=== PATIENT | male | born 1940 | race Caucasian/White ===

== ENCOUNTER 2023-03-24 08:17 | Outpatient (OUT) | payer MEDICARE, SELFPAY ==
[2023-03-24 08:48] LABS: Bilirubin Urine NEGATIVE (NEGATIVE); Blood Urine NEGATIVE (NEGATIVE); Clarity Urine CLEAR (CLEAR); Color Urine LT. YELLOW (YELLOW); Glucose Urine UA NEGATIVE (NEGATIVE); Ketones Urine NEGATIVE (NEGATIVE); Leukocyte Esterase Urine NEGATIVE (NEGATIVE); Nitrite Urine NEGATIVE (NEGATIVE); Protein Urine NEGATIVE (NEG/TRACE); Urobilinogen Urine 0.2 EU/dL (0.2-1.0)
[2023-03-24 08:54] LABS: Bacteria Urine NONE SEEN #/HPF (NONE SEEN); Cast Seen? NONE SEEN #/LPF (NONE SEEN); Crystals Seen? None Seen #/HPF (None Seen); Mucus Urine NONE SEEN (NONE SEEN); RBC Urine NONE SEEN #/HPF (0-2); Squamous Epithelial Cell Urine FEW #/LPF (NONE/RARE); Urine Culture Indicated NO; WBC Urine NONE SEEN #/HPF (NONE SEEN)
[2023-03-24 09:08] LABS: Creatinine Urine Random 95.32 mg/dL (20.00-300.00); Protein Creatinine Ratio Urine 0.07; Total Protein Urine Random 6.9 mg/dL (<=11.9)
[2023-03-24 09:13] LABS: Hematocrit 38.5 % (42.0-54.0); Hemoglobin 13.2 g/dL (14.0-18.0); Mean Corpuscular HGB Conc 34.3 g/dL (29.9-35.2); Mean Corpuscular Hemoglobin 29.6 pg (25.9-34.0); Mean Corpuscular Volume 86.3 fL (80.0-94.0); Mean Platelet Volume 9.6 fL (9.5-13.5); Platelet Count 299 10^3/uL (150-450); Red Blood Count 4.46 10^6/uL (4.70-6.10); Red Cell Distribution Width 13.1 % (11.0-15.0); White Blood Count 8.5 10^3/uL (4.0-11.0)
[2023-03-24 09:47] LABS: Anion Gap 14.9; BUN Creatinine Ratio 13.2; Calcium 8.7 mg/dL (8.5-10.1); Carbon Dioxide 24.5 mmol/L (21.0-32.0); Chloride 101 mmol/L (98-107); Estimated GFR (African America 35 (>=60); Estimated GFR (Non-African Ame 29 (>=60); Glucose 98 mg/dL (74-106); Magnesium 1.9 mg/dL (1.8-2.4); Percent Iron Saturation 31.6 %; Potassium 4.4 mmol/L (3.5-5.1); Sodium 136 mmol/L (136-145)
[2023-03-25 12:09] LABS: PTH, Intact 108 pg/mL (15-65)
== END 2023-03-24 08:18 | disposition home or self-care (01) ==
LOC: LAB 08:22
PROVIDERS: PCP Nurse Practitioner; Visit Provider Internal Medicine
DX: I12.9 Hypertensive chronic kidney disease with stage 1 through stage 4 chronic kidney disease, or unspecified chronic kidney disease (principal); N18.32 Chronic kidney disease, stage 3b; D63.1 Anemia in chronic kidney disease; N25.81 Secondary hyperparathyroidism of renal origin; M10.9 Gout, unspecified
CPT/HCPCS: 36415; 80069; 81001; 82306; 82570; 82728; 83540; 83550; 83735; 83970; 84156; 85027

== ENCOUNTER 2023-10-20 08:04 | Outpatient (OUT) | payer MEDICARE, SELFPAY ==
[2023-10-20 08:45] LABS: Basophils Percent Auto 0.5 % (0.2-2.0); Eosinophils Absolute Auto 0.5 10^3/uL (0.0-0.7); Eosinophils Percent Auto 5.5 % (0.9-7.0); Hematocrit 39.2 % (42.0-54.0); Hemoglobin 12.9 g/dL (14.0-18.0); Immature Granulocytes Abs Auto 0.05 10^3/uL (0.00-0.03); Immature Granulocytes Pct Auto 0.6 % (0.0-0.5); Lymphocytes Absolute Auto 1.6 10^3/uL (1.2-3.8); Lymphocytes Percent Auto 18.7 % (20.5-60.0); Mean Corpuscular HGB Conc 32.9 g/dL (29.9-35.2); Mean Corpuscular Hemoglobin 28.9 pg (25.9-34.0); Mean Corpuscular Volume 87.9 fL (80.0-94.0); Mean Platelet Volume 9.6 fL (9.5-13.5); Monocytes Absolute Auto 0.8 10^3/uL (0.3-0.8); Monocytes Percent Auto 9.3 % (1.7-12.0); Neutrophils Absolute Auto 5.7 10^3/uL (1.4-6.5); Neutrophils Percent Auto 65.4 % (43.0-75.0); Platelet Count 281 10^3/uL (150-450); Red Blood Count 4.46 10^6/uL (4.70-6.10); Red Cell Distribution Width 13.2 % (11.0-15.0); White Blood Count 8.7 10^3/uL (4.0-11.0)
[2023-10-20 09:08] LABS: Microalbum Creatinine Ratio Ur 13.1 mg/g (0.0-29.9); Microalbumin Urine Random <1.3 mg/dL (<=30.0)
[2023-10-20 09:08] LABS: Alanine Aminotransferase 25 U/L (16-63); Albumin Globulin Ratio 1.2; Albumin Level 3.8 g/dL (3.4-5.0); Alkaline Phosphatase 90 U/L (46-116); Anion Gap 17.2; Aspartate Amino Transferase 20 U/L (15-37); BUN Creatinine Ratio 12.9; Bilirubin Total 0.5 mg/dL (0.2-1.0); Calcium 8.5 mg/dL (8.5-10.1); Chloride 102 mmol/L (98-107); Chol HDL Ratio 4.5; Cholesterol 196 mg/dL (<=200); Estimated GFR (African America 36 (>=60); Estimated GFR (Non-African Ame 29 (>=60); Globulin 3.3 g/dL; Glucose 92 mg/dL (74-106); HDL Cholesterol 44 mg/dL (40-60); Potassium 4.2 mmol/L (3.5-5.1); Sodium 139 mmol/L (136-145); Total Protein 7.1 g/dL (6.4-8.2); Triglycerides 215 mg/dL (<=150)
[2023-10-20 09:26] LABS: Prostate Specific Antigen Dx 5.36 ng/mL (<=4.00)
== END 2023-10-20 08:05 | disposition home or self-care (01) ==
LOC: LAB 08:06
PROVIDERS: PCP Nurse Practitioner; Visit Provider Nurse Practitioner
DX: I12.9 Hypertensive chronic kidney disease with stage 1 through stage 4 chronic kidney disease, or unspecified chronic kidney disease (principal); N18.32 Chronic kidney disease, stage 3b; D63.1 Anemia in chronic kidney disease; N25.81 Secondary hyperparathyroidism of renal origin; M10.9 Gout, unspecified; Z12.5 Encounter for screening for malignant neoplasm of prostate; N18.4 Chronic kidney disease, stage 4 (severe); K21.9 Gastro-esophageal reflux disease without esophagitis; J44.9 Chronic obstructive pulmonary disease, unspecified; E78.2 Mixed hyperlipidemia
CPT/HCPCS: 36415; 80053; 80061; 81001; 82043; 82306; 82570; 82728; 83540; 83550; 83735; 83970; 84100; 84153; 84156; 84550; 85025

== ENCOUNTER 2023-10-20 08:09 | Outpatient (OUT) | payer MEDICARE, SELFPAY ==
[2023-10-20 08:51] LABS: Bilirubin Urine NEGATIVE (NEGATIVE); Blood Urine NEGATIVE (NEGATIVE); Clarity Urine CLEAR (CLEAR); Color Urine LT. YELLOW (YELLOW); Glucose Urine UA NEGATIVE (NEGATIVE); Ketones Urine NEGATIVE (NEGATIVE); Leukocyte Esterase Urine NEGATIVE (NEGATIVE); Nitrite Urine NEGATIVE (NEGATIVE); Protein Urine NEGATIVE (NEG/TRACE); Specific Gravity Urine 1.015 (1.005-1.025); Urobilinogen Urine 0.2 EU/dL (0.2-1.0); pH Urine 5.5 (5.0-9.0)
[2023-10-20 09:01] LABS: Protein Creatinine Ratio Urine 0.14; Total Protein Urine Random 13.3 mg/dL (<=11.9)
[2023-10-20 09:06] LABS: Percent Iron Saturation 31.4 %
[2023-10-20 09:06] LABS: Bacteria Urine NONE SEEN #/HPF (NONE SEEN); Cast Seen? NONE SEEN #/LPF (NONE SEEN); Crystals Seen? None Seen #/HPF (None Seen); Mucus Urine NONE SEEN (NONE SEEN); RBC Urine 0-2 #/HPF (0-2); Squamous Epithelial Cell Urine NONE SEEN #/LPF (NONE/RARE); WBC Urine 0-2 #/HPF (NONE SEEN)
[2023-10-20 09:08] LABS: Magnesium 2.1 mg/dL (1.8-2.4); Phosphorus 3.9 mg/dL (2.6-4.7); Uric Acid 8.4 mg/dL (3.5-7.2)
[2023-10-21 10:11] LABS: PTH, Intact 66 pg/mL (15-65)
== END 2023-10-20 08:10 | disposition home or self-care (01) ==
LOC: LAB 08:10
PROVIDERS: PCP Nurse Practitioner; Visit Provider Internal Medicine
DX: I12.9 Hypertensive chronic kidney disease with stage 1 through stage 4 chronic kidney disease, or unspecified chronic kidney disease (principal); N18.32 Chronic kidney disease, stage 3b; D63.1 Anemia in chronic kidney disease; N25.81 Secondary hyperparathyroidism of renal origin; M10.9 Gout, unspecified
CPT/HCPCS: 36415; 81001; 82570; 82728; 83540; 83550; 83735; 83970; 84100; 84156; 84550

== ENCOUNTER 2024-03-20 16:17 | Inpatient (IN) | payer MEDICARE, SELFPAY ==
[2024-03-20] VITALS (13 sets, daily range): BP systolic 125–166; BP diastolic 63–89; PULSE 75–90; TEMP 36.7–36.8; O2SAT 83–97; BMI 26.6; BMI 25.8
--- NOTE | 2024-03-20 16:28 | XR_ITS ---
The [address] [address] Patient Name: GUANAKO NORMAN MRN: [id number] date: 1940 Sex: M Assigned Patient Location: ED.MAIN Current Patient Location: ER Accession/Order Number: [id number] Exam Date: 03/20/2024 17:10 Report Date: 03/20/2024 17:55 At the request of: YESI ALEXANDER Procedure: XR chest 1V EXAM: XR chest 1V HISTORY: Shortness of breath COMPARISON: 02/11/2022 TECHNIQUE: Chest X-ray AP, 1 view FINDINGS: Support devices: None. Lungs/pleura: No consolidation, effusion, or pneumothorax. Heart and mediastinum: Normal contours. Bones: No acute abnormality identified. XR/XR chest 1V Impression: No radiographic evidence of acute cardiopulmonary process. Electronically authenticated by: DANTE CHAVEZ Date: 03/20/2024 17:55
--- NOTE | 2024-03-20 16:28 | ECG_ITS ---
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
--- NOTE | 2024-03-20 16:30 | ED.SOB1 ---
HPI - SOB/Dyspnea General Chief Complaint: Shortness of Breath/Dyspnea Stated Complaint: SOB Time Seen by Provider: 03/20/24 16:23 Mode of arrival: walk-in History of Present Illness HPI Narrative: Patient an 84-year-old male with a history of COPD who presents to the emergency department for evaluation of shortness of breath began this morning. He has home nebulizer treatments and states that he gave himself breathing treatments today but did not have any improvement. 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 He states this morning he woke up feeling very short of breath although he does not have chest pain, he reports tightness in the chest. No fevers, cough or congestion. He has not been on any recent antibiotics or steroids. He denies any peripheral edema, he quit smoking 6 to 7 years ago. Related Data Home Medications ?Medication ?Instructions ?Recorded ?Confirmed atenolol 25 mg tablet 25 mg PO Q24H 03/20/24 03/20/24 buspirone 10 mg tablet 10 mg PO TID PRN anxiety 03/20/24 03/20/24 citalopram 10 mg tablet 10 mg PO DAILY 03/20/24 03/20/24 famotidine 20 mg tablet 20 mg PO DAILY 03/20/24 03/20/24 furosemide 20 mg tablet 20 mg PO DAILY 03/20/24 03/20/24 ipratropium 0.5 mg-albuterol 3 mg 3 ml inhalation Q8H PRN shortness 03/20/24 03/20/24 (2.5 mg base)/3 mL nebulization of breath or wheezing soln losartan 25 mg tablet 25 mg PO DAILY 03/20/24 03/20/24 pravastatin 80 mg tablet 80 mg PO DAILY 03/20/24 03/20/24 Allergies Allergy/AdvReac Type Severity Reaction Status Date / Time No Known Drug Allergies Allergy Verified 03/20/24 16:32 Review of Systems ROS Constitutional Denies: fever or chills Ears, nose, mouth, and throat Denies: throat pain or nasal congestion Cardiovascular Denies: chest pain Respiratory Reports: shortness of breath; Denies: cough or wheezing Gastrointestinal Denies: abdominal pain, nausea or vomiting Musculoskeletal Denies: back pain or neck pain Integumentary/Breast Denies: rash Neurological Denies: numbness in extremities or weakness in extremities Hematologic/Lymphatic Denies: easy bruising or easy bleeding Exam Narrative Exam Narrative: Gen.: Awake, alert, in no distress Head: Normocephalic, atraumatic ENT: Moist mucous membranes Respiratory: No respiratory distress, tachypnea, diminished lung sounds globally, no wheezing Cardio: Regular rate and rhythm Gastrointestinal: Abdomen is soft, nondistended and nontender to palpation Extremities: Moves extremities equally, 1+ nonpitting pedal edema Psych: Normal mood and affect Neuro: No focal neuro deficit Skin: Warm, dry, intact Constitutional Vital Signs, click to edit/add: Last Vital Signs Temp 98.1 F 03/20/24 16:26 Pulse 82 03/20/24 17:00 Resp 23 H 03/20/24 17:00 BP 144/82 H 03/20/24 17:00 Pulse Ox 95 03/20/24 17:00 O2 Del Method Nasal Cannula 03/20/24 16:58 O2 Flow Rate 3.5 03/20/24 16:58 Course Vital Signs Vital signs: Vital Signs Temperature 98.1 F 03/20/24 16:26 Pulse Rate 90 03/20/24 16:26 Respiratory Rate 26 H 03/20/24 16:26 Blood Pressure 166/78 H 03/20/24 16:26 Pulse Oximetry 85 L 03/20/24 16:26 Oxygen Delivery Method Room Air 03/20/24 16:26 Temperature 98.1 F 03/20/24 16:26 Pulse Rate 82 03/20/24 17:00 Respiratory Rate 23 H 03/20/24 17:00 Blood Pressure 144/82 H 03/20/24 17:00 Pulse Oximetry 95 03/20/24 17:00 Oxygen Delivery Method Nasal Cannula 03/20/24 16:58 Oxygen Delivery Flow Rate 3.5 03/20/24 16:58 MDM - SOB/Dyspnea MDM Narrative Medical decision making narrative: Laboratory studies reviewed and noted within normal limits, chest x-ray reviewed by the radiologist with no evidence of acute process. On arrival to the emergency department, patient was hypoxic and very winded. He was placed on oxygen by 2 L nasal cannula with significant improvement. He was given breathing treatments, Solu-Medrol. On reevaluation, he was taken off of the nasal cannula and maintained oxygen saturation at rest but on ambulation without oxygen, he quickly became hypoxic and very winded. Patient will be admitted for COPD exacerbation for continued breathing treatments and steroids. Azithromycin and Rocephin given for antibiotic coverage at time of admission to hospitalist service. SUPERVISED APC VISIT, PHYSICIAN ATTESTATION: Based on the medical record the care appears appropriate. ? Medical Records Attestation: I reviewed the patient's medical records. Lab Data Attestation: I reviewed the patient's lab results. Labs: Lab Results 03/20/24 Range/Units 16:45 WBC 16.9 H (4.0-11.0) 10^3/uL RBC 4.48 L (4.70-6.10) 10^6/uL Hgb 13.0 L (14.0-18.0) g/dL Hct 38.6 L (42.0-54.0) % MCV 86.2 (80.0-94.0) fL MCH 29.0 (25.9-34.0) pg MCHC 33.7 (29.9-35.2) g/dL RDW 13.1 (11.0-15.0) % Plt Count 303 (150-450) 10^3/uL MPV 9.5 (9.5-13.5) fL Neut % (Auto) 85.8 H (43.0-75.0) % Lymph % (Auto) 7.2 L (20.5-60.0) % [place] % (Auto) 5.7 (1.7-12.0) % Eos % (Auto) 0.8 L (0.9-7.0) % Baso % (Auto) 0.2 (0.2-2.0) % Neut # (Auto) 14.5 H (1.4-6.5) 10^3/uL Lymph # (Auto) 1.2 (1.2-3.8) 10^3/uL [place] # (Auto) 1.0 H (0.3-0.8) 10^3/uL Eos # (Auto) 0.1 (0.0-0.7) 10^3/uL Baso # (Auto) 0.0 (0.0-0.1) 10^3/uL Abs Immat Gran (auto) 0.05 H (0.00-0.03) 10^3/uL Imm/Tot Granulo (auto) 0.3 (0.0-0.5) % PT 10.8 (9.0-11.6) sec INR 1.02 VBG pH 7.437 H (7.330-7.430) VBG pCO2 32.3 L (40.0-52.0) mmHg Sodium 134 L (136-145) mmol/L Potassium 4.1 (3.5-5.1) mmol/L Chloride 100 (98-107) mmol/L Carbon Dioxide 23.1 (21.0-32.0) mmol/L Anion Gap 15.0 BUN 34.0 H (7.0-18.0) mg/dL Creatinine 2.03 H (0.70-1.30) mg/dL Est GFR ( Amer) 38 L (>=60) Est GFR (Non-Af Amer) 32 L (>=60) BUN/Creatinine Ratio 16.7 Glucose 122 H (74-106) mg/dL Lactate 1.3 (0.4-2.0) mmol/L Calcium 9.3 (8.5-10.1) mg/dL Magnesium 1.9 (1.8-2.4) mg/dL Total Bilirubin 0.6 (0.2-1.0) mg/dL AST 18 (15-37) U/L ALT 23 (16-63) U/L Alkaline Phosphatase 99 (46-116) U/L Troponin I High Sens 12.2 (4.0-76.1) pg/mL NT-Pro-B Natriuret Pep 575.0 (<=1800.0) pg/mL Total Protein 7.4 (6.4-8.2) g/dL Albumin 4.1 (3.4-5.0) g/dL Globulin 3.3 g/dL Albumin/Globulin Ratio 1.2 Imaging Data Chest x-ray: Attestation: I have reviewed the pertinent imaging results. Radiologist's impression: ITS Impressions Chest X-Ray 03/20/24 16:28 Impression: No radiographic evidence of acute cardiopulmonary process. Electronically authenticated by: DANTE CHAVEZ Date: 03/20/2024 17:55 ECG Data Attestation: I personally reviewed and interpreted this ECG as follows: (Normal sinus rhythm at a rate of 84, no acute ST elevation or ectopy. EKG reviewed by attending physician) Discharge Plan Discharge Chief Complaint: Shortness of Breath/Dyspnea Clinical Impression: COPD exacerbation Patient Disposition: Admitted as Observation Time of Disposition Decision: 18:01 Condition: Good
--- OUTSIDE RECORDS SUMMARY | 2024-03-20 16:51 | XMS_ITS | CCD ---
Author Organization [facility] Care Team Providers Care Tongue And Groove Machine Feeder Name Role Phone Mariam, Praveen Unavailable AICHHOLZ, CAN MARKER ANTOINETTE Admitting Unavailable AICHHOLZ, CAN MARKER ANTOINETTE Attending Unavailable AICHHOLZ, CAN MARKER ANTOINETTE Primary Care Unavailable AICHHOLZ, CAN MARKER ANTOINETTE Consulting Unavailable AICHHOLZ, CAN MARKER ANTOINETTE Admitting Unavailable AICHHOLZ, CAN MARKER ANTOINETTE Attending Unavailable AICHHOLZ, CAN MARKER ANTOINETTE Primary Care Unavailable WEDGEFIELD, DR BUBBA Amaya Consulting Unavailable AICHHOLZ, CAN MARKER ANTOINETTE Consulting Unavailable AICHHOLZ, CAN MARKER ANTOINETTE Admitting Unavailable AICHHOLZ, CAN MARKER ANTOINETTE Attending Unavailable AICHHOLZ, CAN MARKER ANTOINETTE Primary Care Unavailable AICHHOLZ, CAN MARKER ANTOINETTE Consulting Unavailable UDAY, ADELINE Admitting Unavailable UDAY, ADELINE Attending Unavailable AICHHOLZ, CAN MARKER ANTOINETTE Primary Care Unavailable WEDGEFIELD, DR BUBBA Amaya Consulting Unavailable UDAY, ADELINE Consulting Unavailable ABBAS, DR SY Admitting Unavailable ABBAS, DR SY Attending Unavailable AICHHOLZ, CAN MARKER ANTOINETTE Primary Care Unavailable ABBAS, DR SY Consulting Unavailable ZIEBER, DR MAURO Barnes Consulting Unavailable ABBAS, DR SY Admitting Unavailable ABBAS, DR SY Attending Unavailable AICHHOLZ, CAN MARKER ANTOINETTE Primary Care Unavailable ABBAS, DR SY Consulting Unavailable MARIAM, PRAVEEN Admitting Unavailable MARIAM, PRAVEEN Attending Unavailable AICHHOLZ, CAN MARKER ANTOINETTE Primary Care Unavailable MARIAM, PRAVEEN Consulting Unavailable AICHHOLZ, CAN MARKER ANTOINETTE Admitting Unavailable AICHHOLZ, CAN MARKER ANTOINETTE Attending Unavailable AICHHOLZ, CAN MARKER ANTOINETTE Primary Care Unavailable WEST, DR BUBBA Amaya Consulting Unavailable AICHHOLZ, CAN MARKER ANTOINETTE Consulting Unavailable MARIAM, PRAVEEN Admitting Unavailable MARIAM, PRAVEEN Attending Unavailable AICHHOLZ, CAN MARKER ANTOINETTE Primary Care Unavailable MARIAM, PRAVEEN Consulting Unavailable Naderer MD, Wallace Primary Care Provider [phone] ANTOINETTE CARRILLO Attending Unavailable Allergies Allergy Classification Reported Allergen(s) Allergy Type Date of Onset Reaction(s) Facility (1 source) Amino Acids Drug Allergy [facility] Repository Medications Current Medications Medication Drug Class(es) Dates Sig (Normalized) Sig (Original) 200 actuat albuterol 0.09 mg/actuat dry powder inhaler (1 source) beta2-Adrenergic Agonist Start: 10-30-2023 Albuterol Sulfate Active 2 INH INHALATION Every 4 hours October 30, 2023 12:00am albuterol 0.833 mg/ml / ipratropium bromide 0.167 mg/ml inhalation solution (3 sources) Anticholinergic, beta2-Adrenergic Agonist Start: 10-30-2023 take 1 mL by inhalation every six hours Ipratropium-Albut cheng Active 3 ML INHALATION Every 6 hours October 30, 2023 12:00am Start: 08-14-2023 ipratropium-al buterol (Duo-Neb) 0.5-2.5 mg/3 mL nebulizer solution Indications: Centrilobular emphysema (CMS/HCC) 1 unit dose every 6 hours prn shortness of breath or wheezing 180 mL 1 08/14/2023 Active take 3 mL by inhalat ion every six hours as needed Ipratropium-Albuterol 0.5-2.5 (3) MG/3ML 3 ml as needed Inhalation every 6 hrs Active Albuterol Sulfate 108 (90 Base) MCG/ACT (1 source) take 2 puff(s) by inhalation every four hours as needed Albuterol Sulfate 108 (90 Base) MCG/ACT 2 puff as needed Inhalation every 4 hrs Active atenolol 25 mg oral tablet (2 sources) beta-Adrenergic Gisela Start: 10-30-2023 take 25 mg by mouth once daily Atenolol Active 25 MG PO Daily October 30, 2023 12:00am take 1 tablet by kavita th every twenty-four hours Atenolol 25 MG 1 tablet Orally Once a day Active busPIRone hydrochloride 10 mg oral tablet (2 sources) Start: 10-30-2023 take 10 mg by mouth three times daily Buspirone Active 10 MG PO Three times daily October 30, 2023 12:00am take 1 tablet by mouth every eig ht hours busPIRone HCl 10 MG 1 tablet Orally THREE TIMES A DAY Active citalopram 10 mg oral tablet (2 sources) Serotonin Reuptake Inhibitor Start: 10-30-2023 take 1 tablet by mouth once daily Citalopram Active 1 TAB PO Daily October 30, 2023 12:00am FreeTextSi tablet Orally Once a day; Note: Source Status: Taking; Provider: Mariam Morton ( ) take 1 tablet by kavita th every twenty-four hours Citalopram Hydrobromide 10 MG 1 tablet Orally Once a day Active furosemide 20 mg oral tablet (3 sources) Loop Diuretic Start: 10-24-2023 End: 10-24-2023 take 20 mg by mouth once daily Furosemide Active 20 MG PO Daily October 24, 2023 10:25am take 1 tablet by mouth once diana y losartan potassium 50 mg oral tablet (3 sources) Angiotensin 2 Receptor Gisela Start: 10-30-2023 take 50 mg by mouth once daily Losartan Active 50 MG PO Daily October 30, 2023 12:00am Start: 09-11-2023 End: 12-10-2023 take 1 tablet by mouth in the morning losartan (Cozaar) 25 MG tablet Indications: Essential (primary) hypertension (CMS/HCC) , Benign essential hypertension (CMS/HCC) Take 1 tablet (25 mg) by mouth in the morning. 90 tablet 1 09/11/2023 12/10/2023 Active take 1 tablet by kavita th every twenty-four hours Losartan Potassium 50 MG 1 tablet Orally Once a day Active Multi For Him 50+ - (1 source) Multi For Him 50 + - as directed Orally Active Multivitamin (Multiple Vitamins) tablet (1 source) Start: take 1 tablet by mouth once daily Multivitamin (Multiple Vitamins) tablet Active 1 TAB PO Daily October 30, 2023 12:00am pravastatin sodium 80 mg oral tablet (3 sources) HMG-CoA Reductase Inhibitor Start: End: 4 take 80 mg by mouth once daily Pravastatin Active 80 MG PO Daily October 30, 2023 10:50am take 1 tablet by kavita th every twenty-four hours Pravastatin Sodium 80 MG 1 tablet Orally Once a day Active Problems Active Problems Problem Classification Problem Date Documented Date Episodic/Chronic Anxiety disorders (4 sources) Anxiety disorder, unspecified; Translations: [ANXIETY DISORDER UNSPECIFIED] Onset: 2 Chronic Chronic kidney disease (5 sources) Chronic kidney disease stage 4; Translations: [Chronic kidney disease, stage 4 (severe)] Onset: 2 10-30-2023 Chronic Chronic kidney disease (3 sources) Chronic kidney disease; Translations: [Chronic kidney disease, stage 3b] Onset: 2 Resolved: 2 Chronic obstructive pulmonary disease and bronchiectasis (2 sources) Chronic obstructive pulmonary disease, unspecified; Translations: [Centriacinar emphysema] Onset: 2 07-30-2023 Chronic Deficiency and other anemia (2 sources) Anemia of renal disease; Translations: [Anemia in chronic kidney disease] 10-30-2023 Chronic Deficiency and other anemia (2 sources) Anemia in chronic kidney disease; Translations: [ANEMIA IN CHRONIC KIDNEY DISEASE] Onset: 2 Resolved: 2 Chronic Disorders of lipid metabolism (7 sources) Hyperlipidemia, unspecified; Translations: [Pure hypercholesterolemia, unspecified] Onset: 2 Chronic Esophageal disorders (1 source) Gastro-esophageal reflux disease without esophagitis; Translations: [GERD WITHOUT ESOPHAGITIS] Onset: 2 Chronic Essential hypertension (4 sources) Essential hypertension; Translations: [Essential (primary) hypertension] Onset: 4 09-11-2023 Chronic Gout and other crystal arthropathies (5 sources) Gout; Translations: [Gout, unspecified] Onset: 2 Resolved: 2 Chronic Hypertension with complications and secondary hypertension (9 sources) Chronic kidney disease due to hypertension; Translations: [Hypertensive chronic kidney disease with stage 1 through stage 4 chronic kidney disease, or unspecified chronic kidney disease] Onset: 2 Resolved: 2 Chronic Occlusion or stenosis of precerebral arteries (1 source) Occlusion and stenosis of left carotid artery; Translations: [OCCLUSION AND STENOSIS LT CAROTID ART] Onset: 3 Chronic Other connective tissue disease (4 sources) Pain in right leg; Translations: [PAIN IN RIGHT LEG] Onset: 3 Episodic Other connective tissue disease (1 source) Pain in left leg; Translations: [PAIN IN LEFT LEG] Onset: 3 Episodic Other diseases of bladder and urethra (1 source) Mass of urinary bladder; Translations: [Other specified disorders of bladder] Chronic Other diseases of kidney and ureters (2 sources) Secondary hyperparathyroidism; Translations: [Secondary hyperparathyroidism of renal origin] 10-30-2023 Chronic Other diseases of kidney and ureters (3 sources) Secondary hyperparathyroidism of renal origin; Translations: [Secondary hyperparathyroidism (of renal origin)] Onset: 2 Resolved: 2 Chronic Other diseases of kidney and ureters (4 sources) Disorder of kidney and ureter, unspecified; Translations: [DISORDER KIDNEY AND URETER UNS] Onset: 3 Episodic Other lower respiratory disease (1 source) Other abnormalities of breathing; Translations: [OTHER ABNORMALITIES OF BREATHING] Onset: 3 Episodic Other screening for suspected conditions (not mental disorders or infectious disease) (4 sources) Abnormal findings on diagnostic imaging of other specified body structures; Translations: [ABNORML FIND DX IMG OT BODY STRUC] Onset: 2 Chronic Other screening for suspected conditions (not mental disorders or infectious disease) (1 source) Encounter for screening for malignant neoplasm of prostate; Translations: [ENC SCREEN MALIG NEOPLASM PROSTATE] Onset: 3 Episodic Peripheral and visceral atherosclerosis (5 sources) Peripheral vascular disease, unspecified; Translations: [PERIPHERAL VASCULAR DISEASE UNS] Onset: 3 Chronic Past or Other Problems Problem Classification Problem Date Documented Da te Episodic/Chronic Acute and unspecified renal failure (1 source) Acute kidney failure, unspecified; Translations: [ACUTE KIDNEY FAILURE UNSPECIFIED] Onset: 01-10-2022 Episodic Other aftercare (1 source) prison (current) use of aspirin; Translations: [UNIVERSITY RELATIONS DIRECTOR CURRENT USE OF ASPIRIN] Onset: 01-10-2022 Episodic Other aftercare (1 source) Other assistant terminal manager (current) drug therapy; Translations: [OTH [facility] CURRENT DRUG THERAPY] Onset: 01-10-2022 Episodic Other lower respiratory disease (1 source) Dyspnea, unspecified; Translations: [DYSPNEA UNSPECIFIED] Onset: 01-10-2022 Episodic Screening and history of mental health and substance abuse codes (1 source) Personal history of nicotine dependence; Translations: [PERSONAL HISTORY OF NICOTINE DEPEND] Onset: 01-10-2022 Episodic Results Test Name Value Interpretation Reference Range Radha OROon 10-24-2022 Urea nitrogen [Mass/Vol] 30.0 mg/dL Critically high 7.0-18.0 [facility] Comment on above: Performed By: #### B HOME SERVICE TECHNICIAN, CMP, CMADM, TSH #### [facility] [address] [address] [address] Aliayh Fierro CREATININEon 10-24-2022 Creatinine [Mass/Vol] 1.97 mg/dL Critically high 0.70-1.30 [facility] Comment on above: Performed By: #### B HOME SERVICE TECHNICIAN, CMP, CMADM, TSH #### [facility] [address] [address] [address] Aliyah Fierro EGFR-AF MONGOLIAN 40 mL/min/1.73m2 Critically low >=60 [facility] Comment on above: Performed By: #### B HOME SERVICE TECHNICIAN, CMP, CMADM, TSH #### [facility] [address] [address] [address] Aliyah Fierro EGFR-NON AF MONGOLIAN 33 mL/min/1.73m2 Critically low >=60 [facility] Comment on above: Performed By: #### B HOME SERVICE TECHNICIAN, CMP, CMADM, TSH #### [facility] [address] [address] [address] Aliyah Fierro CREATININEon 10-21-2022 Creatinine [Mass/Vol] 2.10 mg/dL Critically high 0.70-1.30 [facility] Comment on above: Performed By: #### B HOME SERVICE TECHNICIAN, CMP, CMADM, TSH #### [facility] [address] [address] [address] Aliyah Fierro EGFR-AF MONGOLIAN 37 mL/min/1.73m2 Critically low >=60 [facility] Comment on above: Performed By: #### B HOME SERVICE TECHNICIAN, CMP, CMADM, TSH #### [facility] [address] [address] [address] Aliyah Fierro EGFR-NON AF MONGOLIAN 31 mL/min/1.73m2 Critically low >=60 [facility] Comment on above: Performed By: #### B HOME SERVICE TECHNICIAN, CMP, CMADM, TSH #### [facility] [address] [address] [address] Aliyah Fierro CTA ABD JESS WWO CON LE RUNO FFon 10-21-2022 CTA ABD JESS WWO CON LE RUNOFF EXAMINATION: CTA ABD JESS WWO CON LE RUNOFF HISTORY: Pain in left leg COMPARISON: No relevant comparison available. TECHNIQUE: After obtaining the patient's consent, CT images of the abdomen, pelvis, and lower extremities were obtained with non-ionic intravenous contrast material. Multi-planar reformatted/3-D images were created to optimize visualization of vascular anatomy. Dose reduction techniques were achieved by using automated exposure control and/or adjustment of mA and/or kV according to patient size and/or use of iterative reconstruction technique. FINDINGS: AORTA: No aneurysm or dissection. Normal renal and mesenteric vessels. ILIAC: No aneurysm or dissection. RIGHT LEG: No significant stenosis or occlusion. LEFT LEG: No significant stenosis or occlusion. LUNG BASES: Mild chronic interstitial changes and a few calcified granulomas. LIVER: No enlargement, atrophy, abnormal density, or significant focal lesion. BILIARY: No visible dilatation or calcification. PANCREAS: No lesion, fluid collection, ductal dilatation, or atrophy. SPLEEN: No enlargement or focal lesion. ADRENALS: No mass or enlargement. KIDNEYS: No mass, obstruction, or calcification. BOWEL/MESENTERY: Prior resection of ascending colon with small bowel-hepatic flexure anastomosis. No visible mass, obstruction, or bowel wall thickening. RETROPERITONEUM: No mass or adenopathy. PELVIC NODES: No adenopathy. URINARY BLADDER: No visible focal wall thickening, lesion, or calculus. PELVIC ORGANS: No visible mass. Pelvic organs appropriate for patient age. ABDOMINAL WALL: Small fat filled left inguinal hernia without strangulation. BONES: L4-L5 marked degenerative disc disease. Moderate degenerative changes of the knee joints, left greater than right. No bony lesion or fracture. OTHER: IMPRESSION: 1. Mild atherosclerotic disease throughout the aorta, major branches, bilateral lower extremities. Multifocal mild arterial narrowing with specific attention to the lower extremities. No suspicious findings. Electronically authenticated by: MAURO WEBSTER Date: 2022-10-21 15:35 Normal [facility] US CAROTID ART BILon 10-21-2 023 US CAROTID ART ZOILA EXAMINATION: US CAROTID ART ZOILA HISTORY: Cardiovascular symptoms COMPARISON: No relevant comparison available. TECHNIQUE: Duplex Doppler ultrasound analysis of carotid and vertebral arteries. . Bilateral carotid arterial duplex examination was performed using B-mode, color flow and spectral analysis. Carotid stenosis is reported according to validated velocity parameters, similar to NASCET criteria. FINDINGS: RIGHT CAROTID ARTERY: Moderate atherosclerotic narrowing of carotid bulb resulting in up to 74% area reduction. RIGHT VERTEBRAL: Antegrade flow. Subclavian: PSV: 76.8 cm/s EDV: 5.3 cm/s CCA: Prox: PSV: 78.1 cm/s EDV: 14.2 cm/s Mid: PSV: 84.6 cm/s EDV: 16.8 cm/s Distal: PSV: 71.6 cm/s EDV: 16.8 cm/s BULB: PSV: 45.3 cm/s EDV: 9.5 cm/s ICA: Prox: PSV: 82.7 cm/s EDV: 21.9 cm/s Mid: PSV: 80.1 cm/s EDV: 23.2 cm/s Distal: PSV: 80.1 cm/s EDV: 29.6 cm/s ECA: PSV: 80.1 cm/s EDV: 10.2 cm/s VERTEBRAL: PSV: 44.4 cm/s EDV: 11.3 cm/s ICA/CCA ratio: PSV: 1.2 EDV: 1.3 LEFT CAROTID ARTERY: Moderate atherosclerotic narrowing of carotid bulb resulting in up to 71% area reduction. LEFT VERTEBRAL: Antegrade flow. Subclavian: PSV: 121.0 cm/s EDV: 8.2 cm/s CCA: Prox: PSV: 89.2 cm/s EDV: 18.0 cm/s Mid: PSV: 64.5 cm/s EDV: 10.4 cm/s Distal: PSV: 51.4 cm/s EDV: 11.3 cm/s BULB: PSV: 51.4 cm/s EDV: 9.5 cm/s ICA: Prox: PSV: 56.4 cm/s EDV: 17.1 cm/s Mid: PSV: 84.9 cm/s EDV: 22.8 cm/s Distal: PSV: 72.0 cm/s EDV: 22.8 cm/s ECA: PSV: 77.5 cm/s EDV: 0.0 cm/s VERTEBRAL: PSV: 47.8 cm/s EDV: 12.8 cm/s ICA/CCA ratio: PSV: 1.7 EDV: 2.0 IMPRESSION: 1. Moderate atherosclerotic narrowing of the carotid bulbs; 74% area reduction on right, 71% on left. 2. 0-49% flow stenosis. Electronically authenticated by: MAURO WEBSTER Date: 2022-10-21 15:38 Normal [facility] LIPID PROFILEon 10-09-2022 CHOL-HDL RATIO NORM SEE BELOW Normal [facility] Comment on above: Result Comment: 3.3 - 4.4 LOW RISK 4.4 - 7.1 AVERAGE RISK 7.1 - 11.0 MODERATE RISK >11.0 HIGH RISK Performed By: #### L IVER, LIPID #### [facility] [address] [address] [address] Aliyah Fierro Cholesterol [Mass/Vol] 190 mg/dL Normal <=200 [facility] Comment on above: Performed By: #### L IVER, LIPID #### [facility] [address] [address] [address] Aliyah Fierro Cholesterol in HDL [Mass/Vol] 40 mg/dL Normal 40-60 [facility] Comment on above: Performed By: #### L IVER, LIPID #### [facility] [address] [address] [address] Aliyah Fierro Cholesterol in LDL [Mass/Vol] 108.4 mg/dL Normal [facility] Comment on above: Performed By: #### L IVER, LIPID #### [facility] [address] [address] [address] Aliyah Fierro Cholesterol.total/C holesterol in HDL [Mass ratio] 4.8 {ratio} Normal [facility] Comment on above: Performed By: #### L IVER, LIPID #### [facility] [address] [address] [address] Aliyah Fierro HDL NORMAL > or = 60 mg/dl - LO W CARDIOVASCULAR RISK <40 mg/dl - HIGH CARDIOVASCULAR RISK Normal [facility] Comment on above: Performed By: #### L IVER, LIPID #### [facility] [address] [address] [address] Aliyah Fierro LDL CALC NORMAL SEE BELOW Normal [facility] Comment on above: Result Comment: <100 mg/dl OPTIMAL 100 - 129 mg/dl NEAR OR ABOVE OPTIMAL 130 - 159 mg/dl BORDERLINE HIGH 160 - 189 mg/dl HIGH >190 mg/dl VERY HIGH Performed By: #### L IVER, LIPID #### [facility] [address] [address] [address] Aliyah Fierro Triglyceride [Mass/Vol] 208 mg/dL Critically high <=150 [facility] Comment on above: Performed By: #### L IVER, LIPID #### [facility] [address] [place] [address] Dr. Aliyah Fierro VLDL CALC 41.6 mg/dL Normal [facility] Comment on above: Performed By: #### L IVER, LIPID #### [facility] [address] [address] [address] Aliyah Fierro LIVER PROFILEon 10-09-2022 Albumin [Mass/Vol] 4.0 g/dL Normal 3.4-5.[address] [facility] Comment on above: Performed By: #### L IVMILLY, LIPID #### [facility] [address] [address] [address] Aliyah Fierro Albumin/Globulin [Mass ratio] 1.4 {ratio} Normal [facility] Comment on above: Performed By: #### L IVER, LIPID #### [facility] [address] [address] [address] Aliyah Fierro ALP [Catalytic activity/Vol] 80 U/L Normal 46-116 [facility] Comment on above: Performed By: #### L IVER, LIPID #### [facility] [address] [address] [address] Aliyah Fierro ALT [Catalytic activity/Vol] 25 U/L Normal 16-63 [facility] Comment on above: Performed By: #### L IVER, LIPID #### [facility] [address] [address] [address] Aliyah Fierro AST [Catalytic activity/Vol] 22 U/L Normal 15-37 [facility] Comment on above: Performed By: #### L IVER, LIPID #### [facility] [address] [address] [address] Aliyah Fierro BILI, CONJUGATED 0.1 mg/dL Normal 0.0-0.[address] [facility] Comment on above: Performed By: #### L IVER, LIPID #### [facility] [address] [address] [address] Aliyah Fierro Bilirubin [Mass/Vol] 0.4 mg/dL Normal 0.2-1.0 [facility] Comment on above: Performed By: #### L IVER, LIPID #### [facility] [address] [place] [address] Dr. Aliyah Fierro Globulin (S) [Mass/Vol] 2.8 g/dL Normal [facility] Comment on above: Performed By: #### L IVER, LIPID #### [facility] [address] [place] [address] Dr. Aliyah Fierro Protein [Mass/Vol] 6.8 g/dL Normal 6.4-8.[address] [facility] Comment on above: Performed By: #### L IVER, LIPID #### [facility] [address] [place] [address] Dr. Aliyah Fierro US ARTERY LEG BILon 09-13-19 23 US ARTERY LEG ZOILA EXAMINATION: US ARTERY LEG ZIOLA HISTORY: Peripheral vascular disease (disorder) COMPARISON: No relevant comparison available. TECHNIQUE: Color duplex Doppler ultrasound evaluation analysis was performed in the usual manner. FINDINGS: RIGHT LOWER EXTREMITY ARTERIAL Mild atherosclerotic plaque. Triphasic waveforms proximally. Biphasic waveform in the runoff arteries External Iliac PSV: 140.0 cm/s External Iliac EDV: 12.2 cm/s Common Femoral PSV: 139.9 cm/s Common Femoral EDV: 5.2 cm/s Superficial Femoral Proximal PSV: 109.7 cm/s Proximal EDV: 0.0 cm/s Mid PSV: 130.5 cm/s Mid EDV: 0.0 cm/s Distal PSV: 167.9 cm/s Distal EDV: 0.0 cm/s Popliteal Proximal PSV: 122.3 cm/s Popliteal Proximal EDV: 0.0 cm/s Posterior Tibial Proximal PSV: 46.7 cm/s Proximal EDV: 0.0 cm/s Mid PSV: 64.5 cm/s Mid EDV: 0.0 cm/s Distal PSV: 66.1 cm/s Distal EDV: 0.0 cm/s Anterior Tibial Proximal PSV: 69.3 cm/s Proximal EDV: 0.0 cm/s Mid PSV: 64.4 cm/s Mid EDV: 0.0 cm/s Distal PSV: 61.2 cm/s Distal EDV: 0.0 cm/s LEFT LOWER EXTREMITY ARTERIAL Mild atherosclerotic plaque. Triphasic waveforms proximally. Biphasic waveform in the runoff arteries External Iliac PSV: 164.1 cm/s External Iliac EDV: 22.0 cm/s Common Femoral PSV: 119.3 cm/s Common Femoral EDV: 0.0 cm/s Superficial Femoral Proximal PSV: 129.9 cm/s Proximal EDV: 13.6 cm/s Mid PSV: 112.1 cm/s Mid EDV: 0.0 cm/s Distal PSV: 121.8 cm/s Distal EDV: 0.0 cm/s Popliteal Proximal PSV: Popliteal Proximal EDV: Posterior Tibial Proximal PSV: 53.3 cm/s Proximal EDV: 9.3 cm/s Mid PSV: 71.2 cm/s Mid EDV: 8.3 cm/s Distal PSV: 65.3 cm/s Distal EDV: Anterior Tibial Proximal PSV: 52.0 cm/s Proximal EDV: 4.1 cm/s Mid PSV: 33.9 cm/s Mid EDV: 0.0 cm/s Distal PSV: 54.6 cm/s Distal EDV: 0.0 cm/s IMPRESSION: Mild ischemic biphasic waveform in the bilateral runoff arteries Electronically authenticated by: BUBBA BASURTO Date: 2022-09-13 06:13 Normal [facility] PTH INTACTon 08-27-2022 PTH, Intact 63 pg/mL Normal - [facility] Comment on above: Performed By: #### L IVER, LIPID #### [facility] [address] [place] [address] Dr. Aliyah Fierro FERRITINon 08-26-2022 Ferritin [Mass/Vol] 200.0 ng/mL Normal 26.0-388.0 [facility] Comment on above: Performed By: #### L ADRIAN LIPID #### [facility] [address] [place] [address] Dr. Aliyah Fierro HEMOGRAM AND PLATELon 2022 Hematocrit (Bld) [Volume fraction] 36.1 % Critically low 42.0-54.0 [facility] Comment on above: Performed By: #### H H #### [facility] [address] [place] [address] Dr. Aliyah Fierro Hemoglobin (Bld) [Mass/Vol] 12.9 g/dL Critically low 14.0-18.0 [facility] Comment on above: Performed By: #### H H #### [facility] [address] [place] [address] Dr. Aliyah Fierro MCH (RBC) [Entitic mass] 28.9 pg Normal 25.9-34.0 [facility] Comment on above: Performed By: #### H H #### [facility] [address] [place] [address] Dr. Aliyah Fierro MCHC (RBC) [Mass/Vol] 35.7 g/dL Critically high 29.9-35.2 [facility] Comment on above: Performed By: #### H H #### [facility] [address] [place] [address] Dr. Aliyah Fierro MCV (RBC) [Entitic vol] 80.8 fL Normal 80.0-94.0 [facility] Comment on above: Performed By: #### H H #### [facility] [address] [place] [address] Dr. Aliyah Fierro PLT 285 103/ul Normal 150-450 [facility] Comment on above: Performed By: #### H H #### [facility] [address] [place] [address] Dr. Aliyah Fierro RBC 4.47 106/ul Critically low 4.70-6.10 [facility] Comment on above: Performed By: #### H H #### [facility] [address] [place] [address] Dr. Aliyah Fierro WBC 7.6 103/ul Normal 4.0-11.0 [facility] Comment on above: Performed By: #### H H #### [facility] [address] [place] [address] Dr. Aliyah Fierro IRON AND TIBCon 08-26-2022 % SATURATION 34.5 % Normal [facility] Comment on above: Performed By: #### L ADRIAN LIPID #### [facility] [address] [place] [address] Dr. Aliyah Fierro Iron [Mass/Vol] 98.0 ug/dL Normal 65.0-175.0 [facility] Comment on above: Performed By: #### L ADRIAN LIPID #### [facility] [address] [place] [address] Dr. Aliyah Fierro TIBC DIRECT 284.0 ug/dL Normal 250.0-450.0 [facility] Comment on above: Performed By: #### L ADRIAN LIPID #### [facility] [address] [place] [address] Dr. Aliyah Fierro MAGNESIUMon 08-26-2022 Magnesium [Mass/Vol] 1.8 mg/dL Normal 1.8-2.4 [facility] Comment on above: Performed By: #### B HOME SERVICE TECHNICIAN, CMP, CMADM, TSH #### [facility] [address] [place] [address] Dr. Aliyah Fierro RENAL FUNCTION PANELon 08-26 Albumin [Mass/Vol] 3.9 g/dL Normal 3.4-5.0 [facility] Comment on above: Performed By: #### B HOME SERVICE TECHNICIAN, CMP, CMADM, TSH #### [facility] [address] [place] [address] Dr. Aliyah Fierro Calcium [Mass/Vol] 8.6 mg/dL Normal 8.5-10.1 [facility] Comment on above: Performed By: #### B HOME SERVICE TECHNICIAN, CMP, CMADM, TSH #### [facility] [address] [address] [address] Aliyah Fierro Chloride [Moles/Vol] 103 mmol/L Normal 98-107 [facility] Comment on above: Performed By: #### B HOME SERVICE TECHNICIAN, CMP, CMADM, TSH #### [facility] [address] [address] [address] Aliyah Fierro CO2 [Moles/Vol] 26.8 mmol/L Normal 21.0-32.[address] [facility] Comment on above: Performed By: #### B HOME SERVICE TECHNICIAN, CMP, CMADM, TSH #### [facility] [address] [place] [address] Dr. Aliyah Fierro Creatinine [Mass/Vol] 1.94 mg/dL Critically high 0.70-1.30 [facility] Comment on above: Performed By: #### B HOME SERVICE TECHNICIAN, CMP, CMADM, TSH #### [facility] [address] [address] [address] Aliyah Fierro EGFR-AF MONGOLIAN 41 mL/min/1.73m2 Critically low >=60 [facility] Comment on above: Performed By: #### B HOME SERVICE TECHNICIAN, CMP, CMADM, TSH #### [facility] [address] [place] [address] Dr. Aliyah Fierro EGFR-NON AF MONGOLIAN 33 mL/min/1.73m2 Critically low >=60 [facility] Comment on above: Performed By: #### B HOME SERVICE TECHNICIAN, CMP, CMADM, TSH #### [facility] [address] [place] [address] Dr. Aliyah Fierro Glucose [Mass/Vol] 97 mg/dL Normal 74-[address] [facility] Comment on above: Performed By: #### B HOME SERVICE TECHNICIAN, CMP, CMADM, TSH #### [facility] [address] [place] [address] Dr. Aliyah Fierro Phosphate [Mass/Vol] 3.7 mg/dL Normal 2.6-4.7 [facility] Comment on above: Performed By: #### B HOME SERVICE TECHNICIAN, CMP, CMADM, TSH #### [facility] [address] [address] [address] Aliyah Fierro Potassium [Moles/Vol] 4.3 mmol/L Normal 3.5-5.1 [facility] Comment on above: Performed By: #### B HOME SERVICE TECHNICIAN, CMP, CMADM, TSH #### [facility] [address] [address] [address] Aliyah Fierro Sodium [Moles/Vol] 140 mmol/L Normal 136-[address] [facility] Comment on above: Performed By: #### B HOME SERVICE TECHNICIAN, CMP, CMADM, TSH #### [facility] [address] [place] [address] Dr. Aliyah Fierro Urea nitrogen [Mass/Vol] 27.0 mg/dL Critically high 7.0-18.0 [facility] Comment on above: Performed By: #### B HOME SERVICE TECHNICIAN, CMP, CMADM, TSH #### [facility] [address] [place] [address] Dr. Aliyah Fierro UA RANDOM W/MICROSCOPICon BACTERIA NONE SEEN Normal NONE SEEN [facility] Comment on above: Performed By: #### B HOME SERVICE TECHNICIAN, CMP, CMADM, TSH #### [facility] [address] [place] [address] Dr. Aliyah Fierro Bilirubin Ql (U) Negative Normal NEGATIVE [facility] Comment on above: Performed By: #### B HOME SERVICE TECHNICIAN, CMP, CMADM, TSH #### [facility] [address] [place] [address] Dr. Aliyah Fierro CAST NONE SEEN Normal NONE SEEN [facility] Comment on above: Performed By: #### B HOME SERVICE TECHNICIAN, CMP, CMADM, TSH #### [facility] [address] [place] [address] Dr. Aliyah Fierro Clarity (U) CLEAR Normal CLEAR [facility] Comment on above: Performed By: #### B HOME SERVICE TECHNICIAN, CMP, CMADM, TSH #### [facility] [address] [place] [address] Dr. Aliyah Fierro Color (U) LT. YELLOW Normal YELLOW [facility] Comment on above: Performed By: #### B HOME SERVICE TECHNICIAN, CMP, CMADM, TSH #### [facility] [address] [address] [address] Aliyah Fierro Crystals LM Nom (Urine sed) NONE SEEN Normal NONE SEEN [facility] Comment on above: Performed By: #### B HOME SERVICE TECHNICIAN, CMP, CMADM, TSH #### [facility] [address] [address] [address] Aliyah Fierro Epithelial cells LM Ql (Urine sed) RARE Normal NONE SEEN /RARE [facility] Comment on above: Performed By: #### B HOME SERVICE TECHNICIAN, CMP, CMADM, TSH #### [facility] [address] [address] [address] Aliyah Fierro Glucose Ql (U) Negative Normal NEGATIVE [facility] Comment on above: Performed By: #### B HOME SERVICE TECHNICIAN, CMP, CMADM, TSH #### [facility] [address] [address] [address] Aliyah Fierro Hemoglobin Ql (U) Negative Normal NEGATIVE [facility] Comment on above: Performed By: #### B HOME SERVICE TECHNICIAN, CMP, CMADM, TSH #### [facility] [address] [address] [address] Aliyah Fierro Ketones Ql (U) Negative Normal NEGATIVE [facility] Comment on above: Performed By: #### B HOME SERVICE TECHNICIAN, CMP, CMADM, TSH #### [facility] [address] [address] [address] Aliyah Fierro LEUKOCYTES Negative Normal NEGATIVE [facility] Comment on above: Performed By: #### B HOME SERVICE TECHNICIAN, CMP, CMADM, TSH #### [facility] [address] [address] [address] Aliyah Fierro MUCOUS NONE SEEN Normal NONE SEEN [facility] Comment on above: Performed By: #### B HOME SERVICE TECHNICIAN, CMP, CMADM, TSH #### [facility] [address] [address] [address] Aliyah Fierro Nitrite Ql (U) Negative Normal NEGATIVE [facility] Comment on above: Performed By: #### B HOME SERVICE TECHNICIAN, CMP, CMADM, TSH #### [facility] [address] [address] [address] Aliyah Fierro pH (U) 5.5 [pH] Normal 5-9 [facility] Comment on above: Performed By: #### B HOME SERVICE TECHNICIAN, CMP, CMADM, TSH #### [facility] [address] [place] [address] Dr. Aliyah Fierro RBC NONE SEEN Abnormal 0-2 [facility] Comment on above: Performed By: #### B HOME SERVICE TECHNICIAN, CMP, CMADM, TSH #### [facility] [address] [place] [address] Dr. Aliyah Fierro SPEC GRAVITY 1.020 Normal 1.005-<=1.025 [facility] Comment on above: Performed By: #### B HOME SERVICE TECHNICIAN, CMP, CMADM, TSH #### [facility] [address] [place] [address] Dr. Aliyah Fierro UA PROTEIN Negative Normal NEGATIVE/ TRACE [facility] Comment on above: Performed By: #### B HOME SERVICE TECHNICIAN, CMP, CMADM, TSH #### [facility] [address] [place] [address] Dr. Aliyah Fierro Urobilinogen Qn (U) 0.2 {Katerina'U}/dL Normal 0.2 - 1. 0 [facility] Comment on above: Performed By: #### B HOME SERVICE TECHNICIAN, CMP, CMADM, TSH #### [facility] [address] [place] [address] Dr. Aliyah Fierro WBC NONE SEEN Normal NONE SEEN [facility] Comment on above: Performed By: #### B HOME SERVICE TECHNICIAN, CMP, CMADM, TSH #### [facility] [address] [place] [address] Dr. Aliyah Fierro URIC ACID SERUMon 08-26-2022 Urate [Mass/Vol] 8.0 mg/dL Critically high 3.5-7.2 [facility] Comment on above: Performed By: #### B HOME SERVICE TECHNICIAN, CMP, CMADM, TSH #### [facility] [address] [place] [address] Dr. Aliyah Fierro URINE T PROTEIN CREAT RATIOo n 08-26-2022 Protein (U) [Mass/Vol] 11.7 mg/dL Normal <=12.0 [facility] Comment on above: Performed By: #### L IVER, LIPID #### [facility] [address] [address] [address] Aliyah Fierro UR PROT CREAT RAT 0.09 Normal [facility] Comment on above: Performed By: #### L IVER, LIPID #### [facility] [address] [address] [address] Aliyah Fierro URINE CREAT 124.42 mg/dL Normal 20.00-300.00 [facility] Comment on above: Performed By: #### L IVER, LIPID #### [facility] [address] [address] [address] Aliyah Fierro VITAMIN D 25 OHon 08-26-2022 VIT D 25-OH 46.3 ng/mL Normal [facility] Comment on above: Performed By: #### L IVER, LIPID #### [facility] [address] [place] [address] Dr. Aliyah Fierro VIT D RANGES SEE BELOW Normal [facility] Comment on above: Result Comment: <20 ng/mL Vit D deficient 20 - <30 ng/mL Vit D insufficient 30 - 100 ng/mL Vit D sufficient >100 ng/mL Potential Toxicity Performed By: #### L IVER, LIPID #### [facility] [address] [place] [address] Dr. Aliyah Fierro XR CHEST 2 Von 02-11-2022 XR CHEST 2 V EXAMINATION: XR CHES T 2 V HISTORY: Imaging result abnormal COMPARISON: 01/09/2022 TECHNIQUE: PA and lateral FINDINGS: LUNGS: Hyperinflation. Mild bibasilar opacities, chronic changes are favored. No new focal parenchymal infiltrates VASCULATURE: No increased pulmonary vasculature. PLEURA: No pneumothorax, effusion, or pleural thickening. CARDIAC: No cardiomegaly or cardiac silhouette abnormality. MEDIASTINUM: No visible mass or adenopathy. BONES: Mild degenerative changes OTHER: Negative. IMPRESSION: Stable hyperinflation, clear lungs Electronically authenticated by: BUBBA BASURTO Date: 2022-02-11 20:54 Normal [facility] PTH INTACTon 01-29-2022 PTH, Intact 58 pg/mL Normal 15-65 [facility] Comment on above: Performed By: #### L IVER, LIPID #### [facility] [address] [address] [address] Aliyah Fierro FERRITINon 01-28-2022 Ferritin [Mass/Vol] 199.0 ng/mL Normal 26.0-388.0 [facility] Comment on above: Performed By: #### L IVER, LIPID #### [facility] [address] [address] [address] Aliyah Fierro HEMOGRAM AND PLATELon 2021 Hematocrit (Bld) [Volume fraction] 39.0 % Critically low 42.0-54.0 [facility] Comment on above: Performed By: #### B HOME SERVICE TECHNICIAN, CMP, CMADM, TSH #### [facility] [address] [place] [address] Dr. Aliyah Fierro Hemoglobin (Bld) [Mass/Vol] 13.1 g/dL Critically low 14.0-18.0 [facility] Comment on above: Performed By: #### B HOME SERVICE TECHNICIAN, CMP, CMADM, TSH #### [facility] [address] [place] [address] Dr. Aliyah Fierro MCH (RBC) [Entitic mass] 29.4 pg Normal 25.9-34.0 [facility] Comment on above: Performed By: #### B HOME SERVICE TECHNICIAN, CMP, CMADM, TSH #### [facility] [address] [place] [address] Dr. Aliyah Fierro MCHC (RBC) [Mass/Vol] 33.6 g/dL Normal 29.9-35.2 [facility] Comment on above: Performed By: #### B HOME SERVICE TECHNICIAN, CMP, CMADM, TSH #### [facility] [address] [place] [address] Dr. Aliyah Fierro MCV (RBC) [Entitic vol] 87.4 fL Normal 80.0-94.0 [facility] Comment on above: Performed By: #### B HOME SERVICE TECHNICIAN, CMP, CMADM, TSH #### [facility] [address] [address] [address] Aliyah Fierro PLT 309 103/ul Normal 150-450 [facility] Comment on above: Performed By: #### B HOME SERVICE TECHNICIAN, CMP, CMADM, TSH #### [facility] [address] [place] [address] Dr. Aliyah Fierro RBC 4.46 106/ul Critically low 4.70-6.10 [facility] Comment on above: Performed By: #### B HOME SERVICE TECHNICIAN, CMP, CMADM, TSH #### [facility] [address] [place] [address] Dr. Aliyah Fierro WBC 8.4 103/ul Normal 4.0-11.0 [facility] Comment on above: Performed By: #### B HOME SERVICE TECHNICIAN, CMP, CMADM, TSH #### [facility] [address] [place] [address] Dr. Aliyah Fierro IRON AND TIBCon 01-28-2022 % SATURATION 31.0 % Normal [facility] Comment on above: Performed By: #### L ADRIAN, LIPID #### [facility] [address] [place] [address] Dr. Aliyah Fierro Iron [Mass/Vol] 93.0 ug/dL Normal 65.0-175.0 [facility] Comment on above: Performed By: #### L ADRIAN, LIPID #### [facility] [address] [place] [address] Dr. Aliyah Fierro TIBC DIRECT 300.0 ug/dL Normal 250.0-450.0 [facility] Comment on above: Performed By: #### L ADRIAN, LIPID #### [facility] [address] [place] [address] Dr. Aliyah Fierro MAGNESIUMon 01-28-2022 Magnesium [Mass/Vol] 2.0 mg/dL Normal 1.8-2.4 [facility] Comment on above: Performed By: #### B HOME SERVICE TECHNICIAN, CMP, CMADM, TSH #### [facility] [address] [place] [address] Dr. Aliyah Fierro RENAL FUNCTION PANELon 01-28 Albumin [Mass/Vol] 4.2 g/dL Normal 3.4-5.[address] [facility] Comment on above: Performed By: #### B HOME SERVICE TECHNICIAN, CMP, CMADM, TSH #### [facility] [address] [address] [address] Aliyah Fierro Calcium [Mass/Vol] 8.8 mg/dL Normal 8.5-10.[address] [facility] Comment on above: Performed By: #### B HOME SERVICE TECHNICIAN, CMP, CMADM, TSH #### [facility] [address] [address] [address] Aliyah Fierro Chloride [Moles/Vol] 104 mmol/L Normal 98-107 [facility] Comment on above: Performed By: #### B HOME SERVICE TECHNICIAN, CMP, CMADM, TSH #### [facility] [address] [address] [address] Aliyah Fierro CO2 [Moles/Vol] 26.0 mmol/L Normal 21.0-32.[address] [facility] Comment on above: Performed By: #### B HOME SERVICE TECHNICIAN, CMP, CMADM, TSH #### [facility] [address] [place] [address] Dr. Aliyah Fierro Creatinine [Mass/Vol] 2.23 mg/dL Critically high 0.70-1.30 [facility] Comment on above: Performed By: #### B HOME SERVICE TECHNICIAN, CMP, CMADM, TSH #### [facility] [address] [place] [address] Dr. Aliyah Fierro EGFR-AF MONGOLIAN 35 mL/min/1.73m2 Critically low >=60 [facility] Comment on above: Performed By: #### B HOME SERVICE TECHNICIAN, CMP, CMADM, TSH #### [facility] [address] [address] [address] Ailyah Fierro EGFR-NON AF MONGOLIAN 29 mL/min/1.73m2 Critically low >=60 [facility] Comment on above: Performed By: #### B HOME SERVICE TECHNICIAN, CMP, CMADM, TSH #### [facility] [address] [place] [address] Dr. Aliyah Fierro Glucose [Mass/Vol] 107 mg/dL Critically high 74-106 [facility] Comment on above: Performed By: #### B HOME SERVICE TECHNICIAN, CMP, CMADM, TSH #### [facility] [address] [address] [address] Aliyah Fierro Phosphate [Mass/Vol] 3.8 mg/dL Normal 2.6-4.7 [facility] Comment on above: Performed By: #### B HOME SERVICE TECHNICIAN, CMP, CMADM, TSH #### [facility] [address] [place] [address] Dr. Aliyah Fierro Potassium [Moles/Vol] 4.7 mmol/L Normal 3.5-5.1 [facility] Comment on above: Performed By: #### B HOME SERVICE TECHNICIAN, CMP, CMADM, TSH #### [facility] [address] [place] [address] Dr. Aliyah Fierro Sodium [Moles/Vol] 138 mmol/L Normal 136-[address] [facility] Comment on above: Performed By: #### B HOME SERVICE TECHNICIAN, CMP, CMADM, TSH #### [facility] [address] [place] [address] Dr. Aliyah Fierro Urea nitrogen [Mass/Vol] 33.0 mg/dL Critically high 7.0-18.0 [facility] Comment on above: Performed By: #### B HOME SERVICE TECHNICIAN, CMP, CMADM, TSH #### [facility] [address] [place] [address] Dr. Aliyah Fierro UA RANDOM W/MICROSCOPICon BACTERIA NONE SEEN Normal NONE SEEN [facility] Comment on above: Performed By: #### B HOME SERVICE TECHNICIAN, CMP, CMADM, TSH #### [facility] [address] [place] [address] Dr. Aliyah Fierro Bilirubin Ql (U) Negative Normal NEGATIVE [facility] Comment on above: Performed By: #### B HOME SERVICE TECHNICIAN, CMP, CMADM, TSH #### [facility] [address] [place] [address] Dr. Aliyah Fierro CAST NONE SEEN Normal NONE SEEN [facility] Comment on above: Performed By: #### B HOME SERVICE TECHNICIAN, CMP, CMADM, TSH #### [facility] [address] [place] [address] Dr. Aliyah Fierro Clarity (U) CLEAR Normal CLEAR [facility] Comment on above: Performed By: #### B HOME SERVICE TECHNICIAN, CMP, CMADM, TSH #### [facility] [address] [address] [address] Aliyah Fierro Color (U) LT. YELLOW Normal YELLOW [facility] Comment on above: Performed By: #### B HOME SERVICE TECHNICIAN, CMP, CMADM, TSH #### [facility] [address] [address] [address] Aliyah Fierro Crystals LM Nom (Urine sed) NONE SEEN Normal NONE SEEN [facility] Comment on above: Performed By: #### B HOME SERVICE TECHNICIAN, CMP, CMADM, TSH #### [facility] [address] [address] [address] Aliyah Fierro Epithelial cells LM Ql (Urine sed) NONE SEEN Normal NONE SEEN /RARE [facility] Comment on above: Performed By: #### B HOME SERVICE TECHNICIAN, CMP, CMADM, TSH #### [facility] [address] [address] [address] Aliyah Fierro Glucose Ql (U) Negative Normal NEGATIVE [facility] Comment on above: Performed By: #### B HOME SERVICE TECHNICIAN, CMP, CMADM, TSH #### [facility] [address] [address] [address] Aliyah Fierro Hemoglobin Ql (U) Negative Normal NEGATIVE [facility] Comment on above: Performed By: #### B HOME SERVICE TECHNICIAN, CMP, CMADM, TSH #### [facility] [address] [address] [address] Aliyah Fierro Ketones Ql (U) Negative Normal NEGATIVE [facility] Comment on above: Performed By: #### B HOME SERVICE TECHNICIAN, CMP, CMADM, TSH #### [facility] [address] [address] [address] Aliyah Fierro LEUKOCYTES Negative Normal NEGATIVE [facility] Comment on above: Performed By: #### B HOME SERVICE TECHNICIAN, CMP, CMADM, TSH #### [facility] [address] [address] [address] Aliyah Fierro MUCOUS NONE SEEN Normal NONE SEEN [facility] Comment on above: Performed By: #### B HOME SERVICE TECHNICIAN, CMP, CMADM, TSH #### [facility] [address] [address] [address] Aliyah Fierro Nitrite Ql (U) Negative Normal NEGATIVE [facility] Comment on above: Performed By: #### B HOME SERVICE TECHNICIAN, CMP, CMADM, TSH #### [facility] [address] [place] [address] Dr. Aliyah Fierro pH (U) 5.5 [pH] Normal 5-9 [facility] Comment on above: Performed By: #### B HOME SERVICE TECHNICIAN, CMP, CMADM, TSH #### [facility] [address] [place] [address] Dr. Aliyah Fierro RBC NONE SEEN Abnormal 0-2 [facility] Comment on above: Performed By: #### B HOME SERVICE TECHNICIAN, CMP, CMADM, TSH #### [facility] [address] [place] [address] Dr. Aliyah Fierro SPEC GRAVITY 1.020 Normal 1.005-<=1.025 [facility] Comment on above: Performed By: #### B HOME SERVICE TECHNICIAN, CMP, CMADM, TSH #### [facility] [address] [place] [address] Dr. Aliyah Fierro UA PROTEIN Negative Normal NEGATIVE/ TRACE [facility] Comment on above: Performed By: #### B HOME SERVICE TECHNICIAN, CMP, CMADM, TSH #### [facility] [address] [place] [address] Dr. Aliyah Fierro Urobilinogen Qn (U) 0.2 {Katerina'U}/dL Normal 0.2 - 1. 0 [facility] Comment on above: Performed By: #### B HOME SERVICE TECHNICIAN, CMP, CMADM, TSH #### [facility] [address] [place] [address] Dr. Aliyah Fierro WBC NONE SEEN Normal NONE SEEN [facility] Comment on above: Performed By: #### B HOME SERVICE TECHNICIAN, CMP, CMADM, TSH #### [facility] [address] [place] [address] Dr. Aliyah Fierro URIC ACID SERUMon 01-28-2022 Urate [Mass/Vol] 8.8 mg/dL Critically high 3.5-7.2 [facility] Comment on above: Performed By: #### B HOME SERVICE TECHNICIAN, CMP, CMADM, TSH #### [facility] [address] [place] [address] Dr. Aliyah Fierro URINE T PROTEIN CREAT RATIOo n 01-28-2022 Protein (U) [Mass/Vol] 11.7 mg/dL Normal <=12.0 [facility] Comment on above: Performed By: #### U RTPCR #### [facility] [address] [place] [address] Dr. Aliyah Fierro UR PROT CREAT RAT 0.09 Normal [facility] Comment on above: Performed By: #### U RTPCR #### [facility] [address] [address] [address] Aliyah Fierro URINE CREAT 126.58 mg/dL Normal 20.00-300.00 [facility] Comment on above: Performed By: #### U RTPCR #### [facility] [address] [place] [address] Dr. Aliyah Fierro VITAMIN D 25 OHon 01-28-2022 VIT D 25-OH 40.0 ng/mL Normal [facility] Comment on above: Performed By: #### L ADRIAN LIPID #### [facility] [address] [place] [address] Dr. Aliyah Fierro VIT D RANGES SEE BELOW Normal [facility] Comment on above: Result Comment: <20 ng/mL Vit D deficient 20 - <30 ng/mL Vit D insufficient 30 - 100 ng/mL Vit D sufficient >100 ng/mL Potential Toxicity Performed By: #### Darrius CAMPBELL LIPID #### [facility] [address] [place] [address] Dr. Aliyah Fierro BNPon 01-09-2022 Natriuretic peptide B (Bld) [Mass/Vol] 218.0 pg/mL Normal <=1,800.0 [facility] Comment on above: Performed By: #### B HOME SERVICE TECHNICIAN, CMP, CMADM, TSH #### [facility] [address] [place] [address] Dr. Aliyah Fierro CARDIAC HELLEN ADMITon 022 CK [Catalytic activity/Vol] 159 U/L Normal 39-308 [facility] Comment on above: Performed By: #### B HOME SERVICE TECHNICIAN, CMP, CMADM, TSH #### [facility] [address] [address] [address] Aliyah Fierro CK.MB [Mass/Vol] 4.55 ng/mL Critically high <=3.60 [facility] Comment on above: Performed By: #### B HOME SERVICE TECHNICIAN, CMP, CMADM, TSH #### [facility] [address] [place] [address] Dr. Aliyah Fierro HSTROP 9.0 pg/mL Normal 4.0-76.1 [facility] Comment on above: Result Comment: CUT- OFF POINTS HAVE BEEN ESTABLISHED BASED ON THE FOURTH UNIVERSAL DEFINITIONS OF MYOCARDIAL INFARCTION. THE UPPER REFERENCE LIMIT (URL) OF TROPONIN, DEFINED THE 99TH PERCENTILE OF cTnI DISTRIBUTION IN A REFERENCE POPULATION, HAS BEEN CONFIRMED THE DECISION THRESHOLD FOR OR DIAGNOSIS. Performed By: #### B HOME SERVICE TECHNICIAN, CMP, CMADM, TSH #### [facility] [address] [place] [address] Dr. Aliyah Fierro JAHAIRA 181 ng/mL Critically high 16-96 [facility] Comment on above: Performed By: #### B HOME SERVICE TECHNICIAN, CMP, CMADM, TSH #### [facility] [address] [place] [address] Dr. Aliyah Fierro CBC AUTO DIFFon 01-09-2022 BASO # 0.0 103/ul Normal 0.0-0.1 [facility] Comment on above: Performed By: #### B HOME SERVICE TECHNICIAN, CMP, CMADM, TSH #### [facility] [address] [place] [address] Dr. Aliyah Fierro Basophils/100 WBC (Bld) 0.3 % Normal 0.2-2.0 [facility] Comment on above: Performed By: #### B HOME SERVICE TECHNICIAN, CMP, CMADM, TSH #### [facility] [address] [place] [address] Dr. Aliyah Fierro EO # 0.3 103/ul Normal 0.0-0.7 [facility] Comment on above: Performed By: #### B HOME SERVICE TECHNICIAN, CMP, CMADM, TSH #### [facility] [address] [place] [address] Dr. Aliyah Fierro Eosinophils/100 WBC (Bld) 3.6 % Normal 0.9-7.0 [facility] Comment on above: Performed By: #### B HOME SERVICE TECHNICIAN, CMP, CMADM, TSH #### [facility] [address] [place] [address] Dr. Aliyah Fierro Erythrocyte distribution width (RBC) [Ratio] 13.2 % Normal 11.0-15.0 [facility] Comment on above: Performed By: #### B HOME SERVICE TECHNICIAN, CMP, CMADM, TSH #### [facility] [address] [place] [address] Dr. Aliyah Fierro Hematocrit (Bld) [Volume fraction] 38.8 % Critically low 42.0-54.0 [facility] Comment on above: Performed By: #### B HOME SERVICE TECHNICIAN, CMP, CMADM, TSH #### [facility] [address] [place] [address] Dr. Aliyah Fierro Hemoglobin (Bld) [Mass/Vol] 13.2 g/dL Critically low 14.0-18.0 [facility] Comment on above: Performed By: #### B HOME SERVICE TECHNICIAN, CMP, CMADM, TSH #### [facility] [address] [place] [address] Dr. Aliyah Fierro IG # 0.04 10e3/ul Critically high 0.00-0.03 [facility] Comment on above: Performed By: #### B HOME SERVICE TECHNICIAN, CMP, CMADM, TSH #### [facility] [address] [place] [address] Dr. Aliyah Fierro IG % 0.4 % Normal 0.0-0.5 [facility] Comment on above: Performed By: #### B HOME SERVICE TECHNICIAN, CMP, CMADM, TSH #### [facility] [address] [place] [address] Dr. Aliyah Fierro LYMPH # 1.6 103/ul Normal 1.2-3.8 [facility] Comment on above: Performed By: #### B HOME SERVICE TECHNICIAN, CMP, CMADM, TSH #### [facility] [address] [place] [address] Dr. Aliyah Fierro Lymphocytes/100 WBC (Bld) 17.3 % Critically low 20.5-60.0 [facility] Comment on above: Performed By: #### B HOME SERVICE TECHNICIAN, CMP, CMADM, TSH #### [facility] [address] [place] [address] Dr. Aliyah Fierro MANUAL DIFF REQ NO Normal [facility] Comment on above: Performed By: #### B HOME SERVICE TECHNICIAN, CMP, CMADM, TSH #### [facility] [address] [place] [address] Dr. Aliyah Fierro MCH (RBC) [Entitic mass] 29.8 pg Normal 25.9-34.0 [facility] Comment on above: Performed By: #### B HOME SERVICE TECHNICIAN, CMP, CMADM, TSH #### [facility] [address] [place] [address] Dr. Aliyah Fierro MCHC (RBC) [Mass/Vol] 34.0 g/dL Normal 29.9-35.2 [facility] Comment on above: Performed By: #### B HOME SERVICE TECHNICIAN, CMP, CMADM, TSH #### [facility] [address] [place] [address] Dr. Aliyah Fierro MCV (RBC) [Entitic vol] 87.6 fL Normal 80.0-94.0 [facility] Comment on above: Performed By: #### B HOME SERVICE TECHNICIAN, CMP, CMADM, TSH #### [facility] [address] [place] [address] Dr. Aliyah Fierro MONO # 1.0 103/ul Critically high 0.3-0.8 [facility] Comment on above: Performed By: #### B HOME SERVICE TECHNICIAN, CMP, CMADM, TSH #### [facility] [address] [place] [address] Dr. Aliyah Fierro Monocytes/100 WBC (Bld) 10.4 % Normal 1.7-12.0 [facility] Comment on above: Performed By: #### B HOME SERVICE TECHNICIAN, CMP, CMADM, TSH #### [facility] [address] [place] [address] Dr. Aliyah Fierro NEUT # 6.2 103/ul Normal 1.4-6.5 [facility] Comment on above: Performed By: #### B HOME SERVICE TECHNICIAN, CMP, CMADM, TSH #### [facility] [address] [place] [address] Dr. Aliyah Fierro Neutrophils/100 WBC (Bld) 68.0 % Normal 43.0-75.0 [facility] Comment on above: Performed By: #### B HOME SERVICE TECHNICIAN, CMP, CMADM, TSH #### [facility] [address] [place] [address] Dr. Aliyah Fierro Platelet mean volume (Bld) [Entitic vol] 9.3 fL Critically low 9.5-13.5 [facility] Comment on above: Performed By: #### B HOME SERVICE TECHNICIAN, CMP, CMADM, TSH #### [facility] [address] [place] [address] Dr. Aliyah Fierro PLT 297 103/ul Normal 150-450 [facility] Comment on above: Performed By: #### B HOME SERVICE TECHNICIAN, CMP, CMADM, TSH #### [facility] [address] [place] [address] Dr. Aliyah Fierro RBC 4.43 106/ul Critically low 4.70-6.10 [facility] Comment on above: Performed By: #### B HOME SERVICE TECHNICIAN, CMP, CMADM, TSH #### [facility] [address] [place] [address] Dr. Aliyah Fierro WBC 9.2 103/ul Normal 4.0-11.0 [facility] Comment on above: Performed By: #### B HOME SERVICE TECHNICIAN, CMP, CMADM, TSH #### [facility] [address] [place] [address] Dr. Aliyah Fierro ER URINE PROFILEon 2 Bilirubin Ql (U) Negative Normal NEGATIVE [facility] Comment on above: Performed By: #### E RUR #### [facility] [address] [place] [address] Dr. Aliyah Fierro Clarity (U) CLEAR Normal CLEAR [facility] Comment on above: Performed By: #### E RUR #### [facility] [address] [place] [address] Dr. Aliyah Fierro Color (U) LT. YELLOW Normal YELLOW [facility] Comment on above: Performed By: #### E RUR #### [facility] [address] [address] [address] Aliyah MORSE A micrscopic examination will be performed if indicated. Normal [facility] Comment on above: Performed By: #### E RUR #### [facility] [address] [place] [address] Dr. Aliyah Fierro Glucose Ql (U) Negative Normal NEGATIVE [facility] Comment on above: Performed By: #### E RUR #### [facility] [address] [place] [address] Dr. Aliyah Fierro Hemoglobin Ql (U) Negative Normal NEGATIVE [facility] Comment on above: Performed By: #### E RUR #### [facility] [address] [place] [address] Dr. Aliyah Fierro Ketones Ql (U) Negative Normal NEGATIVE [facility] Comment on above: Performed By: #### E RUR #### [facility] [address] [place] [address] Dr. Aliyah Fierro LEUKOCYTES Negative Normal NEGATIVE [facility] Comment on above: Performed By: #### E RUR #### [facility] [address] [place] [address] Dr. Aliyah Fierro Nitrite Ql (U) Negative Normal NEGATIVE [facility] Comment on above: Performed By: #### E RUR #### [facility] [address] [place] [address] Dr. Aliyah Fierro pH (U) 6.0 [pH] Normal 5-9 [facility] Comment on above: Performed By: #### E RUR #### [facility] [address] [place] [address] Dr. Aliyah Fierro SPEC GRAVITY 1.020 Normal 1.005-<=1.025 [facility] Comment on above: Performed By: #### E RUR #### [facility] [address] [place] [address] Dr. Aliyah Fierro UA PROTEIN Negative Normal NEGATIVE/ TRACE [facility] Comment on above: Performed By: #### E RUR #### [facility] [address] [place] [address] Dr. Aliyah Fierro UR MICRO IND NOT INDICATED Normal [facility] Comment on above: Performed By: #### E RUR #### [facility] [address] [place] [address] Dr. Aliyah Fierro Urobilinogen Qn (U) 0.2 {Katerina'U}/dL Normal 0.2 - 1. 0 [facility] Comment on above: Performed By: #### E RUR #### [facility] [address] [place] [address] Dr. Aliyah Fierro PROF 14(COMP METB)on 022 Albumin [Mass/Vol] 4.1 g/dL Normal 3.4-5.[address] [facility] Comment on above: Performed By: #### B HOME SERVICE TECHNICIAN, CMP, CMADM, TSH #### [facility] [address] [place] [address] Dr. Aliyah Fierro Albumin/Globulin [Mass ratio] 1.2 {ratio} Normal [facility] Comment on above: Performed By: #### B HOME SERVICE TECHNICIAN, CMP, CMADM, TSH #### [facility] [address] [place] [address] Dr. Aliyah Fierro ALP [Catalytic activity/Vol] 92 U/L Normal 46-116 [facility] Comment on above: Performed By: #### B HOME SERVICE TECHNICIAN, CMP, CMADM, TSH #### [facility] [address] [place] [address] Dr. Aliyah Fierro ALT [Catalytic activity/Vol] 31 U/L Normal 16-63 [facility] Comment on above: Performed By: #### B HOME SERVICE TECHNICIAN, CMP, CMADM, TSH #### [facility] [address] [place] [address] Dr. Aliyah Fierro Anion gap [Moles/Vol] 12.8 mmol/L Normal [facility] Comment on above: Performed By: #### B HOME SERVICE TECHNICIAN, CMP, CMADM, TSH #### [facility] [address] [place] [address] Dr. Aliyah Fierro AST [Catalytic activity/Vol] 18 U/L Normal 15-37 [facility] Comment on above: Performed By: #### B HOME SERVICE TECHNICIAN, CMP, CMADM, TSH #### [facility] [address] [address] [address] Aliyah Fierro Bilirubin [Mass/Vol] 0.5 mg/dL Normal 0.2-1.0 [facility] Comment on above: Performed By: #### B HOME SERVICE TECHNICIAN, CMP, CMADM, TSH #### [facility] [address] [address] [address] Aliyah Fierro Calcium [Mass/Vol] 8.6 mg/dL Normal 8.5-10.[address] [facility] Comment on above: Performed By: #### B HOME SERVICE TECHNICIAN, CMP, CMADM, TSH #### [facility] [address] [place] [address] Dr. Aliyah Fierro Chloride [Moles/Vol] 103 mmol/L Normal 98-107 [facility] Comment on above: Performed By: #### B HOME SERVICE TECHNICIAN, CMP, CMADM, TSH #### [facility] [address] [place] [address] Dr. Aliyah Fierro CO2 [Moles/Vol] 26.3 mmol/L Normal 21.0-32.[address] [facility] Comment on above: Performed By: #### B HOME SERVICE TECHNICIAN, CMP, CMADM, TSH #### [facility] [address] [place] [address] Dr. Aliyah Fierro Creatinine [Mass/Vol] 2.11 mg/dL Critically high 0.70-1.30 [facility] Comment on above: Performed By: #### B HOME SERVICE TECHNICIAN, CMP, CMADM, TSH #### [facility] [address] [place] [address] Dr. Aliyah Fierro EGFR-AF MONGOLIAN 37 mL/min/1.73m2 Critically low >=60 [facility] Comment on above: Performed By: #### B HOME SERVICE TECHNICIAN, CMP, CMADM, TSH #### [facility] [address] [place] [address] Dr. Aliyah Fierro EGFR-NON AF MONGOLIAN 30 mL/min/1.73m2 Critically low >=60 [facility] Comment on above: Performed By: #### B HOME SERVICE TECHNICIAN, CMP, CMADM, TSH #### [facility] [address] [address] [address] Aliyah Fierro Globulin (S) [Mass/Vol] 3.3 g/dL Normal [facility] Comment on above: Performed By: #### B HOME SERVICE TECHNICIAN, CMP, CMADM, TSH #### [facility] [address] [address] [address] Aliyah Fierro Glucose [Mass/Vol] 105 mg/dL Normal 74-106 [facility] Comment on above: Performed By: #### B HOME SERVICE TECHNICIAN, CMP, CMADM, TSH #### [facility] [address] [address] [address] Aliyah Fierro Potassium [Moles/Vol] 4.1 mmol/L Normal 3.5-5.1 [facility] Comment on above: Performed By: #### B HOME SERVICE TECHNICIAN, CMP, CMADM, TSH #### [facility] [address] [address] [address] Aliyah Fierro Protein [Mass/Vol] 7.4 g/dL Normal 6.4-8.2 [facility] Comment on above: Performed By: #### B HOME SERVICE TECHNICIAN, CMP, CMADM, TSH #### [facility] [address] [address] [address] Aliyah Fierro Sodium [Moles/Vol] 138 mmol/L Normal 136-[address] [facility] Comment on above: Performed By: #### B HOME SERVICE TECHNICIAN, CMP, CMADM, TSH #### [facility] [address] [address] [address] Aliyah Fierro Urea nitrogen [Mass/Vol] 32.0 mg/dL Critically high 7.0-18.0 [facility] Comment on above: Performed By: #### B HOME SERVICE TECHNICIAN, CMP, CMADM, TSH #### [facility] [address] [place] [address] Dr. Aliyah Fierro Urea nitrogen/Creatinine [Mass ratio] 15.2 mg/mg Normal [facility] Comment on above: Performed By: #### B HOME SERVICE TECHNICIAN, CMP, CMADM, TSH #### [facility] [address] [place] [address] Dr. Aliyah Fierro PROTIMEon 01-09-2022 INR Coag (PPP) [Relative time] 1.02 {INR} Normal [facility] Comment on above: Performed By: #### B HOME SERVICE TECHNICIAN, CMP, CMADM, TSH #### [facility] [address] [place] [address] Dr. Aliyah Fierro INR GUIDELINES SEE BELOW Normal [facility] Comment on above: Result Comment: BOBBY RED INR: 2.0 - 3.0 CONDITIONS NOT LISTED BELOW 2.5 - 3.5 FOR PROSTHETIC HEART VALVE REPLACEMENT 2.5 - 3.5 RECURRENT THROMBOSIS Performed By: #### B HOME SERVICE TECHNICIAN, CMP, CMADM, TSH #### [facility] [address] [place] [address] Dr. Aliyah Fierro PT Coag (PPP) [Time] 11.0 s Normal 9.0-11.6 [facility] Comment on above: Performed By: #### B HOME SERVICE TECHNICIAN, CMP, CMADM, TSH #### [facility] [address] [place] [address] Dr. Aliyah Fierro PTTon 01-09-2022 aPTT Coag (Bld) [Time] 31.2 s Normal 22.3-36.2 [facility] Comment on above: Performed By: #### L IVER, LIPID #### [facility] [address] [place] [address] Dr. Aliyah Fierro TSHon 01-09-2022 TSH 3.663 uIU/mL Normal 0.358-3.740 [facility] Comment on above: Performed By: #### B HOME SERVICE TECHNICIAN, CMP, CMADM, TSH #### [facility] [address] [place] [address] Dr. Aliyah Fierro TSH RANGE SEE BELOW Normal [facility] Comment on above: Result Comment: <0.3 4 UIU/ml HYPERTHYROID 0.34-5.60 UIU/ml EUTHYROID >5.60 UIU/ml HYPOTHYROID Performed By: #### B HOME SERVICE TECHNICIAN, CMP, CMADM, TSH #### [facility] [address] [place] [address] Dr. Aliyah Fierro XR CHEST 1 Von 01-09-2022 XR CHEST 1 V EXAMINATION: XR CHES T 1 V HISTORY: SHORTNESS OF BREATH COMPARISON: 04/13/2021 TECHNIQUE: AP portable erect FINDINGS: LUNGS: Mild left basilar infiltrate. The right lung is clear. VASCULATURE: No increased pulmonary vasculature. PLEURA: No pneumothorax, effusion, or pleural thickening. CARDIAC: No cardiomegaly or cardiac silhouette abnormality. MEDIASTINUM: No visible mass or adenopathy. BONES: No fracture or visible bone lesion. OTHER: Negative. IMPRESSION: Mild left basilar infiltrate, atelectasis favored Electronically authenticated by: BUBBA BASURTO Date: 2022-01-09 13:05 Normal [facility] Ambulatory Clinical Summaryo n 04-06-2021 Ambulatory Clinical Summary {[id number] Normal [facility] Patient Educationon 04-06-20 21 Patient Education Benign Prostatic Hyperplasia You have an enlarged prostate. This is common in elderly males. It is called BPH. This stands for benign prostate hyperplasia. The prostate gland is located in base of the bladder. When it grows, the prostate blocks the urethra. This is the tube which drains urine from the bladder. SYMPTOMS ? Weak urine stream. ? Dribbling. ? Feeling like the bladder has not emptied completely. ? Difficulty starting urination. ? Getting up frequently at night to urinate. ? Urinating more frequently during the day. Complete urinary blockage or severe pain with urination requires immediate attention. DIAGNOSIS ? Your caregiver often has a good idea what is wrong by taking a history and doing a physical exam. ? Special x-rays may be done. TREATMENT ? For mild problems, no treatment may be necessary. ? If the problems are moderate, medications may provide relief. Some of these work by making the prostate gland smaller. The herb saw palmetto is commonly used. ? If complete blockage occurs, a Rodriguez catheter is usually left in place for a few days. ? Surgery is often needed for more severe problems. TURP is the prostate surgery for BPH which is done through the urethra. TURP stands for transurethral resection of the prostate. It involves cutting away chips from the prostate. It is done by removing chips so that they can come out through the penis. ? Techniques using heat, microwave and laser to remove the prostate blockage are also being used. HOME CARE INSTRUCTIONS ? Give yourself time when you urinate. ? Stay away from alcohol. ? Beverages containing caffeine such as coffee, tea and mariya can make the problems worse. ? Decongestants, antihistamines, and some prescription medicines can also make the problem worse. ? Follow up with your caregiver for further treatment as recommended. SEEK IMMEDIATE MEDICAL CARE IF: ? You develop increased pain with urination or are unable to pass your water. ? You develop severe abdominal pain, vomiting, a high fever, or fainting. ? You develop back pain or blood in your urine. MAKE SURE YOU: ? Understand these instructions. ? Will watch your condition. ? Will get help right away if you are not doing well or get worse. Document Released: 07/21/2006 Document Revised: 10/12/2012 Document Reviewed: 03/25/2008 ExitCare? Patient Information ?2013 [employer]. [facility] Urology Office/Clinic Noteon 04-06-2021 Urology Office/Clinic Note HPI Staff Bennett is a 81 y.o. male here for 3 month follow up. Previous dx: BPH w/ urinary obstruction, Bladder mass, Weak urine stream, Nocturia. S/P Cysto done 01/02/21. He continues with tamsulosin 0.4 mg qd. Overall he is doing well. Dysuria: _Denies Incomplete bladder emptying: _Denies Hematuria: _Denies Frequency: _Denies Urgency: _Denies Nocturia: _yes Stream: _ Stream is weak Leaking: _Denies Post void dripping: _Denies Wearing pads/ Depends: _Denies Urge incontinence: _Denies Stress incontinence: _Denies Incontinence without Sensory Awareness: _Denies Abdominal pain: _Denies Flank pain: _Denies Sexual complaints: _ History of Present Illness Reviewed UA and cysto op report. There have been no associated fever, chills, flank pain or blood in the urine. Pt. denies any pain/burning with urination at this time. Review of Systems ROS - Provider Constitutional: denies weight loss, denies hot flashes. Eyes: denies eye problems. Gastrointestinal: denies nausea, denies vomiting. Cardiovascular: denies chest pain or angina. Integumentary: no dryness Musculoskeletal: denies musculoskeletal symptoms. ENMT: denies otolaryngeal symptoms. Respiratory: no shortness of breath. Heme/Lymph: denies easy bleeding tendency, denies easy bruising tendency. Psychiatric: no confusion, no anxiety. Genitourinary: denies dysuria, denies hematuria, denies discharge, denies urinary frequency, denies urinary hesitancy, denies nocturia, denies incontinence, denies genital sores, denies decreased libido, and denies erectile dysfunction. Physical Exam Vitals & Measurements HR: 66(Peripheral) BP: 142/71 HT: 175.0 cm HT: 175 cm WT: 87.0 kg WT: 87 kg BMI: 28.41 General Appearance: alert, no distress, well nourished, well developed male. Genitourinary: normal scrotum, normal testes, normal urethra, normal epididymis, normal vas deferens/spermatic cord. Flank Pain: none. Bladder: nonpalpable. Assessment/Plan 1. BPH with urinary obstruction (N40.1: Benign prostatic hyperplasia with lower urinary tract symptoms) S/p Cysto 01/02/2021. Pt. was to start Flomax 0.4mg daily at the last encounter but never got the script. Pt. feels that he does not need this medication as he is comfortable with his urination. UA today shows no signs of infection. Pt. is to continue to monitor his sxs. All questions/concerns were discussed. Pt. to call the office if heencounters any issues prior. Pt. acknowledges understanding. I have reviewed the previous health record information and history for this pt. from Dr. Soto. Follow-up With When Contact Information RAUDEL JANSEN, Michael Barnes, URL [address] [place] [address] [place] [address]- [phone] Additional Instructions: prn Patient Education Benign Prostatic Hyperplasia Yamilka Vásquez , personally scribed for Dr. Soto on 04/06/2021 10:50:35. . Documentation recorded by the scribe, Yamilka New, accurately reflects the services(s) I performed and decisions made by me. Authenticated by Dr. Soto on 04/06/2021 10:51:29. Problem List/Past Medical History Ongoing Arthritis Basal cell carcinoma of skin Bilateral wheezing BPH with urinary obstruction Centrilobular emphysema COPD type A Elevated PSA Eosinophilia GERD without esophagitis Gout Hx of tobacco use, presenting hazards to health Hyperlipidemia Hypertension Mass of bladder Multiple pulmonary nodules Nocturia Peripheral edema Weak urine stream Historical No qualifying data Procedure/Surgical History Cystoscope (01/02/2021), Colonoscopy (08/04/2017). Medications albuterol 0.083% Inh Janice 3 mL, NEB, q6hr atenolol 25 mg Tab, Oral, Daily busPIRone 10 mg Tab, Oral, BID citalopram 10 mg Tab, Oral, Daily famotidine 20 mg Tab, Oral, BID Lasix 20 mg Tab, Oral, Daily losartan 50 mg Tab, Oral, Daily Multi Vitamin+ pravastatin 80 mg Tab, Oral, Daily Allergies No Known Allergies Social History Tobacco Former smoker, quit more than 30 days ago Tobacco Use:., 04/06/2021 Family History Pancreatic cancer: Father. [facility] Comment on above: Result Comment: Elec tronically Signed By: RAUDEL JANSEN, Michael Barnes\.br\Date and Time Signed: 04/06/21 10:51 EDT\.br\Electronically Co-Signed By: Yamilka New MA\.br\Date and Time Co-Signed: 04/06/21 10:50 EDT Ambulatory Clinical Summaryo n 01-02-2021 Ambulatory Clinical Summary {[id number]}CD:[id number] [facility] Consent for Procedure/Surger yon 01-02-2021 Consent for Procedure/Surgery [id number]# 1.00CD:127 [facility] Patient Educationon 01-03-20 Patient Education Cystoscopy Care After Refer to this sheet in the next few weeks. These instructions provide you with information on caring for yourself after your procedure. Your caregiver may also give you more specific instructions. Your treatment has been planned according to current medical practices, but problems sometimes occur. Call your caregiver if you have any problems or questions after your procedure. HOME CARE INSTRUCTIONS Things you can do to ease any discomfort after your procedure include: ? Drinking enough water and fluids to keep your urine clear or pale yellow. ? Taking a warm bath to relieve any burning feelings. SEEK IMMEDIATE MEDICAL CARE IF: ? You have an increase in blood in your urine. ? You notice blood clots in your urine. ? You have difficulty passing urine. ? You have the chills. ? You have abdominal pain. ? You have a fever or persistent symptoms for more than 2?3 days. ? You have a fever and your symptoms suddenly get worse. MAKE SURE YOU: ? Understand these instructions. ? Will watch your condition. ? Will get help right away if you are not doing well or get worse. Document Released: 02/07/2006 Document Revised: 04/14/2013 Document Reviewed: 01/11/2013 ExitCare? Patient Information ?2013 [employer]ist. [facility] Urology Office/Clinic Noteon 01-02-2021 Urology Office/Clinic Note Chief Complaint This is a 80 year old male here for a Cysto HPI Staff Cystoscopy. Scope # [id number] taken. Dysuria: no Incomplete bladder emptying: no Hematuria: no Frequency: no Urgency: no Nocturia: yes Stream: weak Leaking: no Post void dripping: no Wearing pads/ Depends: no Urge incontinence: no Stress incontinence: no Incontinence without Sensory Awareness: no Abdominal pain: no Flank pain: no History of Present Illness I have reviewed and verified the staff HPI to be accurate for this encounter. Review of Systems ROS - Provider Constitutional: denies weight loss, denies hot flashes. Eyes: denies eye problems. Gastrointestinal: denies nausea, denies vomiting. Cardiovascular: denies chest pain or angina. Integumentary: no dryness Musculoskeletal: denies musculoskeletal symptoms. ENMT: denies otolaryngeal symptoms. Respiratory: no shortness of breath. Heme/Lymph: denies easy bleeding tendency, denies easy bruising tendency. Psychiatric: no confusion, no anxiety. Genitourinary: denies dysuria, denies hematuria, denies discharge, denies urinary frequency, denies urinary hesitancy, denies nocturia, denies incontinence, denies genital sores, denies decreased libido, and denies erectile dysfunction. Physical Exam Vitals & Measurements HT: 175 cm HT: 175.0 cm WT: 87 kg WT: 87.0 kg BMI: 28.41 General Appearance: alert, no distress, well nourished, well developed male. Genitourinary: normal scrotum, normal testes, normal urethra, normal epididymis, normal vas deferens/spermatic cord. Flank Pain: none. Bladder: nonpalpable. Procedure Operative Information Anesthesia Type: Local Procedure: Local Cystoscopy Complications: None Surgical risks, benefits, details of the procedure have been explained to the patient. Full informed consent has been obtained. Intraoperative Information Prepped: Patient is brought back to the endoscopy suite. Patient is placed in supine position. Patient prepped in the usual fashion with Betadine solution. 2% Xylocaine Jelly is placed per Urethra. After waiting several minutes, the Cystoscope is introduced. The Urethra is: Normal The Prostatic Urethra is: _bilobar obstruction The Bladder: Normal, no tumors Trabeculated: Severe (3)w/ multiple diverticuli. no b.t. The Ureteral orifices: Show efflux of clear urine Removal: Cystoscope is removed. The patient tolerated it well. Postoperative Information Patient is discharged home with antibiotic coverage. Follow up arranged. Assessment/Plan 1. Bladder mass (N32.89: Other specified disorders of bladder) Cysto today showed architectural changes in bladder wall from bph. All questions/concerns were discussed. Pt. to call the office if heencounters any issues prior. Pt. acknowledges understanding. 2. BPH with urinary obstruction (N40.1: Benign prostatic hyperplasia with lower urinary tract symptoms) Last PSA at 4.75. Will start Flomax 0.4mg qd. Discussed the medication side effects, and the patient will monitor closely for these, as well as for symptom improvement. If severe side effects occur, the medication should be stopped and the office notified. Script sent to [facility] in [place]. 3. Weak urine stream (R39.12: Poor urinary stream) Weak w/ intermittent hesitancy. 4. Nocturia (R35.1: Nocturia) 1-2x/night. I have reviewed the previous health record information and history for this pt. from Dr. Soto. Follow-up With When Contact Information RAUDEL JANSEN, Michael Barnes, URL [facility] [place] [address]- [phone] Additional Instructions: 3mos. f/u Patient Education Cystoscopy, Care After I, Yamilka New , personally scribed for Dr. Soto on 01/02/2021 12:21:12. . Documentation recorded by the scribe, Yamilka New, accurately reflects the services(s) I performed and decisions made by me. Authenticated by Dr. Soto on 01/02/2021 12:22:58. Problem List/Past Medical History Ongoing Arthritis Basal cell carcinoma of skin Bilateral wheezing Centrilobular emphysema COPD type A Elevated PSA Eosinophilia GERD without esophagitis Gout Hx of tobacco use, presenting hazards to health Hyperlipidemia Hypertension Multiple pulmonary nodules Peripheral edema Historical No qualifying data Procedure/Surgical History Cystoscope (01/02/2021), Colonoscopy (08/04/2017). Medications albuterol 0.083% Inh Janice 3 mL, NEB, q6hr atenolol 25 mg Tab, Oral, Daily busPIRone 10 mg Tab, Oral, BID citalopram 10 mg Tab, Oral, Daily famotidine 20 mg Tab, Oral, BID Lasix 20 mg Tab, Oral, Daily losartan 50 mg Tab, Oral, Daily Multi Vitamin+ pravastatin 80 mg Tab, Oral, Daily Allergies No Known Allergies Social History Tobacco Former smoker, quit more than 30 days ago Tobacco Use:., 01/02/2021 Family History Pancreatic cancer: Father. [facility] Comment on above: Result Comment: Elec tronically Signed By: Michael SOTO MD\.br\Date and Time Signed: 01/02/21 12:23 EDT\.br\Electronically Co-Signed By: Yamilka New MA\.br\Date and Time Co-Signed: 01/02/21 12:21 EDT Formson 12-15-2020 Forms [id number] .[id number]:127 Normal [facility] Physician Referralon 021 Physician Referral [id number] .[id number]:127 [facility] Physician Referralon 021 Physician Referral [id number] .[id number]:127 [facility] Ambulatory Clinical Summaryo n 12-11-2020 Ambulatory Clinical Summary {[id number]}CD:[id number] [facility] Ambulatory Clinical Summary {[id number]}CD:[id number] [facility] Urology Office/Clinic Noteon 12-11-2020 Urology Office/Clinic Note Chief Complaint HOME SERVICE TECHNICIAN referred for bladder mass HPI Staff HOME SERVICE TECHNICIAN referred by Dr. Parada due to a finding on Renal US done 12/02/20 a 2.5x2.2x1.0cm masslike area within floor of urinary bladder. Pt was a former smoker, quit 3 years ago. Pt denies any infections in the past year. Pt denies any issues with stones. Pt is not expressing any urinary concerns at this time that is bothersome. Pt has not given a UA sample yet, he will try before he leaves, gave him water. Dysuria: no pain or burning Incomplete bladder emptying: emptying Hematuria: denies any blood in urine Frequency: normal with 2-4 hours in between Urgency: mild to none Nocturia: intermittent 1-2x Stream: weak to average stream, intermittent hesitation, no intermittent stream, no straining Post void dripping: yes, every day sx Wearing pads/ Depends: none worn Urge incontinence: none Stress incontinence: none Incontinence without Sensory Awareness: none Abdominal pain: none Flank pain: none Sexual complaints: none expressed at this time History of Present Illness Reviewed renal us, referral, and new pt. forms. There have been no associated fever, chills, flank pain or blood in the urine. Pt. denies any pain/burning with urination at this time. Review of Systems PHQ Score Initial Depression Screen Score: 0 ROS - Provider Constitutional: denies weight loss, denies hot flashes. Eyes: denies eye problems. Gastrointestinal: denies nausea, denies vomiting. Cardiovascular: denies chest pain or angina. Integumentary: no dryness Musculoskeletal: denies musculoskeletal symptoms. ENMT: denies otolaryngeal symptoms. Respiratory: no shortness of breath. Heme/Lymph: denies easy bleeding tendency, denies easy bruising tendency. Psychiatric: no confusion, no anxiety. Genitourinary: denies dysuria, denies hematuria, denies discharge, denies urinary frequency, denies urinary hesitancy, denies nocturia, denies incontinence, denies genital sores, denies decreased libido, and denies erectile dysfunction. Physical Exam Vitals & Measurements HR: 62(Peripheral) RR: 18 BP: 142/85 HT: 175.0 cm HT: 175 cm WT: 87.0 kg WT: 87 kg BMI: 28.41 General Appearance: alert, no distress, well nourished, well developed male. Head: normocephalic . Eyes: normal orbit and globe. ENMT: normal examination of external ears. Chest: Lungs CTA, respirations non labored. Cardiovascular: regular rate and rhythm. Abdomen: soft, non distended, no tenderness, no mass or organomegaly, no hernia. Genitourinary: normal scrotum, normal testes, normal urethra, normal epididymis, normal vas deferens/spermatic cord. Flank Pain: none. Bladder: nonpalpable. Penis: normal shaft, normal glans. Prostate: normal prostate, estimated weight 40 gms, no hard nodule observed. Lymph Nodes: unremarkable palpation of the cervical area. Skin: warm, dry, no bruising. Psychiatric: cooperative, affect appropriate for age, normal judgement, euthymic mood. Assessment/Plan 1. Bladder mass (N32.89: Other specified disorders of bladder) Renal us 12/02/20, 2.5cm masslike area within floor of urinary bladder. ?median lobe of prostate vs. bladder tumor? Will schedule Cystoscopy. The risks and benefits for this procedure have been discussed. The risks include bleeding, infection, and irritation of the bladder and urinary channel, among others. The patient, after being informed of procedural details and after questions have been answered, wishes to proceed. Full informed consent has been obtained. Will order Local anesthesia. 2. Nocturia (R35.1: Nocturia) 1-2x/night. 3. Weak urine stream (R39.12: Poor urinary stream) Weak stream w/ intermittent hesitancy. 4. BPH with urinary obstruction (N40.1: Benign prostatic hyperplasia with lower urinary tract symptoms) Pt. is not on any BPH meds. at this time. PSA was last at 4.75. BROOKS today - 40gms, no hard nodules. I have reviewed the previous health record information and history for this pt. from Dr. Soto. Follow-up With When Contact Information Michael SOTO MD, URL [address] [place] [address] [place] [address]- [phone] Additional Instructions: Patient Education Cystoscopy I, Yamilka New , personally scribed for Dr. Soto on 12/11/2020 15:08:54. . Documentation recorded by the scribe, Yamilka New, accurately reflects the services(s) I performed and decisions made by me. Authenticated by Dr. Soto on 12/11/2020 15:10:44. Problem List/Past Medical History Ongoing Arthritis Basal cell carcinoma of skin Bilateral wheezing Centrilobular emphysema COPD type A Elevated PSA Eosinophilia GERD without esophagitis Gout Hx of tobacco use, presenting hazards to health Hyperlipidemia Hypertension Multiple pulmonary nodules Peripheral edema Historical No qualifying data Procedure/Surgical History Colonoscopy (08/04/2017). Medications albuterol 0.08 (more content not included)... [facility] Comment on above: Result Comment: Elec tronically Signed By: Michael SOTO MD\.br\Date and Time Signed: 12/11/20 15:10 EDT\.br\Electronically Co-Signed By: Yamilka New MA\.br\Date and Time Co-Signed: 12/11/20 15:09 EDT Vital Signs Date Time Vital Sign Value Performing Clinician Facility 10-30-2023 10:45-0400 Body height 175.26 cm [facility] 10-30-2023 10:45-0400 Body mass index (BMI) [Ratio] 27 kg/m2 [facility] 10-30-2023 10:45-0400 Body temperature 97.4 [degF] [facility] 10-30-2023 10:45-0400 Body weight 83 kg [facility] 10-30-2023 10:45-0400 Diastolic blood pressure 70 mm[Hg] [facility] 10-30-2023 10:45-0400 Heart rate 68 /min [facility] 10-30-2023 10:45-0400 Respiratory rate 18 /min [facility] 10-30-2023 10:45-0400 SaO2% (BldA) [Mass fraction] 97 % [facility] 10-30-2023 10:45-0400 Systolic blood pressure 120 mm[Hg] [facility] 02-07-2022 15:00-0400 Body height 175.26 cm Praveen Mariam Other [facility] Other 02-07-2022 15:00-0400 Body mass index (BMI) [Ratio] 27.02 kg/m2 Praveen Mariam Other [facility] Other 02-07-2022 15:00-0400 Body temperature 97 [degF] Praveen Mariam Other [facility] Other 02-07-2022 15:00-0400 Body weight 83.01 kg Praveen Mariam Other [facility] Other 02-07-2022 15:00-0400 Diastolic blood pressure 62 mm[Hg] Praveen Mariam Other [facility] Other 02-07-2022 15:00-0400 Respiratory rate 18 /min Praveen Mariam Other [facility] Other 02-07-2022 15:00-0400 SaO2% (BldA) [Mass fraction] 92 % Praveen Mariam Other [facility] Other 02-07-2022 15:00-0400 Systolic blood pressure 130 mm[Hg] Praveen Mariam Other [facility] Other Encounters Encounter Date Encounter Type Care Provider Facility Start: 10-30-2023 End: 10-30-2023 ambulatory [facility] Work Phone: Start: 10-30-2023 End: 10-30-2023 Patient encounter procedure [facility] Work Phone: Start: 10-15-2023 End: 10-15-2023 ambulatory ANTOINETTE AICHHOLZ Not Available Start: 09-11-2023 Refill 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 Phone: [facility] Comment on above: Primary hypertension (CMS/HCC) (Primary Dx); Essential (primary) hypertension (CMS/HCC); Benign essential hypertension (CMS/HCC) Start: 10-24-2022 End: 10-25-[address] KERRIE MONTANA Facility:[facility] Start: 10-21-2022 End: 10-22-[address] KERRIE MONTANA Facility:[facility] Start: 10-09-2022 End: 10-10-2022 ambulatory [facility] MARKER ANTOINETTE AICHHOLZ Facility:[facility] Start: 09-12-2022 End: 09-13-2022 ambulatory [facility] MARKER ANTOINETTE AICHHOLZ Facility:[facility] Start: 09-03-2022 End: 09-04-2022 ambulatory CAN MARKER ANTOINETTE AICHHOLZ Facility:[facility] Start: 08-26-2022 End: 08-27-2022 ambulatory PRAVEEN MARIAM Facility:[facility] Start: 02-11-2022 End: 02-12-2022 ambulatory CAN MARKER ANTOINETTE AICHHOLZ Facility:[facility] Start: 02-07-2022 End: 02-07-2022 ambulatory Praveen Mariam Other [facility] Other Start: 02-07-2022 Office outpatient vi sit 25 minutes Praveen Mariam [facility] Start: 01-28-2022 End: 01-29-2022 ambulatory PRAVEEN MARIAM Facility:[facility] Start: 01-09-2022 End: 01-09-2022 ambulatory ADELINE UDAY Facility:[facility] Procedures Date Procedure Procedure Detail Performing Clinician Start: 10-09-2022 PSA screening [facility] MARK[facility] ANTOINETTE MIRACLE Comment on above: Performed By: #### P [facility] #### [facility] [address] [address] [address] Aliyah Fierro Plan of Treatment Date Care Activity Detail Author Start: 04-04-2023 Influenza vaccination Influenza Vaccine (#1) [facility] Start: 02-14-1946 Pneumococcal Vaccine: 65+ Years (1 - PCV) Pneumococcal Vaccine: 65+ Years (1 - PCV) [facility] Start: 1940 Medicare Annual Wellness (AWV) Medicare Annual Wellness (AWV) [facility] Renal function 2000 panel - Serum or Plasma [facility] Payers Date Payer Category Payer Medicare MEDICARE MEDICAR E PART B [id number] 2007-Present [address] [address] [place] [address] Medicare [id number] 1959 Medicare [id number] 1959 Private Health Insurance [id number] 1942 Unknown [id number]. 2.593 1942 Unknown [id number] [id number]. 2.593 1942 Unknown [id number] [id number]. 2.593 1942 Unknown [id number] 2.16.840.1.772906.3.579. 2.593 1942 Unknown [id number] 2.16.840.1.587135.3.579. 2.593 1942 Unknown [id number] 2.16.840.1.206219.3.579. 2.593 1942 Unknown [id number] 2.16.840.1.657354.3.579. 2.593 1942 Unknown [id number] 2.16.840.1.102888.3.579. 2.593 1942 Unknown [id number] 2.16.840.1.700148.3.579. 2.593 1942 Unknown [id number] [id number]. 2.1259 Self-pay Self Pay [id number] Social History Date Type Detail Facility Unknown if ever smoked [facility] Other Sex Assigned At [facility] Other Tobacco smoking status [facility] Tobacco smoking consumption unknown [facility] Start: 1940 Sex Assigned At Not on file N [facility] Start: 10-30-2023 Tobacco smoking status [facility] Ex-smoker (finding) [facility] Start: 1940 Sex Assigned At Male [facility] Evaluation note 02-07-2022 Note Date & Type Note Facility 02-07-2022 Evaluation note Encounter Date Diagnosis Assessment Notes Feb, Chronic kidney disease, stage 3b (ICD-10 - N18.32) He has CKD due to longstanding hypertension His serum creatinine is 2.2 mg/dL above his baseline b/l Serum creatinine is 1.9 mg/dl. This may be due to the hemodynamic changes or progression of CKD. His renal ultrasound showed right-sided nephrolithiasis with no hydronephrosis and unremarkable left kidney. I discussed with the importance of good HTN control to surround the progression of CKD. 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 He appears to be euvolemic. Continue current medications. I have advised him to monitor his weight if he start getting weight or develops leg swelling then resume Lasix or call office. Feb, Anemia of renal disease (ICD-10 - D63.1) Hemoglobin is within the acceptable range. He has adequate iron stores . No need for MARC. Feb, Secondary hyperparathyroidism (ICD-10 - N25.81) MBD parameters are within the goal. Feb, Gout (ICD-10 - M10.9) Will monitor without medications. Will restart allopurinol if he has a gout flare. [facility] Other Clinical Note 12-11-2020 Note Date & Type Note Facility 12-11-2020 Note Urology Cystoscopy Cystoscopy is a procedure that is used to help diagnose and sometimes treat conditions that affect the lower urinary tract. The lower urinary tract includes the bladder and the urethra. The urethra is the tube that drains urine from the bladder. Cystoscopy is done using a thin, tube-shaped instrument with a light and camera at the end (cystoscope). The cystoscope may be hard or flexible, depending on the goal of the procedure. The cystoscope is inserted through the urethra, into the bladder. Cystoscopy may be recommended if you have: ? Urinary tract infections that keep coming back. ? Blood in the urine (hematuria). ? An inability to control when you urinate (urinary incontinence) or an overactive bladder. ? Unusual cells found in a urine sample. ? A blockage in the urethra, such as a urinary stone. ? Painful urination. ? An abnormality in the bladder found during an intravenous pyelogram (IVP) or CT scan. Cystoscopy may also be done to remove a sample of tissue to be examined under a microscope (biopsy). Tell a health care provider about: ? Any allergies you have. ? All medicines you are taking, including vitamins, herbs, eye drops, creams, and fxkh-bmm-wpwwpon medicines. ? Any problems you or family members have had with anesthetic medicines. ? Any blood disorders you have. ? Any surgeries you have had. ? Any medical conditions you have. ? Whether you are or may be . What are the risks? Generally, this is a safe procedure. However, problems may occur, including: ? Infection. ? Bleeding. ? Allergic reactions to medicines. ? Damage to other structures or organs. What happens before the procedure? ? Ask your health care provider about: ? Changing or stopping your regular medicines. This is especially important if you are taking diabetes medicines or blood thinners. ? Taking medicines such as aspirin and ibuprofen. These medicines can thin your blood. Do not take these medicines unless your health care provider tells you to take them. ? Taking txwe-vqv-okindek medicines, vitamins, herbs, and supplements. ? Follow instructions from your health care provider about eating or drinking restrictions. ? Ask your health care provider what steps will be taken to help prevent infection. These may include: ? Washing skin with a germ-killing soap. ? Taking antibiotic medicine. ? You may have an exam or testing, such as: ? X-rays of the bladder, urethra, or kidneys. ? Urine tests to check for signs of infection. ? Plan to have someone take you home from the hospital or clinic. What happens during the procedure? ? You will be given one or more of the following: ? A medicine to help you relax (sedative). ? A medicine to numb the area (local anesthetic). ? The area around the opening of your urethra will be cleaned. ? The cystoscope will be passed through your urethra into your bladder. ? Germ-free (sterile) fluid will flow through the cystoscope to fill your bladder. The fluid will stretch your bladder so that your health care provider can clearly examine your bladder wilson. ? Your doctor will look at the urethra and bladder. Your doctor may take a biopsy or remove stones. ? The cystoscope will be removed, and your bladder will be emptied. The procedure may vary among health care providers and hospitals. What can I expect after the procedure? After the procedure, it is common to have: ? Some soreness or pain in your abdomen and urethra. ? Urinary symptoms. These include: ? Mild pain or burning when you urinate. Pain should stop within a few minutes after you urinate. This may last for up to 1 week. ? A small amount of blood in your urine for several days. ? Feeling like you need to urinate but producing only a small amount of urine. Follow these instructions at home: Medicines ? Take cjyo-uii-anppufe and prescription medicines only as told by your health care provider. ? If you were prescribed an antibiotic medicine, take it as told by your health care provider. Do not stop taking the antibiotic even if you start to feel better. General instructions ? Return to your normal activities as told by your health care provider. Ask your health care provider what activities are safe for you. ? Do not drive for 24 hours if you were given a sedative during your procedure. ? Watch for any blood in your urine. If the amount of blood in your urine increases, call your health care provider. ? Follow instructions from your health care provider about eating or drinking restrictions. ? If a tissue sample was removed for testing (biopsy) during your procedure, it is up to you to get your test results. Ask your health care provider, or the department that is doing the test, when your results will be ready. ? Drink enough fluid to keep your urine pale yellow. ? Keep all follow-up visits as told by your health care provider. This is importa (more content not included)... [facility] Evaluation note Note Date & Type Note Facility Evaluation note Diagnosis Primary hypertension (CMS/HCC)- Primary Unspecified essential hypertension Essential (primary) hypertension (CMS/HCC) Unspecified essential hypertension Benign essential hypertension (CMS/HCC) Essential hypertension, benign documented in this encounter [facility] Evaluation note Note Date & Type Note Facility Evaluation note Diagnosis Onset Date Anemia of renal disease acut e CKD (chronic kidney disease) stage 4, GFR 15-29 ml/min acute Gout acute Hyperlipidemia acute [id number] acute Secondary hyperparathyroidism acute [facility] Work Phone: History general Narrative - Reported Note Date & Type Note Facility History general Narrative - Reported Type Medical History HYPERTENSION Medical History COLON CANCER Medical History ANXIETY Medical History GERD WITHOUT ESOPHAGITIS Medical History COPD Medical History PERIPHERAL EDEMA Medical History FACIAL RASH Medical History HYPERLIPIDEMIA Medical History GOUT ARTHRITIS Medical History CKD STAGE 4 SECONDARY TO HYPERTE NSION Medical History EOSINOPHILIA Medical History CA SKIN BASAL CELL Medical History MULTIPLE PULMONARY NODULES Medical History COVID 04/2021 Surgical History COLON RESECTION FOR COLON CANCE R Surgical History LASIK BILATERALLY Hospitalization History SEE ABOVE [employer] Other Summary Purpose Family History Relationship Condition Age at Onset Recorded Date/T dianne brother Hypertension Unknown daughter Family history of mental disorder Unknown father Malignant neoplasm Unknown Malignant neoplasm of urinary bladder Unk nown Unknown family member Unknown Not Specified Unknown Advance Directives Advance Directive Response Recorded Date/ Time Advance Directives No September 02, 2023 6:25pm Chief Complaint and Reason for Visit Chief Complaint RENAL 6 month Follow up Reason for Visit Anemia of renal dise ase CKD (chronic kidney disease) stage 4, GFR 15-29 ml/min Gout Hyperlipidemia [id number] Secondary hyperparathyroidism Additional Source Comments (unrecognized sect ion and content) No Status Records FoundNo Status Records FoundNo Status Records Found INFORMATION SOURCE (unrecogn ized section and content) DATE CREATED AUTHOR 04/07/2021 [facility] Cisner[facility] DATE CREATED AUTHOR AUTHOR'S ORGANIZ ATION 10/27/2022 [facility] DATE CREATED AUTHOR AUTHOR'S ORGANIZ ATION 10/16/2023 [facility] EPIC REASON FOR VISIT (unrecogniz ed section and content) Reason Comments Med Refill Care Teams (unrecognized sec tion and content) [employer] Relationship Specialty Start Date End Date Wallace Hubbard MD PCP - General Family Medicine 02/07/23 Team Status: Active Member Role Status Dates Antoinette Carrillo Primary Care Provider Active Team Status: Inactive Member Role Status Dates Antoinette Carrillo Primary Care Provider Active Sta rt: October 30, 2023 End: October 30, 2023 Praveen Conley MD Attending Provider Active Start : October 30, 2023 End: October 30, 2023 Goals (unrecognized section and content) Goals may be documented in a n alternate section FOR RECORDS PERTAINING TO PATIENTS WHO ARE OR HAVE BEEN ENROLLED IN A CHEMICAL DEPENDENCY/SUBSTANCEABUSE PROGRAM, SOME INFORMATION MAY BE OMITTED. This clinical summary was aggregated from multiple sources. Caution should be exercised in using it in the provision of clinical care. This summary normalizes information from multiple sources, and as a consequence, information in this document may materially change the coding, format and clinical context of patient data. In addition, data may be omitted in some cases. CLINICAL DECISIONS SHOULD BE BASED ON THE PRIMARY CLINICAL RECORDS. [facility]. provides no warranty or guarantee of the accuracy or completeness of information in this document.
[2024-03-20 16:56] LABS: Basophils Percent Auto 0.2 % (0.2-2.0); Eosinophils Absolute Auto 0.1 10^3/uL (0.0-0.7); Eosinophils Percent Auto 0.8 % (0.9-7.0); Hematocrit 38.6 % (42.0-54.0); Immature Granulocytes Abs Auto 0.05 10^3/uL (0.00-0.03); Immature Granulocytes Pct Auto 0.3 % (0.0-0.5); Lymphocytes Absolute Auto 1.2 10^3/uL (1.2-3.8); Lymphocytes Percent Auto 7.2 % (20.5-60.0); Mean Corpuscular HGB Conc 33.7 g/dL (29.9-35.2); Mean Corpuscular Volume 86.2 fL (80.0-94.0); Mean Platelet Volume 9.5 fL (9.5-13.5); Monocytes Percent Auto 5.7 % (1.7-12.0); Neutrophils Absolute Auto 14.5 10^3/uL (1.4-6.5); Neutrophils Percent Auto 85.8 % (43.0-75.0); Platelet Count 303 10^3/uL (150-450); Red Blood Count 4.48 10^6/uL (4.70-6.10); Red Cell Distribution Width 13.1 % (11.0-15.0); White Blood Count 16.9 10^3/uL (4.0-11.0)
[2024-03-20] MEDS: IPRATROPIUM/ALBUTEROL SULFATE 3 ML AMPUL.NEB IH (16:58)
[2024-03-20 17:00] LABS: PCO2 VBG 32.3 mmHg (40.0-52.0); pH VBG 7.437 (7.330-7.430)
[2024-03-20 17:09] LABS: INR 1.02; Prothrombin Time 10.8 sec (9.0-11.6)
[2024-03-20] MEDS: 0.9 % SODIUM CHLORIDE 1,000 ML 1000 ML IV (17:13)
[2024-03-20] MEDS: METHYLPREDNISOLONE SOD SUCC PF 125 MG/2 ML VIAL IVP (17:14)
[2024-03-20 17:16] LABS: Lactate/Lactic Acid 1.3 mmol/L (0.4-2.0)
[2024-03-20 17:21] LABS: Alanine Aminotransferase 23 U/L (16-63); Albumin Globulin Ratio 1.2; Albumin Level 4.1 g/dL (3.4-5.0); Alkaline Phosphatase 99 U/L (46-116); Aspartate Amino Transferase 18 U/L (15-37); BUN Creatinine Ratio 16.7; Bilirubin Total 0.6 mg/dL (0.2-1.0); Calcium 9.3 mg/dL (8.5-10.1); Carbon Dioxide 23.1 mmol/L (21.0-32.0); Chloride 100 mmol/L (98-107); Estimated GFR (African America 38 (>=60); Estimated GFR (Non-African Ame 32 (>=60); Globulin 3.3 g/dL; Glucose 122 mg/dL (74-106); Magnesium 1.9 mg/dL (1.8-2.4); Potassium 4.1 mmol/L (3.5-5.1); Sodium 134 mmol/L (136-145); Total Protein 7.4 g/dL (6.4-8.2); Troponin I High Sensitivity 12.2 pg/mL (4.0-76.1)
--- NOTE | 2024-03-20 17:57 | PC.NURSE ---
Pulse Ox. 95% on 3 LPM/NC at rest. Oxygen removed and pulse ox. 93-94% on room air at rest. Pulse ox. with ambulation is 86-88%. Placed back on oxygen at 2 LPM/NC and pulse Ox. 97%.
[2024-03-20] MEDS: CEFTRIAXONE 1,000 MG in 0.9 % SODIUM CHLORIDE 50 ML 100 MG IV (18:10)
[2024-03-20] MEDS: AZITHROMYCIN 500 MG in 0.9 % SODIUM CHLORIDE 250 ML 250 MG IV (18:39)
--- OUTSIDE RECORDS SUMMARY | 2024-03-20 20:13 | XMS_ITS | CCD ---
Author Organization [facility] Care Team Providers Care Promotions Representative Name Role Phone Mariam, Praveen Unavailable AICHHOLZ, MEDICAL AFFAIRS SPECIALIST ANTOINETTE Admitting Unavailable AICHHOLZ, MEDICAL AFFAIRS SPECIALIST ANTOINETTE Attending Unavailable AICHHOLZ, MEDICAL AFFAIRS SPECIALIST ANTOINETTE Primary Care Unavailable AICHHOLZ, MEDICAL AFFAIRS SPECIALIST ANTOINETTE Consulting Unavailable AICHHOLZ, MEDICAL AFFAIRS SPECIALIST ANTOINETTE Admitting Unavailable AICHHOLZ, MEDICAL AFFAIRS SPECIALIST ANTOINETTE Attending Unavailable AICHHOLZ, MEDICAL AFFAIRS SPECIALIST ANTOINETTE Primary Care Unavailable CHAPLIN, DR BUBBA Amaya Consulting Unavailable AICHHOLZ, MEDICAL AFFAIRS SPECIALIST ANTOINETTE Consulting Unavailable AICHHOLZ, MEDICAL AFFAIRS SPECIALIST ANTOINETTE Admitting Unavailable AICHHOLZ, MEDICAL AFFAIRS SPECIALIST ANTOINETTE Attending Unavailable AICHHOLZ, MEDICAL AFFAIRS SPECIALIST ANTOINETTE Primary Care Unavailable AICHHOLZ, MEDICAL AFFAIRS SPECIALIST ANTOINETTE Consulting Unavailable UDAY, ADELINE Admitting Unavailable UDAY, ADELINE Attending Unavailable AICHHOLZ, MEDICAL AFFAIRS SPECIALIST ANTOINETTE Primary Care Unavailable CHAPLIN, DR BUBBA Amaya Consulting Unavailable UDAY, ADELINE Consulting Unavailable ABBAS, DR SY Admitting Unavailable ABBAS, DR SY Attending Unavailable AICHHOLZ, MEDICAL AFFAIRS SPECIALIST ANTOINETTE Primary Care Unavailable ABBAS, DR SY Consulting Unavailable ZIEBER, DR MAURO Barnes Consulting Unavailable ABBAS, DR SY Admitting Unavailable ABBAS, DR SY Attending Unavailable AICHHOLZ, MEDICAL AFFAIRS SPECIALIST ANTOINETTE Primary Care Unavailable ABBAS, DR SY Consulting Unavailable MARIAM, PRAVEEN Admitting Unavailable MARIAM, PRAVEEN Attending Unavailable AICHHOLZ, MEDICAL AFFAIRS SPECIALIST ANTOINETTE Primary Care Unavailable MARIAM, PRAVEEN Consulting Unavailable AICHHOLZ, MEDICAL AFFAIRS SPECIALIST ANTOINETTE Admitting Unavailable AICHHOLZ, MEDICAL AFFAIRS SPECIALIST ANTOINETTE Attending Unavailable AICHHOLZ, MEDICAL AFFAIRS SPECIALIST ANTOINETTE Primary Care Unavailable WEST, DR BUBBA Amaya Consulting Unavailable AICHHOLZ, MEDICAL AFFAIRS SPECIALIST ANTOINETTE Consulting Unavailable MARIAM, PRAVEEN Admitting Unavailable MARIAM, PRAVEEN Attending Unavailable AICHHOLZ, MEDICAL AFFAIRS SPECIALIST ANTOINETTE Primary Care Unavailable MARIAM, PRAVEEN Consulting Unavailable Naderer MD, Wallace Primary Care Provider ANTOINETTE CARRILLO Attending Unavailable Allergies Allergy Classification Reported Allergen(s) Allergy Type Date of Onset Reaction(s) Facility (1 source) Amino Acids Drug Allergy [facility] Repository Medications Current Medications Medication Drug Class(es) [...] Onset: 01-10-2022 Episodic Other aftercare (1 source) group home (current) use of aspirin; 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 Aliyah Fierro CREATININEon 10-24-2022 Creatinine [Mass/Vol] 1.97 mg/dL Critically high 0.70-1.30 [facility] Comment on above: Performed By: #### B MINIATURE TRAIN DRIVER, CMP, CMADM, TSH #### [facility] [address] [address] [address] Aliyah Fierro EGFR-AF MONTENEGRIN 40 mL/min/1.73m2 Critically low >=60 [facility] Comment on above: Performed By: #### B MINIATURE TRAIN DRIVER, CMP, CMADM, TSH #### [facility] [address] [address] [address] Aliyah Fierro EGFR-NON AF MONTENEGRIN 33 mL/min/1.73m2 Critically low >=60 [facility] Comment on above: Performed By: #### B MINIATURE TRAIN DRIVER, CMP, CMADM, TSH #### [facility] [address] [address] [address] Aliyah Fierro CREATININEon 10-21-2022 Creatinine [Mass/Vol] 2.10 mg/dL Critically high 0.70-1.30 [facility] Comment on above: Performed By: #### B MINIATURE TRAIN DRIVER, CMP, CMADM, TSH #### [facility] [address] [address] [address] Aliyah Fierro EGFR-AF MONTENEGRIN 37 mL/min/1.73m2 Critically low >=60 [facility] Comment on above: Performed By: #### B MINIATURE TRAIN DRIVER, CMP, CMADM, TSH #### [facility] [address] [address] [address] Aliyah Fierro EGFR-NON AF MONTENEGRIN 31 mL/min/1.73m2 Critically low >=60 [facility] Comment on above: Performed By: #### B MINIATURE TRAIN DRIVER, CMP, CMADM, TSH #### [facility] [address] [address] [address] Aliyah Fierro CTA ABD JESS WWO [...] MAURO WEBSTER Date: 2022-10-21 15:35 Normal [facility] US CAROTID ART BILon 10-21-2 023 US [...] by: MAURO WEBSTER Date: 2022-10-21 15:38 Normal [facility] LIPID PROFILEon 10-09-2022 CHOL-HDL RATIO NORM SEE BELOW Normal [facility] Comment on above: Result Comment: 3.3 - 4.4 LOW RISK 4.4 - 7.1 AVERAGE RISK 7.1 - 11.0 MODERATE RISK >11.0 HIGH RISK Performed By: #### L IVER, LIPID #### [facility] [address] [address] [address] Aliyah Fierro Cholesterol [Mass/Vol] 190 mg/dL Normal <=200 [facility] Comment on above: Performed By: #### L IVER, LIPID #### [facility] [address] [address] [address] Aliyah Fierro Cholesterol in HDL [Mass/Vol] 40 mg/dL Normal 40-60 [facility] Comment on above: Performed By: #### L IVER, LIPID #### [facility] [address] [address] [address] Aliyah Fierro Cholesterol in LDL [Mass/Vol] 108.4 mg/dL Normal [facility] Comment on above: Performed By: #### L IVER, LIPID #### [facility] [address] [address] [address] Aliyah Fierro Cholesterol.total/C holesterol in HDL [Mass ratio] 4.8 {ratio} Normal [facility] Comment on above: Performed By: #### L IVER, LIPID #### [facility] [address] [address] [address] Aliyah Fierro HDL NORMAL > or = 60 mg/dl - LO W CARDIOVASCULAR RISK <40 mg/dl - HIGH CARDIOVASCULAR RISK Normal [facility] Comment on above: Performed By: #### L IVER, LIPID #### [facility] [address] [address] [address] Aliyah Fierro LDL CALC NORMAL SEE BELOW Normal [facility] Comment on above: Result Comment: <100 mg/dl OPTIMAL 100 - 129 mg/dl NEAR OR ABOVE OPTIMAL 130 - 159 mg/dl BORDERLINE HIGH 160 - 189 mg/dl HIGH >190 mg/dl VERY HIGH Performed By: #### L IVER, LIPID #### [facility] [address] [address] [address] Aliyah Fierro Triglyceride [Mass/Vol] 208 mg/dL Critically high <=150 [facility] Comment on above: Performed By: #### L IVER, LIPID #### [facility] [address] [place] [address] Dr. Alyiah Fierro VLDL CALC 41.6 mg/dL Normal [facility] Comment on above: Performed By: #### L IVER, LIPID #### [facility] [address] [address] [address] Aliyah Fierro LIVER PROFILEon 10-09-2022 Albumin [Mass/Vol] 4.0 g/dL Normal 3.4-5.0 [facility] Comment on above: Performed By: #### L IVMILLY, LIPID #### [facility] [address] [address] [address] Aliyah Fierro Albumin/Globulin [Mass ratio] 1.4 {ratio} Normal [facility] Comment on above: Performed By: #### L IVER, LIPID #### [facility] [address] [address] [address] Aliyah Fierro ALP [Catalytic activity/Vol] 80 U/L Normal 46-116 [facility] Comment on above: Performed By: #### L IVER, LIPID #### [facility] [address] [address] [address] Aliyah Fierro ALT [Catalytic activity/Vol] 25 U/L Normal 16-63 [facility] Comment on above: Performed By: #### L IVER, LIPID #### [facility] [address] [address] [address] Aliyah Fierro AST [Catalytic activity/Vol] 22 U/L Normal 15-37 [facility] Comment on above: Performed By: #### L IVER, LIPID #### [facility] [address] [address] [address] Aliyah Fierro BILI, CONJUGATED 0.1 mg/dL Normal 0.0-0.2 [facility] Comment on above: Performed By: #### L IVER, LIPID #### [facility] [address] [address] [address] Aliyah Fierro Bilirubin [Mass/Vol] 0.4 mg/dL Normal 0.2-1.0 [facility] Comment on above: Performed By: #### L IVER, LIPID #### [facility] [address] [place] [address] Dr. Aliyah Fierro Globulin (S) [Mass/Vol] 2.8 g/dL Normal [facility] Comment on above: Performed By: #### L IVER, LIPID #### [facility] [address] [place] [address] Dr. Aliyah Fierro Protein [Mass/Vol] 6.8 g/dL Normal 6.4-8.2 [facility] Comment on above: Performed By: #### L IVER, LIPID #### [facility] [address] [place] [address] Dr. Aliyah Fierro US ARTERY LEG BILon 09-13-19 23 US ARTERY LEG ZOILA EXAMINATION: US ARTERY LEG ZOILA HISTORY: Peripheral vascular disease (disorder) COMPARISON: No [...] by: BUBBA BASURTO Date: 2022-09-13 06:13 Normal [facility] PTH INTACTon 08-27-2022 PTH, Intact 63 pg/mL Normal - [facility] Comment on above: Performed By: #### L IVER, LIPID #### [facility] [address] [place] [address] Dr. Aliyah Fierro FERRITINon 08-26-2022 Ferritin [Mass/Vol] 200.0 ng/mL Normal 26.0-388.0 [facility] Comment on above: Performed By: #### L ADRIAN LIPID #### [facility] [address] [place] [address] Dr. Aliyah Fierro HEMOGRAM AND PLATELon 2022 Hematocrit (Bld) [Volume fraction] 36.1 % Critically low 42.0-54.0 [facility] Comment on above: Performed By: #### H H #### [facility] [address] [place] [address] Dr. Aliyah Fierro Hemoglobin (Bld) [Mass/Vol] 12.9 g/dL Critically low 14.0-18.0 [facility] Comment on above: Performed By: #### H H #### [facility] [address] [place] [address] Dr. Aliyah Fierro MCH (RBC) [Entitic mass] 28.9 pg Normal 25.9-34.0 [facility] Comment on above: Performed By: #### H H #### [facility] [address] [place] [address] Dr. Aliyah Fierro MCHC (RBC) [Mass/Vol] 35.7 g/dL Critically high 29.9-35.2 [facility] Comment on above: Performed By: #### H H #### [facility] [address] [place] [address] Dr. Aliyah Fierro MCV (RBC) [Entitic vol] 80.8 fL Normal 80.0-94.0 [facility] Comment on above: Performed By: #### H H #### [facility] [address] [place] [address] Dr. Aliyah Fierro PLT 285 103/ul Normal 150-450 [facility] Comment on above: Performed By: #### H H #### [facility] [address] [place] [address] Dr. Aliyah Fierro RBC 4.47 106/ul Critically low 4.70-6.10 [facility] Comment on above: Performed By: #### H H #### [facility] [address] [place] [address] Dr. Aliyah Fierro WBC 7.6 103/ul Normal 4.0-11.0 [facility] Comment on above: Performed By: #### H H #### [facility] [address] [place] [address] Dr. Aliyah Fierro IRON AND TIBCon 08-26-2022 % SATURATION 34.5 % Normal [facility] Comment on above: Performed By: #### L ADRIAN LIPID #### [facility] [address] [place] [address] Dr. Aliyah Fierro Iron [Mass/Vol] 98.0 ug/dL Normal 65.0-175.0 [facility] Comment on above: Performed By: #### L ADRIAN LIPID #### [facility] [address] [place] [address] Dr. Aliyah Fierro TIBC DIRECT 284.0 ug/dL Normal 250.0-450.0 [facility] Comment on above: Performed By: #### L ADRIAN LIPID #### [facility] [address] [place] [address] Dr. Aliyah Fierro MAGNESIUMon 08-26-2022 Magnesium [Mass/Vol] 1.8 mg/dL Normal 1.8-2.4 [facility] Comment on above: Performed By: #### B MINIATURE TRAIN DRIVER, CMP, CMADM, TSH #### [facility] [address] [place] [address] Dr. Aliyah Fierro RENAL FUNCTION PANELon 08-26 Albumin [Mass/Vol] 3.9 g/dL Normal 3.4-5.0 [facility] Comment on above: Performed By: #### B MINIATURE TRAIN DRIVER, CMP, CMADM, TSH #### [facility] [address] [place] [address] Dr. Aliyah Fierro Calcium [Mass/Vol] 8.6 mg/dL Normal 8.5-10.1 [facility] Comment on above: Performed By: #### B MINIATURE TRAIN DRIVER, CMP, CMADM, TSH #### [facility] [address] [address] [address] Aliyah Fierro Chloride [Moles/Vol] 103 mmol/L Normal 98-107 [facility] Comment on above: Performed By: #### B MINIATURE TRAIN DRIVER, CMP, CMADM, TSH #### [facility] [address] [address] [address] Aliyah Fierro CO2 [Moles/Vol] 26.8 mmol/L Normal 21.0-32.0 [facility] Comment on above: Performed By: #### B MINIATURE TRAIN DRIVER, CMP, CMADM, TSH #### [facility] [address] [place] [address] Dr. Aliyah Fierro Creatinine [Mass/Vol] 1.94 mg/dL Critically high 0.70-1.30 [facility] Comment on above: Performed By: #### B MINIATURE TRAIN DRIVER, CMP, CMADM, TSH #### [facility] [address] [address] [address] Aliyah Fierro EGFR-AF MONTENEGRIN 41 mL/min/1.73m2 Critically low >=60 [facility] Comment on above: Performed By: #### B MINIATURE TRAIN DRIVER, CMP, CMADM, TSH #### [facility] [address] [place] [address] Dr. Aliyah Fierro EGFR-NON AF MONTENEGRIN 33 mL/min/1.73m2 Critically low >=60 [facility] Comment on above: Performed By: #### B MINIATURE TRAIN DRIVER, CMP, CMADM, TSH #### [facility] [address] [place] [address] Dr. Aliyah Fierro Glucose [Mass/Vol] 97 mg/dL Normal 74-106 [facility] Comment on above: Performed By: #### B MINIATURE TRAIN DRIVER, CMP, CMADM, TSH #### [facility] [address] [place] [address] Dr. Aliyah Fierro Phosphate [Mass/Vol] 3.7 mg/dL Normal 2.6-4.7 [facility] Comment on above: Performed By: #### B MINIATURE TRAIN DRIVER, CMP, CMADM, TSH #### [facility] [address] [address] [address] Aliyah Fierro Potassium [Moles/Vol] 4.3 mmol/L Normal 3.5-5.1 [facility] Comment on above: Performed By: #### B MINIATURE TRAIN DRIVER, CMP, CMADM, TSH #### [facility] [address] [address] [address] Aliyah Fierro Sodium [Moles/Vol] 140 mmol/L Normal 136-145 [facility] Comment on above: Performed By: #### B MINIATURE TRAIN DRIVER, CMP, CMADM, TSH #### [facility] [address] [place] [address] Dr. Aliyah Fierro Urea nitrogen [Mass/Vol] 27.0 mg/dL Critically high 7.0-18.0 [facility] Comment on above: Performed By: #### B MINIATURE TRAIN DRIVER, CMP, CMADM, TSH #### [facility] [address] [place] [address] Dr. Aliyah Fierro UA RANDOM W/MICROSCOPICon BACTERIA NONE SEEN Normal NONE SEEN [facility] Comment on above: Performed By: #### B MINIATURE TRAIN DRIVER, CMP, CMADM, TSH #### [facility] [address] [place] [address] Dr. Aliyah Fierro Bilirubin Ql (U) Negative Normal NEGATIVE [facility] Comment on above: Performed By: #### B MINIATURE TRAIN DRIVER, CMP, CMADM, TSH #### [facility] [address] [place] [address] Dr. Aliyah Fierro CAST NONE SEEN Normal NONE SEEN [facility] Comment on above: Performed By: #### B MINIATURE TRAIN DRIVER, CMP, CMADM, TSH #### [facility] [address] [place] [address] Dr. Aliyah Fierro Clarity (U) CLEAR Normal CLEAR [facility] Comment on above: Performed By: #### B MINIATURE TRAIN DRIVER, CMP, CMADM, TSH #### [facility] [address] [place] [address] Dr. Aliyah Fierro Color (U) LT. YELLOW Normal YELLOW [facility] Comment on above: Performed By: #### B MINIATURE TRAIN DRIVER, CMP, CMADM, TSH #### [facility] [address] [address] [address] Aliyah Fierro Crystals LM Nom (Urine sed) NONE SEEN Normal NONE SEEN [facility] Comment on above: Performed By: #### B MINIATURE TRAIN DRIVER, CMP, CMADM, TSH #### [facility] [address] [address] [address] Aliyah Fierro Epithelial cells LM Ql (Urine sed) RARE Normal NONE SEEN /RARE [facility] Comment on above: Performed By: #### B MINIATURE TRAIN DRIVER, CMP, CMADM, TSH #### [facility] [address] [address] [address] Aliyah Fierro Glucose Ql (U) Negative Normal NEGATIVE [facility] Comment on above: Performed By: #### B MINIATURE TRAIN DRIVER, CMP, CMADM, TSH #### [facility] [address] [address] [address] Aliyah Fierro Hemoglobin Ql (U) Negative Normal NEGATIVE [facility] Comment on above: Performed By: #### B MINIATURE TRAIN DRIVER, CMP, CMADM, TSH #### [facility] [address] [address] [address] Aliyah Fierro Ketones Ql (U) Negative Normal NEGATIVE [facility] Comment on above: Performed By: #### B MINIATURE TRAIN DRIVER, CMP, CMADM, TSH #### [facility] [address] [address] [address] Aliyah Fierro LEUKOCYTES Negative Normal NEGATIVE [facility] Comment on above: Performed By: #### B MINIATURE TRAIN DRIVER, CMP, CMADM, TSH #### [facility] [address] [address] [address] Aliyah Fierro MUCOUS NONE SEEN Normal NONE SEEN [facility] Comment on above: Performed By: #### B MINIATURE TRAIN DRIVER, CMP, CMADM, TSH #### [facility] [address] [address] [address] Aliyah Fierro Nitrite Ql (U) Negative Normal NEGATIVE [facility] Comment on above: Performed By: #### B MINIATURE TRAIN DRIVER, CMP, CMADM, TSH #### [facility] [address] [address] [address] Aliyah Fierro pH (U) 5.5 [pH] Normal 5-9 [facility] Comment on above: Performed By: #### B MINIATURE TRAIN DRIVER, CMP, CMADM, TSH #### [facility] [address] [place] [address] Dr. Aliyah Fierro RBC NONE SEEN Abnormal 0-2 [facility] Comment on above: Performed By: #### B MINIATURE TRAIN DRIVER, CMP, CMADM, TSH #### [facility] [address] [place] [address] Dr. Aliyah Fierro SPEC GRAVITY 1.020 Normal 1.005-<=1.025 [facility] Comment on above: Performed By: #### B MINIATURE TRAIN DRIVER, CMP, CMADM, TSH #### [facility] [address] [place] [address] Dr. Aliyah Fierro UA PROTEIN Negative Normal NEGATIVE/ TRACE [facility] Comment on above: Performed By: #### B MINIATURE TRAIN DRIVER, CMP, CMADM, TSH #### [facility] [address] [place] [address] Dr. Aliyah Fierro Urobilinogen Qn (U) 0.2 {Katerina'U}/dL Normal 0.2 - 1. 0 [facility] Comment on above: Performed By: #### B MINIATURE TRAIN DRIVER, CMP, CMADM, TSH #### [facility] [address] [place] [address] Dr. Aliyah Fierro WBC NONE SEEN Normal NONE SEEN [facility] Comment on above: Performed By: #### B MINIATURE TRAIN DRIVER, CMP, CMADM, TSH #### [facility] [address] [place] [address] Dr. Aliyah Fierro URIC ACID SERUMon 08-26-2022 Urate [Mass/Vol] 8.0 mg/dL Critically high 3.5-7.2 [facility] Comment on above: Performed By: #### B MINIATURE TRAIN DRIVER, CMP, CMADM, TSH #### [facility] [address] [place] [address] Dr. Aliyah Fierro URINE T PROTEIN CREAT RATIOo n 08-26-2022 Protein (U) [Mass/Vol] 11.7 mg/dL Normal <=12.0 [facility] Comment on above: Performed By: #### L IVER, LIPID #### [facility] [address] [address] [address] Aliyah Fierro UR PROT CREAT RAT 0.09 Normal [facility] Comment on above: Performed By: #### L IVER, LIPID #### [facility] [address] [address] [address] Aliyah Fierro URINE CREAT 124.42 mg/dL Normal 20.00-300.00 [facility] Comment on above: Performed By: #### L IVER, LIPID #### [facility] [address] [address] [address] Aliyah Fierro VITAMIN D 25 OHon 08-26-2022 VIT D 25-OH 46.3 ng/mL Normal [facility] Comment on above: Performed By: #### L IVER, LIPID #### [facility] [address] [place] [address] Dr. Aliyah Fierro VIT D RANGES SEE BELOW Normal [facility] Comment on above: Result Comment: <20 ng/mL Vit D deficient 20 - <30 ng/mL Vit D insufficient 30 - 100 ng/mL Vit D sufficient >100 ng/mL Potential Toxicity Performed By: #### L IVER, LIPID #### [facility] [address] [place] [address] Dr. Aliyah Fierro XR CHEST 2 Von [...] by: BUBBA BASURTO Date: 2022-02-11 20:54 Normal [facility] PTH INTACTon 01-29-2022 PTH, Intact 58 pg/mL Normal 15-65 [facility] Comment on above: Performed By: #### L IVER, LIPID #### [facility] [address] [address] [address] Aliyah Fierro FERRITINon 01-28-2022 Ferritin [Mass/Vol] 199.0 ng/mL Normal 26.0-388.0 [facility] Comment on above: Performed By: #### L IVER, LIPID #### [facility] [address] [address] [address] Aliyah Fierro HEMOGRAM AND PLATELon 2021 Hematocrit (Bld) [Volume fraction] 39.0 % Critically low 42.0-54.0 [facility] Comment on above: Performed By: #### B MINIATURE TRAIN DRIVER, CMP, CMADM, TSH #### [facility] [address] [place] [address] Dr. Aliyah Fierro Hemoglobin (Bld) [Mass/Vol] 13.1 g/dL Critically low 14.0-18.0 [facility] [facility] Comment on above: Performed By: #### B MINIATURE TRAIN DRIVER, CMP, CMADM, TSH #### [facility] [address] [place] [address] Dr. Aliyah Fierro MCH (RBC) [Entitic mass] 29.4 pg Normal 25.9-34.0 [facility] Comment on above: Performed By: #### B MINIATURE TRAIN DRIVER, CMP, CMADM, TSH #### [facility] [address] [place] [address] Dr. Aliyah Fierro MCHC (RBC) [Mass/Vol] 33.6 g/dL Normal 29.9-35.2 [facility] Comment on above: Performed By: #### B MINIATURE TRAIN DRIVER, CMP, CMADM, TSH #### [facility] [address] [place] [address] Dr. Aliyah Fierro MCV (RBC) [Entitic vol] 87.4 fL Normal 80.0-94.0 [facility] Comment on above: Performed By: #### B MINIATURE TRAIN DRIVER, CMP, CMADM, TSH #### [facility] [address] [address] [address] Aliyah Fierro PLT 309 103/ul Normal 150-450 [facility] Comment on above: Performed By: #### B MINIATURE TRAIN DRIVER, CMP, CMADM, TSH #### [facility] [address] [place] [address] Dr. Aliyah Fierro RBC 4.46 106/ul Critically low 4.70-6.10 [facility] Comment on above: Performed By: #### B MINIATURE TRAIN DRIVER, CMP, CMADM, TSH #### [facility] [address] [place] [address] Dr. Aliyah Fierro WBC 8.4 103/ul Normal 4.0-11.0 [facility] Comment on above: Performed By: #### B MINIATURE TRAIN DRIVER, CMP, CMADM, TSH #### [facility] [address] [place] [address] Dr. Aliyah Fierro IRON AND TIBCon 01-28-2022 % SATURATION 31.0 % Normal [facility] Comment on above: Performed By: #### L ADRIAN, LIPID #### [facility] [address] [place] [address] Dr. Aliyah Fierro Iron [Mass/Vol] 93.0 ug/dL Normal 65.0-175.0 [facility] Comment on above: Performed By: #### L ADRIAN, LIPID #### [facility] [address] [place] [address] Dr. Aliyah Fierro TIBC DIRECT 300.0 ug/dL Normal 250.0-450.0 [facility] Comment on above: Performed By: #### L ADRIAN, LIPID #### [facility] [address] [place] [address] Dr. Aliyah Fierro MAGNESIUMon 01-28-2022 Magnesium [Mass/Vol] 2.0 mg/dL Normal 1.8-2.4 [facility] Comment on above: Performed By: #### B MINIATURE TRAIN DRIVER, CMP, CMADM, TSH #### [facility] [address] [place] [address] Dr. Aliyah Fierro RENAL FUNCTION PANELon 01-28 Albumin [Mass/Vol] 4.2 g/dL Normal 3.4-5.0 [facility] Comment on above: Performed By: #### B MINIATURE TRAIN DRIVER, CMP, CMADM, TSH #### [facility] [address] [address] [address] Aliyah Fierro Calcium [Mass/Vol] 8.8 mg/dL Normal 8.5-10.1 [facility] Comment on above: Performed By: #### B MINIATURE TRAIN DRIVER, CMP, CMADM, TSH #### [facility] [address] [address] [address] Aliyah Fierro Chloride [Moles/Vol] 104 mmol/L Normal 98-107 [facility] Comment on above: Performed By: #### B MINIATURE TRAIN DRIVER, CMP, CMADM, TSH #### [facility] [address] [address] [address] Aliyah Fierro CO2 [Moles/Vol] 26.0 mmol/L Normal 21.0-32.0 [facility] Comment on above: Performed By: #### B MINIATURE TRAIN DRIVER, CMP, CMADM, TSH #### [facility] [address] [place] [address] Dr. Aliyah Fierro Creatinine [Mass/Vol] 2.23 mg/dL Critically high 0.70-1.30 [facility] Comment on above: Performed By: #### B MINIATURE TRAIN DRIVER, CMP, CMADM, TSH #### [facility] [address] [place] [address] Dr. Aliyah Fierro EGFR-AF MONTENEGRIN 35 mL/min/1.73m2 Critically low >=60 [facility] Comment on above: Performed By: #### B MINIATURE TRAIN DRIVER, CMP, CMADM, TSH #### [facility] [address] [address] [address] Aliyah Fierro EGFR-NON AF MONTENEGRIN 29 mL/min/1.73m2 Critically low >=60 [facility] Comment on above: Performed By: #### B MINIATURE TRAIN DRIVER, CMP, CMADM, TSH #### [facility] [address] [place] [address] Dr. Aliyah Fierro Glucose [Mass/Vol] 107 mg/dL Critically high 74-106 [facility] Comment on above: Performed By: #### B MINIATURE TRAIN DRIVER, CMP, CMADM, TSH #### [facility] [address] [address] [address] Aliyah Fierro Phosphate [Mass/Vol] 3.8 mg/dL Normal 2.6-4.7 [facility] Comment on above: Performed By: #### B MINIATURE TRAIN DRIVER, CMP, CMADM, TSH #### [facility] [address] [place] [address] Dr. Aliyah Fierro Potassium [Moles/Vol] 4.7 mmol/L Normal 3.5-5.1 [facility] Comment on above: Performed By: #### B MINIATURE TRAIN DRIVER, CMP, CMADM, TSH #### [facility] [address] [place] [address] Dr. Aliyah Fierro Sodium [Moles/Vol] 138 mmol/L Normal 136-145 [facility] Comment on above: Performed By: #### B MINIATURE TRAIN DRIVER, CMP, CMADM, TSH #### [facility] [address] [place] [address] Dr. Aliyah Fierro Urea nitrogen [Mass/Vol] 33.0 mg/dL Critically high 7.0-18.0 [facility] Comment on above: Performed By: #### B MINIATURE TRAIN DRIVER, CMP, CMADM, TSH #### [facility] [address] [place] [address] Dr. Aliyah Fierro UA RANDOM W/MICROSCOPICon BACTERIA NONE SEEN Normal NONE SEEN [facility] Comment on above: Performed By: #### B MINIATURE TRAIN DRIVER, CMP, CMADM, TSH #### [facility] [address] [place] [address] Dr. Aliyah Fierro Bilirubin Ql (U) Negative Normal NEGATIVE [facility] Comment on above: Performed By: #### B MINIATURE TRAIN DRIVER, CMP, CMADM, TSH #### [facility] [address] [place] [address] Dr. Aliyah Fierro CAST NONE SEEN Normal NONE SEEN [facility] Comment on above: Performed By: #### B MINIATURE TRAIN DRIVER, CMP, CMADM, TSH #### [facility] [address] [place] [address] Dr. Aliyah Fierro Clarity (U) CLEAR Normal CLEAR [facility] Comment on above: Performed By: #### B MINIATURE TRAIN DRIVER, CMP, CMADM, TSH #### [facility] [address] [address] [address] Aliyah Fierro Color (U) LT. YELLOW Normal YELLOW [facility] Comment on above: Performed By: #### B MINIATURE TRAIN DRIVER, CMP, CMADM, TSH #### [facility] [address] [address] [address] Aliyah Fierro Crystals LM Nom (Urine sed) NONE SEEN Normal NONE SEEN [facility] Comment on above: Performed By: #### B MINIATURE TRAIN DRIVER, CMP, CMADM, TSH #### [facility] [address] [address] [address] Aliyah Fierro Epithelial cells LM Ql (Urine sed) NONE SEEN Normal NONE SEEN /RARE [facility] Comment on above: Performed By: #### B MINIATURE TRAIN DRIVER, CMP, CMADM, TSH #### [facility] [address] [address] [address] Aliyah Fierro Glucose Ql (U) Negative Normal NEGATIVE [facility] Comment on above: Performed By: #### B MINIATURE TRAIN DRIVER, CMP, CMADM, TSH #### [facility] [address] [address] [address] Aliyah Fierro Hemoglobin Ql (U) Negative Normal NEGATIVE [facility] Comment on above: Performed By: #### B MINIATURE TRAIN DRIVER, CMP, CMADM, TSH #### [facility] [address] [address] [address] Aliyah Fierro Ketones Ql (U) Negative Normal NEGATIVE [facility] Comment on above: Performed By: #### B MINIATURE TRAIN DRIVER, CMP, CMADM, TSH #### [facility] [address] [address] [address] Aliyah Fierro LEUKOCYTES Negative Normal NEGATIVE [facility] Comment on above: Performed By: #### B MINIATURE TRAIN DRIVER, CMP, CMADM, TSH #### [facility] [address] [address] [address] Aliyah Fierro MUCOUS NONE SEEN Normal NONE SEEN [facility] Comment on above: Performed By: #### B MINIATURE TRAIN DRIVER, CMP, CMADM, TSH #### [facility] [address] [address] [address] Aliyah Fierro Nitrite Ql (U) Negative Normal NEGATIVE [facility] Comment on above: Performed By: #### B MINIATURE TRAIN DRIVER, CMP, CMADM, TSH #### [facility] [address] [place] [address] Dr. Aliyah iFerro pH (U) 5.5 [pH] Normal 5-9 [facility] Comment on above: Performed By: #### B MINIATURE TRAIN DRIVER, CMP, CMADM, TSH #### [facility] [address] [place] [address] Dr. Aliyah Fierro RBC NONE SEEN Abnormal 0-2 [facility] Comment on above: Performed By: #### B MINIATURE TRAIN DRIVER, CMP, CMADM, TSH #### [facility] [address] [place] [address] Dr. Aliyah Fierro SPEC GRAVITY 1.020 Normal 1.005-<=1.025 [facility] Comment on above: Performed By: #### B MINIATURE TRAIN DRIVER, CMP, CMADM, TSH #### [facility] [address] [place] [address] Dr. Aliyah Fierro UA PROTEIN Negative Normal NEGATIVE/ TRACE [facility] Comment on above: Performed By: #### B MINIATURE TRAIN DRIVER, CMP, CMADM, TSH #### [facility] [address] [place] [address] Dr. Aliyah Fierro Urobilinogen Qn (U) 0.2 {Katerina'U}/dL Normal 0.2 - 1. 0 [facility] Comment on above: Performed By: #### B MINIATURE TRAIN DRIVER, CMP, CMADM, TSH #### [facility] [address] [place] [address] Dr. Aliyah Fierro WBC NONE SEEN Normal NONE SEEN [facility] Comment on above: Performed By: #### B MINIATURE TRAIN DRIVER, CMP, CMADM, TSH #### [facility] [address] [place] [address] Dr. Aliyah Fierro URIC ACID SERUMon 01-28-2022 Urate [Mass/Vol] 8.8 mg/dL Critically high 3.5-7.2 [facility] Comment on above: Performed By: #### B MINIATURE TRAIN DRIVER, CMP, CMADM, TSH #### [facility] [address] [place] [address] Dr. Aliyah Fierro URINE T PROTEIN CREAT RATIOo n 01-28-2022 Protein (U) [Mass/Vol] 11.7 mg/dL Normal <=12.0 [facility] Comment on above: Performed By: #### U RTPCR #### [facility] [address] [place] [address] Dr. Aliyah Fierro UR PROT CREAT RAT 0.09 Normal [facility] Comment on above: Performed By: #### U RTPCR #### [facility] [address] [address] [address] Aliyah Fierro URINE CREAT 126.58 mg/dL Normal 20.00-300.00 [facility] Comment on above: Performed By: #### U RTPCR #### [facility] [address] [place] [address] Dr. Aliyah Fierro VITAMIN D 25 OHon 01-28-2022 VIT D 25-OH 40.0 ng/mL Normal [facility] Comment on above: Performed By: #### L ADRIAN LIPID #### [facility] [address] [place] [address] Dr. Aliyah Fierro VIT D RANGES SEE BELOW Normal [facility] Comment on above: Result Comment: <20 ng/mL Vit D deficient 20 - <30 ng/mL Vit D insufficient 30 - 100 ng/mL Vit D sufficient >100 ng/mL Potential Toxicity Performed By: #### Darrius CAMPBELL LIPID #### [facility] [address] [place] [address] Dr. Aliyah Fierro BNPon 01-09-2022 Natriuretic peptide B (Bld) [Mass/Vol] 218.0 pg/mL Normal <=1,800.0 [facility] Comment on above: Performed By: #### B MINIATURE TRAIN DRIVER, CMP, CMADM, TSH #### [facility] [address] [place] [address] Dr. Aliyah Fierro CARDIAC HELLEN ADMITon 022 CK [Catalytic activity/Vol] 159 U/L Normal 39-308 [facility] Comment on above: Performed By: #### B MINIATURE TRAIN DRIVER, CMP, CMADM, TSH #### [facility] [address] [address] [address] Aliyah Fierro CK.MB [Mass/Vol] 4.55 ng/mL Critically high <=3.60 [facility] Comment on above: Performed By: #### B MINIATURE TRAIN DRIVER, CMP, CMADM, TSH #### [facility] [address] [place] [address] Dr. Aliyah Fierro HSTROP 9.0 pg/mL Normal 4.0-76.1 [facility] Comment on above: Result Comment: CUT- OFF POINTS HAVE BEEN ESTABLISHED BASED ON THE FOURTH UNIVERSAL DEFINITIONS OF MYOCARDIAL INFARCTION. THE UPPER REFERENCE LIMIT (URL) OF TROPONIN, DEFINED THE 99TH PERCENTILE OF cTnI DISTRIBUTION IN A REFERENCE POPULATION, HAS BEEN CONFIRMED THE DECISION THRESHOLD FOR [place] DIAGNOSIS. Performed By: #### B MINIATURE TRAIN DRIVER, CMP, CMADM, TSH #### [facility] [address] [place] [address] Dr. Aliyah Fierro JAHAIRA 181 ng/mL Critically high 16-96 [facility] Comment on above: Performed By: #### B MINIATURE TRAIN DRIVER, CMP, CMADM, TSH #### [facility] [address] [place] [address] Dr. Aliyah Fierro CBC AUTO DIFFon 01-09-2022 BASO # 0.0 103/ul Normal 0.0-0.1 [facility] Comment on above: Performed By: #### B MINIATURE TRAIN DRIVER, CMP, CMADM, TSH #### [facility] [address] [place] [address] Dr. Aliyah Fierro Basophils/100 WBC (Bld) 0.3 % Normal 0.2-2.0 [facility] Comment on above: Performed By: #### B MINIATURE TRAIN DRIVER, CMP, CMADM, TSH #### [facility] [address] [place] [address] Dr. Aliyah Fierro EO # 0.3 103/ul Normal 0.0-0.7 [facility] Comment on above: Performed By: #### B MINIATURE TRAIN DRIVER, CMP, CMADM, TSH #### [facility] [address] [place] [address] Dr. Aliyah Fierro Eosinophils/100 WBC (Bld) 3.6 % Normal 0.9-7.0 [facility] Comment on above: Performed By: #### B MINIATURE TRAIN DRIVER, CMP, CMADM, TSH #### [facility] [address] [place] [address] Dr. Aliyah Fierro Erythrocyte distribution width (RBC) [Ratio] 13.2 % Normal 11.0-15.0 [facility] Comment on above: Performed By: #### B MINIATURE TRAIN DRIVER, CMP, CMADM, TSH #### [facility] [address] [place] [address] Dr. Aliyah Fierro Hematocrit (Bld) [Volume fraction] 38.8 % Critically low 42.0-54.0 [facility] Comment on above: Performed By: #### B MINIATURE TRAIN DRIVER, CMP, CMADM, TSH #### [facility] [address] [place] [address] Dr. Aliyah Fierro Hemoglobin (Bld) [Mass/Vol] 13.2 g/dL Critically low 14.0-18.0 [facility] Comment on above: Performed By: #### B MINIATURE TRAIN DRIVER, CMP, CMADM, TSH #### [facility] [address] [place] [address] Dr. Aliyah Fierro IG # 0.04 10e3/ul Critically high 0.00-0.03 [facility] Comment on above: Performed By: #### B MINIATURE TRAIN DRIVER, CMP, CMADM, TSH #### [facility] [address] [place] [address] Dr. Aliyah Fierro IG % 0.4 % Normal 0.0-0.5 [facility] Comment on above: Performed By: #### B MINIATURE TRAIN DRIVER, CMP, CMADM, TSH #### [facility] [address] [place] [address] Dr. Aliyah Fierro LYMPH # 1.6 103/ul Normal 1.2-3.8 [facility] Comment on above: Performed By: #### B MINIATURE TRAIN DRIVER, CMP, CMADM, TSH #### [facility] [address] [place] [address] Dr. Aliyah Fierro Lymphocytes/100 WBC (Bld) 17.3 % Critically low 20.5-60.0 [facility] Comment on above: Performed By: #### B MINIATURE TRAIN DRIVER, CMP, CMADM, TSH #### [facility] [address] [place] [address] Dr. Aliyah Fierro MANUAL DIFF REQ NO Normal [facility] Comment on above: Performed By: #### B MINIATURE TRAIN DRIVER, CMP, CMADM, TSH #### [facility] [address] [place] [address] Dr. Aliyah Fierro MCH (RBC) [Entitic mass] 29.8 pg Normal 25.9-34.0 [facility] Comment on above: Performed By: #### B MINIATURE TRAIN DRIVER, CMP, CMADM, TSH #### [facility] [address] [place] [address] Dr. Aliyah Fierro MCHC (RBC) [Mass/Vol] 34.0 g/dL Normal 29.9-35.2 [facility] Comment on above: Performed By: #### B MINIATURE TRAIN DRIVER, CMP, CMADM, TSH #### [facility] [address] [place] [address] Dr. Aliyah Fierro MCV (RBC) [Entitic vol] 87.6 fL Normal 80.0-94.0 [facility] Comment on above: Performed By: #### B MINIATURE TRAIN DRIVER, CMP, CMADM, TSH #### [facility] [address] [place] [address] Dr. Aliyah Fierro MONO # 1.0 103/ul Critically high 0.3-0.8 [facility] Comment on above: Performed By: #### B MINIATURE TRAIN DRIVER, CMP, CMADM, TSH #### [facility] [address] [place] [address] Dr. lAiyah Fierro Monocytes/100 WBC (Bld) 10.4 % Normal 1.7-12.0 [facility] Comment on above: Performed By: #### B MINIATURE TRAIN DRIVER, CMP, CMADM, TSH #### [facility] [address] [place] [address] Dr. Aliyah Fierro NEUT # 6.2 103/ul Normal 1.4-6.5 [facility] Comment on above: Performed By: #### B MINIATURE TRAIN DRIVER, CMP, CMADM, TSH #### [facility] [address] [place] [address] Dr. Aliyah Fierro Neutrophils/100 WBC (Bld) 68.0 % Normal 43.0-75.0 [facility] Comment on above: Performed By: #### B MINIATURE TRAIN DRIVER, CMP, CMADM, TSH #### [facility] [address] [place] [address] Dr. Aliyah Fierro Platelet mean volume (Bld) [Entitic vol] 9.3 fL Critically low 9.5-13.5 [facility] Comment on above: Performed By: #### B MINIATURE TRAIN DRIVER, CMP, CMADM, TSH #### [facility] [address] [place] [address] Dr. Aliyah Fierro PLT 297 103/ul Normal 150-450 [facility] Comment on above: Performed By: #### B MINIATURE TRAIN DRIVER, CMP, CMADM, TSH #### [facility] [address] [place] [address] Dr. Aliyah Fierro RBC 4.43 106/ul Critically low 4.70-6.10 [facility] Comment on above: Performed By: #### B MINIATURE TRAIN DRIVER, CMP, CMADM, TSH #### [facility] [address] [place] [address] Dr. Aliyah Fierro WBC 9.2 103/ul Normal 4.0-11.0 [facility] Comment on above: Performed By: #### B MINIATURE TRAIN DRIVER, CMP, CMADM, TSH #### [facility] [address] [place] [address] Dr. Aliyah Fierro ER URINE PROFILEon 2 Bilirubin Ql (U) Negative Normal NEGATIVE [facility] Comment on above: Performed By: #### E RUR #### [facility] [address] [place] [address] Dr. Aliyah Fierro Clarity (U) CLEAR Normal CLEAR [facility] Comment on above: Performed By: #### E RUR #### [facility] [address] [place] [address] Dr. Aliyah Fierro Color (U) LT. YELLOW Normal YELLOW [facility] Comment on above: Performed By: #### E RUR #### [facility] [address] [address] [address] Aliyah MORSE A micrscopic examination will be performed if indicated. Normal [facility] Comment on above: Performed By: #### E RUR #### [facility] [address] [place] [address] Dr. Aliyah Fierro Glucose Ql (U) Negative Normal NEGATIVE [facility] Comment on above: Performed By: #### E RUR #### [facility] [address] [place] [address] Dr. Aliyah Fierro Hemoglobin Ql (U) Negative Normal NEGATIVE [facility] Comment on above: Performed By: #### E RUR #### [facility] [address] [place] [address] Dr. Aliyah Fierro Ketones Ql (U) Negative Normal NEGATIVE [facility] Comment on above: Performed By: #### E RUR #### [facility] [address] [place] [address] Dr. Aliyah Fierro LEUKOCYTES Negative Normal NEGATIVE [facility] Comment on above: Performed By: #### E RUR #### [facility] [address] [place] [address] Dr. Aliyah Fierro Nitrite Ql (U) Negative Normal NEGATIVE [facility] Comment on above: Performed By: #### E RUR #### [facility] [address] [place] [address] Dr. Aliyah Fierro pH (U) 6.0 [pH] Normal 5-9 [facility] Comment on above: Performed By: #### E RUR #### [facility] [address] [place] [address] Dr. Aliyah Fierro SPEC GRAVITY 1.020 Normal 1.005-<=1.025 [facility] Comment on above: Performed By: #### E RUR #### [facility] [address] [place] [address] Dr. Aliyah Fierro UA PROTEIN Negative Normal NEGATIVE/ TRACE [facility] Comment on above: Performed By: #### E RUR #### [facility] [address] [place] [address] Dr. Aliyah Fierro UR MICRO IND NOT INDICATED Normal [facility] Comment on above: Performed By: #### E RUR #### [facility] [address] [place] [address] Dr. Aliyah Fierro Urobilinogen Qn (U) 0.2 {Katerina'U}/dL Normal 0.2 - 1. 0 [facility] Comment on above: Performed By: #### E RUR #### [facility] [address] [place] [address] Dr. Aliyah Fierro PROF 14(COMP METB)on 022 Albumin [Mass/Vol] 4.1 g/dL Normal 3.4-5.0 [facility] Comment on above: Performed By: #### B MINIATURE TRAIN DRIVER, CMP, CMADM, TSH #### [facility] [address] [place] [address] Dr. Aliyah Fierro Albumin/Globulin [Mass ratio] 1.2 {ratio} Normal [facility] Comment on above: Performed By: #### B MINIATURE TRAIN DRIVER, CMP, CMADM, TSH #### [facility] [address] [place] [address] Dr. Aliyah Fierro ALP [Catalytic activity/Vol] 92 U/L Normal 46-116 [facility] Comment on above: Performed By: #### B MINIATURE TRAIN DRIVER, CMP, CMADM, TSH #### [facility] [address] [place] [address] Dr. Aliyah Fierro ALT [Catalytic activity/Vol] 31 U/L Normal 16-63 [facility] Comment on above: Performed By: #### B MINIATURE TRAIN DRIVER, CMP, CMADM, TSH #### [facility] [address] [place] [address] Dr. Aliyah Fierro Anion gap [Moles/Vol] 12.8 mmol/L Normal [facility] Comment on above: Performed By: #### B MINIATURE TRAIN DRIVER, CMP, CMADM, TSH #### [facility] [address] [place] [address] Dr. Aliyah Fierro AST [Catalytic activity/Vol] 18 U/L Normal 15-37 [facility] Comment on above: Performed By: #### B MINIATURE TRAIN DRIVER, CMP, CMADM, TSH #### [facility] [address] [address] [address] Aliyah Fierro Bilirubin [Mass/Vol] 0.5 mg/dL Normal 0.2-1.0 [facility] Comment on above: Performed By: #### B MINIATURE TRAIN DRIVER, CMP, CMADM, TSH #### [facility] [address] [address] [address] Aliyah Fierro Calcium [Mass/Vol] 8.6 mg/dL Normal 8.5-10.1 [facility] Comment on above: Performed By: #### B MINIATURE TRAIN DRIVER, CMP, CMADM, TSH #### [facility] [address] [place] [address] Dr. Aliyah Fierro Chloride [Moles/Vol] 103 mmol/L Normal 98-107 [facility] Comment on above: Performed By: #### B MINIATURE TRAIN DRIVER, CMP, CMADM, TSH #### [facility] [address] [place] [address] Dr. Aliyah Fierro CO2 [Moles/Vol] 26.3 mmol/L Normal 21.0-32.0 [facility] Comment on above: Performed By: #### B MINIATURE TRAIN DRIVER, CMP, CMADM, TSH #### [facility] [address] [place] [address] Dr. Aliyah Fierro Creatinine [Mass/Vol] 2.11 mg/dL Critically high 0.70-1.30 [facility] Comment on above: Performed By: #### B MINIATURE TRAIN DRIVER, CMP, CMADM, TSH #### [facility] [address] [place] [address] Dr. Aliyah Fierro EGFR-AF MONTENEGRIN 37 mL/min/1.73m2 Critically low >=60 [facility] Comment on above: Performed By: #### B MINIATURE TRAIN DRIVER, CMP, CMADM, TSH #### [facility] [address] [place] [address] Dr. Aliyah Fierro EGFR-NON AF MONTENEGRIN 30 mL/min/1.73m2 Critically low >=60 [facility] Comment on above: Performed By: #### B MINIATURE TRAIN DRIVER, CMP, CMADM, TSH #### [facility] [address] [address] [address] Aliyah Fierro Globulin (S) [Mass/Vol] 3.3 g/dL Normal [facility] Comment on above: Performed By: #### B MINIATURE TRAIN DRIVER, CMP, CMADM, TSH #### [facility] [address] [address] [address] Aliyah Fierro Glucose [Mass/Vol] 105 mg/dL Normal 74-106 [facility] Comment on above: Performed By: #### B MINIATURE TRAIN DRIVER, CMP, CMADM, TSH #### [facility] [address] [address] [address] Aliyah Fierro Potassium [Moles/Vol] 4.1 mmol/L Normal 3.5-5.1 [facility] Comment on above: Performed By: #### B MINIATURE TRAIN DRIVER, CMP, CMADM, TSH #### [facility] [address] [address] [address] Aliyah Fierro Protein [Mass/Vol] 7.4 g/dL Normal 6.4-8.2 [facility] Comment on above: Performed By: #### B MINIATURE TRAIN DRIVER, CMP, CMADM, TSH #### [facility] [address] [address] [address] Aliyah Fierro Sodium [Moles/Vol] 138 mmol/L Normal 136-145 [facility] Comment on above: Performed By: #### B MINIATURE TRAIN DRIVER, CMP, CMADM, TSH #### [facility] [address] [address] [address] Aliyah Fierro Urea nitrogen [Mass/Vol] 32.0 mg/dL Critically high 7.0-18.0 [facility] Comment on above: Performed By: #### B MINIATURE TRAIN DRIVER, CMP, CMADM, TSH #### [facility] [address] [place] [address] Dr. Aliyah Fierro Urea nitrogen/Creatinine [Mass ratio] 15.2 mg/mg Normal [facility] Comment on above: Performed By: #### B MINIATURE TRAIN DRIVER, CMP, CMADM, TSH #### [facility] [address] [place] [address] Dr. Aliyah Fierro PROTIMEon 01-09-2022 INR Coag (PPP) [Relative time] 1.02 {INR} Normal [facility] Comment on above: Performed By: #### B MINIATURE TRAIN DRIVER, CMP, CMADM, TSH #### [facility] [address] [place] [address] Dr. Aliyah Fierro INR GUIDELINES SEE BELOW Normal [facility] Comment on above: Result Comment: BOBBY RED INR: 2.0 - 3.0 CONDITIONS NOT LISTED BELOW 2.5 - 3.5 FOR PROSTHETIC HEART VALVE REPLACEMENT 2.5 - 3.5 RECURRENT THROMBOSIS Performed By: #### B MINIATURE TRAIN DRIVER, CMP, CMADM, TSH #### [facility] [address] [place] [address] Dr. Aliyah Fierro PT Coag (PPP) [Time] 11.0 s Normal 9.0-11.6 [facility] Comment on above: Performed By: #### B MINIATURE TRAIN DRIVER, CMP, CMADM, TSH #### [facility] [address] [place] [address] Dr. Aliyah Fierro PTTon 01-09-2022 aPTT Coag (Bld) [Time] 31.2 s Normal 22.3-36.2 [facility] Comment on above: Performed By: #### L IVER, LIPID #### [facility] [address] [place] [address] Dr. Aliyah Fierro TSHon 01-09-2022 TSH 3.663 uIU/mL Normal 0.358-3.740 [facility] Comment on above: Performed By: #### B MINIATURE TRAIN DRIVER, CMP, CMADM, TSH #### [facility] [address] [place] [address] Dr. Aliyah Fierro TSH RANGE SEE BELOW Normal [facility] Comment on above: Result Comment: <0.3 4 UIU/ml HYPERTHYROID 0.34-5.60 UIU/ml EUTHYROID >5.60 UIU/ml HYPOTHYROID Performed By: #### B MINIATURE TRAIN DRIVER, CMP, CMADM, TSH #### [facility] [address] [place] [address] Dr. Aliyah Fierro XR CHEST 1 Von [...] by: BUBBA BASURTO Date: 2022-01-09 13:05 Normal [facility] Ambulatory Clinical Summaryo n 04-06-2021 Ambulatory Clinical Summary {[id number]}CD:[id number] Normal [facility] Patient Educationon 04-06-20 21 Patient Education Benign [...] Document Reviewed: 03/25/2008 ExitCare? Patient Information ?2013 [employer]. [facility] Urology Office/Clinic Noteon 04-06-2021 Urology Office/Clinic Note [...] Barnes, URL [address] [place] [address]- [phone] Additional Instructions: prn Patient Education Benign Prostatic [...] Use:., 04/06/2021 Family History Pancreatic cancer: Father. [facility] Comment on above: Result Comment: Elec tronically Signed By: RAUDEL JANSEN, Michael Barnes\.br\Date and Time Signed: 04/06/21 10:51 EDT\.br\Electronically Co-Signed By: Yamilka New MA\.br\Date and Time Co-Signed: 04/06/21 10:50 EDT Ambulatory Clinical Summaryo n 01-02-2021 Ambulatory Clinical Summary {[id number]}CD:[id number] [facility] Consent for Procedure/Surger yon 01-02-2021 Consent for Procedure/Surgery [id number]# 1.00CD:127 [facility] Patient Educationon 01-03-20 Patient Education Cystoscopy Care [...] Document Reviewed: 01/11/2013 ExitCare? Patient Information ?2013 [employer]. [facility] Urology Office/Clinic Noteon 01-02-2021 Urology Office/Clinic Note [...] and the office notified. Script sent to [facility] in [place]. 3. Weak urine stream (R39.12: Poor urinary stream) Weak w/ intermittent hesitancy. 4. Nocturia (R35.1: Nocturia) 1-2x/night. I have reviewed the previous health record information and history for this pt. from Dr. Soto. Follow-up With When Contact Information RAUDEL JANSEN, Michael Barnes, URL [facility] [address] [place] [address]- [phone] Additional Instructions: 3mos. f/u Patient Education Cystoscopy, [...] 01/02/2021 Family History Pancreatic cancer: Father. Normal [facility] Comment on above: Result Comment: Elec tronically Signed By: Michael SOTO MD\.br\Date and Time Signed: 01/02/21 12:23 EDT\.br\Electronically Co-Signed By: Yamilka New MA\.br\Date and Time Co-Signed: 01/02/21 12:21 EDT [employer] 12-15-2020 Forms [id number] .00CD:127 Normal [facility] Physician Referralon 021 Physician Referral [id number] .00CD:127 Normal [facility] Physician Referralon 021 Physician Referral [id number] .00CD:127 Normal [facility] Ambulatory Clinical Summaryo n 12-11-2020 Ambulatory Clinical Summary {[id number]}CD:[id number] Normal [facility] Ambulatory Clinical Summary {[id number]}CD:[id number] Normal [facility] Urology Office/Clinic Noteon 12-11-2020 Urology Office/Clinic Note Chief Complaint 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 Parada due to a [...] MD, URL [address] [place] [address]- [phone] Additional Instructions: Patient Education Cystoscopy I, Yamilka [...] albuterol 0.08 (more content not included)... Normal [facility] Comment on above: Result Comment: Elec tronically Signed By: Michael SOTO MD\.br\Date and Time Signed: 12/11/20 15:10 EDT\.br\Electronically Co-Signed By: Yamilka New MA\.br\Date and Time Co-Signed: 12/11/20 15:09 EDT Vital Signs Date Time Vital Sign Value Performing Clinician Facility 10-30-2023 10:45-0400 Body height 175.26 cm [facility] 10-30-2023 10:45-0400 Body mass index (BMI) [Ratio] 27 kg/m2 [facility] 10-30-2023 10:45-0400 Body temperature 97.4 [degF] [facility] 10-30-2023 10:45-0400 Body weight 83 kg [facility] 10-30-2023 10:45-0400 Diastolic blood pressure 70 mm[Hg] [facility] 10-30-2023 10:45-0400 Heart rate 68 /min [facility] 10-30-2023 10:45-0400 Respiratory rate 18 /min [facility] 10-30-2023 10:45-0400 SaO2% (BldA) [Mass fraction] 97 % [facility] 10-30-2023 10:45-0400 Systolic blood pressure 120 mm[Hg] [facility] 02-07-2022 15:00-0400 Body height 175.26 cm Praveen Mariam Other [facility] Other 02-07-2022 15:00-0400 Body mass index (BMI) [Ratio] 27.02 kg/m2 Praveen Mariam Other [facility] Other 02-07-2022 15:00-0400 Body temperature 97 [degF] Praveen Mariam Other [facility] Other 02-07-2022 15:00-0400 Body weight 83.01 kg Praveen Mariam Other [facility] Other 02-07-2022 15:00-0400 Diastolic blood pressure 62 mm[Hg] Praveen Mariam Other [facility] Other 02-07-2022 15:00-0400 Respiratory rate 18 /min Praveen Mariam Other [facility] Other 02-07-2022 15:00-0400 SaO2% (BldA) [Mass fraction] 92 % Praveen Mariam Other [facility] Other 02-07-2022 15:00-0400 Systolic blood pressure 130 mm[Hg] Praveen Mariam Other [facility] Other Encounters Encounter Date Encounter Type Care Provider Facility Start: 10-30-2023 End: 10-30-2023 ambulatory [facility] Work Phone: Start: 10-30-2023 End: 10-30-2023 Patient encounter procedure [facility] Work Phone: Start: 10-15-2023 End: 10-15-2023 ambulatory ANTOINETTE AICHHOLZ Not Available Start: 09-11-2023 Refill 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: [facility] Comment on above: Primary hypertension (CMS/HCC) (Primary Dx); Essential (primary) hypertension (CMS/HCC); Benign essential hypertension (CMS/HCC) Start: 10-24-2022 End: 10-25-[address] KERRIE MONTANA Facility:[facility] Start: 10-21-2022 End: 10-22-[address] KERRIE MONTANA Facility:[facility] Start: 10-09-2022 End: 10-10-2022 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 ANTOINETTE AICHHOLZ Facility:[facility] Start: 09-12-2022 End: 09-13-2022 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 ANTOINETTE AICHHOLZ Facility:[facility] Start: 09-03-2022 End: 09-04-2022 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 ANTOINETTE AICHHOLZ Facility:[facility] Start: 08-26-2022 End: 08-27-2022 ambulatory PRAVEEN MARIAM Facility:[facility] Start: 02-11-2022 End: 02-12-2022 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 ANTOINETTE AICHHOLZ Facility:[facility] Start: 02-07-2022 End: 02-07-2022 ambulatory Praveen Mariam Other [facility] Other Start: 02-07-2022 Office outpatient vi sit 25 minutes Praveen Mariam [facility] Start: 01-28-2022 End: 01-29-2022 ambulatory PRAVEEN MARIAM Facility:[facility] Start: 01-09-2022 End: 01-09-2022 ambulatory ADELINE UDAY Facility:[facility] Procedures Date Procedure Procedure Detail Performing Clinician Start: 10-09-2022 PSA screening MEDICAL AFFAIRS SPECIALIST ANTOINETTE MIRACLE Comment on above: Performed By: #### P [facility] #### [facility] [address] [address] [address] Aliyah Fierro Plan of Treatment Date Care Activity Detail Author Start: 04-04-2023 Influenza vaccination Influenza Vaccine (#1) [facility] Start: 02-14-1946 Pneumococcal Vaccine: 65+ Years (1 - PCV) Pneumococcal Vaccine: 65+ Years (1 - PCV) [facility] Start: 1940 Medicare Annual Wellness (AWV) Medicare Annual Wellness (AWV) [facility] Renal function 2000 panel - Serum or Plasma [facility] Payers Date Payer Category Payer Medicare MEDICARE MEDICAR E PART B [id number] 2007-Present [address] [address] [place] [address] Medicare [id number] 1959 Medicare [id number] 1959 Private Health Insurance [id number] 1940 Unknown [id number] [id number]. 2.593 1940 Unknown [id number] 2.16.840.1.566206.3.579. 2.593 1942 Unknown [id number] 2.16.840.1.274462.3.579. 2.593 1942 Unknown [id number] 2.16.840.1.962081.3.579. 2.593 1942 Unknown [id number] 2.16.840.1.174294.3.579. 2.593 1942 Unknown [id number] 2.16.840.1.763246.3.579. 2.593 1942 Unknown [id number] 2.16.840.1.135455.3.579. 2.593 1942 Unknown [id number] 2.16.840.1.665064.3.579. 2.593 1942 Unknown [id number] 2.16.840.1.078732.3.579. 2.593 1942 Unknown [id number] 2.16.840.1.124679.3.579. 2.1259 Self-pay Self Pay [id number] Social History Date Type Detail Facility Unknown if ever smoked [facility] Other Sex Assigned At [facility] Other Tobacco smoking status [facility] Tobacco smoking consumption unknown [facility] Start: 1940 Sex Assigned At Not on file N [facility] Healthcare Start: 10-30-2023 Tobacco smoking status [facility] Ex-smoker (finding) [facility] Start: 1940 Sex Assigned At Male F [facility] Evaluation note 02-07-2022 Note Date & Type [...] allopurinol if he has a gout flare. [facility] Other Clinical Note 12-11-2020 Note Date & [...] including vitamins, herbs, eye drops, creams, and jcvw-lpy-kbygorf medicines. ? Any problems you or family [...] tells you to take them. ? Taking ecxj-sqm-kispkhu medicines, vitamins, herbs, and supplements. ? Follow [...] these instructions at home: Medicines ? Take jcme-vqg-xfqrdds and prescription medicines only as told by [...] This is importa (more content not included)... [facility] Evaluation note Note Date & Type Note Facility Evaluation note Diagnosis Primary hypertension (CMS/HCC)- Primary Unspecified essential hypertension Essential (primary) hypertension (CMS/HCC) Unspecified essential hypertension Benign essential hypertension (CMS/HCC) Essential hypertension, benign documented in this encounter [facility] Evaluation note Note Date & Type Note Facility Evaluation note Diagnosis Onset Date Anemia of renal disease acut e CKD (chronic kidney disease) stage 4, GFR 15-29 ml/min acute Gout acute Hyperlipidemia acute [id number] acute Secondary hyperparathyroidism acute [facility] Work Phone: History general Narrative - Reported [...] History LASIK BILATERALLY Hospitalization History SEE ABOVE [facility] Other Summary Purpose Family History Relationship Condition [...] stage 4, GFR 15-29 ml/min Gout Hyperlipidemia [id number] Secondary hyperparathyroidism Additional Source Comments (unrecognized sect ion and content) No Status Records FoundNo Status Records FoundNo Status Records Found INFORMATION SOURCE (unrecogn ized section and content) DATE CREATED AUTHOR 04/07/2021 Lopez Cisneros [facility] DATE CREATED AUTHOR AUTHOR'S ORGANIZ ATION 10/27/2022 [facility] DATE CREATED AUTHOR AUTHOR'S ORGANIZ ATION 10/16/2023 [facility] dical Specialists EPIC REASON FOR VISIT (unrecogniz ed section and content) Reason Comments Med Refill Care Teams (unrecognized sec tion and content) Promotions Representative Relationship Specialty Start Date End Date Wallace [...] BE BASED ON THE PRIMARY CLINICAL RECORDS. [employer] [facility]. provides no warranty or guarantee of the accuracy or completeness of information in this document.
[2024-03-20] MEDS: ATENOLOL 25 MG TABLET PO (21:29)
[2024-03-21] VITALS (23 sets, daily range): BP systolic 135–158; BP diastolic 69–78; PULSE 70–94; TEMP 36.3–36.9; O2SAT 88–98
[2024-03-21] MEDS: BUSPIRONE HCL 10 MG TABLET PO ×2 (06:13→17:19)
[2024-03-21] MEDS: METHYLPREDNISOLONE SOD SUCC PF 40 MG/ML VIAL IVP ×2 (06:55→14:18)
[2024-03-21] MEDS: GUAIFENESIN 600 MG TAB.ER.12H PO ×2 (06:55→17:30)
[2024-03-21] MEDS: AZITHROMYCIN 250 MG TABLET 500 MG PO ×2 (06:56→08:27)
[2024-03-21] MEDS: IPRATROPIUM/ALBUTEROL SULFATE 3 ML AMPUL.NEB IH ×5 (07:08→23:21)
[2024-03-21 07:18] LABS: Basophils Percent Auto 0.1 % (0.2-2.0); Hemoglobin 12.8 g/dL (14.0-18.0); Immature Granulocytes Abs Auto 0.15 10^3/uL (0.00-0.03); Immature Granulocytes Pct Auto 0.7 % (0.0-0.5); Lymphocytes Absolute Auto 1.6 10^3/uL (1.2-3.8); Lymphocytes Percent Auto 7.8 % (20.5-60.0); Mean Corpuscular HGB Conc 33.7 g/dL (29.9-35.2); Mean Corpuscular Hemoglobin 29.4 pg (25.9-34.0); Mean Corpuscular Volume 87.2 fL (80.0-94.0); Mean Platelet Volume 9.7 fL (9.5-13.5); Monocytes Absolute Auto 0.7 10^3/uL (0.3-0.8); Monocytes Percent Auto 3.2 % (1.7-12.0); Neutrophils Absolute Auto 18.2 10^3/uL (1.4-6.5); Neutrophils Percent Auto 88.2 % (43.0-75.0); Platelet Count 329 10^3/uL (150-450); Red Blood Count 4.36 10^6/uL (4.70-6.10); Red Cell Distribution Width 13.1 % (11.0-15.0); White Blood Count 20.6 10^3/uL (4.0-11.0)
[2024-03-21 07:46] LABS: Alanine Aminotransferase 23 U/L (16-63); Albumin Globulin Ratio 1.1; Albumin Level 3.7 g/dL (3.4-5.0); Alkaline Phosphatase 87 U/L (46-116); Anion Gap 19.4; Aspartate Amino Transferase 23 U/L (15-37); BUN Creatinine Ratio 18.5; Bilirubin Total 0.7 mg/dL (0.2-1.0); Calcium 9.1 mg/dL (8.5-10.1); Chloride 103 mmol/L (98-107); Estimated GFR (African America 39 (>=60); Estimated GFR (Non-African Ame 32 (>=60); Globulin 3.4 g/dL; Glucose 150 mg/dL (74-106); Magnesium 2.1 mg/dL (1.8-2.4); Phosphorus 3.7 mg/dL (2.6-4.7); Potassium 4.4 mmol/L (3.5-5.1); Sodium 138 mmol/L (136-145); Total Protein 7.1 g/dL (6.4-8.2)
--- NOTE | 2024-03-21 08:03 | CT_ITS ---
The [address] [address] Patient Name: GUANAKO NORMAN MRN: [id number] date: 1940 Sex: M Assigned Patient Location: MS Current Patient Location: Accession/Order Number: [id number] Exam Date: 03/21/2024 08:36 Report Date: 03/21/2024 13:29 At the request of: SHAIKH MERLE Procedure: CT chest wo con EXAMINATION: CT chest wo con, 03/21/2024 8:36 AM EDT HISTORY: pna Shortness of breath. COMPARISON: CT of the chest without contrast 05/09/2018. TECHNIQUE: 3 mm sections were obtained from the thoracic inlet through the diaphragm without the use of contrast. Coronal and sagittal reconstructed images were obtained. CT dose reduction technique was used, including Automated Exposure Control. FINDINGS: The visualized portions of the upper abdominal contents demonstrate no acute interval change. Similar mild atherosclerotic change of aorta without aneurysm noted. Heart size is normal. CORONARY ARTERIES: Relatively heavy coronary artery calcifications are identified predominantly involving the left anterior descending and right coronary arteries. Noncalcified nonenlarged and borderline enlarged intrathoracic nodes are again identified. A distal left paratracheal node for example measures 13 x 19 mm. Subcarinal node has short axis measurement of 9 mm. These are unchanged. Tiny calcified hilar nodes are evident as well. Bilateral subcentimeter calcified granulomas are present. Interval development of small focus of dependent consolidative changes involving the posterior basilar segment left lower lobe, image 97. Pulmonary hyperinflation with moderate to severe upper lobe predominant emphysematous changes again identified. Trace volume of retained/aspirated secretions within the trachea are noted. A right upper lobe calcified granuloma, image 36 measures 5 mm. Similar-appearing focus within the anterior segment right upper lobe on image #42 noted. Partially calcified right middle lobe granuloma, image 65 measures 8 mm. A granuloma anterior and lateral to this within the lateral segment right middle lobe measures 4 mm. These are unchanged. Right lower lobe granuloma on image 67 measures 4. A subpleural nodule/granuloma within the right lower lobe on image #79 measures 4 mm. Multilevel degenerative changes of the spine are noted. Arthritic changes about the shoulder girdles predominantly involving the right glenohumeral articulation. No acute osseous abnormality noted. CT/CT chest wo con IMPRESSION: 1. Pulmonary hyperinflation with moderate to severe upper lobe predominant emphysema. 2. Interval development of left lower lobe pneumonia with small area of consolidation involving the posterior basilar segment left lower lobe. 3. Noncalcified and calcified intrathoracic nodes are unchanged. Bilateral subcentimeter nodules, majority of which are calcified are stable and presumably related to old healed granulomatous disease. 4. Coronary artery calcifications are noted. Electronically authenticated by: KE LINARES Date: 03/21/2024 13:29
[2024-03-21] MEDS: CITALOPRAM HYDROBROMIDE 20 MG TABLET 10 MG PO (08:26)
[2024-03-21] MEDS: ATORVASTATIN CALCIUM 20 MG TABLET PO (08:27)
[2024-03-21] MEDS: FUROSEMIDE 20 MG TABLET PO (08:27)
[2024-03-21] MEDS: FAMOTIDINE 20 MG TABLET PO (08:27)
[2024-03-21] MEDS: LOSARTAN POTASSIUM 25 MG TABLET PO (08:27)
[2024-03-21] MEDS: CEFTRIAXONE 1,000 MG in 0.9 % SODIUM CHLORIDE 50 ML 100 MG IV (10:53)
--- NOTE | 2024-03-21 10:55 | P.HP_ITS ---
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 Prior to his symptoms onset, he was in his usual state of health and worked outside on Friday. He denies any fever, palpitation, chest pain. Workup in ED was consistent with COPD exacerbation for which she was s tarted on IV steroid, inhaled bronchodilators and admitted overnight. He was also found to have hypoxia with pulse ox as low as 83% on room air upon arrival. Patient also had a significantly high white count of 16,000 upon arrival that actually worsened on morning labs and trended up to 20,000. I ordered a CT chest to rule out underlying pneumonia and it indicated that patient has left lower lobe pneumonia. Patient was started on IV Rocephin and p.o. azithromycin to cover for community-acquired pneumonia. Patient is still hypoxic, tachypneic and notably short of breath even at rest and was unable to carry on a conversation without having to stop because of dyspnea. He was initially admitted as observation but was changed to inpatient status because of the severity of his presenting illness, degree of hypoxia, new finding of underlying pneumonia, failing to show improvement with initial treatment and is anticipated to require 2 to 3-day of inpatient treatment for COPD exacerbation and pneumonia. Opioid HPI Opioid Management Most Recent Pain and Opioid Data: Last Pain Assessment 03/21/24 10:00 Last ORT Total Score 0 03/20/24 20:13 Last ORT Risk Category Low Risk 03/20/24 20:13 Review of Systems ROS Status of ROS 10 or more systems reviewed and unremark able except as noted in history and below [facility] Medical History (Updated 03/21/24 @ 11:02 by Shaikh Cammie MD) Depression ?F32.A - Depression, unspecified (ICD-10) HTN (hypertension) ?I10 - Essential (primary) hypertension (ICD-10) H/O malignant neoplasm of colon ?Z85.038 - Personal history of other malignant neoplasm of large intestine (ICD-10) HLD (hyperlipidemia) ?E78.5 - Hyperlipidemia, unspecified (ICD-10) Chronic obstructive pulmonary disease ?J44.9 - Chronic obstructive pulmonary disease, unspecified (ICD-10) Surgical History (Updated 03/20/24 @ 20:42 by Itzel Rodgers) History of bowel resection ?Z90.49 - Acquired absence of other specified parts of digestive tract (ICD- 10) Social History (Updated 03/21/24 @ 10:59 by Shaikh Cammie MD) Within the past year, how often did you have a drink containing alcohol: monthly or less Within the past year, how many standard drinks containing alcohol did you have on a typical day: 1 or 2 Within the past year, how often did you have six or more drinks on one occasion: never Total score: 0 Score interpretation: A score less than 4 is consistent with normal alcohol consumption. Smoking status: Former smoker Non-prescribed substance use: cannabis (any form) Highest level of school completed/degree received: high school graduate Meds Home Medications and Allergies Home Medications ?Medication ?Instructions ?Recorded ?Confirmed ?Type atenolol 25 mg tablet 25 mg PO Q24H 03/20/24 03/20/24 History buspirone 10 mg tablet 10 mg PO TID PRN anxiety 03/20/24 03/20/24 History citalopram 10 mg tablet 10 mg PO DAILY 03/20/24 03/20/24 History famotidine 20 mg tablet 20 mg PO DAILY 03/20/24 03/20/24 History furosemide 20 mg tablet 20 mg PO DAILY 03/20/24 03/20/24 History ipratropium 0.5 mg-albuterol 3 mg 3 ml inhalation Q8H PRN shortness 03/20/24 03/20/24 History (2.5 mg base)/3 mL nebulization of breath or wheezing soln losartan 25 mg tablet 25 mg PO DAILY 03/20/24 03/20/24 History pravastatin 80 mg tablet 80 mg PO DAILY 03/20/24 03/20/24 History Allergies Allergy/AdvReac Type Severity Reaction Status Date / Time No Known Drug Allergies Allergy Verified 03/20/24 16:32 Exam Constitutional Vital Signs, click to edit/add: Last Vital Signs Temp 97.8 F 03/21/24 07:42 Pulse 76 03/21/24 10:00 Resp 22 H 03/21/24 07:42 BP 135/71 03/21/24 07:42 Pulse Ox 95 03/21/24 10:00 O2 Del Method Nasal Cannula 03/21/24 07:42 O2 Flow Rate 2 03/21/24 07:42 FiO2 2 03/20/24 20:13 Documenting provider has reviewed patient's vital signs: yes Common normals: no apparent distress and oriented x3 General appearance: cooperative Respiratory Effort & inspection: tachypneic, pursed lip breathing and uses accessory muscles Auscultation: rhonchi, wheezes and diminished lung sounds Cardio Common normals: regular rate, S1 normal heart sound and S2 normal heart sound Rate: regular rate Heart sounds: S1 normal and S2 normal GI Common normals: Normal to inspection, nondistended, normoactive bowel sounds present, soft to palpation, non-tender and no hepatosplenomegaly Palpation: soft and no hepatosplenomegaly Extremity Common normals: no clubbing, cyanosis or edema Neuro Common normals: oriented x3, moves all extremities and no focal motor deficits Psych Common normals: mental status grossly normal, denies hallucinations, denies homicidal ideation and denies suicidal ideation Results Labs Labs: Short CBC 03/20/24 03/21/24 Range/Units 16:45 07:06 WBC 16.9 H 20.6 H (4.0-11.0) 10^3/uL Hgb 13.0 L 12.8 L (14.0-18.0) g/dL Hct 38.6 L 38.0 L (42.0-54.0) % Plt Count 303 329 (150-450) 10^3/uL BMP 03/20/24 03/21/24 16:45 07:06 Sodium 134 L 138 Potassium 4.1 4.4 Chloride 100 103 Carbon Dioxide 23.1 20.0 L BUN 34.0 H 37.0 H Creatinine 2.03 H 2.00 H Glucose 122 H 150 H Calcium 9.3 9.1 Liver Function 03/20/24 03/21/24 Range/Units 16:45 07:06 Total Bilirubin 0.6 0.7 (0.2-1.0) mg/dL AST 18 23 (15-37) U/L ALT 23 23 (16-63) U/L Alkaline Phosphatase 99 87 (46-116) U/L Albumin 4.1 3.7 (3.4-5.0) g/dL ABG ABG results: 03/20/24 16:45 VBG pH 7.437 H VBG pCO2 32.3 L Assessment and Plan Assessment and Plan (1) Acute respiratory failure with hypoxia: Assessment and Plan: Currently on 2 L oxygen via nasal cannula. Does not use oxygen at home. Secondary to underlying COPD and pneumonia. Continue with systemic steroids, inhaled bronchodilators. Wean off oxygen as tolerated. (2) COPD exacerbation: Assessment and Plan: Secondary to left lower lobe pneumonia. Continue with systemic steroids, inhaled bronchodilators. Wean off oxygen as tolerated. (3) Left lower lobe pneumonia: Assessment and Plan: Left lower lobe pneumonia. On IV Rocephin and azithromycin. Follow-up sputum cultures. Qualifiers: Pneumonia type: due to unspecified organism Qualified Code(s): J18.9 - Pneumonia, unspecified organism (4) Sepsis: Assessment and Plan: Meets criteria for sepsis (SIRS: HR>26, WBC 16K) Secondary to pneumonia. On IV Rocephin and azithromycin. Hemodynamically stable but still has considerable dyspnea and is being treated for it with IV antibiotics, steroids, bronchodilators Qualifiers: Sepsis type: sepsis due to unspecified organism Sepsis acute organ dysfunction status: without acute organ dysfunction Qualified Code(s): A41.9 - Sepsis, unspecified organism (5) HTN (hypertension): Assessment and Plan: Blood pressure is stable. Continue with losartan, furosemide. Hold atenolol due to active bronchospasm Qualifiers: Hypertension type: primary hypertension Qualified Code(s): I10 - Essential (primary) hypertension (6) HLD (hyperlipidemia): Assessment and Plan: Continue with pravastatin. Qualifiers: Hyperlipidemia type: mixed hyperlipidemia Qualified Code(s): E78.2 - Mixed hyperlipidemia (7) H/O malignant neoplasm of colon: Assessment and Plan: Status post colectomy. Did not require chemo or radiation. (8) Depression: Assessment and Plan: Mood is stable. Continue with home medications. Qualifiers: Depression Type: major depressive disorder Major depression recurrence: recurrent Active/Remission status: in full remission Qualified Code(s): F33.42 - Major depressive disorder, recurrent, in full remission
[2024-03-22] VITALS (10 sets, daily range): BP systolic 113–143; BP diastolic 63–74; PULSE 68–87; TEMP 36.6; O2SAT 89–94
[2024-03-22] MEDS: METHYLPREDNISOLONE SOD SUCC PF 40 MG/ML VIAL IVP ×2 (01:14→07:05)
[2024-03-22] MEDS: IPRATROPIUM/ALBUTEROL SULFATE 3 ML AMPUL.NEB IH ×3 (03:55→10:55)
[2024-03-22] MEDS: GUAIFENESIN 600 MG TAB.ER.12H PO (07:05)
[2024-03-22 07:31] LABS: Basophils Percent Auto 0.1 % (0.2-2.0); Eosinophils Percent Auto 0.1 % (0.9-7.0); Hematocrit 33.8 % (42.0-54.0); Hemoglobin 11.4 g/dL (14.0-18.0); Immature Granulocytes Abs Auto 0.14 10^3/uL (0.00-0.03); Immature Granulocytes Pct Auto 0.7 % (0.0-0.5); Lymphocytes Absolute Auto 0.9 10^3/uL (1.2-3.8); Lymphocytes Percent Auto 4.7 % (20.5-60.0); Mean Corpuscular HGB Conc 33.7 g/dL (29.9-35.2); Mean Corpuscular Hemoglobin 29.5 pg (25.9-34.0); Mean Corpuscular Volume 87.6 fL (80.0-94.0); Mean Platelet Volume 9.7 fL (9.5-13.5); Monocytes Absolute Auto 0.7 10^3/uL (0.3-0.8); Monocytes Percent Auto 3.5 % (1.7-12.0); Neutrophils Absolute Auto 17.5 10^3/uL (1.4-6.5); Neutrophils Percent Auto 90.9 % (43.0-75.0); Platelet Count 269 10^3/uL (150-450); Red Blood Count 3.86 10^6/uL (4.70-6.10); Red Cell Distribution Width 13.6 % (11.0-15.0); White Blood Count 19.3 10^3/uL (4.0-11.0)
[2024-03-22 08:54] LABS: Alanine Aminotransferase 25 U/L (16-63); Albumin Globulin Ratio 1.2; Albumin Level 3.5 g/dL (3.4-5.0); Alkaline Phosphatase 70 U/L (46-116); Anion Gap 17.5; Aspartate Amino Transferase 30 U/L (15-37); BUN Creatinine Ratio 22.7; Bilirubin Total 0.4 mg/dL (0.2-1.0); Calcium 8.9 mg/dL (8.5-10.1); Carbon Dioxide 21.6 mmol/L (21.0-32.0); Chloride 105 mmol/L (98-107); Estimated GFR (African America 33 (>=60); Estimated GFR (Non-African Ame 27 (>=60); Globulin 2.9 g/dL; Glucose 145 mg/dL (74-106); Potassium 4.1 mmol/L (3.5-5.1); Sodium 140 mmol/L (136-145); Total Protein 6.4 g/dL (6.4-8.2)
[2024-03-22] MEDS: LOSARTAN POTASSIUM 25 MG TABLET PO (09:12)
[2024-03-22] MEDS: AZITHROMYCIN 250 MG TABLET 500 MG PO (09:12)
[2024-03-22] MEDS: ATORVASTATIN CALCIUM 20 MG TABLET PO (09:12)
[2024-03-22] MEDS: CITALOPRAM HYDROBROMIDE 20 MG TABLET 10 MG PO (09:12)
[2024-03-22] MEDS: FAMOTIDINE 20 MG TABLET PO (09:13)
[2024-03-22] MEDS: FUROSEMIDE 20 MG TABLET PO (09:13)
--- NOTE | 2024-03-22 10:00 | CM.NOTE ---
Rounds made with Dr. Bonds, pt verbalizes he is feeling much better. Pt will discharge to home today, denies any discharge needs at this time. Pt will f/u with primary care doctor.
[2024-03-22] MEDS: CEFTRIAXONE 1,000 MG in 0.9 % SODIUM CHLORIDE 50 ML 100 MG IV (10:20)
--- NOTE | 2024-03-22 10:30 | PM.DS1 ---
DS: Providers Provider Date of admission: 03/21/24 09:13 Primary care physician: Antoinette Carrillo NP Admitting clinician: Shaikh Cammie Attending physician on admission: Shaikh Cammie Consults: 03/20/24 Consult to Transmission Engineer Routine Reason for consult:: Advanced Directives Attending physician on discharge: Shaikh Cammie Discharging clinician: Shaikh Cammie Anticipated date of discharge: 03/22/24 DS: Diagnosis Discharge Diagnosis (1) Acute respiratory failure with hypoxia: Assessment and plan: COPD exacerbation and pneumonia. Resolved. On room air now. (2) COPD exacerbation: Assessment and plan: Presented with hypoxia, increased work of breathing secondary to COPD exacerbation and pneumonia. He has improved significantly overnight with no evidence of respiratory distress and his hypoxia has resolved. He is stable for discharge medically on p.o. prednisone. (3) Left lower lobe pneumonia: Assessment and plan: Will discharge patient on oral Levaquin. Qualifiers: Pneumonia type: due to unspecified organism Qualified Code(s): J18.9 - Pneumonia, unspecified organism (4) Sepsis: Assessment and plan: Hemodynamically stable. Stable for discharge now Qualifiers: Sepsis type: sepsis due to unspecified organism Sepsis acute organ dysfunction status: without acute organ dysfunction Qualified Code(s): A41.9 - Sepsis, unspecified organism (5) HTN (hypertension): Assessment and plan: Resume patient's home medications. Qualifiers: Hypertension type: primary hypertension Qualified Code(s): I10 - Essential (primary) hypertension (6) HLD (hyperlipidemia): Assessment and plan: Continue with pravastatin. Qualifiers: Hyperlipidemia type: mixed hyperlipidemia Qualified Code(s): E78.2 - Mixed hyperlipidemia (7) H/O malignant neoplasm of colon: Assessment and plan: Follow-up as outpatient (8) Depression: Assessment and plan: Stable mood. Continue with home medications Qualifiers: Depression Type: major depressive disorder Major depression recurrence: recurrent Active/Remission status: in full remission Qualified Code(s): F33.42 - Major depressive disorder, recurrent, in full remission (9) CKD (chronic kidney disease) stage 4, GFR 15-29 ml/min: Assessment and plan: Will need renal dosing for Levaquin. 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 His initial presentation was also consistent with sepsis. Patient was treated with IV steroids, IV antibiotics, inhaled bronchodilators. Upon arrival, he had considerable respiratory distress with increased work of breathing and as a result was changed to inpatient status. However he recovered sooner than anticipated and is feeling much better today with his hypoxia resolved and no evidence of respiratory distress. Patient is medically stable for discharge on oral prednisone, Levaquin. He will need to follow-up with PCP in 1 to 2 weeks. Patient was instructed to return to ED if worsening shortness of breath. Occurred Time Spent with Patient Time attestation: Total time spent providing and/or coordinating discharge services: Exam Constitutional Vital Signs, click to edit/add: Last Vital Signs Temp 97.9 F 03/22/24 09:03 Pulse 87 03/22/24 09:03 Resp 18 03/22/24 09:03 BP 143/74 H 03/22/24 09:03 Pulse Ox 91 L 03/22/24 09:03 O2 Del Method Room Air 03/22/24 09:03 O2 Flow Rate 2 03/21/24 16:00 FiO2 2 03/20/24 20:13 Documenting provider has reviewed patient's vital signs: yes Common normals: no apparent distress and oriented x3 General appearance: cooperative Respiratory Common normals: normal respiratory effort and no use of accessory muscles Effort & inspection: able to speak in complete sentences Auscultation: wheezes expiratory wheezes and scattered wheezes Cardio Common normals: regular rate, S1 normal heart sound and S2 normal heart sound Rate: regular rate Heart sounds: S1 normal and S2 normal Extremity Common normals: no clubbing, cyanosis or edema Neuro Common normals: oriented x3, moves all extremities and no focal motor deficits Psych Common normals: mental status grossly normal, denies hallucinations, denies homicidal ideation and denies suicidal ideation DS: Data Data Completed and Pending Labs on day of discharge: Labs from last 24 hours 03/22/24 07:25 WBC 19.3 H RBC 3.86 L Hgb 11.4 L Hct 33.8 L MCV 87.6 MCH 29.5 MCHC 33.7 RDW 13.6 Plt Count 269 MPV 9.7 Neut % (Auto) 90.9 H Lymph % (Auto) 4.7 L [place] % (Auto) 3.5 Eos % (Auto) 0.1 L Baso % (Auto) 0.1 L Neut # (Auto) 17.5 H Lymph # (Auto) 0.9 L [place] # (Auto) 0.7 Eos # (Auto) 0.0 Baso # (Auto) 0.0 Abs Immat Gran (auto) 0.14 H Imm/Tot Granulo (auto) 0.7 H Sodium 140 Potassium 4.1 Chloride 105 Carbon Dioxide 21.6 Anion Gap 17.5 BUN 53.0 H Creatinine 2.33 H Est GFR ( Amer) 33 L Est GFR (Non-Af Amer) 27 L BUN/Creatinine Ratio 22.7 Glucose 145 H Calcium 8.9 Total Bilirubin 0.4 AST 30 ALT 25 Alkaline Phosphatase 70 Total Protein 6.4 Albumin 3.5 Globulin 2.9 Albumin/Globulin Ratio 1.2 Discharge Plan Discharge Disposition: Home, Self-Care Condition: Good Discharge Medications: New levofloxacin 250 mg tablet 250 mg PO Q24H Qty: 7 0RF prednisone 20 mg tablet 20 mg PO BID Qty: 10 0RF Continued atenolol 25 mg tablet 25 mg PO Q24H buspirone 10 mg tablet 10 mg PO TID PRN (Reason: anxiety) citalopram 10 mg tablet 10 mg PO DAILY famotidine 20 mg tablet 20 mg PO DAILY furosemide 20 mg tablet 20 mg PO DAILY ipratropium-albuterol 0.5 mg-3 mg(2.5 mg base)/3 mL solution for nebulization 3 ml INHALATION Q8H PRN (Reason: shortness of breath or wheezing) losartan 25 mg tablet 25 mg PO DAILY pravastatin 80 mg tablet 80 mg PO DAILY Activity: increase activity as tolerated Diet: advance to your usual diet Print Language: Citizen Of [place] Patient Instructions: COPD (Chronic Obstructive Pulmonary Disease) (DC) Forms: Portal Instructions Follow Up Appointments: f/u with PCP in one week
--- NOTE | 2024-03-22 11:16 | SWNOTE1 ---
SW met with pt to discuss dc needs. Pt lives at home alone and does not use any DME devices at home. Pt has no services coming in. Pt was just out cutting wood the other day and he drove himself to the ED. At this time pt has no anticipated discharge needs and is feeling better. Plan is to go home today. SW to follow as needed. Important Message from Medicare reviewed and discussed with patient. Pt. verbalized understanding and signed the form. Original given to patient and copy placed in patient?s chart.
--- NOTE | 2024-03-22 12:11 | CM.NOTE ---
Important Message From Medicare discussed with pt, pt verbalizes understanding and signs paper. Original given to pt and copy placed on pt's chart.
--- NOTE | 2024-03-23 14:11 | CM.DCFOLLOWU ---
Person spoke with: patient How are you feeling? well How is your pain? none Did you understand your discharge instructions? yes Do you have any questions about your discharge instructions? no Were you given any prescriptions at discharge? yes Were you able to get your prescriptions filled? yes Do you understand how to take your medications as ordered? yes Do you have any questions about your follow up appointment and do you plan to keep your follow up appointment? no questions, reviewed follow up Is there anything else that you would like to discuss? no Questions/Comments/Concerns/Other: none
== END 2024-03-22 11:28 | disposition home or self-care (01) | DRG 871 ==
LOC: ER 18:02 → MS 20:11
PROVIDERS: Physician Assistant; Registered Nurse; Admitting Provider Internal Medicine; Emergency Provider Emergency Medicine; PCP Nurse Practitioner; Visit Provider Internal Medicine
DX: A41.9 Sepsis, unspecified organism (principal); J18.9 Pneumonia, unspecified organism; J96.01 Acute respiratory failure with hypoxia; J43.9 Emphysema, unspecified; I10 Essential (primary) hypertension; E78.5 Hyperlipidemia, unspecified; Z90.49 Acquired absence of other specified parts of digestive tract; Z85.038 Personal history of other malignant neoplasm of large intestine; F33.42 Major depressive disorder, recurrent, in full remission; Z87.891 Personal history of nicotine dependence; R65.20 Severe sepsis without septic shock
CPT/HCPCS: 36415; 71045; 71250; 80053; 82800; 83605; 83735; 83880; 84100; 84484; 85025; 85610; 87040; 93005; 94640; 94667; 94668; 94761; 96365; 96366; 96367; 96375; 96376; 99285; G0378; J0456; J0696; J2919

== ENCOUNTER 2024-04-06 07:56 | Outpatient (OUT) | payer MEDICARE, SELFPAY ==
--- OUTSIDE RECORDS SUMMARY | 2024-04-06 08:04 | XMS_ITS | CCD ---
Author Organization [facility] Care Team Providers Care Habitat Management Coordinator Name Role Phone Mariam, Praveen Unavailable AICHHOLZ, NURSE SANE ANTOINETTE Admitting Unavailable AICHHOLZ, NURSE SANE ANTOINETTE Attending Unavailable AICHHOLZ, NURSE SANE ANTOINETTE Primary Care Unavailable AICHHOLZ, NURSE SANE ANTOINETTE Consulting Unavailable AICHHOLZ, NURSE SANE ANTOINETTE Admitting Unavailable AICHHOLZ, NURSE SANE ANTOINETTE Attending Unavailable AICHHOLZ, NURSE SANE ANTOINETTE Primary Care Unavailable [place], DR BUBBA Amaya Consulting Unavailable AICHHOLZ, NURSE SANE ANTOINETTE Consulting Unavailable AICHHOLZ, NURSE SANE ANTOINETTE Admitting Unavailable AICHHOLZ, NURSE SANE ANTOINETTE Attending Unavailable AICHHOLZ, NURSE SANE ANTOINETTE Primary Care Unavailable AICHHOLZ, NURSE SANE ANTOINETTE Consulting Unavailable UDAY, ADELINE Admitting Unavailable UDAY, ADELINE Attending Unavailable AICHHOLZ, NURSE SANE ANTOINETTE Primary Care Unavailable [place], DR BUBBA Amaya Consulting Unavailable UDAY, ADELINE Consulting Unavailable ABBAS, DR SY Admitting Unavailable ABBAS, DR SY Attending Unavailable AICHHOLZ, NURSE SANE ANTOINETTE Primary Care Unavailable ABBAS, DR SY Consulting Unavailable ZIEBER, DR MAURO Barnes Consulting Unavailable ABBAS, DR SY Admitting Unavailable ABBAS, DR SY Attending Unavailable AICHHOLZ, NURSE SANE ANTOINETTE Primary Care Unavailable ABBAS, DR SY Consulting Unavailable MARIAM, PRAVEEN Admitting Unavailable MARIAM, PRAVEEN Attending Unavailable AICHHOLZ, NURSE SANE ANTOINETTE Primary Care Unavailable MARIAM, PRAVEEN Consulting Unavailable AICHHOLZ, NURSE SANE ANTOINETTE Admitting Unavailable AICHHOLZ, NURSE SANE ANTOINETTE Attending Unavailable AICHHOLZ, NURSE SANE ANTOINETTE Primary Care Unavailable WEST, DR BUBBA Amaya Consulting Unavailable AICHHOLZ, NURSE SANE ANTOINETTE Consulting Unavailable MARIAM, PRAVEEN Admitting Unavailable MARIAM, PRAVEEN Attending Unavailable AICHHOLZ, NURSE SANE ANTOINETTE Primary Care Unavailable MARIAM, PRAVEEN Consulting Unavailable Wallace Hubbard MD Primary Care Provider ANTOINETTE CARRILLO Attending Unavailable ANTOINETTE CARRILLO Attending Unavailable Allergies Allergy Classification Reported Allergen(s) Allergy Type Date of Onset Reaction(s) Facility (1 source) Amino Acids Drug Allergy [facility] Medications Current Medications Medication Drug [...] daily Furosemide Active 20 MG PO Daily 90 October 24, 2023 10:25am take 1 tablet [...] body structures; 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 Other screening [...] Onset: 01-10-2022 Episodic Other aftercare (1 source) 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 Aliyah Fierro CREATININEon 10-24-2022 Creatinine [Mass/Vol] 1.97 mg/dL Critically high 0.70-1.30 [facility] Comment on above: Performed By: #### B PRESIDENT COLLEGE OR UNIVERSITY, CMP, CMADM, TSH #### [facility] [address] [place] [address] Dr. Aliyah Fierro EGFR-AF KENYAN 40 mL/min/1.73m2 Critically low >=60 [facility] Comment on above: Performed By: #### B PRESIDENT COLLEGE OR UNIVERSITY, CMP, CMADM, TSH #### [facility] [address] [place] [address] Dr. Aliyah Fierro EGFR-NON AF KENYAN 33 mL/min/1.73m2 Critically low >=60 [facility] Comment on above: Performed By: #### B PRESIDENT COLLEGE OR UNIVERSITY, CMP, CMADM, TSH #### [facility] [address] [place] [address] Dr. Aliyah BERUMENon 10-21-2022 Creatinine [Mass/Vol] 2.10 mg/dL Critically high 0.70-1.30 [facility] Comment on above: Performed By: #### B PRESIDENT COLLEGE OR UNIVERSITY, CMP, CMADM, TSH #### [facility] [address] [place] [address] Dr. Aliyah Fierro EGFR-AF KENYAN 37 mL/min/1.73m2 Critically low >=60 [facility] Comment on above: Performed By: #### B PRESIDENT COLLEGE OR UNIVERSITY, CMP, CMADM, TSH #### [facility] [address] [place] [address] Dr. Aliyah Fierro EGFR-NON AF KENYAN 31 mL/min/1.73m2 Critically low >=60 [facility] Comment on above: Performed By: #### B PRESIDENT COLLEGE OR UNIVERSITY, CMP, CMADM, TSH #### [facility] [address] [address] [address] Aliyah Fierro CTA ABD JESS WWO [...] by: MAURO WEBSTER Date: 2022-10-21 15:35 Normal [facility] US CAROTID ART BILon 10-21-2 023 US [...] by: MAURO WEBSTER Date: 2022-10-21 15:38 Normal [facility] LIPID PROFILEon 10-09-2022 CHOL-HDL RATIO NORM SEE BELOW Normal [facility] Comment on above: Result Comment: 3.3 - 4.4 LOW RISK 4.4 - 7.1 AVERAGE RISK 7.1 - 11.0 MODERATE RISK >11.0 HIGH RISK Performed By: #### L ADRIAN LIPID #### [facility] [address] [place] [address] Dr. Aliyah Fierro Cholesterol [Mass/Vol] 190 mg/dL Normal <=200 [facility] Comment on above: Performed By: #### L ADRIAN LIPID #### [facility] [address] [place] [address] Dr. Aliyah Fierro Cholesterol in HDL [Mass/Vol] 40 mg/dL Normal 40-60 [facility] Comment on above: Performed By: #### L ADRIAN LIPID #### [facility] [address] [address] [address] Aliyah Fierro Cholesterol in LDL [Mass/Vol] 108.4 mg/dL Normal [facility] Comment on above: Performed By: #### L ADRIAN LIPID #### [facility] [address] [place] [address] Dr. Aliyah Fierro Cholesterol.total/C holesterol in HDL [Mass ratio] 4.8 {ratio} Normal [facility] Comment on above: Performed By: #### L IVMILLY LIPID #### [facility] [address] [place] [address] Dr. Aliyah Fierro HDL NORMAL > or = 60 mg/dl - LO W CARDIOVASCULAR RISK <40 mg/dl - HIGH CARDIOVASCULAR RISK Normal [facility] Comment on above: Performed By: #### L IVER, LIPID #### [facility] [address] [address] [address] Aliyah Fierro LDL CALC NORMAL SEE BELOW Normal [facility] Comment on above: Result Comment: <100 mg/dl OPTIMAL 100 - 129 mg/dl NEAR OR ABOVE OPTIMAL 130 - 159 mg/dl BORDERLINE HIGH 160 - 189 mg/dl HIGH >190 mg/dl VERY HIGH Performed By: #### L IVER, LIPID #### [facility] [address] [address] [address] Aliyah Fierro Triglyceride [Mass/Vol] 208 mg/dL Critically high <=150 [facility] Comment on above: Performed By: #### L IVER, LIPID #### [facility] [address] [address] [address] Aliyah Fierro VLDL CALC 41.6 mg/dL Normal [facility] Comment on above: Performed By: #### L IVER, LIPID #### [facility] [address] [address] [address] Aliyah Fierro LIVER PROFILEon 10-09-2022 Albumin [Mass/Vol] 4.0 g/dL Normal 3.4-5.0 [facility] Comment on above: Performed By: #### L IVER, LIPID #### [facility] [address] [address] [address] Aliyah Fierro Albumin/Globulin [Mass ratio] 1.4 {ratio} Normal [facility] Comment on above: Performed By: #### L IVER, LIPID #### [facility] [address] [address] [address] Aliyah Fierro ALP [Catalytic activity/Vol] 80 U/L Normal 46-116 [facility] Comment on above: Performed By: #### L IVER, LIPID #### [facility] [address] [address] [address] Aliyah Fierro ALT [Catalytic activity/Vol] 25 U/L Normal 16-63 [facility] Comment on above: Performed By: #### L IVER, LIPID #### [facility] [address] [address] [address] Aliyah Fierro AST [Catalytic activity/Vol] 22 U/L Normal 15-37 [facility] Comment on above: Performed By: #### L IVER, LIPID #### [facility] [address] [address] [address] Aliyah Fierro BILI, CONJUGATED 0.1 mg/dL Normal 0.0-0.2 [facility] Comment on above: Performed By: #### L IVER, LIPID #### [facility] [address] [address] [address] Aliyah Fierro Bilirubin [Mass/Vol] 0.4 mg/dL Normal 0.2-1.0 [facility] Comment on above: Performed By: #### L IVER, LIPID #### [facility] [address] [address] [address] Aliyah Fierro Globulin (S) [Mass/Vol] 2.8 g/dL Normal [facility] Comment on above: Performed By: #### L IVER, LIPID #### [facility] [address] [address] [address] Aliyah Fierro Protein [Mass/Vol] 6.8 g/dL Normal 6.4-8.2 [facility] Comment on above: Performed By: #### L IVER, LIPID #### [facility] [address] [address] [address] Aliyah Fierro US ARTERY LEG BILon [...] by: BUBBA BASURTO Date: 2022-09-13 06:13 Normal [facility] PTH INTACTon 08-27-2022 PTH, Intact 63 pg/mL Normal [facility] Comment on above: Performed By: #### L IVMILLY, LIPID #### [facility] [address] [place] [address] Dr. Aliyah Fierro FERRITINon 08-26-2022 Ferritin [Mass/Vol] 200.0 ng/mL Normal 26.0-388.0 [facility] Comment on above: Performed By: #### L ADRIAN LIPID #### [facility] [address] [place] [address] Dr. Aliyah Fierro HEMOGRAM AND PLATELon 2022 Hematocrit (Bld) [Volume fraction] 36.1 % Critically low 42.0-54.0 [facility] Comment on above: Performed By: #### H H #### [facility] [address] [place] [address] Dr. Aliyah Fierro Hemoglobin (Bld) [Mass/Vol] 12.9 g/dL Critically low 14.0-18.0 [facility] Comment on above: Performed By: #### H H #### [facility] [address] [place] [address] Dr. Aliyah Fierro MCH (RBC) [Entitic mass] 28.9 pg Normal 25.9-34.0 [facility] Comment on above: Performed By: #### H H #### [facility] [address] [place] [address] Dr. Aliyah Fierro MCHC (RBC) [Mass/Vol] 35.7 g/dL Critically high 29.9-35.2 [facility] Comment on above: Performed By: #### H H #### [facility] [address] [place] [address] Dr. Aliyah Fierro MCV (RBC) [Entitic vol] 80.8 fL Normal 80.0-94.0 [facility] Comment on above: Performed By: #### H H #### [facility] [address] [place] [address] Dr. Aliyah Fierro PLT 285 103/ul Normal 150-450 [facility] Comment on above: Performed By: #### H H #### [facility] [address] [place], [place] [id number] Dr. Aliyah Fierro RBC 4.47 106/ul Critically low 4.70-6.10 [facility] Comment on above: Performed By: #### H H #### [facility] [address] [place] [address] Dr. Aliyah Fierro WBC 7.6 103/ul Normal 4.0-11.0 [facility] Comment on above: Performed By: #### H H #### [facility] [address] [place] [address] Dr. Aliyah Fierro IRON AND TIBCon 08-26-2022 % SATURATION 34.5 % Normal [facility] Comment on above: Performed By: #### L ADRIAN LIPID #### [facility] [address] [place] [address] Dr. Aliyah Fierro Iron [Mass/Vol] 98.0 ug/dL Normal 65.0-175.0 [facility] Comment on above: Performed By: #### L ADRIAN, LIPID #### [facility] [address] [place] [address] Dr. Aliyah Fierro TIBC DIRECT 284.0 ug/dL Normal 250.0-450.0 [facility] Comment on above: Performed By: #### L ADRIAN LIPID #### [facility] [address] [place] [address] Dr. Aliyah Fierro MAGNESIUMon 08-26-2022 Magnesium [Mass/Vol] 1.8 mg/dL Normal 1.8-2.4 [facility] Comment on above: Performed By: #### B PRESIDENT COLLEGE OR UNIVERSITY, CMP, CMADM, TSH #### [facility] [address] [place] [address] Dr. Aliyah Fierro RENAL FUNCTION PANELon 08-26 Albumin [Mass/Vol] 3.9 g/dL Normal 3.4-5.0 [facility] Comment on above: Performed By: #### B PRESIDENT COLLEGE OR UNIVERSITY, CMP, CMADM, TSH #### [facility] [address] [place] [address] Dr. Aliyah Fierro Calcium [Mass/Vol] 8.6 mg/dL Normal 8.5-10.1 [facility] Comment on above: Performed By: #### B PRESIDENT COLLEGE OR UNIVERSITY, CMP, CMADM, TSH #### [facility] [address] [address] [address] Aliyah Fierro Chloride [Moles/Vol] 103 mmol/L Normal 98-107 [facility] Comment on above: Performed By: #### B PRESIDENT COLLEGE OR UNIVERSITY, CMP, CMADM, TSH #### [facility] [address] [address] [address] Aliyah Fierro CO2 [Moles/Vol] 26.8 mmol/L Normal 21.0-32.0 [facility] Comment on above: Performed By: #### B PRESIDENT COLLEGE OR UNIVERSITY, CMP, CMADM, TSH #### [facility] [address] [place] [address] Dr. Aliyah Fierro Creatinine [Mass/Vol] 1.94 mg/dL Critically high 0.70-1.30 [facility] Comment on above: Performed By: #### B PRESIDENT COLLEGE OR UNIVERSITY, CMP, CMADM, TSH #### [facility] [address] [place] [address] Dr. Aliyah Fierro EGFR-AF KENYAN 41 mL/min/1.73m2 Critically low >=60 [facility] Comment on above: Performed By: #### B PRESIDENT COLLEGE OR UNIVERSITY, CMP, CMADM, TSH #### [facility] [address] [place] [address] Dr. Aliyah Fierro EGFR-NON AF KENYAN 33 mL/min/1.73m2 Critically low >=60 [facility] Comment on above: Performed By: #### B PRESIDENT COLLEGE OR UNIVERSITY, CMP, CMADM, TSH #### [facility] [address] [place] [address] Dr. Aliyah Fierro Glucose [Mass/Vol] 97 mg/dL Normal 74-106 [facility] Comment on above: Performed By: #### B PRESIDENT COLLEGE OR UNIVERSITY, CMP, CMADM, TSH #### [facility] [address] [place] [address] Dr. Aliyah Fierro Phosphate [Mass/Vol] 3.7 mg/dL Normal 2.6-4.7 [facility] Comment on above: Performed By: #### B PRESIDENT COLLEGE OR UNIVERSITY, CMP, CMADM, TSH #### [facility] [address] [address] [address] Aliyah Fierro Potassium [Moles/Vol] 4.3 mmol/L Normal 3.5-5.1 [facility] Comment on above: Performed By: #### B PRESIDENT COLLEGE OR UNIVERSITY, CMP, CMADM, TSH #### [facility] [address] [address] [address] Aliyah Fierro Sodium [Moles/Vol] 140 mmol/L Normal 136-145 [facility] Comment on above: Performed By: #### B PRESIDENT COLLEGE OR UNIVERSITY, CMP, CMADM, TSH #### [facility] [address] [address] [address] Aliyah Fierro Urea nitrogen [Mass/Vol] 27.0 mg/dL Critically high 7.0-18.0 [facility] Comment on above: Performed By: #### B PRESIDENT COLLEGE OR UNIVERSITY, CMP, CMADM, TSH #### [facility] [address] [place] [address] Dr. Aliyah Fierro UA RANDOM W/MICROSCOPICon BACTERIA NONE SEEN Normal NONE SEEN [facility] Comment on above: Performed By: #### B PRESIDENT COLLEGE OR UNIVERSITY, CMP, CMADM, TSH #### [facility] [address] [place] [address] Dr. Aliyah Fierro Bilirubin Ql (U) Negative Normal NEGATIVE [facility] Comment on above: Performed By: #### B PRESIDENT COLLEGE OR UNIVERSITY, CMP, CMADM, TSH #### [facility] [address] [place] [address] Dr. Aliyah Fierro CAST NONE SEEN Normal NONE SEEN [facility] Comment on above: Performed By: #### B PRESIDENT COLLEGE OR UNIVERSITY, CMP, CMADM, TSH #### [facility] [address] [address] [address] Aliyah Fierro Clarity (U) CLEAR Normal CLEAR [facility] Comment on above: Performed By: #### B PRESIDENT COLLEGE OR UNIVERSITY, CMP, CMADM, TSH #### [facility] [address] [place] [address] Dr. Aliyah Fierro Color (U) LT. YELLOW Normal YELLOW [facility] Comment on above: Performed By: #### B PRESIDENT COLLEGE OR UNIVERSITY, CMP, CMADM, TSH #### [facility] [address] [address] [address] Aliyah Fierro Crystals LM Nom (Urine sed) NONE SEEN Normal NONE SEEN [facility] Comment on above: Performed By: #### B PRESIDENT COLLEGE OR UNIVERSITY, CMP, CMADM, TSH #### [facility] [address] [address] [address] Aliyah Fierro Epithelial cells LM Ql (Urine sed) RARE Normal NONE SEEN /RARE [facility] Comment on above: Performed By: #### B PRESIDENT COLLEGE OR UNIVERSITY, CMP, CMADM, TSH #### [facility] [address] [address] [address] Aliyah Fierro Glucose Ql (U) Negative Normal NEGATIVE [facility] Comment on above: Performed By: #### B PRESIDENT COLLEGE OR UNIVERSITY, CMP, CMADM, TSH #### [facility] [address] [address] [address] Aliyah Fierro Hemoglobin Ql (U) Negative Normal NEGATIVE [facility] Comment on above: Performed By: #### B PRESIDENT COLLEGE OR UNIVERSITY, CMP, CMADM, TSH #### [facility] [address] [address] [address] Aliyah Fierro Ketones Ql (U) Negative Normal NEGATIVE [facility] Comment on above: Performed By: #### B PRESIDENT COLLEGE OR UNIVERSITY, CMP, CMADM, TSH #### [facility] [address] [address] [address] Aliyah Fierro LEUKOCYTES Negative Normal NEGATIVE [facility] Comment on above: Performed By: #### B PRESIDENT COLLEGE OR UNIVERSITY, CMP, CMADM, TSH #### [facility] [address] [address] [address] Aliyah Fierro MUCOUS NONE SEEN Normal NONE SEEN [facility] Comment on above: Performed By: #### B PRESIDENT COLLEGE OR UNIVERSITY, CMP, CMADM, TSH #### [facility] [address] [address] [address] Aliyah Fierro Nitrite Ql (U) Negative Normal NEGATIVE [facility] Comment on above: Performed By: #### B PRESIDENT COLLEGE OR UNIVERSITY, CMP, CMADM, TSH #### [facility] [address] [address] [address] Aliyah Fierro pH (U) 5.5 [pH] Normal 5-9 [facility] Comment on above: Performed By: #### B PRESIDENT COLLEGE OR UNIVERSITY, CMP, CMADM, TSH #### [facility] [address] [place] [address] Dr. Aliyah Fierro RBC NONE SEEN Abnormal 0-2 [facility] Comment on above: Performed By: #### B PRESIDENT COLLEGE OR UNIVERSITY, CMP, CMADM, TSH #### [facility] [address] [place] [address] Dr. Aliyah Fierro SPEC GRAVITY 1.020 Normal 1.005-<=1.025 [facility] Comment on above: Performed By: #### B PRESIDENT COLLEGE OR UNIVERSITY, CMP, CMADM, TSH #### [facility] [address] [place] [address] Dr. Aliyah Fierro UA PROTEIN Negative Normal NEGATIVE/ TRACE [facility] Comment on above: Performed By: #### B PRESIDENT COLLEGE OR UNIVERSITY, CMP, CMADM, TSH #### [facility] [address] [place] [address] Dr. Aliyah Fierro Urobilinogen Qn (U) 0.2 {Katerina'U}/dL Normal 0.2 - 1. 0 [facility] Comment on above: Performed By: #### B PRESIDENT COLLEGE OR UNIVERSITY, CMP, CMADM, TSH #### [facility] [address] [place] [address] Dr. Aliyah Fierro WBC NONE SEEN Normal NONE SEEN [facility] Comment on above: Performed By: #### B PRESIDENT COLLEGE OR UNIVERSITY, CMP, CMADM, TSH #### [facility] [address] [place] [address] Dr. Aliyah Fierro URIC ACID SERUMon 08-26-2022 Urate [Mass/Vol] 8.0 mg/dL Critically high 3.5-7.2 [facility] Comment on above: Performed By: #### B PRESIDENT COLLEGE OR UNIVERSITY, CMP, CMADM, TSH #### [facility] [address] [place] [address] Dr. Aliyah Fierro URINE T PROTEIN CREAT RATIOo n 08-26-2022 Protein (U) [Mass/Vol] 11.7 mg/dL Normal <=12.0 [facility] Comment on above: Performed By: #### L IVER, LIPID #### [facility] [address] [place] [address] Dr. Aliyah Fierro UR PROT CREAT RAT 0.09 Normal [facility] Comment on above: Performed By: #### L IVER, LIPID #### [facility] [address] [place] [address] Dr. Aliyah Fierro URINE CREAT 124.42 mg/dL Normal 20.00-300.00 [facility] Comment on above: Performed By: #### L IVER, LIPID #### [facility] [address] [place] [address] Dr. Aliyah Fierro VITAMIN D 25 OHon 08-26-2022 VIT D 25-OH 46.3 ng/mL Normal [facility] Comment on above: Performed By: #### L IVER, LIPID #### [facility] [address] [place] [address] Dr. Aliyah Fierro VIT D RANGES SEE BELOW Normal [facility] Comment on above: Result Comment: <20 ng/mL Vit D deficient 20 - <30 ng/mL Vit D insufficient 30 - 100 ng/mL Vit D sufficient >100 ng/mL Potential Toxicity Performed By: #### L IVER, LIPID #### [facility] [address] [place] [address] Dr. Aliyah Fierro XR CHEST 2 Von [...] by: BUBBA BASURTO Date: 2022-02-11 20:54 Normal [facility] PTH INTACTon 01-29-2022 PTH, Intact 58 pg/mL Normal 15-65 [facility] Comment on above: Performed By: #### L IVER, LIPID #### [facility] [address] [place] [address] Dr. Aliyah Fierro FERRITINon 01-28-2022 Ferritin [Mass/Vol] 199.0 ng/mL Normal 26.0-388.0 [facility] Comment on above: Performed By: #### L IVER, LIPID #### [facility] [address] [place] [address] Dr. Aliyah Fierro HEMOGRAM AND PLATELon 2021 Hematocrit (Bld) [Volume fraction] 39.0 % Critically low 42.0-54.0 [facility] Comment on above: Performed By: #### B PRESIDENT COLLEGE OR UNIVERSITY, CMP, CMADM, TSH #### [facility] [address] [place] [address] Dr. Aliyah Fierro Hemoglobin (Bld) [Mass/Vol] 13.1 g/dL Critically low 14.0-18.0 [facility] Comment on above: Performed By: #### B PRESIDENT COLLEGE OR UNIVERSITY, CMP, CMADM, TSH #### [facility] [address] [place] [address] Dr. Aliyah Fierro MCH (RBC) [Entitic mass] 29.4 pg Normal 25.9-34.0 [facility] Comment on above: Performed By: #### B PRESIDENT COLLEGE OR UNIVERSITY, CMP, CMADM, TSH #### [facility] [address] [place] [address] Dr. Aliyah Fierro MCHC (RBC) [Mass/Vol] 33.6 g/dL Normal 29.9-35.2 [facility] Comment on above: Performed By: #### B PRESIDENT COLLEGE OR UNIVERSITY, CMP, CMADM, TSH #### [facility] [address] [place] [address] Dr. Aliyah Fierro MCV (RBC) [Entitic vol] 87.4 fL Normal 80.0-94.0 [facility] Comment on above: Performed By: #### B PRESIDENT COLLEGE OR UNIVERSITY, CMP, CMADM, TSH #### [facility] [address] [place] [address] Dr. Aliyah Fierro PLT 309 103/ul Normal 150-450 [facility] Comment on above: Performed By: #### B PRESIDENT COLLEGE OR UNIVERSITY, CMP, CMADM, TSH #### [facility] [address] [place] [address] Dr. Aliyah Fierro RBC 4.46 106/ul Critically low 4.70-6.10 [facility] Comment on above: Performed By: #### B PRESIDENT COLLEGE OR UNIVERSITY, CMP, CMADM, TSH #### [facility] [address] [place] [address] Dr. Aliyah Fierro WBC 8.4 103/ul Normal 4.0-11.0 [facility] Comment on above: Performed By: #### B PRESIDENT COLLEGE OR UNIVERSITY, CMP, CMADM, TSH #### [facility] [address] [place] [address] Dr. Aliyah Fierro IRON AND TIBCon 01-28-2022 % SATURATION 31.0 % Normal [facility] Comment on above: Performed By: #### L ADRIAN LIPID #### [facility] [address] [place] [address] Dr. Aliyah Fierro Iron [Mass/Vol] 93.0 ug/dL Normal 65.0-175.0 [facility] Comment on above: Performed By: #### Darrius CAMPBELL LIPID #### [facility] [address] [place] [address] Dr. Aliyah Fierro TIBC DIRECT 300.0 ug/dL Normal 250.0-450.0 [facility] Comment on above: Performed By: #### Darrius CAMPBELL, LIPID #### [facility] [address] [place] [address] Dr. Aliyah Fierro MAGNESIUMon 01-28-2022 Magnesium [Mass/Vol] 2.0 mg/dL Normal 1.8-2.4 [facility] Comment on above: Performed By: #### B PRESIDENT COLLEGE OR UNIVERSITY, CMP, CMADM, TSH #### [facility] [address] [place] [address] Dr. Aliyah Fierro RENAL FUNCTION PANELon 01-28 Albumin [Mass/Vol] 4.2 g/dL Normal 3.4-5.0 [facility] Comment on above: Performed By: #### B PRESIDENT COLLEGE OR UNIVERSITY, CMP, CMADM, TSH #### [facility] [address] [address] [address] Aliyah Fierro Calcium [Mass/Vol] 8.8 mg/dL Normal 8.5-10.1 [facility] Comment on above: Performed By: #### B PRESIDENT COLLEGE OR UNIVERSITY, CMP, CMADM, TSH #### [facility] [address] [address] [address] Aliyah Fierro Chloride [Moles/Vol] 104 mmol/L Normal 98-107 [facility] Comment on above: Performed By: #### B PRESIDENT COLLEGE OR UNIVERSITY, CMP, CMADM, TSH #### [facility] [address] [place] [address] Dr. Aliyah Fierro CO2 [Moles/Vol] 26.0 mmol/L Normal 21.0-32.0 [facility] Comment on above: Performed By: #### B PRESIDENT COLLEGE OR UNIVERSITY, CMP, CMADM, TSH #### [facility] [address] [place] [address] Dr. Aliyah Fierro Creatinine [Mass/Vol] 2.23 mg/dL Critically high 0.70-1.30 [facility] Comment on above: Performed By: #### B PRESIDENT COLLEGE OR UNIVERSITY, CMP, CMADM, TSH #### [facility] [address] [place] [address] Dr. Aliyah Fierro EGFR-AF KENYAN 35 mL/min/1.73m2 Critically low >=60 [facility] Comment on above: Performed By: #### B PRESIDENT COLLEGE OR UNIVERSITY, CMP, CMADM, TSH #### [facility] [address] [place] [address] Dr. Aliyah Fierro EGFR-NON AF KENYAN 29 mL/min/1.73m2 Critically low >=60 [facility] Comment on above: Performed By: #### B PRESIDENT COLLEGE OR UNIVERSITY, CMP, CMADM, TSH #### [facility] [address] [place] [address] Dr. Aliyah Fierro Glucose [Mass/Vol] 107 mg/dL Critically high 74-106 [facility] Comment on above: Performed By: #### B PRESIDENT COLLEGE OR UNIVERSITY, CMP, CMADM, TSH #### [facility] [address] [address] [address] Aliyah Fierro Phosphate [Mass/Vol] 3.8 mg/dL Normal 2.6-4.7 [facility] Comment on above: Performed By: #### B PRESIDENT COLLEGE OR UNIVERSITY, CMP, CMADM, TSH #### [facility] [address] [address] [address] Aliyah Fierro Potassium [Moles/Vol] 4.7 mmol/L Normal 3.5-5.1 [facility] Comment on above: Performed By: #### B PRESIDENT COLLEGE OR UNIVERSITY, CMP, CMADM, TSH #### [facility] [address] [place] [address] Dr. Aliyah Fierro Sodium [Moles/Vol] 138 mmol/L Normal 136-145 [facility] Comment on above: Performed By: #### B PRESIDENT COLLEGE OR UNIVERSITY, CMP, CMADM, TSH #### [facility] [address] [place] [address] Dr. Aliyah Fierro Urea nitrogen [Mass/Vol] 33.0 mg/dL Critically high 7.0-18.0 [facility] Comment on above: Performed By: #### B PRESIDENT COLLEGE OR UNIVERSITY, CMP, CMADM, TSH #### [facility] [address] [place] [address] Dr. Aliyah Fierro UA RANDOM W/MICROSCOPICon BACTERIA NONE SEEN Normal NONE SEEN [facility] Comment on above: Performed By: #### B PRESIDENT COLLEGE OR UNIVERSITY, CMP, CMADM, TSH #### [facility] [address] [place] [address] Dr. Aliyah Fierro Bilirubin Ql (U) Negative Normal NEGATIVE [facility] Comment on above: Performed By: #### B PRESIDENT COLLEGE OR UNIVERSITY, CMP, CMADM, TSH #### [facility] [address] [place] [address] Dr. Aliyah Fierro CAST NONE SEEN Normal NONE SEEN [facility] Comment on above: Performed By: #### B PRESIDENT COLLEGE OR UNIVERSITY, CMP, CMADM, TSH #### [facility] [address] [place] [address] Dr. Aliyah Fierro Clarity (U) CLEAR Normal CLEAR [facility] Comment on above: Performed By: #### B PRESIDENT COLLEGE OR UNIVERSITY, CMP, CMADM, TSH #### [facility] [address] [address] [address] Aliyah Fierro Color (U) LT. YELLOW Normal YELLOW [facility] Comment on above: Performed By: #### B PRESIDENT COLLEGE OR UNIVERSITY, CMP, CMADM, TSH #### [facility] [address] [address] [address] Aliyah Fierro Crystals LM Nom (Urine sed) NONE SEEN Normal NONE SEEN [facility] Comment on above: Performed By: #### B PRESIDENT COLLEGE OR UNIVERSITY, CMP, CMADM, TSH #### [facility] [address] [address] [address] Aliyah Fierro Epithelial cells LM Ql (Urine sed) NONE SEEN Normal NONE SEEN /RARE [facility] Comment on above: Performed By: #### B PRESIDENT COLLEGE OR UNIVERSITY, CMP, CMADM, TSH #### [facility] [address] [address] [address] Aliyah Fierro Glucose Ql (U) Negative Normal NEGATIVE [facility] Comment on above: Performed By: #### B PRESIDENT COLLEGE OR UNIVERSITY, CMP, CMADM, TSH #### [facility] [address] [address] [address] Aliyah Fierro Hemoglobin Ql (U) Negative Normal NEGATIVE [facility] Comment on above: Performed By: #### B PRESIDENT COLLEGE OR UNIVERSITY, CMP, CMADM, TSH #### [facility] [address] [address] [address] Aliyah Fierro Ketones Ql (U) Negative Normal NEGATIVE [facility] Comment on above: Performed By: #### B PRESIDENT COLLEGE OR UNIVERSITY, CMP, CMADM, TSH #### [facility] [address] [address] [address] Aliyha Fierro LEUKOCYTES Negative Normal NEGATIVE [facility] Comment on above: Performed By: #### B PRESIDENT COLLEGE OR UNIVERSITY, CMP, CMADM, TSH #### [facility] [address] [address] [address] Aliyah Fierro MUCOUS NONE SEEN Normal NONE SEEN [facility] Comment on above: Performed By: #### B PRESIDENT COLLEGE OR UNIVERSITY, CMP, CMADM, TSH #### [facility] [address] [address] [address] Aliyah Fierro Nitrite Ql (U) Negative Normal NEGATIVE [facility] Comment on above: Performed By: #### B PRESIDENT COLLEGE OR UNIVERSITY, CMP, CMADM, TSH #### [facility] [address] [address] [address] Aliyah Fierro pH (U) 5.5 [pH] Normal 5-9 [facility] Comment on above: Performed By: #### B PRESIDENT COLLEGE OR UNIVERSITY, CMP, CMADM, TSH #### [facility] [address] [address] [address] Aliyah Fierro RBC NONE SEEN Abnormal 0-2 [facility] Comment on above: Performed By: #### B PRESIDENT COLLEGE OR UNIVERSITY, CMP, CMADM, TSH #### [facility] [address] [place] [address] Dr. Aliyah Fierro SPEC GRAVITY 1.020 Normal 1.005-<=1.025 [facility] Comment on above: Performed By: #### B PRESIDENT COLLEGE OR UNIVERSITY, CMP, CMADM, TSH #### [facility] [address] [place] [address] Dr. Aliyah Fierro UA PROTEIN Negative Normal NEGATIVE/ TRACE [facility] Comment on above: Performed By: #### B PRESIDENT COLLEGE OR UNIVERSITY, CMP, CMADM, TSH #### [facility] [address] [place] [address] Dr. Aliyah Fierro Urobilinogen Qn (U) 0.2 {Katerina'U}/dL Normal 0.2 - 1. 0 [facility] Comment on above: Performed By: #### B PRESIDENT COLLEGE OR UNIVERSITY, CMP, CMADM, TSH #### [facility] [address] [place] [address] Dr. Aliyah Fierro WBC NONE SEEN Normal NONE SEEN [facility] Comment on above: Performed By: #### B PRESIDENT COLLEGE OR UNIVERSITY, CMP, CMADM, TSH #### [facility] [address] [place] [address] Dr. Aliyah Fierro URIC ACID SERUMon 01-28-2022 Urate [Mass/Vol] 8.8 mg/dL Critically high 3.5-7.2 [facility] Comment on above: Performed By: #### B PRESIDENT COLLEGE OR UNIVERSITY, CMP, CMADM, TSH #### [facility] [address] [place] [address] Dr. Aliyah Fierro URINE T PROTEIN CREAT RATIOo n 01-28-2022 Protein (U) [Mass/Vol] 11.7 mg/dL Normal <=12.0 [facility] Comment on above: Performed By: #### U RTPCR #### [facility] [address] [place] [address] Dr. Aliyah Fierro UR PROT CREAT RAT 0.09 Normal [facility] Comment on above: Performed By: #### U RTPCR #### [facility] [address] [place] [address] Dr. Aliyah Fierro URINE CREAT 126.58 mg/dL Normal 20.00-300.00 [facility] Comment on above: Performed By: #### U RTPCR #### [facility] [address] [place] [address] Dr. Aliyah Fierro VITAMIN D 25 OHon 01-28-2022 VIT D 25-OH 40.0 ng/mL Normal [facility] Comment on above: Performed By: #### L ADRIAN LIPID #### [facility] [address] [place] [address] Dr. Aliyah Fierro VIT D RANGES SEE BELOW Normal [facility] Comment on above: Result Comment: <20 ng/mL Vit D deficient 20 - <30 ng/mL Vit D insufficient 30 - 100 ng/mL Vit D sufficient >100 ng/mL Potential Toxicity Performed By: #### Darrius CAMPBELL LIPID #### [facility] [address] [place] [address] Dr. Aliyah Fierro BNPon 01-09-2022 Natriuretic peptide B (Bld) [Mass/Vol] 218.0 pg/mL Normal <=1,800.0 [facility] Comment on above: Performed By: #### B PRESIDENT COLLEGE OR UNIVERSITY, CMP, CMADM, TSH #### [facility] [address] [place] [address] Dr. Aliyah Fierro CARDIAC HELLEN ADMITon 022 CK [Catalytic activity/Vol] 159 U/L Normal 39-308 [facility] Comment on above: Performed By: #### B PRESIDENT COLLEGE OR UNIVERSITY, CMP, CMADM, TSH #### [facility] [address] [address] [address] Aliyah Fierro CK.MB [Mass/Vol] 4.55 ng/mL Critically high <=3.60 [facility] Comment on above: Performed By: #### B PRESIDENT COLLEGE OR UNIVERSITY, CMP, CMADM, TSH #### [facility] [address] [place] [address] Dr. Aliyah Fierro HSTROP 9.0 pg/mL Normal 4.0-76.1 [facility] Comment on above: Result Comment: CUT- OFF POINTS HAVE BEEN ESTABLISHED BASED ON THE FOURTH UNIVERSAL DEFINITIONS OF MYOCARDIAL INFARCTION. THE UPPER REFERENCE LIMIT (URL) OF TROPONIN, DEFINED THE 99TH PERCENTILE OF cTnI DISTRIBUTION IN A REFERENCE POPULATION, HAS BEEN CONFIRMED THE DECISION THRESHOLD FOR ME DIAGNOSIS. Performed By: #### B PRESIDENT COLLEGE OR UNIVERSITY, CMP, CMADM, TSH #### [facility] [address] [place] [address] Dr. Aliyah Fierro JAHAIRA 181 ng/mL Critically high 16-96 [facility] Comment on above: Performed By: #### B PRESIDENT COLLEGE OR UNIVERSITY, CMP, CMADM, TSH #### [facility] [address] [place] [address] Dr. Aliyah Fierro CBC AUTO DIFFon 01-09-2022 BASO # 0.0 103/ul Normal 0.0-0.1 [facility] Comment on above: Performed By: #### B PRESIDENT COLLEGE OR UNIVERSITY, CMP, CMADM, TSH #### [facility] [address] [place] [address] Dr. Aliyah Fierro Basophils/100 WBC (Bld) 0.3 % Normal 0.2-2.0 [facility] Comment on above: Performed By: #### B PRESIDENT COLLEGE OR UNIVERSITY, CMP, CMADM, TSH #### [facility] [address] [place] [address] Dr. Aliyah Fierro EO # 0.3 103/ul Normal 0.0-0.7 [facility] Comment on above: Performed By: #### B PRESIDENT COLLEGE OR UNIVERSITY, CMP, CMADM, TSH #### [facility] [address] [place] [address] Dr. Aliyah Fierro Eosinophils/100 WBC (Bld) 3.6 % Normal 0.9-7.0 [facility] Comment on above: Performed By: #### B PRESIDENT COLLEGE OR UNIVERSITY, CMP, CMADM, TSH #### [facility] [address] [place] [address] Dr. Aliyah Fierro Erythrocyte distribution width (RBC) [Ratio] 13.2 % Normal 11.0-15.0 [facility] Comment on above: Performed By: #### B PRESIDENT COLLEGE OR UNIVERSITY, CMP, CMADM, TSH #### [facility] [address] [place] [address] Dr. Aliyah Fierro Hematocrit (Bld) [Volume fraction] 38.8 % Critically low 42.0-54.0 [facility] Comment on above: Performed By: #### B PRESIDENT COLLEGE OR UNIVERSITY, CMP, CMADM, TSH #### [facility] [address] [place] [address] Dr. Aliyah Fierro Hemoglobin (Bld) [Mass/Vol] 13.2 g/dL Critically low 14.0-18.0 [facility] Comment on above: Performed By: #### B PRESIDENT COLLEGE OR UNIVERSITY, CMP, CMADM, TSH #### [facility] [address] [place] [address] Dr. Aliyah Fierro IG # 0.04 10e3/ul Critically high 0.00-0.03 [facility] Comment on above: Performed By: #### B PRESIDENT COLLEGE OR UNIVERSITY, CMP, CMADM, TSH #### [facility] [address] [place] [address] Dr. Aliyah Fierro IG % 0.4 % Normal 0.0-0.5 [facility] Comment on above: Performed By: #### B PRESIDENT COLLEGE OR UNIVERSITY, CMP, CMADM, TSH #### [facility] [address] [place] [address] Dr. Aliyah Fierro LYMPH # 1.6 103/ul Normal 1.2-3.8 [facility] Comment on above: Performed By: #### B PRESIDENT COLLEGE OR UNIVERSITY, CMP, CMADM, TSH #### [facility] [address] [place] [address] Dr. Aliyah Fierro Lymphocytes/100 WBC (Bld) 17.3 % Critically low 20.5-60.0 [facility] Comment on above: Performed By: #### B PRESIDENT COLLEGE OR UNIVERSITY, CMP, CMADM, TSH #### [facility] [address] [place] [address] Dr. Aliyah Fierro MANUAL DIFF REQ NO Normal [facility] Comment on above: Performed By: #### B PRESIDENT COLLEGE OR UNIVERSITY, CMP, CMADM, TSH #### [facility] [address] [place] [address] Dr. Aliyah Fierro MCH (RBC) [Entitic mass] 29.8 pg Normal 25.9-34.0 [facility] Comment on above: Performed By: #### B PRESIDENT COLLEGE OR UNIVERSITY, CMP, CMADM, TSH #### [facility] [address] [place] [address] Dr. Aliyah Fierro MCHC (RBC) [Mass/Vol] 34.0 g/dL Normal 29.9-35.2 [facility] Comment on above: Performed By: #### B PRESIDENT COLLEGE OR UNIVERSITY, CMP, CMADM, TSH #### [facility] [address] [place] [address] Dr. Aliyah Fierro MCV (RBC) [Entitic vol] 87.6 fL Normal 80.0-94.0 [facility] Comment on above: Performed By: #### B PRESIDENT COLLEGE OR UNIVERSITY, CMP, CMADM, TSH #### [facility] [address] [place] [address] Dr. Aliyah Fierro MONO # 1.0 103/ul Critically high 0.3-0.8 [facility] Comment on above: Performed By: #### B PRESIDENT COLLEGE OR UNIVERSITY, CMP, CMADM, TSH #### [facility] [address] [place] [address] Dr. Aliyah Fierro Monocytes/100 WBC (Bld) 10.4 % Normal 1.7-12.0 [facility] Comment on above: Performed By: #### B PRESIDENT COLLEGE OR UNIVERSITY, CMP, CMADM, TSH #### [facility] [address] [place] [address] Dr. Aliyah Fierro NEUT # 6.2 103/ul Normal 1.4-6.5 [facility] Comment on above: Performed By: #### B PRESIDENT COLLEGE OR UNIVERSITY, CMP, CMADM, TSH #### [facility] [address] [address] [address] Aliyah Fierro Neutrophils/100 WBC (Bld) 68.0 % Normal 43.0-75.0 [facility] Comment on above: Performed By: #### B PRESIDENT COLLEGE OR UNIVERSITY, CMP, CMADM, TSH #### [facility] [address] [place] [address] Dr. Aliyah Fierro Platelet mean volume (Bld) [Entitic vol] 9.3 fL Critically low 9.5-13.5 [facility] Comment on above: Performed By: #### B PRESIDENT COLLEGE OR UNIVERSITY, CMP, CMADM, TSH #### [facility] [address] [place] [address] Dr. Aliyah Fierro PLT 297 103/ul Normal 150-450 [facility] Comment on above: Performed By: #### B PRESIDENT COLLEGE OR UNIVERSITY, CMP, CMADM, TSH #### [facility] [address] [place] [address] Dr. Aliyah Fierro RBC 4.43 106/ul Critically low 4.70-6.10 [facility] Comment on above: Performed By: #### B PRESIDENT COLLEGE OR UNIVERSITY, CMP, CMADM, TSH #### [facility] [address] [place] [address] Dr. Aliyah Fierro WBC 9.2 103/ul Normal 4.0-11.0 [facility] Comment on above: Performed By: #### B PRESIDENT COLLEGE OR UNIVERSITY, CMP, CMADM, TSH #### [facility] [address] [place] [address] Dr. Aliyah Fierro ER URINE PROFILEon 2 Bilirubin Ql (U) Negative Normal NEGATIVE [facility] Comment on above: Performed By: #### E RUR #### [facility] [address] [place] [address] Dr. Aliyah Fierro Clarity (U) CLEAR Normal CLEAR [facility] Comment on above: Performed By: #### E RUR #### [facility] [address] [place] [address] Dr. Aliyah Fierro Color (U) LT. YELLOW Normal YELLOW [facility] Comment on above: Performed By: #### E RUR #### [facility] [address] [place] [address] Dr. Aliyah MORSE A micrscopic examination will be performed if indicated. Normal [facility] Comment on above: Performed By: #### E RUR #### [facility] [address] [place] [address] Dr. Aliyah Fierro Glucose Ql (U) Negative Normal NEGATIVE [facility] Comment on above: Performed By: #### E RUR #### [facility] [address] [place] [address] Dr. Aliyah Fierro Hemoglobin Ql (U) Negative Normal NEGATIVE [facility] Comment on above: Performed By: #### E RUR #### [facility] [address] [place] [address] Dr. Aliyah Fierro Ketones Ql (U) Negative Normal NEGATIVE [facility] Comment on above: Performed By: #### E RUR #### [facility] [address] [place] [address] Dr. Aliyah Fierro LEUKOCYTES Negative Normal NEGATIVE [facility] Comment on above: Performed By: #### E RUR #### [facility] [address] [place] [address] Dr. Aliyah Fierro Nitrite Ql (U) Negative Normal NEGATIVE [facility] Comment on above: Performed By: #### E RUR #### [facility] [address] [place] [address] Dr. Aliyah Fierro pH (U) 6.0 [pH] Normal 5-9 [facility] Comment on above: Performed By: #### E RUR #### [facility] [address] [place] [address] Dr. Aliyah Fierro SPEC GRAVITY 1.020 Normal 1.005-<=1.025 [facility] Comment on above: Performed By: #### E RUR #### [facility] [address] [place] [address] Dr. Aliyah Fierro UA PROTEIN Negative Normal NEGATIVE/ TRACE [facility] Comment on above: Performed By: #### E RUR #### [facility] [address] [address] [address] Aliyah Fierro UR MICRO IND NOT INDICATED Normal [facility] Comment on above: Performed By: #### E RUR #### [facility] [address] [address] [address] Aliyah Fierro Urobilinogen Qn (U) 0.2 {Katerina'U}/dL Normal 0.2 - 1. 0 [facility] Comment on above: Performed By: #### E RUR #### [facility] [address] [address] [address] Aliyah Fierro PROF 14(COMP METB)on 022 Albumin [Mass/Vol] 4.1 g/dL Normal 3.4-5.0 [facility] Comment on above: Performed By: #### B PRESIDENT COLLEGE OR UNIVERSITY, CMP, CMADM, TSH #### [facility] [address] [address] [address] Aliyah Fierro Albumin/Globulin [Mass ratio] 1.2 {ratio} Normal [facility] Comment on above: Performed By: #### B PRESIDENT COLLEGE OR UNIVERSITY, CMP, CMADM, TSH #### [facility] [address] [place] [address] Dr. Aliyah Fierro ALP [Catalytic activity/Vol] 92 U/L Normal 46-116 [facility] Comment on above: Performed By: #### B PRESIDENT COLLEGE OR UNIVERSITY, CMP, CMADM, TSH #### [facility] [address] [address] [address] Aliyah Fierro ALT [Catalytic activity/Vol] 31 U/L Normal 16-63 [facility] Comment on above: Performed By: #### B PRESIDENT COLLEGE OR UNIVERSITY, CMP, CMADM, TSH #### [facility] [address] [place] [address] Dr. Aliyah Fierro Anion gap [Moles/Vol] 12.8 mmol/L Normal [facility] Comment on above: Performed By: #### B PRESIDENT COLLEGE OR UNIVERSITY, CMP, CMADM, TSH #### [facility] [address] [place] [address] Dr. Aliyah Fierro AST [Catalytic activity/Vol] 18 U/L Normal 15-37 [facility] Comment on above: Performed By: #### B PRESIDENT COLLEGE OR UNIVERSITY, CMP, CMADM, TSH #### [facility] [address] [address] [address] Aliyah Fierro Bilirubin [Mass/Vol] 0.5 mg/dL Normal 0.2-1.0 [facility] Comment on above: Performed By: #### B PRESIDENT COLLEGE OR UNIVERSITY, CMP, CMADM, TSH #### [facility] [address] [place] [address] Dr. Aliyah Fierro Calcium [Mass/Vol] 8.6 mg/dL Normal 8.5-10.1 [facility] Comment on above: Performed By: #### B PRESIDENT COLLEGE OR UNIVERSITY, CMP, CMADM, TSH #### [facility] [address] [place] [address] Dr. Aliyah Fierro Chloride [Moles/Vol] 103 mmol/L Normal 98-107 [facility] Comment on above: Performed By: #### B PRESIDENT COLLEGE OR UNIVERSITY, CMP, CMADM, TSH #### [facility] [address] [place] [address] Dr. Aliyah Fierro CO2 [Moles/Vol] 26.3 mmol/L Normal 21.0-32.0 [facility] Comment on above: Performed By: #### B PRESIDENT COLLEGE OR UNIVERSITY, CMP, CMADM, TSH #### [facility] [address] [place] [address] Dr. Aliyah Fierro Creatinine [Mass/Vol] 2.11 mg/dL Critically high 0.70-1.30 [facility] Comment on above: Performed By: #### B PRESIDENT COLLEGE OR UNIVERSITY, CMP, CMADM, TSH #### [facility] [address] [address] [address] Aliyah Fierro EGFR-AF KENYAN 37 mL/min/1.73m2 Critically low >=60 [facility] Comment on above: Performed By: #### B PRESIDENT COLLEGE OR UNIVERSITY, CMP, CMADM, TSH #### [facility] [address] [address] [address] Aliyah Fierro EGFR-NON AF KENYAN 30 mL/min/1.73m2 Critically low >=60 [facility] Comment on above: Performed By: #### B PRESIDENT COLLEGE OR UNIVERSITY, CMP, CMADM, TSH #### [facility] [address] [address] [address] Aliyah Fierro Globulin (S) [Mass/Vol] 3.3 g/dL Normal [facility] Comment on above: Performed By: #### B PRESIDENT COLLEGE OR UNIVERSITY, CMP, CMADM, TSH #### [facility] [address] [address] [address] Aliyah Fierro Glucose [Mass/Vol] 105 mg/dL Normal 74-106 [facility] Comment on above: Performed By: #### B [employer], CMP, CMADM, TSH #### [facility] [address] [place] [address] Dr. Aliyah Fierro Potassium [Moles/Vol] 4.1 mmol/L Normal 3.5-5.1 [facility] Comment on above: Performed By: #### B [employer], CMP, CMADM, TSH #### [facility] [address] [place] [address] Dr. Aliyah Fierro Protein [Mass/Vol] 7.4 g/dL Normal 6.4-8.2 [facility] Comment on above: Performed By: #### B [employer], CMP, CMADM, TSH #### [facility] [address] [place] [address] Dr. Aliyah Fierro Sodium [Moles/Vol] 138 mmol/L Normal 136-145 [facility] Comment on above: Performed By: #### B [employer], CMP, CMADM, TSH #### [facility] [address] [place] [address] Dr. Aliyah Firero Urea nitrogen [Mass/Vol] 32.0 mg/dL Critically high 7.0-18.0 [facility] Comment on above: Performed By: #### B [employer], CMP, CMADM, TSH #### [facility] [address] [place] [address] Dr. Aliyah Fierro Urea nitrogen/Creatinine [Mass ratio] 15.2 mg/mg Normal [facility] Comment on above: Performed By: #### B [employer], CMP, CMADM, TSH #### [facility] [address] [address] [address] Aliyah Fierro PROTIMEon 01-09-2022 INR Coag (PPP) [Relative time] 1.02 {INR} Normal [facility] Comment on above: Performed By: #### B [employer], CMP, CMADM, TSH #### [facility] [address] [address] [address] Aliyah Fierro INR GUIDELINES SEE BELOW Normal [facility] Comment on above: Result Comment: BOBBY RED INR: 2.0 - 3.0 CONDITIONS NOT LISTED BELOW 2.5 - 3.5 FOR PROSTHETIC HEART VALVE REPLACEMENT 2.5 - 3.5 RECURRENT THROMBOSIS Performed By: #### B [employer], CMP, CMADM, TSH #### [facility] [address] [place] [address] Dr. Aliyah Fierro PT Coag (PPP) [Time] 11.0 s Normal 9.0-11.6 [facility] Comment on above: Performed By: #### B [employer], CMP, CMADM, TSH #### [facility] [address] [place] [address] Dr. Aliyah Fierro PTTon 01-09-2022 aPTT Coag (Bld) [Time] 31.2 s Normal 22.3-36.2 [facility] Comment on above: Performed By: #### L IVER, LIPID #### [facility] [address] [place] [address] Dr. Aliyah Fierro TSHon 01-09-2022 TSH 3.663 uIU/mL Normal 0.358-3.740 [facility] Comment on above: Performed By: #### B [employer], CMP, CMADM, TSH #### [facility] [address] [place] [address] Dr. Aliyah Fierro TSH RANGE SEE BELOW Normal [facility] Comment on above: Result Comment: <0.3 4 UIU/ml HYPERTHYROID 0.34-5.60 UIU/ml EUTHYROID >5.60 UIU/ml HYPOTHYROID Performed By: #### B [employer], CMP, CMADM, TSH #### [facility] [address] [place], [place] [address] Dr. Aliyah Fierro XR CHEST 1 Von [...] by: BUBBA BASURTO Date: 2022-01-09 13:05 Normal [facility] Ambulatory Clinical Summaryo n 04-06-2021 Ambulatory Clinical Summary {[id number]}CD:[id number] Normal [facility] Patient Educationon 04-06-20 21 Patient Education Benign [...] Document Reviewed: 03/25/2008 ExitCare? Patient Information ?[address] [facility]. [facility] Urology Office/Clinic Noteon 04-06-2021 Urology Office/Clinic Note HPI Staff Guanako is a 81 y.o. male here for [...] Barnes, URL [address] [place] [address] [place] [address]- [phone] Additional Instructions: prn Patient Education Benign Prostatic Hyperplasia IYamilka , personally scribed for Dr. Soto on [...] Use:., 04/06/2021 Family History Pancreatic cancer: Father. [facility] Comment on above: Result Comment: Elec tronically Signed By: RAUDEL JANSEN, Michael Barnes\.br\Date and Time Signed: 04/06/21 10:51 EDT\.br\Electronically Co-Signed By: Yamilka New MA\.br\Date and Time Co-Signed: 04/06/21 10:50 EDT Ambulatory Clinical Summaryo n 01-02-2021 Ambulatory Clinical Summary {[id number]}CD:[id number] [facility] Consent for Procedure/Surger yon 01-02-2021 Consent for Procedure/Surgery [id number] 1.00CD:127 [facility] Patient Educationon 01-03-20 21 Patient Education Cystoscopy Care After Refer to [...] Document Reviewed: 01/11/2013 ExitCare? Patient Information ?2013 [employer]. [facility] Urology Office/Clinic Noteon 01-02-2021 Urology Office/Clinic [...] and the office notified. Script sent to [facility] in [place]. 3. Weak urine stream (R39.12: Poor urinary stream) Weak w/ intermittent hesitancy. 4. Nocturia (R35.1: Nocturia) 1-2x/night. I have reviewed the previous health record information and history for this pt. from Dr. Soto. Follow-up With When Contact Information RAUDEL JANSEN, Michael Barnes, URL [address] [place] [address]- [phone] Additional Instructions: 3mos. f/u Patient Education Cystoscopy, [...] 01/02/2021 Family History Pancreatic cancer: Father. Normal [facility] Comment on above: Result Comment: Elec tronically Signed By: RAUDEL JANSEN, Michael Barnes\.br\Date and Time Signed: 01/02/21 12:23 EDT\.br\Electronically Co-Signed By: Yamilka New MA\.br\Date and Time Co-Signed: 01/02/21 12:21 EDT [employer] 12-15-2020 Forms [id number] .[id number]:127 Normal [facility] Physician Referralon 021 Physician Referral [id number] .[id number]:127 Normal [facility] Physician Referralon 021 Physician Referral [id number] .[id number]:127 Normal [facility] Ambulatory Clinical Summaryo n 12-11-2020 Ambulatory Clinical Summary {[id number]}CD:[id number] Normal [facility] Ambulatory Clinical Summary {[id number]}CD:[id number] Normal [facility] Urology Office/Clinic Noteon 12-11-2020 Urology Office/Clinic Note Chief Complaint [employer] referred for bladder mass HPI Staff [employer] referred by Dr. Parada due to a [...] Information RAUDEL JANSEN, Michael Barnes, URL [address] [place] [address]- [phone] Additional Instructions: Patient Education Cystoscopy I, Yamilka [...] albuterol 0.08 (more content not included)... Normal [facility] Comment on above: Result Comment: Elec tronically Signed By: Michael SOTO MD\.br\Date and Time Signed: 12/11/20 15:10 EDT\.br\Electronically Co-Signed By: Yamilka New MA\.br\Date and Time Co-Signed: 12/11/20 15:09 EDT Vital Signs Date Time Vital Sign Value Performing Clinician Facility 10-30-2023 10:45-0400 Body height 175.[address] [facility] 10-30-2023 10:45-0400 Body mass index (BMI) [Ratio] 27 kg/m2 [facility] 10-30-2023 10:45-0400 Body temperature 97.4 [degF] [facility] 10-30-2023 10:45-0400 Body weight [address] [facility] 10-30-2023 10:45-0400 Diastolic blood pressure 70 mm[Hg] [facility] 10-30-2023 10:45-0400 Heart rate 68 /min [facility] 10-30-2023 10:45-0400 Respiratory rate 18 /min [facility] 10-30-2023 10:45-0400 SaO2% (BldA) [Mass fraction] 97 % [facility] 10-30-2023 10:45-0400 Systolic blood pressure 120 mm[Hg] [facility] 02-07-2022 15:00-0400 Body height 175.26 cm Praveen Mariam Other [employer] [facility] [employer] Other 02-07-2022 15:00-0400 Body mass index (BMI) [Ratio] 27.02 kg/m2 Praveen Mariam Other [employer] Other 02-07-2022 15:00-0400 Body temperature 97 [degF] Praveen Mariam Other [employer] Other 02-07-2022 15:00-0400 Body weight 83.01 kg Praveen Mariam Other [employer] Other 02-07-2022 15:00-0400 Diastolic blood pressure 62 mm[Hg] Praveen Mariam Other [employer] Other 02-07-2022 15:00-0400 Respiratory rate 18 /min Praveen Mariam Other [employer] Other 02-07-2022 15:00-0400 SaO2% (BldA) [Mass fraction] 92 % Praveen Mariam Other [employer] Other 02-07-2022 15:00-0400 Systolic blood pressure 130 mm[Hg] Praveen Mariam Other [employer] Other Encounters Encounter Date Encounter Type Care Provider Facility Start: 03-24-2024 End: 03-24-2024 ambulatory ANTOINETTE AICHHOLZ Not Available Start: 10-30-2023 End: 10-30-2023 ambulatory [facility] Work Phone: Start: 10-30-2023 End: 10-30-2023 Patient encounter procedure [facility] Work Phone: Start: 10-15-2023 End: 10-15-2023 ambulatory ANTOINETTE AICHHOLZ Not Available Start: 09-11-2023 Refill 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 [employer] Work Phone: [facility] Comment on above: Primary hypertension (CMS/HCC) (Primary Dx); Essential (primary) hypertension (CMS/HCC); Benign essential hypertension (CMS/HCC) Start: 10-24-2022 End: 10-25-[address] KERRIE MONTANA Facility:[facility] Start: 10-21-2022 End: 10-22-[address] KERRIE MONTANA Facility:[facility] Start: 10-09-2022 End: 10-10-2022 ambulatory NURSE SANE ANTOINETTE AICHHOLZ Facility:[facility] Start: 09-12-2022 End: 09-13-2022 ambulatory NURSE SANE ANTOINETTE AICHHOLZ Facility:[facility] Start: 09-03-2022 End: 09-04-2022 ambulatory NURSE SANE ANTOINETTE AICHHOLZ Facility:[facility] Start: 08-26-2022 End: 08-27-2022 ambulatory PRAVEEN MARIAM Facility:[facility] Start: 02-11-2022 End: 02-12-2022 ambulatory NURSE SANE ANTOINETTE AICHHOLZ Facility:[facility] Start: 02-07-2022 End: 02-07-2022 ambulatory Praveen Mariam Other [employer] Other Start: 02-07-2022 Office outpatient vi sit 25 minutes Praveen Mariam [facility] Start: 01-28-2022 End: 01-29-2022 ambulatory PRAVEEN TYLERDIR Facility:[facility] Start: 01-09-2022 End: 01-09-2022 ambulatory ADELINE UDAY Facility:[facility] Procedures Date Procedure Procedure Detail Performing Clinician Start: 10-09-2022 PSA screening GAGANDEEP ANTOINETTEJer CARRILLO Comment on above: Performed By: #### P [facility] #### [facility] [address] [address] [address] Aliyah Fierro Plan of Treatment Date Care Activity Detail Author Start: 04-04-2023 Influenza vaccination Influenza Vaccine (#1) [facility] Start: 02-14-1946 Pneumococcal Vaccine: 65+ Years (1 - PCV) Pneumococcal Vaccine: 65+ Years (1 - PCV) [facility] Start: 1940 Medicare Annual Wellness (AWV) Medicare Annual Wellness (AWV) [facility] Renal function 2000 panel - Serum or Plasma [facility] Payers Date Payer Category Payer Medicare MEDICARE MEDICAR E PART B [id number] 2007-[place] [address] Medicare [id number] 1959 Medicare [id number] 1959 Private Health Insurance [id number] 1942 Unknown [id number] 2.16840.1.702812.3.579. 2.59 1942 Unknown [id number] 2.16.840.1.556510.3.579. 2.593 1942 Unknown [id number] 2.16.840.1.198444.3.579. 2.593 1942 Unknown [id number] 2.16.840.1.278537.3.579. 2.593 1942 Unknown [id number] 2.16.840.1.686713.3.579. 2.593 1942 Unknown [id number] 2.16.840.1.739748.3.579. 2.593 1942 Unknown [id number] 2.16.840.1.481450.3.579. 2.593 1942 Unknown [id number] 2.16.840.1.962986.3.579. 2.593 1942 Unknown [id number] 2.16.840.1.324931.3.579. 2.593 1942 Unknown [id number] 2.16.840.1.898678.3.579. 2.1259 1942 Unknown [id number] 2.16.840.1.531189.3.579. 2.1259 Self-pay Self Pay [id number] Social History Date Type Detail Facility Unknown if ever smoked [facility] [employer] Other Sex Assigned At [employer] Other Tobacco smoking status [facility] Tobacco smoking consumption unknown [facility] Start: 1940 Sex Assigned At Not on file N [facility] Start: 10-30-2023 Tobacco smoking status [facility] Ex-smoker (finding) [facility] Start: 1940 Sex Assigned At Male F [facility] Evaluation note 02-07-2022 Note Date [...] allopurinol if he has a gout flare. [employer] Other Clinical Note 12-11-2020 Note Date & [...] including vitamins, herbs, eye drops, creams, and kccm-haq-iccuzef medicines. ? Any problems you or family [...] tells you to take them. ? Taking txag-ldo-iblskwj medicines, vitamins, herbs, and supplements. ? Follow [...] these instructions at home: Medicines ? Take tdpp-izd-vkofpcs and prescription medicines only as told by [...] This is importa (more content not included)... [facility] Evaluation note Note Date & Type Note Facility Evaluation note Diagnosis Primary hypertension ([facility])- Primary Unspecified essential hypertension Essential (primary) hypertension ([facility]/HCC) Unspecified essential hypertension Benign essential hypertension ([facility]/HCC) Essential hypertension, benign documented in this encounter [facility] Evaluation note Note Date & Type Note Facility Evaluation note Diagnosis Onset Date Anemia of renal disease acut e CKD (chronic kidney disease) stage 4, GFR 15-29 ml/min acute Gout acute Hyperlipidemia acute [id number] acute Secondary hyperparathyroidism acute [facility] Work Phone: History general Narrative - Reported [...] History LASIK BILATERALLY Hospitalization History SEE ABOVE [employer] Other Summary Purpose Family History No Family History Records Found Relationship Condition Age at Onset Recorded Date/T dianne brother Hypertension Unknown daughter Family history of mental disorder Unknown father Malignant neoplasm Unknown Malignant neoplasm of urinary bladder Unk nown Unknown family member Unknown Not Specified Unknown Advance Directives No Advanced Directives Records Found Advance Directive Response Recorded Date/ Time Advance Directives No September 02, 2023 6:25pm Chief Complaint and Reason for Visit Chief Complaint RENAL 6 month Follow up Reason for Visit Anemia of renal dise ase CKD (chronic kidney disease) stage 4, GFR 15-29 ml/min Gout Hyperlipidemia [id number] Secondary hyperparathyroidism Additional Source Comments (unrecognized sect ion and content) No Status Records FoundNo Status Records FoundNo Status Records Found INFORMATION SOURCE (unrecogn ized section and content) DATE CREATED AUTHOR 04/07/2021 [facility] DATE CREATED AUTHOR AUTHOR'S ORGANIZ ATION 10/27/2022 [facility] DATE CREATED AUTHOR AUTHOR'S ORGANIZ ATION 03/26/2024 [facility] EPIC REASON FOR VISIT (unrecogniz ed section and content) Reason Comments Med Refill Care Teams (unrecognized sec tion and content) 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 [employer] [facility]. provides no warranty or guarantee of the accuracy or completeness of information in this document.
[2024-04-06 08:26] LABS: Hematocrit 37.7 % (42.0-54.0); Hemoglobin 12.5 g/dL (14.0-18.0); Mean Corpuscular HGB Conc 33.2 g/dL (29.9-35.2); Mean Corpuscular Hemoglobin 29.1 pg (25.9-34.0); Mean Corpuscular Volume 87.9 fL (80.0-94.0); Mean Platelet Volume 9.1 fL (9.5-13.5); Platelet Count 269 10^3/uL (150-450); Red Blood Count 4.29 10^6/uL (4.70-6.10); Red Cell Distribution Width 13.1 % (11.0-15.0); White Blood Count 10.5 10^3/uL (4.0-11.0)
[2024-04-06 08:28] LABS: Bilirubin Urine NEGATIVE (NEGATIVE); Blood Urine NEGATIVE (NEGATIVE); Clarity Urine CLEAR (CLEAR); Color Urine YELLOW (YELLOW); Glucose Urine UA NEGATIVE (NEGATIVE); Ketones Urine NEGATIVE (NEGATIVE); Leukocyte Esterase Urine NEGATIVE (NEGATIVE); Nitrite Urine NEGATIVE (NEGATIVE); Protein Urine NEGATIVE (NEG/TRACE); Specific Gravity Urine 1.025 (1.005-1.025); Urobilinogen Urine 0.2 EU/dL (0.2-1.0); pH Urine 5.5 (5.0-9.0)
[2024-04-06 08:56] LABS: Bacteria Urine NONE SEEN #/HPF (NONE SEEN); Mucus Urine SMALL (NONE SEEN); RBC Urine NONE SEEN #/HPF (0-2); Squamous Epithelial Cell Urine FEW #/LPF (NONE/RARE); WBC Urine NONE SEEN #/HPF (NONE SEEN)
[2024-04-06 09:09] LABS: Creatinine Urine Random 141.49 mg/dL (20.00-300.00); Protein Creatinine Ratio Urine 0.15; Total Protein Urine Random 21.1 mg/dL (<=11.9)
[2024-04-06 09:10] LABS: Albumin Level 3.5 g/dL (3.4-5.0); Anion Gap 11.7; BUN Creatinine Ratio 14.4; Calcium 8.9 mg/dL (8.5-10.1); Carbon Dioxide 28.3 mmol/L (21.0-32.0); Chloride 106 mmol/L (98-107); Estimated GFR (African America 42 (>=60); Estimated GFR (Non-African Ame 35 (>=60); Glucose 101 mg/dL (74-106); Magnesium 1.8 mg/dL (1.8-2.4); Phosphorus 3.3 mg/dL (2.6-4.7); Sodium 142 mmol/L (136-145); Uric Acid 8.2 mg/dL (3.5-7.2)
[2024-04-06 09:24] LABS: Percent Iron Saturation 30.2 %
[2024-04-07 10:09] LABS: PTH, Intact 70 pg/mL (15-65)
== END 2024-04-06 07:57 | disposition home or self-care (01) ==
LOC: LAB 07:58
PROVIDERS: PCP Nurse Practitioner; Visit Provider Internal Medicine
DX: E78.5 Hyperlipidemia, unspecified (principal); N25.81 Secondary hyperparathyroidism of renal origin; N18.9 Chronic kidney disease, unspecified; D63.1 Anemia in chronic kidney disease; M10.9 Gout, unspecified; I12.9 Hypertensive chronic kidney disease with stage 1 through stage 4 chronic kidney disease, or unspecified chronic kidney disease
CPT/HCPCS: 36415; 80069; 81001; 82306; 82570; 82728; 83540; 83550; 83735; 83970; 84156; 84550; 85027

== ENCOUNTER 2024-11-01 07:10 | Outpatient (OUT) | payer MEDICARE, SELFPAY ==
--- OUTSIDE RECORDS SUMMARY | 2024-11-01 07:15 | XMS_ITS | CCD ---
Author Organization [facility] Care Team Providers Care Machine Worker Name Role Phone Mariam, Praveen Unavailable AICHHOLZ, SENIOR STRUCTURAL ENGINEER ANTOINETTE Admitting Unavailable AICHHOLZ, SENIOR STRUCTURAL ENGINEER ANTOINETTE Attending Unavailable AICHHOLZ, SENIOR STRUCTURAL ENGINEER ANTOINETTE Primary Care Unavailable AICHHOLZ, SENIOR STRUCTURAL ENGINEER ANTOINETTE Consulting Unavailable AICHHOLZ, SENIOR STRUCTURAL ENGINEER ANTOINETTE Admitting Unavailable AICHHOLZ, SENIOR STRUCTURAL ENGINEER ANTOINETTE Attending Unavailable AICHHOLZ, SENIOR STRUCTURAL ENGINEER ANTOINETTE Primary Care Unavailable [place], DR BUBBA Amaya Consulting Unavailable AICHHOLZ, SENIOR STRUCTURAL ENGINEER ANTOINETTE Consulting Unavailable AICHHOLZ, SENIOR STRUCTURAL ENGINEER ANTOINETTE Admitting Unavailable AICHHOLZ, SENIOR STRUCTURAL ENGINEER ANTOINETTE Attending Unavailable AICHHOLZ, SENIOR STRUCTURAL ENGINEER ANTOINETTE Primary Care Unavailable AICHHOLZ, SENIOR STRUCTURAL ENGINEER ANTOINETTE Consulting Unavailable UDAY, ADELINE Admitting Unavailable UDAY, ADELINE Attending Unavailable AICHHOLZ, SENIOR STRUCTURAL ENGINEER ANTOINETTE Primary Care Unavailable [place], DR BUBBA Amaya Consulting Unavailable UDAY, ADELINE Consulting Unavailable ABBAS, DR SY Admitting Unavailable ABBAS, DR SY Attending Unavailable AICHHOLZ, SENIOR STRUCTURAL ENGINEER ANTOINETTE Primary Care Unavailable ABBAS, DR SY Consulting Unavailable ZIEBER, DR MAURO Barnes Consulting Unavailable ABBAS, DR SY Admitting Unavailable ABBAS, DR SY Attending Unavailable AICHHOLZ, SENIOR STRUCTURAL ENGINEER ANTOINETTE Primary Care Unavailable ABBAS, DR SY Consulting Unavailable MARIAM, PRAVEEN Admitting Unavailable MARIAM, PRAVEEN Attending Unavailable AICHHOLZ, SENIOR STRUCTURAL ENGINEER ANTOINETTE Primary Care Unavailable MARIAM, PRAVEEN Consulting Unavailable AICHHOLZ, SENIOR STRUCTURAL ENGINEER ANTOINETTE Admitting Unavailable AICHHOLZ, SENIOR STRUCTURAL ENGINEER ANTOINETTE Attending Unavailable AICHHOLZ, SENIOR STRUCTURAL ENGINEER ANTOINETTE Primary Care Unavailable [place], DR BUBBA Amaya Consulting Unavailable AICHHOLZ, SENIOR STRUCTURAL ENGINEER ANTOINETTE Consulting Unavailable MARIAM, PRAVEEN Admitting Unavailable MARIAM, PRAVEEN Attending Unavailable AICHHOLZ, SENIOR STRUCTURAL ENGINEER ANTOINETTE Primary Care Unavailable MARIAM, PRAVEEN Consulting Unavailable Wallace Hubbard MD Primary Care Provider [phone] Wallace Hubbard MD Primary Care Provider Gerardo PLATE SENSITIZER, Antoinette Unavailable Gerardo PLATE SENSITIZER, Antoinette Unavailable VICKI CARRILLOA Attending Unavailable ANTOINETTE CARRILLO Attending Unavailable GERARDO, ANTOINETTE Attending Unavailable GERARDO, ANTOINETTE Attending Unavailable Allergies Allergy Classification Reported Allergen(s) Allergy Type Date of Onset Reaction(s) Facility (1 source) Amino Acids Drug Allergy [facility] Repository (17 sources) Lisinopril Allergy to substance 09-30-2023 Unknown [facility] Work Phone: Medications Current Medications Medication Drug Class(es) Dates Sig (Normalized) Sig (Original) 200 actuat albuterol 0.09 mg/actuat dry powder inhaler (2 sources) beta2-Adrenergic Agonist Start: 10-30-2023 Albuterol Sulfate Active 2 INH INHALATION Every 4 hours October 30, 2023 12:00am albuterol 0.833 mg/ml / ipratropium bromide 0.167 mg/ml inhalation solution (20 sources) Anticholinergic, beta2-Adrenergic Agonist Start: 06-01-2024 ipratropium-albutero l (Duo-Neb) 0.5-2.5 mg/3 mL nebulizer solution Indications: Chronic obstructive pulmonary disease, unspecified COPD type (CMS/HCC) , Centrilobular emphysema (CMS/HCC) , Shortness of breath USE 1 VIAL VIA NEBULIZER EVERY 6 HOURS NEEDED FOR SHORTNESS OF BREATH OR WHEEZING 1080 mL 1 06/01/2024 Active Start: 12-02-2023 End: 06-01-2024 ipratropium-albuterol (Duo-N eb) 0.5-2.5 mg/3 mL nebulizer solution Indications: Chronic obstructive pulmonary disease, unspecified COPD type (CMS/HCC) , Centrilobular emphysema (CMS/HCC) , Shortness of breath 1 unit dose every 6 hours prn shortness of breath or wheezing1 unit dose every 6 hours prn shortness of breath or wheezing 1080 mL 1 12/02/2023 06/01/2024 Discontinued Start: 10-30-2023 take 1 mL by inhalat ion every six hours Ipratropium-Albuterol Active 3 ML INHALATION Every 6 hours [...] as needed Inhalation every 4 hrs Active aspirin 81 mg delayed release oral tablet (17 sources) Platelet Aggregation Inhibitor, Nonsteroidal Anti-inflammatory Drug take 1 tablet by mouth once daily aspirin 81 MG EC tablet Take 1 tablet by mouth Daily Active atenolol 25 mg oral tablet (20 sources) beta-Adrenergic Gisela Start: 09-30-19 24 End: 12-29-19 take 1 tablet by mouth once daily atenolol (Tenormin) 25 MG tablet Indications: Primary hypertension ([facility]/HCC) Take 1 tablet (25 mg) by mouth Daily 90 tablet 09/29/2024 12/28/2024 Active take 1 tablet by kavita th every twenty-four hours Atenolol 25 MG 1 tablet Orally Once a day Active busPIRone hydrochloride 10 mg oral tablet (20 sources) Start: 09-29-2024 take 1 tablet by mouth three times daily as needed busPIRone (Buspar) 10 MG tablet Indications: DEMETRIO (generalized anxiety disorder) (CMS/HCC) TAKE 1 TABLET BY MOUTH THREE TIMES A DAY NEEDED 270 tablet 1 09/29/2024 Active Start: 09-30-2023 take 1 tablet by kavita th three times daily as needed busPIRone (Buspar) 10 MG tablet Indications: DEMETRIO (generalized anxiety disorder) (CMS/HCC) TAKE 1 TABLET BY MOUTH THREE TIMES A DAY NEEDED 270 tablet 1 04/19/2024 Active take 1 tablet by kavita th every eight hours busPIRone HCl 10 MG 1 tablet Orally THREE TIMES A DAY Active citalopram 10 mg oral tablet (20 sources) Serotonin Reuptake Inhibitor Start: 10-30-2023 End: 07-05-2024 take 1 tablet by mouth once daily citalopram (CeleXA) 10 MG tablet Indications: DEMETRIO (generalized anxiety disorder) (CMS/HCC) Take 1 tablet (10 mg) by mouth Daily 90 tablet 1 04/06/2024 Active take 1 tablet by kavita th every twenty-four hours Citalopram Hydrobromide 10 MG 1 tablet Orally Once a day Active famotidine 20 mg oral tablet (13 sources) Histamine-2 Receptor Antagonist Start: 09-30-2023 End: 06-30-2024 take 1 tablet by mouth in the evening famotidine (Pepcid) 20 MG tablet Indications: Gastroesophageal reflux disease without esophagitis Take 1 tablet (20 mg) by mouth in the evening 90 tablet 1 04/01/2024 06/30/2024 Active furosemide 20 mg oral tablet (20 sources) Loop Diuretic Start: 07-24-2023 End: 10-24-2023 take 1 tablet by mouth once daily furosemide (Lasix) 20 MG tablet Take 20 mg by mouth Daily 07/24/2023 Active take 1 tablet by mouth once diana y levoFLOXacin 250 mg oral tablet (3 sources) Quinolone Antimicrobial Start: 03-22-2024 End: 03-29-2024 take 1 tablet by mouth once daily levoFLOXacin (Levaquin) 250 MG tablet Take 250 mg by mouth Daily 03/22/2024 03/29/2024 Active losartan potassium 25 mg oral tablet (20 sources) Angiotensin 2 Receptor Gisela Start: 04-15-2024 take 25 mg by mouth twice daily Losartan Active 25 MG PO Twice daily April 15, 2024 12:00am Start: 10-30-2023 End: 04-15-2024 take 50 mg by mouth once daily Losartan Discontinued 5 0 MG PO Daily October 30, 2023 12:00am April 15, 2024 1:34pm Start: 09-11-2023 End: 12-28-2024 take 1 tablet by mouth once daily losartan (Cozaar) 25 MG tablet Indications: Essential (primary) hypertension (CMS/HCC) , 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) Take 1 tablet (25 mg) by mouth Daily 90 tablet 09/29/2024 12/28/2024 Active take 1 tablet by kavita th every twenty-four hours Losartan Potassium 50 MG 1 tablet Orally Once a day Active Multi For Him 50+ - (1 source) Multi For Him 50 + - as directed Orally Active Multiple Vitamins-Minerals (Multivitamin Men) tablet (17 sources) Multiple Vitamins-Minerals (Multivitamin Men) tablet Orally Active Multivitamin (Multiple Vitamins) tablet (2 sources) Start: take 1 tablet by mouth once daily Multivitamin (Multiple Vitamins) tablet Active 1 TAB PO Daily October 30, 2023 12:00am pravastatin sodium 80 mg oral tablet (20 sources) HMG-CoA Reductase Inhibitor Start: End: take 1 tablet by mouth at bedtime pravastatin (Pravachol) 80 MG tablet Indications: Mixed hyperlipidemia (CMS/HCC) Take 1 tablet (80 mg) by mouth at bedtime 90 tablet 1 07/25/2024 10/23/2024 Active Start: 01-22-2024 End: 04-21-2024 take 1 tablet by mouth at bedtime pravastatin (Pravachol) 80 MG tablet Indications: Mixed hyperlipidemia (CMS/HCC) Take 1 tablet (80 mg) by mouth at bedtime 90 tablet 1 01/22/2024 Active Start: 10-30-2023 End: 10-30-2023 take 80 mg by mouth once daily Pravastatin Active 80 M G PO Daily October 30, 2023 10:50am take 1 tablet by kavita th every twenty-four hours Pravastatin Sodium 80 MG 1 tablet Orally Once a day Active predniSONE 20 mg oral tablet (5 sources) Start: 09-27-2024 End: 10-04-2024 take 1 tablet by mouth in the morning predniSONE (Deltasone) 20 MG tablet Indications: Idiopathic chronic gout of multiple sites without tophus Take 1 tablet (20 mg) by mouth in the morning and 1 tablet (20 mg) in the evening. Take with meals. Do all this for 7 days. Take with food. 14 tablet 09/27/2024 10/04/2024 Active Start: 03-22-2024 End: 08-24-2024 take 1 tablet by mouth in the morning predniSONE (Deltasone) 20 MG tablet Take 20 mg by mouth in the morning and 20 mg before bedtime. 03/22/2024 03/27/2024 Active tamsulosin hydrochloride 0.4 mg oral capsule (2 sources) alpha-Adrenergic Gisela Start: 04-06-2024 End: 05-06-2024 take 1 capsule by mouth every twenty-four hours at bedtime tamsulosin (Flomax) 0.4 MG 24 hr capsule Indications: Benign prostatic hyperplasia with urinary frequency Take 1 capsule (0.4 mg) by mouth at bedtime 30 capsule 1 04/06/2024 05/06/2024 Active Problems Active Problems Problem Classification Problem Date Documented Date Episodic/Chronic Anxiety disorders (20 sources) Anxiety disorder, unspecified; Translations: [Generalized anxiety disorder] Onset: 2 Chronic Cancer of colon (19 sources) Malignant tumor of colon; Translations: [Malignant neoplasm of colon, unspecified] Onset: 8 10-15-2023 Chronic Chronic kidney disease (8 sources) Chronic kidney disease stage 4; Translations: [Chronic kidney disease, stage 4 (severe)] Onset: 2 10-30-2023 Chronic Chronic kidney disease (3 sources) Chronic kidney disease; Translations: [Chronic kidney disease, stage 3b] Onset: 2 Resolved: 2 Chronic obstructive pulmonary disease and bronchiectasis (20 sources) Chronic obstructive pulmonary disease, unspecified; Translations: [Centriacinar emphysema] Onset: 2 07-30-2023 Chronic Coronary atherosclerosis and other heart disease (17 sources) Coronary arteriosclerosis; Translations: [Atherosclerotic heart disease of [place] coronary artery without angina pectoris] Onset: 4 03-24-2024 Chronic Deficiency and other anemia (3 sources) Anemia of renal disease; Translations: [Anemia in chronic kidney disease] 10-30-2023 Chronic Deficiency and other anemia (2 sources) Anemia in chronic kidney disease; Translations: [ANEMIA IN CHRONIC KIDNEY DISEASE] Onset: 2 Resolved: 2 Chronic Disorders of lipid metabolism (20 sources) Hyperlipidemia, unspecified; Translations: [Pure hypercholesterolemia, unspecified] Onset: 2 Chronic Esophageal disorders (19 sources) Gastro-esophageal reflux disease without esophagitis; Translations: [Gastroesophageal reflux disease without esophagitis] Onset: 2 09-30-2023 Chronic Essential hypertension (20 sources) Essential hypertension; Translations: [Essential (primary) hypertension] Onset: 4 09-11-2023 Chronic Gout and other crystal arthropathies (20 sources) Gout; Translations: [Gout, unspecified] Onset: 2 Resolved: 2 Chronic Hyperplasia of prostate (20 sources) Benign prostatic hypertrophy with outflow obstruction; Translations: [Benign prostatic hyperplasia with lower urinary tract symptoms] Onset: 4 03-24-2024 Chronic Hypertension with complications and secondary hypertension (20 sources) Chronic kidney disease due to hypertension; Translations: [Hypertensive chronic kidney disease with stage 1 through stage 4 chronic kidney disease, or unspecified chronic kidney disease] Onset: 2 Resolved: 2 Chronic Miscellaneous mental health disorders (17 sources) Primary insomnia; Translations: [Primary insomnia] Onset: 4 09-30-2023 Chronic Occlusion or stenosis of precerebral arteries (18 sources) Occlusion and stenosis of left carotid artery; Translations: [Bilateral stenosis of carotid arteries] Onset: 3 09-30-2023 Chronic Other connective tissue disease (4 sources) [...] of kidney and ureters (3 sources) Secondary hyperparathyroidism; Translations: [Secondary hyperparathyroidism of renal origin] 10-30-2023 Chronic Other diseases of kidney and ureters (4 sources) Secondary hyperparathyroidism of renal origin; Translations: [Secondary hyperparathyroidism (of renal origin)] Onset: 2 Resolved: 2 Chronic Other diseases of kidney and ureters (20 sources) Hyperparathyroidism due to renal insufficiency; Translations: [Secondary hyperparathyroidism of renal origin] Onset: 4 03-24-2024 Chronic Other diseases of kidney and ureters (4 sources) Disorder of kidney and ureter, unspecified; Translations: [DISORDER KIDNEY AND URETER UNS] Onset: 3 Episodic Other endocrine disorders (17 sources) Hyperparathyroidism; Translations: [Hyperparathyroidism, unspecified] Onset: 4 11-03-2023 Chronic Other lower respiratory disease (1 source) Other abnormalities of breathing; Translations: [OTHER ABNORMALITIES OF BREATHING] Onset: 3 Episodic Other screening for suspected conditions (not mental disorders or infectious disease) (4 sources) Abnormal findings on diagnostic imaging of other specified body structures; 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 Other upper respiratory disease (17 sources) Seasonal allergic rhinitis; Translations: [Other seasonal allergic rhinitis] Onset: 8 10-15-2023 Chronic Peripheral and visceral atherosclerosis (20 sources) Peripheral vascular disease, unspecified; Translations: [Vascular disorder] Onset: 3 Chronic Past or Other Problems Problem Classification Problem Date Documented Date Episodic/Chronic Acute and unspecified renal failure (1 source) Acute kidney failure, unspecified; Translations: [ACUTE KIDNEY FAILURE UNSPECIFIED] Onset: 01-10-2022 Episodic Cancer of colon (17 sources) History of malignant neoplasm of colon; Translations: [Personal history of other malignant neoplasm of large intestine] Onset: 09-30-2023 09-30-2023 Episodic Cardiac dysrhythmias (17 sources) Tachycardia; Translations: [Tachycardia, unspecified] Onset: 10-15-2023 10-15-2023 Episodic Mood disorders (17 sources) Mood disorders Onset: 10-15-2023 10-15-2023 Other aftercare (1 source) long term care administrator (current) use of aspirin; Translations: [LEAD PRESSER CURRENT USE OF ASPIRIN] Onset: 01-10-2022 Episodic Other aftercare (1 source) Other buttermilk drier operator (current) drug therapy; Translations: [OTH LEAD PRESSER CURRENT DRUG THERAPY] Onset: 01-10-2022 Episodic Other connective tissue disease (17 sources) H/O: osteoarthritis; Translations: [Personal history of other diseases of the musculoskeletal system and connective tissue] Onset: 10-15-2023 10-15-2023 Episodic Other lower respiratory disease (1 source) Dyspnea, unspecified; Translations: [DYSPNEA UNSPECIFIED] Onset: 01-10-2022 Episodic Other lower respiratory disease (18 sources) Dyspnea; Translations: [Shortness of breath] Onset: 12-02-2023 06-01-2024 Episodic Other non-epithelial cancer of skin (16 sources) Basal cell carcinoma of skin; Translations: [Basal cell carcinoma of skin, unspecified] Onset: 03-24-2024 03-24-2024 Episodic Other nutritional; endocrine; and metabolic disorders (17 sources) Hyperuricemia; Translations: [Hyperuricemia without signs of inflammatory arthritis and tophaceous disease] Onset: 11-03-2023 11-03-2023 Episodic Other screening for suspected conditions (not mental disorders or infectious disease) (20 sources) Encounter for screening for malignant neoplasm of prostate; Translations: [Raised prostate specific antigen] Onset: 10-12-2022 09-30-2023 Episodic Pneumonia (except that caused by tuberculosis or sexually transmitted disease) (19 sources) Left lower zone pneumonia; Translations: [Pneumonia, unspecified organism] Onset: 03-24-2024 Resolved: 04-29-2024 04-29-2024 Episodic Screening and history of mental health and substance abuse codes (1 source) Personal history of nicotine dependence; Translations: [PERSONAL HISTORY OF NICOTINE DEPEND] Onset: 01-10-2022 Episodic Results Test Name Value Interpretation Reference Range Facility Erythrocyte distribution wid th Auto (RBC) [Ratio]on 04-06-2024 Erythrocyte distribution width (RBC) [Ratio] 13.1 % 11.0-15.0 [facility] Estimated glomerular filtrat ion rate (GFR) non- Americanon 04-06-2024 GFR/1.73 sq M.predicted among non-blacks MDRD (S/P/Bld) [Vol rate/Area] 35 mL/min/{1.73_m2} Low >=60 [facility] CBC WITH PLATELET NO DI FFERENTIALon 04-06-2024 Erythrocyte distribution width (RBC) [Ratio] 13.1 % 11.0 - 15.0 % [facility] Healthcare Hematocrit (Bld) [Volume fraction] 37.7 % Low 42.0 - 54.0 % [facility] Health[facility] e Hemoglobin (Bld) [Mass/Vol] 12.5 g/dL Low 14.0 - 18.0 g/dL [facility] Interpretation and review of laboratory results Abnormal [facility] MCH (RBC) [Entitic mass] 29.1 pg 25.9 - 34.0 pg [facility] MCHC (RBC) [Mass/Vol] 33.2 g/dL 29.9 - 35.2 g/dL [facility] MCV (RBC) [Entitic vol] 87.9 fL 80.0 - 94.0 fL [facility] Platelet mean volume (Bld) [Entitic vol] 9.1 fL Low 9.5 - 13.5 fL [facility] Healthc are [facility]H PLT 269 [facility] RBC 4.29 Low [facility] WBC 10.5 [facility] Auto (Bld) [Volum e fraction]on 04-06-2024 Hematocrit (Bld) [Volume fraction] 37.7 % Low 42.0-54.0 [facility] Hemoglobin [Mass/volume] in Bloodon 04-06-2024 Hemoglobin (Bld) [Mass/Vol] 12.5 g/dL Low 14.0-18.0 [facility] Iron binding capacity [Mass/ volume] in Serum or Plasmaon 04-06-2024 Iron binding capacity [Mass/Vol] 265.0 ug/dL 250.0-450.0 [facility] Iron saturation [Mass Fracti on] in Serum or Plasmaon 04-06-2024 Iron saturation [Mass fraction] 30.2 % [facility] Laboratory - Chemistry and C hemistry - challengeon 04-06-2024 Albumin [Mass/Vol] 3.5 g/dL 3.4-5.0 [facility] Calcium [Mass/Vol] 8.9 mg/dL 8.5-10.1 [facility] Chloride [Moles/Vol] 106 mmol/L 98-107 [facility] CO2 [Moles/Vol] 28.3 mmol/L 21.0-32.0 [facility] Creatinine [Mass/Vol] 1.87 mg/dL High 0.70-1.30 [facility] Ferritin [Mass/Vol] 283.0 ng/mL 26.0-388.0 [facility] GFR/1.73 sq M.predicted MDRD (S/P/Bld) [Vol rate/Area] 42 mL/min/{1.73_m2} Low >=60 [facility] Glucose [Mass/Vol] 101 mg/dL 74-106 [facility] Iron [Mass/Vol] 80.0 ug/dL 65.0-175.0 [facility] Magnesium [Mass/Vol] 1.8 mg/dL 1.8-2.4 [facility] Potassium [Moles/Vol] 4.0 mmol/L 3.5-5.1 [facility] Sodium [Moles/Vol] 142 mmol/L 136-145 [facility] Urate [Mass/Vol] 8.2 mg/dL High 3.5-7.2 [facility] Urea nitrogen [Mass/Vol] 27.0 mg/dL High 7.0-18.0 [facility] Urea nitrogen/Creatinine [Mass ratio] 14.4 mg/mg [facility] Bilirubin Ql (U) Negative NEGATIVE [facility] Glucose (U) [Mass/Vol] Negative NEGATIVE [facility] Ketones Ql (U) Negative NEGATIVE [facility] pH (U) 5.5 [pH] 5.0-9.0 [facility] Specific gravity (U) [Rel density] 1.025 1.005-1.025 [facility] Urobilinogen Qn (U) 0.2 {Katerina'U}/dL 0.2-1.0 [facility] Laboratory - Specimen inform ationon 04-06-2024 Appearance (U) CLEAR CLEAR [facility] Color (U) YELLOW YELLOW [facility] Laboratory - Urinalysison Leukocyte esterase Test strip Ql (U) Negative NEGATIVE [facility] Mucus Ql (Urine sed) SMALL Abnormal NONE SEEN [facility] Nitrite Ql (U) Negative NEGATIVE [facility] Protein (U) [Mass/Vol] 21.1 mg/dL High <=11.9 [facility] Protein Ql (U) Negative NEG/TRACE [facility] Leukocytes [#/volume] correc radha for nucleated erythrocytes in Blood by Automated counon 04-06-2024 WBC corrected for nucl RBC Auto (Bld) [#/Vol] 10.5 10 3/uL 4.0-11.0 [facility] MCH Auto (RBC) [Entitic mass ]on 04-06-2024 MCH (RBC) [Entitic mass] 29.1 pg 25.9-34.0 [facility] MCHC Auto (RBC) [Mass/Vol]on 04-06-2024 MCHC (RBC) [Mass/Vol] 33.2 g/dL 29.9-35.2 [facility] MCV Auto (RBC) [Entitic vol] on 04-06-2024 MCV (RBC) [Entitic vol] 87.9 fL 80.0-94.0 [facility] No Panel Informationon 04-06 25-Hydroxy Vitamin D Total 46.3 ng/mL [facility] Comment on above: <20 ng/mL Vit D defi cient20-<30 ng/mL Vit D [id number] ng/mL Vit D sufficient>100 ng/mL Potential Toxicity Parathyroid Hormone (Intact) 70 pg/mL Abnormal 15-65 [facility] Comment on above: Performed at: [employer] [facility] [address] [id number] Director: Jatin Vegas PhD, Phone: [phone] Phosphorus Level 3.3 mg/dL 2.6-4.7 [facility] Urine Bacteria NONE SEEN #/HPF NONE SEEN [facility] Urine Occult Blood Negative NEGATIVE [facility] Urine Random Creatinine 141.49 mg/dL 20.00-300.00 [facility] Urine RBC NONE SEEN #/HPF 0-2 [facility] Urine Squamous Epithelial Cells FEW #/LPF Abnormal NONE/RARE [facility] Urine WBC NONE SEEN #/HPF NONE SEEN [facility] Platelet mean volume Auto (B ld) [Entitic vol]on 04-06-2024 Platelet mean volume (Bld) [Entitic vol] 9.1 fL Low 9.5-13.5 [facility] Platelets Auto (Bld) [#/Vol] on 04-06-2024 Platelets (Bld) [#/Vol] 269 10 3/uL 150-450 [facility] RBC Auto (Bld) [#/Vol]on RBC (Bld) [#/Vol] 4.29 10 6/uL Low 4.70-6.10 [facility] Serum or plasma anion gap de terminationon 04-06-2024 Anion gap [Moles/Vol] 11.7 mmol/L [facility] Urine protein/creatinine rat ioon 04-06-2024 Protein/Creatinine (U) [Ratio] 0.15 [facility] BUNon 10-24-2022 Urea nitrogen [Mass/Vol] 30.0 mg/dL Critically high 7.0-18.0 [facility] Comment on above: Performed By: #### B PLATE SENSITIZER, CMP, CMADM, TSH #### [facility] [address] [place] [address] Dr. Aliyah Fierro CREATININEon 10-24-2022 Creatinine [Mass/Vol] 1.97 mg/dL Critically high 0.70-1.30 [facility] Comment on above: Performed By: #### B PLATE SENSITIZER, CMP, CMADM, TSH #### [facility] [address] [address] [address] Aliyah Fierro EGFR-AF GUATEMALAN 40 mL/min/1.73m2 Critically low >=60 [facility] [facility] Comment on above: Performed By: #### B PLATE SENSITIZER, CMP, CMADM, TSH #### [facility] [address] [address] [address] Aliyah Fierro EGFR-NON AF GUATEMALAN 33 mL/min/1.73m2 Critically low >=60 [facility] Comment on above: Performed By: #### B PLATE SENSITIZER, CMP, CMADM, TSH #### [facility] [address] [address] [address] Aliyah Fierro CREATININEon 10-21-2022 Creatinine [Mass/Vol] 2.10 mg/dL Critically high 0.70-1.30 [facility] Comment on above: Performed By: #### B PLATE SENSITIZER, CMP, CMADM, TSH #### [facility] [address] [address] [address] Aliyah Fierro EGFR-AF GUATEMALAN 37 mL/min/1.73m2 Critically low >=60 [facility] Comment on above: Performed By: #### B PLATE SENSITIZER, CMP, CMADM, TSH #### [facility] [address] [place], [place] [address] Dr. Aliyah Fierro EGFR-NON AF GUATEMALAN 31 mL/min/1.73m2 Critically low >=60 [facility] Comment on above: Performed By: #### B PLATE SENSITIZER, CMP, CMADM, TSH #### [facility] [address] [place], [place] [address] Dr. Aliyah Fierro CTA ABD JESS WWO [...] by: MAURO WEBSTER Date: 2022-10-21 15:35 Normal [facility] US CAROTID ART BILon 023 US CAROTID ART ZOILA EXAMINATION: US [...] by: MAURO WEBSTER Date: 2022-10-21 15:38 Normal [facility] LIPID PROFILEon 10-09-2022 CHOL-HDL RATIO NORM SEE BELOW Normal [facility] Comment on above: Result Comment: 3.3 - 4.4 LOW RISK 4.4 - 7.1 AVERAGE RISK 7.1 - 11.0 MODERATE RISK >11.0 HIGH RISK Performed By: #### L IVER, LIPID #### [facility] [address] [place] [address] Dr. Aliyah Fierro Cholesterol [Mass/Vol] 190 mg/dL Normal <=200 [facility] Comment on above: Performed By: #### L IVER, LIPID #### [facility] [address] [place] [address] Dr. Aliyah Fierro Cholesterol in HDL [Mass/Vol] 40 mg/dL Normal 40-60 [facility] Comment on above: Performed By: #### L IVER, LIPID #### [facility] [address] [address] [address] Aliyah Fierro Cholesterol in LDL [Mass/Vol] 108.4 mg/dL Normal [facility] Comment on above: Performed By: #### L IVER, LIPID #### [facility] [address] [address] [address] Aliyah Fierro Cholesterol.total/Ch olesterol in HDL [Mass ratio] 4.8 {ratio} Normal [facility] Comment on above: Performed By: #### L IVER, LIPID #### [facility] [address] [address] [address] Aliyah Fierro HDL NORMAL > or = 60 mg/dl - LOW CARDIOVASCULAR RISK <40 mg/dl - HIGH CARDIOVASCULAR RISK Normal [facility] Comment on above: Performed By: #### L IVER, LIPID #### [facility] [address] [address] [address] Aliyah Fierro LDL CALC NORMAL SEE BELOW Normal [facility] Comment on above: Result Comment: <100 mg/dl OPTIMAL 100 - 129 mg/dl NEAR OR ABOVE OPTIMAL 130 - 159 mg/dl BORDERLINE HIGH 160 - 189 mg/dl HIGH >190 mg/dl VERY HIGH Performed By: #### L IVER, LIPID #### [facility] [address] [address] [address] Aliyah Fierro Triglyceride [Mass/Vol] 208 mg/dL Critically high <=150 [facility] Comment on above: Performed By: #### L IVER, LIPID #### [facility] [address] [address] [address] Aliyah Fierro VLDL CALC 41.6 mg/dL Normal [facility] Comment on above: Performed By: #### L IVER, LIPID #### [facility] [address] [address] [address] Aliyah Fierro LIVER PROFILEon 10-09-2022 Albumin [Mass/Vol] 4.0 g/dL Normal 3.4-5.0 [facility] Comment on above: Performed By: #### L IVER, LIPID #### [facility] [address] [address] [address] Aliyah Fierro Albumin/Globulin [Mass ratio] 1.4 {ratio} Normal [facility] Comment on above: Performed By: #### L IVER, LIPID #### [facility] [address] [address] [address] Aliyah Fierro ALP [Catalytic activity/Vol] 80 U/L Normal 46-116 [facility] Comment on above: Performed By: #### L IVER, LIPID #### [facility] [address] [address] [address] Aliyah Fierro ALT [Catalytic activity/Vol] 25 U/L Normal 16-63 [facility] Comment on above: Performed By: #### L IVER, LIPID #### [facility] [address] [address] [address] Aliyah Fierro AST [Catalytic activity/Vol] 22 U/L Normal 15-37 [facility] Comment on above: Performed By: #### L IVER, LIPID #### [facility] [address] [address] [address] Aliyah Fierro BILI, CONJUGATED 0.1 mg/dL Normal 0.0-0.2 [facility] Comment on above: Performed By: #### L IVER, LIPID #### [facility] [address] [address] [address] Aliyah Fierro Bilirubin [Mass/Vol] 0.4 mg/dL Normal 0.2-1.0 [facility] Comment on above: Performed By: #### L IVER, LIPID #### [facility] [address] [address] [address] Aliyah Fierro Globulin (S) [Mass/Vol] 2.8 g/dL Normal [facility] Comment on above: Performed By: #### L IVER, LIPID #### [facility] [address] [address] [address] Aliyah Fierro Protein [Mass/Vol] 6.8 g/dL Normal 6.4-8.2 [facility] Comment on above: Performed By: #### L IVER, LIPID #### [facility] [address] [address] [address] Aliyah Fierro US ARTERY LEG BILon [...] BUBBA BASURTO Date: 2022-09-13 06:13 Normal [facility] PTH INTACTon 08-27-2022 PTH, Intact 63 pg/mL Normal 15-65 [facility] Comment on above: Performed By: #### L IVMILLY LIPID #### [facility] [address] [place] [address] Dr. Aliyah Fierro FERRITINon 08-26-2022 Ferritin [Mass/Vol] 200.0 ng/mL Normal 26.0-388.0 [facility] Comment on above: Performed By: #### L ADRIAN LIPID #### [facility] [address] [place] [address] Dr. Aliyah Fierro HEMOGRAM AND PLATELon 2022 Hematocrit (Bld) [Volume fraction] 36.1 % Critically low 42.0-54.0 [facility] Comment on above: Performed By: #### H H #### [facility] [address] [place] [address] Dr. Aliyah Fierro Hemoglobin (Bld) [Mass/Vol] 12.9 g/dL Critically low 14.0-18.0 [facility] Comment on above: Performed By: #### H H #### [facility] [address] [place] [address] Dr. Aliyah Fierro MCH (RBC) [Entitic mass] 28.9 pg Normal 25.9-34.0 [facility] Comment on above: Performed By: #### H H #### [facility] [address] [place] [address] Dr. Aliyah Fierro MCHC (RBC) [Mass/Vol] 35.7 g/dL Critically high 29.9-35.2 [facility] Comment on above: Performed By: #### H H #### [facility] [address] [place] [address] Dr. Aliyah Fierro MCV (RBC) [Entitic vol] 80.8 fL Normal 80.0-94.0 [facility] Comment on above: Performed By: #### H H #### [facility] [address] [address] [address] Aliyah Fierro PLT 285 103/ul Normal 150-450 [facility] Comment on above: Performed By: #### H H #### [facility] [address] [place] [address] Dr. Aliyah Fierro RBC 4.47 106/ul Critically low 4.70-6.10 [facility] Comment on above: Performed By: #### H H #### [facility] [address] [address] [address] Aliyah Fierro WBC 7.6 103/ul Normal 4.0-11.0 [facility] Comment on above: Performed By: #### H H #### [facility] [address] [place] [address] Dr. Aliyah Fierro IRON AND TIBCon 08-26-2022 % SATURATION 34.5 % Normal [facility] Comment on above: Performed By: #### L ADRIAN LIPID #### [facility] [address] [place] [address] Dr. Aliyah Fierro Iron [Mass/Vol] 98.0 ug/dL Normal 65.0-175.0 [facility] Comment on above: Performed By: #### Darrius CAMPBELL LIPID #### [facility] [address] [place] [address] Dr. Aliyah Fierro TIBC DIRECT 284.0 ug/dL Normal 250.0-450.0 [facility] Comment on above: Performed By: #### Darrius CAMPBELL LIPID #### [facility] [address] [place] [address] Dr. Aliyah Fieror MAGNESIUMon 08-26-2022 Magnesium [Mass/Vol] 1.8 mg/dL Normal 1.8-2.4 [facility] Comment on above: Performed By: #### B PLATE SENSITIZER, CMP, CMADM, TSH #### [facility] [address] [place] [address] Dr. Aliyah Fierro RENAL FUNCTION PANELon 08-26 Albumin [Mass/Vol] 3.9 g/dL Normal 3.4-5.0 [facility] Comment on above: Performed By: #### B PLATE SENSITIZER, CMP, CMADM, TSH #### [facility] [address] [address] [address] Aliyah Fierro Calcium [Mass/Vol] 8.6 mg/dL Normal 8.5-10.1 [facility] Comment on above: Performed By: #### B PLATE SENSITIZER, CMP, CMADM, TSH #### [facility] [address] [address] [address] Aliyah Fierro Chloride [Moles/Vol] 103 mmol/L Normal 98-107 [facility] Comment on above: Performed By: #### B PLATE SENSITIZER, CMP, CMADM, TSH #### [facility] [address] [address] [address] Aliyah Fierro CO2 [Moles/Vol] 26.8 mmol/L Normal 21.0-32.0 [facility] Comment on above: Performed By: #### B PLATE SENSITIZER, CMP, CMADM, TSH #### [facility] [address] [place] [address] Dr. Aliyah Fierro Creatinine [Mass/Vol] 1.94 mg/dL Critically high 0.70-1.30 [facility] Comment on above: Performed By: #### B PLATE SENSITIZER, CMP, CMADM, TSH #### [facility] [address] [place] [address] Dr. Aliyah Fierro EGFR-AF GUATEMALAN 41 mL/min/1.73m2 Critically low >=60 [facility] Comment on above: Performed By: #### B PLATE SENSITIZER, CMP, CMADM, TSH #### [facility] [address] [place] [address] Dr. Aliyah Fierro EGFR-NON AF GUATEMALAN 33 mL/min/1.73m2 Critically low >=60 [facility] Comment on above: Performed By: #### B PLATE SENSITIZER, CMP, CMADM, TSH #### [facility] [address] [place] [address] Dr. Aliyah Fierro Glucose [Mass/Vol] 97 mg/dL Normal 74-106 [facility] Comment on above: Performed By: #### B PLATE SENSITIZER, CMP, CMADM, TSH #### [facility] [address] [place] [address] Dr. Aliyah Fierro Phosphate [Mass/Vol] 3.7 mg/dL Normal 2.6-4.7 [facility] Comment on above: Performed By: #### B PLATE SENSITIZER, CMP, CMADM, TSH #### [facility] [address] [place] [address] Dr. Aliyah Fierro Potassium [Moles/Vol] 4.3 mmol/L Normal 3.5-5.1 [facility] Comment on above: Performed By: #### B PLATE SENSITIZER, CMP, CMADM, TSH #### [facility] [address] [place] [address] Dr. Aliyah Fierro Sodium [Moles/Vol] 140 mmol/L Normal 136-145 [facility] Comment on above: Performed By: #### B PLATE SENSITIZER, CMP, CMADM, TSH #### [facility] [address] [place] [address] Dr. Aliyah Fierro Urea nitrogen [Mass/Vol] 27.0 mg/dL Critically high 7.0-18.0 [facility] Comment on above: Performed By: #### B PLATE SENSITIZER, CMP, CMADM, TSH #### [facility] [address] [place] [address] Dr. Aliyah Fierro UA RANDOM W/MICROSCOPICon BACTERIA NONE SEEN Normal NONE SEEN [facility] Comment on above: Performed By: #### B PLATE SENSITIZER, CMP, CMADM, TSH #### [facility] [address] [place] [address] Dr. Aliyah Fierro Bilirubin Ql (U) Negative Normal NEGATIVE [facility] Comment on above: Performed By: #### B PLATE SENSITIZER, CMP, CMADM, TSH #### [facility] [address] [place] [address] Dr. Aliyah Fierro CAST NONE SEEN Normal NONE SEEN [facility] Comment on above: Performed By: #### B PLATE SENSITIZER, CMP, CMADM, TSH #### [facility] [address] [place] [address] Dr. Aliyah Fierro Clarity (U) CLEAR Normal CLEAR [facility] Comment on above: Performed By: #### B PLATE SENSITIZER, CMP, CMADM, TSH #### [facility] [address] [address] [address] Aliyah Fierro Color (U) LT. YELLOW Normal YELLOW [facility] Comment on above: Performed By: #### B PLATE SENSITIZER, CMP, CMADM, TSH #### [facility] [address] [address] [address] Aliyah Fierro Crystals LM Nom (Urine sed) NONE SEEN Normal NONE SEEN [facility] Comment on above: Performed By: #### B PLATE SENSITIZER, CMP, CMADM, TSH #### [facility] [address] [address] [address] Aliyah Fierro Epithelial cells LM Ql (Urine sed) RARE Normal NONE SEEN /RARE [facility] Comment on above: Performed By: #### B PLATE SENSITIZER, CMP, CMADM, TSH #### [facility] [address] [place] [address] Dr. Aliyah Fierro Glucose Ql (U) Negative Normal NEGATIVE [facility] Comment on above: Performed By: #### B PLATE SENSITIZER, CMP, CMADM, TSH #### [facility] [address] [address] [address] Aliyah Fierro Hemoglobin Ql (U) Negative Normal NEGATIVE [facility] Comment on above: Performed By: #### B PLATE SENSITIZER, CMP, CMADM, TSH #### [facility] [address] [address] [address] Aliyah Fierro Ketones Ql (U) Negative Normal NEGATIVE [facility] Comment on above: Performed By: #### B PLATE SENSITIZER, CMP, CMADM, TSH #### [facility] [address] [address] [address] Aliyah Fierro LEUKOCYTES Negative Normal NEGATIVE [facility] Comment on above: Performed By: #### B PLATE SENSITIZER, CMP, CMADM, TSH #### [facility] [address] [address] [address] Aliyah Fierro MUCOUS NONE SEEN Normal NONE SEEN [facility] Comment on above: Performed By: #### B PLATE SENSITIZER, CMP, CMADM, TSH #### [facility] [address] [address] [address] Aliyah Fierro Nitrite Ql (U) Negative Normal NEGATIVE [facility] Comment on above: Performed By: #### B PLATE SENSITIZER, CMP, CMADM, TSH #### [facility] [address] [place] [address] Dr. Aliyah Fierro pH (U) 5.5 [pH] Normal 5-9 [facility] Comment on above: Performed By: #### B PLATE SENSITIZER, CMP, CMADM, TSH #### [facility] [address] [address] [address] Aliyah Fierro RBC NONE SEEN Abnormal 0-2 [facility] Comment on above: Performed By: #### B PLATE SENSITIZER, CMP, CMADM, TSH #### [facility] [address] [place] [address] Dr. Aliyah Fierro SPEC GRAVITY 1.020 Normal 1.005-<=1.025 [facility] Comment on above: Performed By: #### B PLATE SENSITIZER, CMP, CMADM, TSH #### [facility] [address] [place] [address] Dr. Aliyah Fierro UA PROTEIN Negative Normal NEGATIVE/ TRACE [facility] Comment on above: Performed By: #### B PLATE SENSITIZER, CMP, CMADM, TSH #### [facility] [address] [place] [address] Dr. Aliyah Fierro Urobilinogen Qn (U) 0.2 {Katerina'U}/dL Normal 0.2 - 1. 0 [facility] Comment on above: Performed By: #### B PLATE SENSITIZER, CMP, CMADM, TSH #### [facility] [address] [place] [address] Dr. Aliyah Fierro WBC NONE SEEN Normal NONE SEEN [facility] Comment on above: Performed By: #### B PLATE SENSITIZER, CMP, CMADM, TSH #### [facility] [address] [place] [address] Dr. Aliyah Fierro URIC ACID SERUMon 08-26-2022 Urate [Mass/Vol] 8.0 mg/dL Critically high 3.5-7.2 [facility] Comment on above: Performed By: #### B PLATE SENSITIZER, CMP, CMADM, TSH #### [facility] [address] [address] [address] Aliyah Fierro URINE T PROTEIN CREAT RATIOo n 08-26-2022 Protein (U) [Mass/Vol] 11.7 mg/dL Normal <=12.0 [facility] Comment on above: Performed By: #### L IVER, LIPID #### [facility] [address] [address] [address] Aliyah Fierro UR PROT CREAT RAT 0.09 Normal [facility] Comment on above: Performed By: #### L IVER, LIPID #### [facility] [address] [address] [address] Aliyah Fierro URINE CREAT 124.42 mg/dL Normal 20.00-300.00 [facility] Comment on above: Performed By: #### L IVER, LIPID #### [facility] [address] [address] [address] Aliyah Fierro VITAMIN D 25 OHon 08-26-2022 VIT D 25-OH 46.3 ng/mL Normal [facility] Comment on above: Performed By: #### L IVER, LIPID #### [facility] [address] [address] [address] Aliyah Fierro VIT D RANGES SEE BELOW Normal [facility] Comment on above: Result Comment: <20 ng/mL Vit D deficient 20 - <30 ng/mL Vit D insufficient 30 - 100 ng/mL Vit D sufficient >100 ng/mL Potential Toxicity Performed By: #### L IVER, LIPID #### [facility] [address] [address] [address] Aliyah Fierro XR CHEST 2 Von 02-11-2022 XR CHEST 2 V EXAMINATION: XR CHEST 2 V HISTORY: Imaging result abnormal COMPARISON: [...] BUBBA BASURTO Date: 2022-02-11 20:54 Normal [facility] PTH INTACTon 01-29-2022 PTH, Intact 58 pg/mL Normal 15-65 [facility] Comment on above: Performed By: #### L IVER, LIPID #### [facility] [address] [place] [address] Dr. Aliyah Fierro FERRITINon 01-28-2022 Ferritin [Mass/Vol] 199.0 ng/mL Normal 26.0-388.0 [facility] Comment on above: Performed By: #### L ADRIAN, LIPID #### [facility] [address] [place] [address] Dr. Aliyah Fierro HEMOGRAM AND PLATELon 2021 Hematocrit (Bld) [Volume fraction] 39.0 % Critically low 42.0-54.0 [facility] Comment on above: Performed By: #### B PLATE SENSITIZER, CMP, CMADM, TSH #### [facility] [address] [place] [address] Dr. Aliyah Fierro Hemoglobin (Bld) [Mass/Vol] 13.1 g/dL Critically low 14.0-18.0 [facility] Comment on above: Performed By: #### B PLATE SENSITIZER, CMP, CMADM, TSH #### [facility] [address] [place] [address] Dr. Aliyah Fierro MCH (RBC) [Entitic mass] 29.4 pg Normal 25.9-34.0 [facility] Comment on above: Performed By: #### B PLATE SENSITIZER, CMP, CMADM, TSH #### [facility] [address] [place] [address] Dr. Aliyah Fierro MCHC (RBC) [Mass/Vol] 33.6 g/dL Normal 29.9-35.2 [facility] Comment on above: Performed By: #### B PLATE SENSITIZER, CMP, CMADM, TSH #### [facility] [address] [place] [address] Dr. Aliyah Fierro MCV (RBC) [Entitic vol] 87.4 fL Normal 80.0-94.0 [facility] Comment on above: Performed By: #### B PLATE SENSITIZER, CMP, CMADM, TSH #### [facility] [address] [place] [address] Dr. Aliyah Fierro PLT 309 103/ul Normal 150-450 [facility] Comment on above: Performed By: #### B PLATE SENSITIZER, CMP, CMADM, TSH #### [facility] [address] [place] [address] Dr. Aliyah Fierro RBC 4.46 106/ul Critically low 4.70-6.10 [facility] Comment on above: Performed By: #### B PLATE SENSITIZER, CMP, CMADM, TSH #### [facility] [address] [place] [address] Dr. Aliyah Fierro WBC 8.4 103/ul Normal 4.0-11.0 [facility] Comment on above: Performed By: #### B PLATE SENSITIZER, CMP, CMADM, TSH #### [facility] [address] [place] [address] Dr. Aliyah Fierro IRON AND TIBCon 01-28-2022 % SATURATION 31.0 % Normal [facility] Comment on above: Performed By: #### L ADRIAN, LIPID #### [facility] [address] [place] [address] Dr. Aliyah Fierro Iron [Mass/Vol] 93.0 ug/dL Normal 65.0-175.0 [facility] Comment on above: Performed By: #### L ADRIAN, LIPID #### [facility] [address] [place] [address] Dr. Aliyah Fierro TIBC DIRECT 300.0 ug/dL Normal 250.0-450.0 [facility] Comment on above: Performed By: #### L IVMILLY, LIPID #### [facility] [address] [place] [address] Dr. Aliyah Fierro MAGNESIUMon 01-28-2022 Magnesium [Mass/Vol] 2.0 mg/dL Normal 1.8-2.4 [facility] Comment on above: Performed By: #### B PLATE SENSITIZER, CMP, CMADM, TSH #### [facility] [address] [place] [address] Dr. Aliyah Fierro RENAL FUNCTION PANELon 01-28 Albumin [Mass/Vol] 4.2 g/dL Normal 3.4-5.0 [facility] Comment on above: Performed By: #### B PLATE SENSITIZER, CMP, CMADM, TSH #### [facility] [address] [place] [address] Dr. Aliyah Fierro Calcium [Mass/Vol] 8.8 mg/dL Normal 8.5-10.1 [facility] Comment on above: Performed By: #### B PLATE SENSITIZER, CMP, CMADM, TSH #### [facility] [address] [place] [address] Dr. Aliyah Fierro Chloride [Moles/Vol] 104 mmol/L Normal 98-107 [facility] Comment on above: Performed By: #### B PLATE SENSITIZER, CMP, CMADM, TSH #### [facility] [address] [place] [address] Dr. Aliyah Fierro CO2 [Moles/Vol] 26.0 mmol/L Normal 21.0-32.0 [facility] Comment on above: Performed By: #### B PLATE SENSITIZER, CMP, CMADM, TSH #### [facility] [address] [place] [address] Dr. Aliyah Fierro Creatinine [Mass/Vol] 2.23 mg/dL Critically high 0.70-1.30 [facility] Comment on above: Performed By: #### B PLATE SENSITIZER, CMP, CMADM, TSH #### [facility] [address] [place] [address] Dr. Aliyah Fierro EGFR-AF GUATEMALAN 35 mL/min/1.73m2 Critically low >=60 [facility] Comment on above: Performed By: #### B PLATE SENSITIZER, CMP, CMADM, TSH #### [facility] [address] [place] [address] Dr. Aliyah Fierro EGFR-NON AF GUATEMALAN 29 mL/min/1.73m2 Critically low >=60 [facility] Comment on above: Performed By: #### B PLATE SENSITIZER, CMP, CMADM, TSH #### [facility] [address] [place] [address] Dr. Aliyah Fierro Glucose [Mass/Vol] 107 mg/dL Critically high 74-106 [facility] Comment on above: Performed By: #### B PLATE SENSITIZER, CMP, CMADM, TSH #### [facility] [address] [address] [address] Aliyah Fierro Phosphate [Mass/Vol] 3.8 mg/dL Normal 2.6-4.7 [facility] Comment on above: Performed By: #### B PLATE SENSITIZER, CMP, CMADM, TSH #### [facility] [address] [address] [address] Aliyah Fierro Potassium [Moles/Vol] 4.7 mmol/L Normal 3.5-5.1 [facility] Comment on above: Performed By: #### B PLATE SENSITIZER, CMP, CMADM, TSH #### [facility] [address] [place] [address] Dr. Aliyah Fierro Sodium [Moles/Vol] 138 mmol/L Normal 136-145 [facility] Comment on above: Performed By: #### B PLATE SENSITIZER, CMP, CMADM, TSH #### [facility] [address] [address] [address] Aliyah Fierro Urea nitrogen [Mass/Vol] 33.0 mg/dL Critically high 7.0-18.0 [facility] Comment on above: Performed By: #### B PLATE SENSITIZER, CMP, CMADM, TSH #### [facility] [address] [address] [address] Aliyah Fierro UA RANDOM W/MICROSCOPICon BACTERIA NONE SEEN Normal NONE SEEN [facility] Comment on above: Performed By: #### B PLATE SENSITIZER, CMP, CMADM, TSH #### [facility] [address] [address] [address] Aliyah Fierro Bilirubin Ql (U) Negative Normal NEGATIVE [facility] Comment on above: Performed By: #### B PLATE SENSITIZER, CMP, CMADM, TSH #### [facility] [address] [address] [address] Aliyah Fierro CAST NONE SEEN Normal NONE SEEN [facility] Comment on above: Performed By: #### B PLATE SENSITIZER, CMP, CMADM, TSH #### [facility] [address] [address] [address] Aliyah Fierro Clarity (U) CLEAR Normal CLEAR [facility] Comment on above: Performed By: #### B PLATE SENSITIZER, CMP, CMADM, TSH #### [facility] [address] [address] [address] Aliyah Fierro Color (U) LT. YELLOW Normal YELLOW [facility] Comment on above: Performed By: #### B PLATE SENSITIZER, CMP, CMADM, TSH #### [facility] [address] [address] [address] Aliyah Fierro Crystals LM Nom (Urine sed) NONE SEEN Normal NONE SEEN [facility] Comment on above: Performed By: #### B PLATE SENSITIZER, CMP, CMADM, TSH #### [facility] [address] [address] [address] Aliyah Fierro Epithelial cells LM Ql (Urine sed) NONE SEEN Normal NONE SEEN /RARE [facility] Comment on above: Performed By: #### B PLATE SENSITIZER, CMP, CMADM, TSH #### [facility] [address] [place] [address] Dr. Aliyah Fierro Glucose Ql (U) Negative Normal NEGATIVE [facility] Comment on above: Performed By: #### B PLATE SENSITIZER, CMP, CMADM, TSH #### [facility] [address] [address] [address] Aliyah Fierro Hemoglobin Ql (U) Negative Normal NEGATIVE [facility] Comment on above: Performed By: #### B PLATE SENSITIZER, CMP, CMADM, TSH #### [facility] [address] [address] [address] Aliyah Fierro Ketones Ql (U) Negative Normal NEGATIVE [facility] Comment on above: Performed By: #### B PLATE SENSITIZER, CMP, CMADM, TSH #### [facility] [address] [address] [address] Aliyah Fierro LEUKOCYTES Negative Normal NEGATIVE [facility] Comment on above: Performed By: #### B PLATE SENSITIZER, CMP, CMADM, TSH #### [facility] [address] [address] [address] Aliyah Fierro MUCOUS NONE SEEN Normal NONE SEEN [facility] Comment on above: Performed By: #### B PLATE SENSITIZER, CMP, CMADM, TSH #### [facility] [address] [address] [address] Aliyah Fierro Nitrite Ql (U) Negative Normal NEGATIVE [facility] Comment on above: Performed By: #### B PLATE SENSITIZER, CMP, CMADM, TSH #### [facility] [address] [address] [address] Aliyah Fierro pH (U) 5.5 [pH] Normal 5-9 [facility] Comment on above: Performed By: #### B PLATE SENSITIZER, CMP, CMADM, TSH #### [facility] [address] [place] [address] Dr. Aliyah Fierro RBC NONE SEEN Abnormal 0-2 [facility] Comment on above: Performed By: #### B PLATE SENSITIZER, CMP, CMADM, TSH #### [facility] [address] [place] [address] Dr. Aliyah Fierro SPEC GRAVITY 1.020 Normal 1.005-<=1.025 [facility] Comment on above: Performed By: #### B PLATE SENSITIZER, CMP, CMADM, TSH #### [facility] [address] [place] [address] Dr. Aliyah Fierro UA PROTEIN Negative Normal NEGATIVE/ TRACE [facility] Comment on above: Performed By: #### B PLATE SENSITIZER, CMP, CMADM, TSH #### [facility] [address] [place] [address] Dr. Aliyah Fierro Urobilinogen Qn (U) 0.2 {Katerina'U}/dL Normal 0.2 - 1. 0 [facility] Comment on above: Performed By: #### B PLATE SENSITIZER, CMP, CMADM, TSH #### [facility] [address] [place] [address] Dr. Aliyah Fierro WBC NONE SEEN Normal NONE SEEN [facility] Comment on above: Performed By: #### B PLATE SENSITIZER, CMP, CMADM, TSH #### [facility] [address] [place] [address] Dr. Aliyah Fierro URIC ACID SERUMon 01-28-2022 Urate [Mass/Vol] 8.8 mg/dL Critically high 3.5-7.2 [facility] Comment on above: Performed By: #### B PLATE SENSITIZER, CMP, CMADM, TSH #### [facility] [address] [address] [address] Aliyah Fierro URINE T PROTEIN CREAT RATIOo n 01-28-2022 Protein (U) [Mass/Vol] 11.7 mg/dL Normal <=12.0 [facility] Comment on above: Performed By: #### U RTPCR #### [facility] [address] [place] [address] Dr. Aliyah Fierro UR PROT CREAT RAT 0.09 Normal [facility] Comment on above: Performed By: #### U RTPCR #### [facility] [address] [place] [address] Dr. Aliyah Fierro URINE CREAT 126.58 mg/dL Normal 20.00-300.00 [facility] Comment on above: Performed By: #### U RTPCR #### [facility] [address] [place] [address] Dr. Aliyah Fierro VITAMIN D 25 OHon 01-28-2022 VIT D 25-OH 40.0 ng/mL Normal [facility] Comment on above: Performed By: #### L ADRIAN LIPID #### [facility] [address] [place] [address] Dr. Aliyah Fierro VIT D RANGES SEE BELOW Normal [facility] Comment on above: Result Comment: <20 ng/mL Vit D deficient 20 - <30 ng/mL Vit D insufficient 30 - 100 ng/mL Vit D sufficient >100 ng/mL Potential Toxicity Performed By: #### L ADRIAN LIPID #### [facility] [address] [place] [address] Dr. Aliyah Fierro BNPon 01-09-2022 Natriuretic peptide B (Bld) [Mass/Vol] 218.0 pg/mL Normal <=1,800.0 [facility] Comment on above: Performed By: #### B PLATE SENSITIZER, CMP, CMADM, TSH #### [facility] [address] [address] [address] Aliyah Fierro CARDIAC HELLEN ADMITon 022 CK [Catalytic activity/Vol] 159 U/L Normal 39-308 [facility] Comment on above: Performed By: #### B PLATE SENSITIZER, CMP, CMADM, TSH #### [facility] [address] [address] [address] Aliyah Fierro CK.MB [Mass/Vol] 4.55 ng/mL Critically high <=3.60 [facility] Comment on above: Performed By: #### B PLATE SENSITIZER, CMP, CMADM, TSH #### [facility] [address] [address] [address] Aliyah Fierro HSTROP 9.0 pg/mL Normal 4.0-76.1 [facility] Comment on above: Result Comment: CUT- OFF POINTS HAVE BEEN ESTABLISHED BASED ON THE FOURTH UNIVERSAL DEFINITIONS OF MYOCARDIAL INFARCTION. THE UPPER REFERENCE LIMIT (URL) OF TROPONIN, DEFINED THE 99TH PERCENTILE OF cTnI DISTRIBUTION IN A REFERENCE POPULATION, HAS BEEN CONFIRMED THE DECISION THRESHOLD FOR AR DIAGNOSIS. Performed By: #### B PLATE SENSITIZER, CMP, CMADM, TSH #### [facility] [address] [address] [address] Aliyah Fierro JAHAIRA 181 ng/mL Critically high 16-96 [facility] Comment on above: Performed By: #### B PLATE SENSITIZER, CMP, CMADM, TSH #### [facility] [address] [address] [address] Aliyah Fierro CBC AUTO DIFFon 01-09-2022 BASO # 0.0 103/ul Normal 0.0-0.1 [facility] Comment on above: Performed By: #### B PLATE SENSITIZER, CMP, CMADM, TSH #### [facility] [address] [address] [address] Aliyah Fierro Basophils/100 WBC (Bld) 0.3 % Normal 0.2-2.0 [facility] Comment on above: Performed By: #### B PLATE SENSITIZER, CMP, CMADM, TSH #### [facility] [address] [place] [address] Dr. Aliyah Fierro EO # 0.3 103/ul Normal 0.0-0.7 [facility] Comment on above: Performed By: #### B PLATE SENSITIZER, CMP, CMADM, TSH #### [facility] [address] [address] [address] Aliyah Fierro Eosinophils/100 WBC (Bld) 3.6 % Normal 0.9-7.0 [facility] Comment on above: Performed By: #### B PLATE SENSITIZER, CMP, CMADM, TSH #### [facility] [address] [address] [address] Aliyah Fierro Erythrocyte distribution width (RBC) [Ratio] 13.2 % Normal 11.0-15.0 [facility] Comment on above: Performed By: #### B PLATE SENSITIZER, CMP, CMADM, TSH #### [facility] [address] [place] [address] Dr. Aliyah Fierro Hematocrit (Bld) [Volume fraction] 38.8 % Critically low 42.0-54.0 [facility] Comment on above: Performed By: #### B PLATE SENSITIZER, CMP, CMADM, TSH #### [facility] [address] [place] [address] Dr. Aliyah Fierro Hemoglobin (Bld) [Mass/Vol] 13.2 g/dL Critically low 14.0-18.0 [facility] Comment on above: Performed By: #### B PLATE SENSITIZER, CMP, CMADM, TSH #### [facility] [address] [address] [address] Aliyah Fierro IG # 0.04 10e3/ul Critically high 0.00-0.03 [facility] Comment on above: Performed By: #### B PLATE SENSITIZER, CMP, CMADM, TSH #### [facility] [address] [address] [address] Aliyah Fierro IG % 0.4 % Normal 0.0-0.5 [facility] Comment on above: Performed By: #### B PLATE SENSITIZER, CMP, CMADM, TSH #### [facility] [address] [place] [address] Dr. Aliyah Fierro LYMPH # 1.6 103/ul Normal 1.2-3.8 [facility] Comment on above: Performed By: #### B PLATE SENSITIZER, CMP, CMADM, TSH #### [facility] [address] [place] [address] Dr. Aliyah Fierro Lymphocytes/100 WBC (Bld) 17.3 % Critically low 20.5-60.0 [facility] Comment on above: Performed By: #### B PLATE SENSITIZER, CMP, CMADM, TSH #### [facility] [address] [place] [address] Dr. Aliyah Fierro MANUAL DIFF REQ NO Normal [facility] Comment on above: Performed By: #### B PLATE SENSITIZER, CMP, CMADM, TSH #### [facility] [address] [place] [address] Dr. Aliyah iFerro MCH (RBC) [Entitic mass] 29.8 pg Normal 25.9-34.0 [facility] Comment on above: Performed By: #### B PLATE SENSITIZER, CMP, CMADM, TSH #### [facility] [address] [place] [address] Dr. Aliyah Fierro MCHC (RBC) [Mass/Vol] 34.0 g/dL Normal 29.9-35.2 [facility] Comment on above: Performed By: #### B PLATE SENSITIZER, CMP, CMADM, TSH #### [facility] [address] [place] [address] Dr. Aliyah Fierro MCV (RBC) [Entitic vol] 87.6 fL Normal 80.0-94.0 [facility] Comment on above: Performed By: #### B PLATE SENSITIZER, CMP, CMADM, TSH #### [facility] [address] [place] [address] Dr. Aliyah Fierro MONO # 1.0 103/ul Critically high 0.3-0.8 [facility] Comment on above: Performed By: #### B PLATE SENSITIZER, CMP, CMADM, TSH #### [facility] [address] [place] [address] Dr. Aliyah Fierro Monocytes/100 WBC (Bld) 10.4 % Normal 1.7-12.0 [facility] Comment on above: Performed By: #### B PLATE SENSITIZER, CMP, CMADM, TSH #### [facility] [address] [place] [address] Dr. Aliyah Fierro NEUT # 6.2 103/ul Normal 1.4-6.5 [facility] Comment on above: Performed By: #### B PLATE SENSITIZER, CMP, CMADM, TSH #### [facility] [address] [place] [address] Dr. Aliyah Fierro Neutrophils/100 WBC (Bld) 68.0 % Normal 43.0-75.0 [facility] Comment on above: Performed By: #### B PLATE SENSITIZER, CMP, CMADM, TSH #### [facility] [address] [place] [address] Dr. Aliyah Fierro Platelet mean volume (Bld) [Entitic vol] 9.3 fL Critically low 9.5-13.5 [facility] Comment on above: Performed By: #### B PLATE SENSITIZER, CMP, CMADM, TSH #### [facility] [address] [place] [address] Dr. Aliyah Fierro PLT 297 103/ul Normal 150-450 [facility] Comment on above: Performed By: #### B PLATE SENSITIZER, CMP, CMADM, TSH #### [facility] [address] [place] [address] Dr. Aliyah Fierro RBC 4.43 106/ul Critically low 4.70-6.10 [facility] Comment on above: Performed By: #### B PLATE SENSITIZER, CMP, CMADM, TSH #### [facility] [address] [place] [address] Dr. Aliyah Fierro WBC 9.2 103/ul Normal 4.0-11.0 [facility] Comment on above: Performed By: #### B PLATE SENSITIZER, CMP, CMADM, TSH #### [facility] [address] [place] [address] Dr. Aliyah Fierro ER URINE PROFILEon 2 Bilirubin Ql (U) Negative Normal NEGATIVE [facility] Comment on above: Performed By: #### E RUR #### [facility] [address] [place] [address] Dr. Aliyah Fierro Clarity (U) CLEAR Normal CLEAR [facility] Comment on above: Performed By: #### E RUR #### [facility] [address] [place] [address] Dr. Aliyah Fierro Color (U) LT. YELLOW Normal YELLOW [facility] Comment on above: Performed By: #### E RUR #### [facility] [address] [place] [address] Dr. Aliyah Fierro ERUAHD A micrscopic examination will be performed if indicated. Normal [facility] Comment on above: Performed By: #### E RUR #### [facility] [address] [place] [address] Dr. Aliyah Fierro Glucose Ql (U) Negative Normal NEGATIVE [facility] Comment on above: Performed By: #### E RUR #### [facility] [address] [place] [address] Dr. Aliyah Fierro Hemoglobin Ql (U) Negative Normal NEGATIVE [facility] Comment on above: Performed By: #### E RUR #### [facility] [address] [place] [address] Dr. Aliyah Fierro Ketones Ql (U) Negative Normal NEGATIVE [facility] Comment on above: Performed By: #### E RUR #### [facility] [address] [place] [address] Dr. Aliyah Fierro LEUKOCYTES Negative Normal NEGATIVE [facility] Comment on above: Performed By: #### E RUR #### [facility] [address] [place] [address] Dr. Aliyah Fierro Nitrite Ql (U) Negative Normal NEGATIVE [facility] Comment on above: Performed By: #### E RUR #### [facility] [address] [place] [address] Dr. Aliyah Fierro pH (U) 6.0 [pH] Normal 5-9 [facility] Comment on above: Performed By: #### E RUR #### [facility] [address] [place] [address] Dr. Aliyah Fierro SPEC GRAVITY 1.020 Normal 1.005-<=1.025 [facility] Comment on above: Performed By: #### E RUR #### [facility] [address] [address] [address] Aliyah Fierro UA PROTEIN Negative Normal NEGATIVE/ TRACE [facility] Comment on above: Performed By: #### E RUR #### [facility] [address] [address] [address] Aliyah Fierro UR MICRO IND NOT INDICATED Normal [facility] Comment on above: Performed By: #### E RUR #### [facility] [address] [place] [address] Dr. Aliyah Fierro Urobilinogen Qn (U) 0.2 {Katerina'U}/dL Normal 0.2 - 1. 0 [facility] Comment on above: Performed By: #### E RUR #### [facility] [address] [place] [address] Dr. Aliyah Fierro PROF 14(COMP METB)on 022 Albumin [Mass/Vol] 4.1 g/dL Normal 3.4-5.0 [facility] Comment on above: Performed By: #### B PLATE SENSITIZER, CMP, CMADM, TSH #### [facility] [address] [place] [address] Dr. Aliyah Fierro Albumin/Globulin [Mass ratio] 1.2 {ratio} Normal [facility] Comment on above: Performed By: #### B PLATE SENSITIZER, CMP, CMADM, TSH #### [facility] [address] [place] [address] Dr. Aliyah Fierro ALP [Catalytic activity/Vol] 92 U/L Normal 46-116 [facility] Comment on above: Performed By: #### B PLATE SENSITIZER, CMP, CMADM, TSH #### [facility] [address] [place] [address] Dr. Aliyah Fierro ALT [Catalytic activity/Vol] 31 U/L Normal 16-63 [facility] Comment on above: Performed By: #### B PLATE SENSITIZER, CMP, CMADM, TSH #### [facility] [address] [place] [address] Dr. Aliyah Fierro Anion gap [Moles/Vol] 12.8 mmol/L Normal [facility] Comment on above: Performed By: #### B PLATE SENSITIZER, CMP, CMADM, TSH #### [facility] [address] [place] [address] Dr. Aliyah Fierro AST [Catalytic activity/Vol] 18 U/L Normal 15-37 [facility] Comment on above: Performed By: #### B PLATE SENSITIZER, CMP, CMADM, TSH #### [facility] [address] [place] [address] Dr. Aliyah Fierro Bilirubin [Mass/Vol] 0.5 mg/dL Normal 0.2-1.0 [facility] Comment on above: Performed By: #### B PLATE SENSITIZER, CMP, CMADM, TSH #### [facility] [address] [place] [address] Dr. Aliyah Fierro Calcium [Mass/Vol] 8.6 mg/dL Normal 8.5-10.1 [facility] Comment on above: Performed By: #### B PLATE SENSITIZER, CMP, CMADM, TSH #### [facility] [address] [place] [address] Dr. Aliyah Fierro Chloride [Moles/Vol] 103 mmol/L Normal 98-107 [facility] Comment on above: Performed By: #### B PLATE SENSITIZER, CMP, CMADM, TSH #### [facility] [address] [place] [address] Dr. Aliyah Fierro CO2 [Moles/Vol] 26.3 mmol/L Normal 21.0-32.0 [facility] Comment on above: Performed By: #### B PLATE SENSITIZER, CMP, CMADM, TSH #### [facility] [address] [place] [address] Dr. Aliyah Fierro Creatinine [Mass/Vol] 2.11 mg/dL Critically high 0.70-1.30 [facility] Comment on above: Performed By: #### B PLATE SENSITIZER, CMP, CMADM, TSH #### [facility] [address] [place] [address] Dr. Aliyah Fierro EGFR-AF GUATEMALAN 37 mL/min/1.73m2 Critically low >=60 [facility] Comment on above: Performed By: #### B PLATE SENSITIZER, CMP, CMADM, TSH #### [facility] [address] [address] [address] Aliyah Fierro EGFR-NON AF GUATEMALAN 30 mL/min/1.73m2 Critically low >=60 [facility] Comment on above: Performed By: #### B PLATE SENSITIZER, CMP, CMADM, TSH #### [facility] [address] [address] [address] Aliyah Fierro Globulin (S) [Mass/Vol] 3.3 g/dL Normal [facility] Comment on above: Performed By: #### B PLATE SENSITIZER, CMP, CMADM, TSH #### [facility] [address] [address] [address] Aliyah Fierro Glucose [Mass/Vol] 105 mg/dL Normal 74-106 [facility] Comment on above: Performed By: #### B PLATE SENSITIZER, CMP, CMADM, TSH #### [facility] [address] [place] [address] Dr. Aliyah Fierro Potassium [Moles/Vol] 4.1 mmol/L Normal 3.5-5.1 [facility] Comment on above: Performed By: #### B PLATE SENSITIZER, CMP, CMADM, TSH #### [facility] [address] [place] [address] Dr. Aliyah Fierro Protein [Mass/Vol] 7.4 g/dL Normal 6.4-8.2 [facility] Comment on above: Performed By: #### B PLATE SENSITIZER, CMP, CMADM, TSH #### [facility] [address] [address] [address] Aliyah Fierro Sodium [Moles/Vol] 138 mmol/L Normal 136-145 [facility] Comment on above: Performed By: #### B PLATE SENSITIZER, CMP, CMADM, TSH #### [facility] [address] [place] [address] Dr. Aliyah Fierro Urea nitrogen [Mass/Vol] 32.0 mg/dL Critically high 7.0-18.0 [facility] Comment on above: Performed By: #### B PLATE SENSITIZER, CMP, CMADM, TSH #### [facility] [address] [place] [address] Dr. Aliyah Fierro Urea nitrogen/Creatinine [Mass ratio] 15.2 mg/mg Normal [facility] Comment on above: Performed By: #### B PLATE SENSITIZER, CMP, CMADM, TSH #### [facility] [address] [address] [address] Aliyah Fierro PROTIMEon 01-09-2022 INR Coag (PPP) [Relative time] 1.02 {INR} Normal [facility] Comment on above: Performed By: #### B PLATE SENSITIZER, CMP, CMADM, TSH #### [facility] [address] [place] [address] Dr. Aliyah Fierro INR GUIDELINES SEE BELOW Normal [facility] Comment on above: Result Comment: BOBBY RED INR: 2.0 - 3.0 CONDITIONS NOT LISTED BELOW 2.5 - 3.5 FOR PROSTHETIC HEART VALVE REPLACEMENT 2.5 - 3.5 RECURRENT THROMBOSIS Performed By: #### B PLATE SENSITIZER, CMP, CMADM, TSH #### [facility] [address] [place] [address] Dr. Aliyah Fierro PT Coag (PPP) [Time] 11.0 s Normal 9.0-11.6 [facility] Comment on above: Performed By: #### B PLATE SENSITIZER, CMP, CMADM, TSH #### [facility] [address] [place] [address] Dr. Aliyah Fierro PTTon 01-09-2022 aPTT Coag (Bld) [Time] 31.2 s Normal 22.3-36.2 [facility] Comment on above: Performed By: #### L IVER, LIPID #### [facility] [address] [place] [address] Dr. Aliyah Fierro TSHon 01-09-2022 TSH 3.663 uIU/mL Normal 0.358-3.740 [facility] Comment on above: Performed By: #### B PLATE SENSITIZER, CMP, CMADM, TSH #### [facility] [address] [place] [address] Dr. Aliyah Fierro TSH RANGE SEE BELOW Normal [facility] Comment on above: Result Comment: <0.3 4 UIU/ml HYPERTHYROID 0.34-5.60 UIU/ml EUTHYROID >5.60 UIU/ml HYPOTHYROID Performed By: #### B PLATE SENSITIZER, CMP, CMADM, TSH #### [facility] [address] [place], [place] [address] Dr. Aliyah Fierro XR CHEST 1 Von 01-09-2022 XR CHEST 1 V EXAMINATION: XR CHEST 1 V HISTORY: SHORTNESS OF BREATH COMPARISON: [...] by: BUBBA BASURTO Date: 2022-01-09 13:05 Normal [facility] Ambulatory Clinical Summaryo n 04-06-2021 Ambulatory Clinical Summary {[id number] Normal [facility] Patient Educationon 04-06-20 21 Patient Education [...] Document Reviewed: 03/25/2008 ExitCare? Patient Information ?2013 [employer]. Normal [facility] Urology Office/Clinic Noteon 04-06-2021 Urology Office/Clinic [...] JANSEN, Michael Barnes, URL [address] [place] [address]- [phone] Additional Instructions: prn Patient Education Benign Prostatic [...] Use:., 04/06/2021 Family History Pancreatic cancer: [facility]. [facility] [facility] Comment on above: Result Comment: Elec tronically Signed By: Michael SOTO MD\.br\Date and Time Signed: 04/06/21 10:51 EDT\.br\Electronically Co-Signed By: Yamilka New MA\.br\Date and Time Co-Signed: 04/06/21 10:50 EDT Ambulatory Clinical Summaryo n 01-02-2021 Ambulatory Clinical Summary {[id number] [facility] Consent for Procedure/Surger yon 01-02-2021 Consent for Procedure/Surgery [id number]#1.00CD:127 [facility] Patient Educationon 01-03-20 Patient Education Cystoscopy Care [...] Document Reviewed: 01/11/2013 ExitCare? Patient Information ?2013 [employer]. [facility] Urology Office/Clinic Noteon 01-02-2021 Urology Office/Clinic Note [...] the office notified. Script sent to [facility] in [place]. 3. Weak urine stream (R39.12: Poor urinary stream) Weak w/ intermittent hesitancy. 4. Nocturia (R35.1: Nocturia) 1-2x/night. I have reviewed the previous health record information and history for this pt. from Dr. Soto. Follow-up With When Contact Information RAUDEL JANSEN, Michael Barnes, URL [facility] [place] [address]- [phone] Additional Instructions: 3mos. f/u Patient Education Cystoscopy, [...] Use:., 01/02/2021 Family History Pancreatic cancer: Father. [facility] Comment on above: Result Comment: Elec tronically Signed By: Michael SOTO MD\.br\Date and Time Signed: 01/02/21 12:23 EDT\.br\Electronically Co-Signed By: Yamilka New MA\.br\Date and Time Co-Signed: 01/02/21 12:21 EDT Formson 12-15-2020 Forms [id number] #1.00CD:127 [facility] Physician Referralon 021 Physician Referral [id number] #1.00CD:127 [facility] Physician Referralon 021 Physician Referral [id number] #1.00CD:127 [facility] Ambulatory Clinical Summaryo n 12-11-2020 Ambulatory Clinical Summary {[id number]}CD:[id number] [facility] Ambulatory Clinical Summary {[id number]}CD:[id number] [facility] Urology Office/Clinic Noteon 12-11-2020 Urology Office/Clinic Note Chief Complaint [employer]ATE SENSITIZER referred for bladder mass HPI Staff PLATE SENSITIZER referred by Dr. Parada due to a [...] and history for this pt. from Dr. oSto. Follow-up With When Contact Information Michael SOTO MD, URL [address] [place] [address] [place] [address]- [phone] Additional Instructions: Patient Education Cystoscopy I, Yamilka New , personally scribed for Dr. Soto on 12/11/2020 15:08:54. . Documentation recorded by the scribe, Yamilka New, accurately reflects the services(s) I performed and decisions made by me. Authenticated by Dr. Stoo on 12/11/2020 15:10:44. Problem List/Past Medical History Ongoing Arthritis Basal cell carcinoma of skin Bilateral wheezing Centrilobular emphysema COPD type A Elevated PSA Eosinophilia GERD without esophagitis Gout Hx of tobacco use, presenting hazards to health Hyperlipidemia Hypertension Multiple pulmonary nodules Peripheral edema Historical No qualifying data Procedure/Surgical History Colonoscopy (08/04/2017). Medications albuterol 0.08 (more content not included)... [facility] Comment on above: Result Comment: Elec tronically Signed By: Michael SOTO MD\.br\Date and Time Signed: 12/11/20 15:10 EDT\.br\Electronically Co-Signed By: Yamilka New MA\.br\Date and Time Co-Signed: 12/11/20 15:09 EDT Vital Signs Date Time Vital Sign Value Performing Clinician Facility 04-29-2024 10:32-0400 Body height 175.3 cm Antoinette Carrillo NP Work Phone: [facility] 04-29-2024 10:32-0400 Body mass index (BMI) [Ratio] 24.93 kg/m2 Antoinette Carrillo [employer]ATE S[employer]ITIZER Work Phone: [facility] 04-29-2024 10:32-0400 Body temperature 98.1 [degF] Antoinette Snowdenz PLATE SENSITIZER Work Phone: [facility] 04-29-2024 10:32-0400 Body weight 76.57 kg Antoinette Snowdenz PLATE SENSITIZER Work Phone: [facility] 04-29-2024 10:32-0400 Diastolic blood pressure 68 mm[Hg] Antoinette Snowdenz PLATE SENSITIZER Work Phone: [facility] 04-29-2024 10:32-0400 Heart rate 62 /min Antoinette Snowdenz PLATE SENSITIZER Work Phone: [facility] 04-29-2024 10:32-0400 Respiratory rate 18 /min Antoinette Snowdenz PLATE SENSITIZER Work Phone: [facility] 04-29-2024 10:32-0400 SaO2% (BldA) [Mass fraction] 95 % Antoinette Carrillo PLATE SENSITIZER Work Phone: [facility] 04-29-2024 10:32-0400 Systolic blood pressure 122 mm[Hg] Antoinette Snowdenz PLATE SENSITIZER Work Phone: [facility] 04-15-2024 13:31-0400 Body height 175.26 cm [facility] 04-15-2024 13:31-0400 Body mass index (BMI) [Ratio] 24.3 kg/m2 [facility] 04-15-2024 13:31-0400 Body temperature 97.3 [degF] [facility] 04-15-2024 13:31-0400 Body weight 74.89 kg [facility] 04-15-2024 13:31-0400 Diastolic blood pressure 69 mm[Hg] [facility] 04-15-2024 13:31-0400 Heart rate 81 /min [facility] 04-15-2024 13:31-0400 Respiratory rate 16 /min [facility] 04-15-2024 13:31-0400 SaO2% (BldA) [Mass fraction] 94 % [facility] 04-15-2024 13:31-0400 Systolic blood pressure 120 mm[Hg] [facility] 04-06-2024 11:11-0400 Body height 175.3 cm 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 PLATE SENSITIZER Work Phone: [facility] 04-06-2024 11:11-0400 Body mass index (BMI) [Ratio] 24.78 kg/m2 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 PLATE SENSITIZER Work Phone: [facility] 04-06-2024 11:11-0400 Body temperature 97.5 [degF] 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 PLATE SENSITIZER Work Phone: [facility] 04-06-2024 11:11-0400 Body weight 76.11 kg 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 PLATE SENSITIZER Work Phone: [facility] 04-06-2024 11:11-0400 Diastolic blood pressure 76 mm[Hg] 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 PLATE SENSITIZER Work Phone: [facility] 04-06-2024 11:11-0400 Heart rate 71 /min 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 PLATE SENSITIZER Work Phone: [facility] 04-06-2024 11:11-0400 Respiratory rate 18 /min 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 PLATE SENSITIZER Work Phone: [facility] 04-06-2024 11:11-0400 SaO2% (BldA) [Mass fraction] 96 % 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 PLATE SENSITIZER Work Phone: [facility] 04-06-2024 11:11-0400 Systolic blood pressure 120 mm[Hg] 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 PLATE SENSITIZER Work Phone: [facility] 03-24-2024 10:33-0400 Body height 175.3 cm 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 PLATE SENSITIZER Work Phone: [facility] 03-24-2024 10:33-0400 Body mass index (BMI) [Ratio] 24.81 kg/m2 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 PLATE SENSITIZER Work Phone: [facility] 03-24-2024 10:33-0400 Body temperature 98.29 [degF] Antoinette Snowdenz PLATE SENSITIZER Work Phone: [facility] 03-24-2024 10:33-0400 Body weight 76.2 kg Antoinettejunior Sadlerholz PLATE SENSITIZER Work Phone: [facility] 03-24-2024 10:33-0400 Diastolic blood pressure 80 mm[Hg] Antoinette Viktoriyaholz PLATE SENSITIZER Work Phone: [facility] 03-24-2024 10:33-0400 Heart rate 68 /min Antoinettejunior Sadlerholz PLATE SENSITIZER Work Phone: [facility] 03-24-2024 10:33-0400 Respiratory rate 18 /min Antoinettejunior Sadlerholz PLATE SENSITIZER Work Phone: [facility] 03-24-2024 10:33-0400 SaO2% (BldA) [Mass fraction] 97 % Antoinette Sadlerholz PLATE SENSITIZER Work Phone: [facility] 03-24-2024 10:33-0400 Systolic blood pressure 140 mm[Hg] Antoinette Sadlerholz PLATE SENSITIZER Work Phone: [facility] 10-30-2023 10:45-0400 Body height 175.26 cm [facility] 10-30-2023 10:45-0400 Body mass index (BMI) [Ratio] 27 kg/m2 [facility] 10-30-2023 10:45-0400 Body temperature 97.4 [degF] [facility] 10-30-2023 10:45-0400 Body weight 83 kg [facility] 10-30-2023 10:45-0400 Diastolic blood pressure 70 mm[Hg] [facility] 10-30-2023 10:45-0400 Heart rate 68 /min [facility] 10-30-2023 10:45-0400 Respiratory rate 18 /min [facility] 10-30-2023 10:45-0400 SaO2% (BldA) [Mass fraction] 97 % [facility] 10-30-2023 10:45-0400 Systolic blood pressure 120 mm[Hg] [facility] 02-07-2022 15:00-0400 Body height 175.26 cm Praveen Mariam Other [facility] 02-07-2022 15:00-0400 Body mass index (BMI) [Ratio] 27.02 kg/m2 Praveen Mariam Other [facility] 02-07-2022 15:00-0400 Body temperature 97 [degF] Praveen Mariam Other [facility] 02-07-2022 15:00-0400 Body weight 83.01 kg Praveen Mariam Other [facility] Other 02-07-2022 15:00-0400 Diastolic blood pressure 62 mm[Hg] Praveen Mariam Other [facility] Other 02-07-2022 15:00-0400 Respiratory rate 18 /min Praveen Mariam Other [facility] Other 02-07-2022 15:00-0400 SaO2% (BldA) [Mass fraction] 92 % Praveen Mariam Other [facility] Other 02-07-2022 15:00-0400 Systolic blood pressure 130 mm[Hg] Praveen Mariam Other [facility] Other Encounters Encounter Date Encounter Type Care Provider Facility Start: 10-26-2024 End: 10-26-2024 ambulatory ANTOINETTE CARRILLO Not Available Start: 09-29-2024 End: 09-29-2024 Refill 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 [employer]ATE SENSITIZER Work Phone: [facility] Comment on above: Essential (primary) hypertension (CMS/HCC); 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); Primary hypertension (CMS/HCC) Start: 09-27-2024 End: 09-27-2024 Refill 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 [employer]ATE SENSITIZER Work Phone: [facility] Comment on above: 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) Start: 07-24-2024 End: 07-25-2024 Refill 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 PLATE SENSITIZER Work Phone: [facility] Comment on above: Mixed hyperlipidemia (CMS/HCC) Start: 06-01-2024 End: 06-01-2024 Refill 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 PLATE SENSITIZER Work Phone: [facility] Comment on above: Chronic obstructive pulmonary disease, unspecified COPD type (CMS/HCC); Centrilobular emphysema (CMS/HCC); Shortness of breath Start: 04-29-2024 End: 04-29-2024 Bamboo flowsheet Antoinette Spz PLATE SENSITIZER Work Phone: [facility] Start: 04-29-2024 End: 04-29-2024 Bamboo flowsheet 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 PLATE SENSITIZER Work Phone: [facility] Start: 04-29-2024 End: 04-29-2024 ambulatory ANTOINETTE AICHHOLZ Not Available Start: 04-29-2024 End: 04-29-2024 Office outpatient visit 25 minutes Antoinette Zuleykahromeoz PLATE SENSITIZER Work Phone: [facility] Comment on above: Primary hypertension (CMS/HCC) (Primary Dx); 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); Benign prostatic hyperplasia with urinary obstruction; Secondary hyperparathyroidism of renal origin (CMS/HCC); DEMETRIO (generalized anxiety disorder) (CMS/HCC) Start: 04-16-2024 End: 04-18-2024 Refalea Hubbard MD Work Phone: [facility] Comment on above: Primary hypertension (CMS/HCC) Start: 04-15-2024 End: 04-15-2024 ambulatory [facility] Work Phone: Start: 04-15-2024 End: 04-15-2024 Patient encounter procedure [facility] Work Phone: Start: 04-08-2024 End: 04-08-2024 Refill Antoinette Carrillo PLATE SENSITIZER Work Phone: [facility] Comment on above: 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 (Primary Dx) Start: 04-06-2024 End: 04-06-2024 Clinisync Result Encounter Generic External Data Provider [facility] Unsolicited Start: 04-06-2024 End: 04-06-2024 Clinisync Result Encounter Generic External Data Provider [facility] Unsolicited Start: 04-06-2024 End: 04-06-2024 ambulatory ANTOINETTE CARRILLO Not Available Start: 04-06-2024 End: 04-06-2024 Office outpatient visit 25 minutes Antoinette Carrillo PLATE SENSITIZER Work Phone: [facility] Comment on above: Benign prostatic hyp erplasia with urinary frequency (Primary Dx); DEMETRIO (generalized anxiety disorder) (CMS/HCC); Pneumonia of left lower lobe due to infectious organism Start: 04-06-2024 Non-patient / [facility] Work Phone: Start: 04-01-2024 End: 04-01-2024 Refill Antoinette Carrillo PLATE SENSITIZER [facility] Comment on above: Gastroesophageal ref lux disease without esophagitis; Essential (primary) hypertension (CMS/HCC); 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) Start: 03-24-2024 End: 03-24-2024 Bamboo flowsheet Antoinette Carrillo PLATE SENSITIZER Work Phone: [facility] Start: 03-24-2024 End: 03-24-2024 Bamboo flowsheet Antoinette Carrillo PLATE SENSITIZER Work Phone: [facility] Start: 03-24-2024 End: 03-24-2024 Transitional care manage srvc 7 day discharge Antoinette Carrillo PLATE SENSITIZER Work Phone: [facility] Comment on above: Pneumonia of left lo wer lobe due to infectious organism (Primary Dx); Other emphysema (CMS/HCC); Malignant neoplasm of colon, unspecified (CMS/HCC); Secondary hyperparathyroidism of renal origin (CMS/HCC); Atherosclerosis of aorta (CMS/HCC); Primary hypertension (CMS/HCC); Coronary artery disease involving angoon coronary artery of angoon heart without angina pectoris (CMS/HCC) Start: 03-24-2024 End: 03-24-2024 ambulatory ANTOINETTE CARRILLO Not Available Start: 03-21-2024 End: 03-22-2024 Non-patient / Non-visit [facility] Work Phone: Start: 03-20-2024 End: 03-22-2024 Clinisync Result Encounter Generic External Data Provider [facility] Unsolicited Start: 03-20-2024 End: 03-22-2024 Clinisync Result Encounter Generic External Data Provider [facility] Unsolicited Start: 10-30-2023 End: 10-30-2023 ambulatory [facility] Work Phone: Start: 10-30-2023 End: 10-30-2023 Patient encounter procedure [facility] Work Phone: Start: 10-15-2023 Patient encounter procedure Generic Provider [facility] Start: 09-11-2023 Refill Antoinette Carrillo PLATE SENSITIZER Work Phone: [facility] Comment on above: Primary hypertension (CMS/HCC) (Primary Dx); Essential (primary) hypertension (CMS/HCC); Benign essential hypertension (CMS/HCC) Start: 10-24-2022 End: 10-25-[address] KERRIE MONTANA Facility:[facility] Start: 10-21-2022 End: 10-22-[address] KERRIE MONTANA Facility:[facility] Start: 10-09-2022 End: 10-10-2022 ambulatory SENIOR STRUCTURAL ENGINEER ANTOINETTE ZULEYKASanfordNABIL Facility:[facility] Start: 09-12-2022 End: 09-13-2022 ambulatory GAGANDEEP CARRILLO Facility:[facility] Start: 09-03-2022 End: 09-04-2022 ambulatory GAGANDEEP SADLERROMEOPaloma Facility:[facility] Start: 08-26-2022 End: 08-27-2022 ambulatory PRAVEEN MARIAM Facility:[facility] Start: 02-11-2022 End: 02-12-2022 ambulatory GAGANDEEP SADLERROMEOPaloma Facility:[facility] Start: 02-07-2022 End: 02-07-2022 ambulatory Praveen Mariam Other [facility] Other Start: 02-07-2022 Office outpatient vi sit 25 minutes Praveen Mariam [facility] Start: 01-28-2022 End: 01-29-2022 ambulatory PRAVEEN MARIAM Facility:[facility] Start: 01-09-2022 End: 01-09-2022 ambulatory ADELINE UDAY Facility:[facility] Procedures Date Procedure Procedure Detail Performing Clinician Start: 04-06-2024 HMHP CBC WITH PLATEL ET NO DIFFERENTIAL Generic External Data Provider Start: 03-20-2024 BLOOD CULTURE 2 Generic External Data Provider Start: 03-20-2024 BLOOD CULTURE 1 Generic External Data Provider Start: 10-09-2022 PSA screening GAGANDEEP SADLERROMEOPaloma Comment on above: Performed By: #### P [facility] #### [facility] [address] [place] [address] Dr. Aliyah Fierro Plan of Treatment Date Care Activity Detail Author Start: 10-26-2024 End: 10-26-2024 Patient encounter procedure 10/26/2024 10:00 AM EDT Office Visit [facility] [address] [place] [address] Antoinette Carrillo NP [address] [place] [phone] [facility] Start: 10-14-2024 Medicare Annual Well ness (AWV) Medicare Annual Wellness (AWV) [facility] Start: 04-29-2024 End: 04-29-2024 Patient encounter procedure 04/29/2024 10:30 AM EDT Office Visit [facility] [address] [place] [address] Antoinette Carrillo, FABRICIO [address] [place] [phone] [facility] Start: 04-20-2024 End: 04-20-2024 Patient encounter procedure 04/20/2024 9:40 AM EDT Office Visit [facility] [address] [place] [address] Antoinette Carrillo, PLATE SENSITIZER [address] [place] [phone] [facility] Start: 04-06-2024 End: 04-06-2024 Patient encounter procedure 04/06/2024 11:00 AM EDT Office Visit [facility] [address] [place] [address] Antoinette Carrillo, PLATE SENSITIZER [address] [place] [phone] [facility] Start: 03-24-2024 End: 03-24-2024 Patient encounter procedure [facility] Comment on above: Other emphysema (CMS /HCC); Malignant neoplasm of colon, unspecified (CMS/HCC); Secondary hyperparathyroidism of renal origin (CMS/HCC); Atherosclerosis of aorta (CMS/HCC) Start: 04-04-2023 Influenza vaccination Influenz a Vaccine (#1) [facility] Start: 02-14-1946 Pneumococcal Vaccine : 65+ Years (1 - PCV) Pneumococcal Vaccine: 65+ Years (1 - PCV) [facility] Start: 1940 Medicare Annual Well ness (AWV) Medicare Annual Wellness (AWV) [facility] BLOOD CULTURE 1 BLOOD CULTURE 1 Lab Routine 03/20/2024 4:45 PM EDT [facility] BLOOD CULTURE 2 BLOOD CULTURE 2 Lab Routine 03/20/2024 5:07 PM EDT [facility] Renal function 1999 panel - Serum or Plasma [facility] Renal function 1999 panel - Serum or Plasma [facility] Immunizations Immunization Date Immunization Notes Care Provider Fa cility 05-29-2021 Karen SARS-CoV-2 Generic Provider [facility] Payers Date Payer Category Payer Medicare [id number] 1957 Medicare [id number] 2.1 [id number] 1959 Private Health Insurance 2 [id number] 1942 Unknown [id number] 2.16.84 [id number] 1942 Unknown [id number] 2.16.84 0.1.001639.3.579.2.593 1942 Unknown [id number] 2.16.84 0.1.577067.3.579.2.593 1942 Unknown [id number] 2.16.84 0.1.184582.3.579.2.593 1942 Unknown [id number] 2.16.84 0.1.346269.3.579.2.593 1942 Unknown [id number] 2.16.84 0.1.789888.3.579.2.593 1942 Unknown [id number] 2.16.84 0.1.229201.3.579.2.593 1942 Unknown [id number] 2.16.84 0.1.684953.3.579.2.593 1942 Unknown [id number] 2.16.84 0.1.080998.3.579.2.593 1942 Unknown [id number] 2.16.84 0.1.890761.3.579.2.1259 1942 Unknown [id number] 2.16.84 0.1.709714.3.579.2.1259 1942 Unknown [id number] 2.16.84 0.1.975711.3.579.2.1259 1942 Unknown [id number] 2.16.84 0.1.215357.3.579.2.1259 Self-pay Self Pay [id number] Social History Date Type Detail Facility Unknown if ever smoked [facility] Other Start: 10-15-2023 End: 04-29-2024 Sex Assigned At [facility] Tobacco smoking stat [facility] Tobacco smoking consumption unknown [facility] Start: 1940 Sex Assigned At Not on file [facility] Start: 10-30-2023 End: 04-15-2024 Tobacco smoking status [facility] Ex-smoker (finding) [facility] Start: 1940 Sex Assigned At Male [facility] Start: 10-05-2023 Tobacco smoking status [facility] Smokes tobacco daily [facility] History of tobacco use Cigarette Smoker [facility] Start: 04-06-2024 End: 04-29-2024 Alcoholic beverage intake Ex-drinker (finding) [facility] Start: 10-15-2023 End: 04-29-2024 History of Social function [facility] Within the last year , have you been afraid of your partner or ex-partner? No [facility] Are you now , , , , never or living with a partner? Patient unable to answer [facility] How often to you hav e a drink containing alcohol? Never [facility] Do you feel stress - tense, restless, nervous, or anxious, or unable to sleep at night because your mind is troubled all the time - these days [OSQ] Only a little [facility] (I/We) worried wheth er (my/our) food would run out before (I/we) got money to buy more. Never true [facility] Start: 10-05-2023 Tobacco Comment 6-10 cigarettes/day [facility] Start: 10-05-2023 Alcohol Comment caffeine 1-2 cups per day [facility] Clinical Notes 12-11-2020 to 04-29-2024 Antoinette Carrillo NP - 04/29/2024 11:22 AM Omar Carrillo NP - 04/29/2024 11:21 AM Omar Carrillo NP - 04/29/2024 11:21 AM Omar Carrillo NP - 04/29/2024 11:21 AM EDT Note Date & Type Note Facility 04-29-2024 History of Presen t illness Narrative Associated Problem(s): DEMETRIO (generalized anxiety disorder) (CMS/HCC) Doing well on current meds Associated Problem(s): Secondary hyperparathyroidism of renal origin (CMS/HCC) Cont with nephrology Associated Problem(s): 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 Guanako Amaya is a 84 y.o. male presents with chief complaint of No chief complaint on file. HPI: Recovered from pneumonia Did not take the flomax, tried 3 times gave him terrible nightmares, feels his urination is doing better Hypertension This is a chronic problem. The problem is unchanged. The problem is controlled. Associated symptoms include anxiety and peripheral edema. Pertinent negatives include no chest pain, headaches, malaise/fatigue, neck pain, palpitations or shortness of breath. There are no associated agents to hypertension. Risk factors for coronary artery disease include smoking/tobacco exposure. Past treatments include beta blockers and angiotensin blockers. The current treatment provides significant improvement. Hypertensive end-organ damage includes kidney disease. There is no history of CAD/AR. Anxiety Presents for follow-up visit. Symptoms include nervous/anxious behavior. Patient reports no chest pain, compulsions, decreased concentration, dizziness, excessive worry, irritability, muscle tension, palpitations, restlessness, shortness of breath or suicidal ideas. Symptoms occur occasionally. The severity of symptoms is mild. The quality of sleep is good. Compliance with medications is 76-100%. SUBJECTIVE: MEDICATIONS: Current Outpatient Medications Medication Instructions aspirin 81 MG EC tablet 1 tablet, Oral, Daily atenolol (TENORMIN) 25 mg, Oral, Daily busPIRone (BUSPAR) 10 mg, Oral, 3 times daily PRN citalopram (CELEXA) 10 mg, Oral, Daily furosemide (LASIX) 20 mg, Oral, Daily ipratropium-albuterol (Duo-Neb) 0.5-2.5 mg/3 mL nebulizer solution 1 unit dose every 6 hours prn shortness of breath or wheezing1 unit dose every 6 hours prn shortness of breath or wheezing losartan (COZAAR) 25 mg, Oral, Daily Multiple Vitamins-Minerals (Multivitamin Men) tablet Orally pravastatin (PRAVACHOL) 80 mg, Oral, Nightly ALLERGIES: Allergies Allergen Reactions Lisinopril Unknown REVIEW OF SYMPTOMS: Review of Systems Constitutional: Negative for activity change, appetite change, irritability, malaise/fatigue and unexpected weight change. HENT: Negative for ear pain, nosebleeds, sneezing, trouble swallowing and voice change. Eyes: Negative for pain, discharge and visual disturbance. Respiratory: Negative for apnea, chest tightness, shortness of breath and wheezing. Cardiovascular: Positive for leg swelling. Negative for chest pain and palpitations. Gastrointestinal: Negative for abdominal distention, blood in stool, constipation and diarrhea. Genitourinary: Negative for decreased urine volume, difficulty urinating, dysuria and hematuria. Musculoskeletal: Negative for neck pain. Skin: Negative for color change. Neurological: Negative for dizziness, tremors, seizures and headaches. Psychiatric/Behavioral: Negative for agitation, decreased concentration, hallucinations, self-injury and suicidal ideas. The patient is nervous/anxious. Hematological: Negative for adenopathy. Does not bruise/bleed easily. Endocrine: Negative for cold intolerance, heat intolerance, polydipsia and polyuria. Allergic/Immunologic: Negative for environmental allergies and food allergies. PAST MEDICAL HISTORY Past Medical History: Diagnosis Date Centrilobular emphysema ([facility]) 07/30/2023 COPD (chronic obstructive pulmonary disease) (CMS/HCC) 10/15/2023 History of degenerative disc disease 10/15/2023 Pneumonia of left lower lobe due to infectious organism 03/24/2024 Small vessel disease (CMS/HCC) 10/15/2023 Tachycardia 10/15/2023 Past Surgical History: Procedure Laterality Date COLON SURGERY COLONOSCOPY W/ POLYPECTOMY 03/2018 HEMICOLECTOMY 03/2018 REFRACTIVE SURGERY family history includes Cancer in his father. OBJECTIVE: Visit Vitals BP 122/68 (BP Location: Left arm, Patient Position: Sitting, BP Cuff Size: Adult) Pulse 62 Temp 98.1 F (Temporal) Resp 18 Ht 5' 9 Wt 168 lb 12.8 oz SpO2 95% BMI 24.93 kg/m Smoking Status Every Day BSA 1.93 m Physical Exam Vitals and nursing note reviewed. Constitutional: Appearance: Normal appearance. HENT: Head: Normocephalic. Right Ear: External ear normal. Left Ear: External ear normal. Nose: Nose normal. Mouth/Throat: Mouth: Mucous membranes are moist. Pharynx: Oropharynx is clear. Eyes: Extraocular Movements: Extraocular movements intact. Conjunctiva/sclera: Conjunctivae normal. Cardiovascular: Rate and Rhythm: Normal rate and regular rhythm. Pulses: Normal pulses. Heart sounds: Normal heart sounds. Pulmonary: Effort: Pulmonary effort is normal. Breath sounds: Normal breath sounds. Abdominal: General: Bowel sounds are normal. Palpations: Abdomen is soft. Musculoskeletal: Cervical back: Neck supple. Right lower leg: Edema present. Left lower leg: Edema present. Comments: 1+ bilat Lymphadenopathy: Cervical: No cervical adenopathy. Skin: General: Skin is warm and dry. Capillary Refill: Capillary refill takes 2 to 3 seconds. Neurological: General: No focal deficit present. Mental Status: He is alert. Psychiatric: Mood and Affect: Mood normal. Behavior: Behavior normal. Thought Content: Thought content normal. Judgment: Judgment normal. ASSESSMENT AND PLAN: No follow-ups on file. 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) Continue with nephrology DEMETRIO (generalized anxiety disorder) (CMS/HCC) Doing well on current meds Secondary hyperparathyroidism of renal origin ([facility]) Cont with nephrology Benign prostatic hyperplasia with urinary obstruction Does feel he is doing better and does not want to take any medication for this condition documented in this encounter [facility] 04-06-2024 History of Presen t illness Narrative Associated Problem(s): Pneumonia of left lower lobe due to infectious organism Feeling much better back to his baseline activities As- well as breathing Images from the original note were not included. Guanako Amaya is a 84 y.o. male presents with chief complaint of No chief complaint on file. HPI: Here for a fu for pneumonia: he denies acute fatigue, no cough, fever, no other acute symptoms Urinary Frequency This is a chronic problem. The current episode started more than 1 month ago. The problem occurs intermittently. The problem has been waxing and waning. Associated symptoms include frequency. Pertinent negatives include no chills, discharge, flank pain, hematuria, hesitancy, nausea, sweats, urgency or vomiting. SUBJECTIVE: MEDICATIONS: Current Outpatient Medications Medication Instructions aspirin 81 MG EC tablet 1 tablet, Oral, Daily atenolol (TENORMIN) 25 mg, Oral, Daily busPIRone (BUSPAR) 10 mg, Oral, 3 times daily PRN citalopram (CELEXA) 10 mg, Oral, Daily famotidine (PEPCID) 20 mg, Oral, Every evening furosemide (LASIX) 20 mg, Oral, Daily ipratropium-albuterol (Duo-Neb) 0.5-2.5 mg/3 mL nebulizer solution 1 unit dose every 6 hours prn shortness of breath or wheezing1 unit dose every 6 hours prn shortness of breath or wheezing losartan (COZAAR) 25 mg, Oral, Daily Multiple Vitamins-Minerals (Multivitamin Men) tablet Orally pravastatin (PRAVACHOL) 80 mg, Oral, Nightly tamsulosin (FLOMAX) 0.4 mg, Oral, Nightly ALLERGIES: Allergies Allergen Reactions Lisinopril Unknown REVIEW OF SYMPTOMS: Review of Systems Constitutional: Negative for activity change, appetite change, chills and unexpected weight change. HENT: Negative for ear pain, nosebleeds, sneezing, trouble swallowing and voice change. Eyes: Negative for pain, discharge and visual disturbance. Respiratory: Negative for apnea, chest tightness and wheezing. Cardiovascular: Negative for leg swelling. Gastrointestinal: Negative for abdominal distention, blood in stool, constipation, diarrhea, nausea and vomiting. Genitourinary: Positive for frequency. Negative for decreased urine volume, difficulty urinating, dysuria, flank pain, hematuria, hesitancy and urgency. Skin: Negative for color change. Neurological: Negative for dizziness, tremors and seizures. Psychiatric/Behavioral: Negative for agitation, decreased concentration, hallucinations, self-injury and suicidal ideas. The patient is not nervous/anxious. Hematological: Negative for adenopathy. Does not bruise/bleed easily. Endocrine: Negative for cold intolerance, heat intolerance, polydipsia and polyuria. Allergic/Immunologic: Negative for environmental allergies and food allergies. PAST MEDICAL HISTORY Past Medical History: Diagnosis Date Centrilobular emphysema (CMS/HCC) 07/30/2023 COPD (chronic obstructive pulmonary disease) (CMS/HCC) 10/15/2023 History of degenerative disc disease 10/15/2023 Small vessel disease (CMS/HCC) 10/15/2023 Tachycardia 10/15/2023 Past Surgical History: Procedure Laterality Date COLON SURGERY COLONOSCOPY W/ POLYPECTOMY 03/2018 HEMICOLECTOMY 03/2018 REFRACTIVE SURGERY family history includes Cancer in his father. OBJECTIVE: Visit Vitals BP 120/76 (BP Location: Left arm, Patient Position: Sitting, BP Cuff Size: Adult long) Pulse 71 Temp 97.5 F (Temporal) Resp 18 Ht 5' 9 Wt 167 lb 12.8 oz SpO2 96% BMI 24.78 kg/m Smoking Status Every Day BSA 1.93 m Physical Exam Vitals and nursing note reviewed. Constitutional: Appearance: Normal appearance. HENT: Head: Normocephalic. Right Ear: External ear normal. Left Ear: External ear normal. Nose: Nose normal. Mouth/Throat: Mouth: Mucous membranes are moist. Pharynx: Oropharynx is clear. Eyes: Extraocular Movements: Extraocular movements intact. Conjunctiva/sclera: Conjunctivae normal. Cardiovascular: Rate and Rhythm: Normal rate and regular rhythm. Pulses: Normal pulses. Heart sounds: Normal heart sounds. Pulmonary: Effort: Pulmonary effort is normal. Breath sounds: Rales (LLL) present. Abdominal: General: Bowel sounds are normal. Palpations: Abdomen is soft. Musculoskeletal: Cervical back: Neck supple. Right lower leg: Edema present. Left lower leg: Edema present. Comments: Trace-1+ edema bilat LE Skin: General: Skin is warm and dry. Capillary Refill: Capillary refill takes 2 to 3 seconds. Neurological: General: No focal deficit present. Mental Status: He is alert. Psychiatric: Mood and Affect: Mood normal. Behavior: Behavior normal. Thought Content: Thought content normal. Judgment: Judgment normal. ASSESSMENT AND PLAN: No follow-ups on file. Problem List Items Addressed This Visit DEMETRIO (generalized anxiety disorder) (CMS/HCC) Relevant Medications citalopram (CeleXA) 10 MG tablet Pneumonia of left lower lobe due to infectious organism Feeling much better back to his baseline activities As- well as breathing Benign prostatic hyperplasia with urinary frequency - Primary Relevant Medications tamsulosin (Flomax) 0.4 MG 24 hr capsule documented in this encounter [facility] 03-24-2024 History of Presen t illness Narrative Associated Problem(s): Coronary artery disease involving [place] coronary artery of [place] heart without angina pectoris (CMS/HCC) Reviewed the CT chest which reveals heavy calcification in LAD and RCA Denies any s/s angina, splits wood 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 Guanako Amaya is a 84 y.o. male presents with chief complaint of No chief complaint on file. HPI: Pneumonia He complains of shortness of breath. There is no chest tightness, cough, difficulty breathing, frequent throat clearing, hemoptysis, hoarse voice, sputum production or wheezing. This is a new problem. The current episode started in the past 7 days. The problem occurs daily. The problem has been gradually improving. Associated symptoms include appetite change, dyspnea on exertion, malaise/fatigue and weight loss. Pertinent negatives include no chest pain, ear congestion, ear pain, fever, headaches, heartburn, myalgias, nasal congestion, orthopnea, PND, postnasal drip, rhinorrhea, sneezing, sore throat, sweats or trouble swallowing. His symptoms are aggravated by nothing. His symptoms are alleviated by oral steroids (atb). He reports moderate improvement on treatment. There are no known risk factors for lung disease. His past medical history is significant for COPD. SUBJECTIVE: MEDICATIONS: Current Outpatient Medications Medication Instructions aspirin 81 MG EC tablet 1 tablet, Oral, Daily atenolol (TENORMIN) 25 mg, Oral, Daily busPIRone (BUSPAR) 10 mg, Oral, 3 times daily PRN citalopram (CELEXA) 10 mg, Oral, Daily famotidine (PEPCID) 20 mg, Oral, Daily furosemide (LASIX) 20 mg, Oral, Daily ipratropium-albuterol (Duo-Neb) 0.5-2.5 mg/3 mL nebulizer solution 1 unit dose every 6 hours prn shortness of breath or wheezing1 unit dose every 6 hours prn shortness of breath or wheezing levoFLOXacin (LEVAQUIN) 250 mg, Oral, Daily losartan (COZAAR) 25 mg, Oral, Daily Multiple Vitamins-Minerals (Multivitamin Men) tablet Orally pravastatin (PRAVACHOL) 80 mg, Oral, Nightly predniSONE (DELTASONE) 20 mg, Oral, 2 times daily ALLERGIES: Allergies Allergen Reactions Lisinopril Unknown REVIEW OF SYMPTOMS: Review of Systems Constitutional: Positive for appetite change, malaise/fatigue and weight loss. Negative for activity change, fever and unexpected weight change. HENT: Negative for ear pain, hoarse voice, nosebleeds, postnasal drip, rhinorrhea, sneezing, sore throat, trouble swallowing and voice change. Eyes: Negative for pain, discharge and visual disturbance. Respiratory: Positive for shortness of breath. Negative for apnea, cough, hemoptysis, sputum production, chest tightness and wheezing. Cardiovascular: Positive for dyspnea on exertion. Negative for chest pain, leg swelling and PND. Gastrointestinal: Negative for abdominal distention, blood in stool, constipation, diarrhea and heartburn. Genitourinary: Negative for decreased urine volume, difficulty urinating, dysuria and hematuria. Musculoskeletal: Negative for myalgias. Skin: Negative for color change. Neurological: Negative for dizziness, tremors, seizures and headaches. Psychiatric/Behavioral: Negative for agitation, decreased concentration, hallucinations, self-injury and suicidal ideas. The patient is not nervous/anxious. Hematological: Negative for adenopathy. Does not bruise/bleed easily. Endocrine: Negative for cold intolerance, heat intolerance, polydipsia and polyuria. Allergic/Immunologic: Negative for environmental allergies and food allergies. PAST MEDICAL HISTORY Past Medical History: Diagnosis Date Centrilobular emphysema ([facility]) 07/30/2023 COPD (chronic obstructive pulmonary disease) ([facility]) 10/15/2023 History of degenerative disc disease 10/15/2023 Small vessel disease (CMS/HCC) 10/15/2023 Tachycardia 10/15/2023 Past Surgical History: Procedure Laterality Date COLON SURGERY COLONOSCOPY W/ POLYPECTOMY 03/2018 HEMICOLECTOMY 03/2018 REFRACTIVE SURGERY family history includes Cancer in his father. OBJECTIVE: Visit Vitals BP 140/80 (BP Location: Left arm, Patient Position: Sitting, BP Cuff Size: Adult) Pulse 68 Temp 98.3 F (Temporal) Resp 18 Ht 5' 9 Wt 168 lb SpO2 97% BMI 24.81 kg/m Smoking Status Every Day BSA 1.93 m Physical Exam Vitals and nursing note reviewed. Constitutional: Appearance: Normal appearance. HENT: Head: Normocephalic. Right Ear: External ear normal. Left Ear: External ear normal. Nose: Nose normal. Mouth/Throat: Mouth: Mucous membranes are moist. Pharynx: Oropharynx is clear. Eyes: Extraocular Movements: Extraocular movements intact. Conjunctiva/sclera: Conjunctivae normal. Neck: Vascular: No carotid bruit. Cardiovascular: Rate and Rhythm: Normal rate and regular rhythm. Pulses: Normal pulses. Heart sounds: Normal heart sounds. Pulmonary: Effort: Pulmonary effort is normal. Breath sounds: No wheezing. Comments: Diminished lung sounds on the left lower Abdominal: General: Bowel sounds are normal. Palpations: Abdomen is soft. Musculoskeletal: Cervical back: Neck supple. Lymphadenopathy: Cervical: No cervical adenopathy. Skin: General: Skin is warm and dry. Capillary Refill: Capillary refill takes 2 to 3 seconds. Neurological: General: No focal deficit present. Mental Status: He is alert. Psychiatric: Mood and Affect: Mood normal. Behavior: Behavior normal. Thought Content: Thought content normal. Judgment: Judgment normal. ASSESSMENT AND PLAN: No follow-ups on file. Problem List Items Addressed This Visit Other emphysema (CMS/HCC) Per CT findings Primary hypertension (CMS/HCC) stable Malignant neoplasm of colon, unspecified (CMS/HCC) Had in the past declines fu with colonoscopy Secondary hyperparathyroidism of renal origin (CMS/HCC) Continue with nephrology Atherosclerosis of aorta (CMS/HCC) Noted on scans Pneumonia of left lower lobe due to infectious organism - Primary TCM fu, reviewed ER notes/hospital notes,and CT scan Finish atb, and steroids Fu in 2 weeks for recheck Coronary artery disease involving [place] coronary artery of [place] heart without angina pectoris (CMS/HCC) Reviewed the CT chest which reveals heavy calcification in LAD and RCA Denies any s/s angina, splits wood 3 times 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 for an hour no acute symptoms Recommended we do a stress test and ECHO, pt refuses Explained distribution of calcifications, and that could result in States I am 84 years old and if I tomorrow I do not care Associated Problem(s): Other emphysema (CMS/HCC) Per CT findings Associated Problem(s): Secondary hyperparathyroidism of renal origin (CMS/HCC) Continue with nephrology Associated Problem(s): Malignant neoplasm of colon, unspecified (CMS/HCC) Had in the past declines fu with colonoscopy Associated Problem(s): Atherosclerosis of aorta (CMS/HCC) Noted on scans documented in this encounter [facility] 02-07-2022 Evaluation note Encounter Date Diagnosis Assessment [...] allopurinol if he has a gout flare. [facility] Other 05-10-2021 NoteUrology Cystoscopy Cystoscopy is a procedure that is [...] including vitamins, herbs, eye drops, creams, and cwaq-dsg-sditmvo medicines. ? Any problems you or family [...] tells you to take them. ? Taking [id number] medicines, vitamins, herbs, and supplements. ? Follow [...] these instructions at home: Medicines ? Take towh-[id number] and prescription medicines only as told by [...] procedure, it is up to you to getyour test results. Ask your health care provider, or the department that is doing the test, when your results will be ready. ? Drink enough fluid to keep your urine pale yellow. ? Keep all follow-up visits as told by your health care provider. This is importa (more content notincluded)...[facility] Primary hypertension (CMS/HCC)- Primary Unspecified essential hypertension Essential (primary) hypertension (CMS/HCC) Unspecified essential hypertension Benign essential hypertension (CMS/HCC) Essential hypertension, benign [facility] Diagnosis Onset Date Resolution Status Anemia of renal disease acut e CKD (chronic kidney disease) stage 4, GFR 15-29 ml/min acute Gout acute Hyperlipidemia acute [id number] acute Secondary hyperparathyroidism acute [facility] Work Phone: Evaluation note* Diagnosis Encounter for subsequent annual wellness visit (AWV) in Medicare patient- Primary Screening for prostate cancer Special screening for malignant neoplasm of prostate Mixed hyperlipidemia (CMS/HCC) Mixed hyperlipidemia 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) Gastroesophageal reflux disease without esophagitis Esophageal reflux Primary hypertension (CMS/HCC) Unspecified essential hypertension Chronic obstructive pulmonary disease, unspecified COPD type (CMS/HCC) Bilateral carotid artery stenosis Occlusion and stenosis of carotid artery without mention of cerebral infarction Idiopathic chronic gout of multiple sites without tophus- Primary Pneumonia of left lower lobe due to infectious organism- Primary Other emphysema (CMS/HCC) Other emphysema Malignant neoplasm of colon, unspecified (CMS/HCC) Secondary hyperparathyroidism of renal origin (CMS/HCC) Secondary hyperparathyroidism (of renal origin) Atherosclerosis of aorta (CMS/HCC) Atherosclerosis of aorta Primary hypertension (CMS/HCC) Unspecified essential hypertension Coronary artery disease involving [place] coronary artery of [place] heart without angina pectoris (CMS/HCC) Primary hypertension (CMS/HCC)- Primary Unspecified essential hypertension 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) Secondary hyperparathyroidism (of renal origin) DEMETRIO (generalized anxiety disorder) (CMS/HCC) Generalized anxiety disorder Chronic obstructive pulmonary disease, unspecified COPD type (CMS/HCC) Centrilobular emphysema (CMS/HCC) Shortness of breath [facility] Diagnosis Primary hypertension (CMS/HCC) Unspecified essential hypertension [facility] Diagnosis Pneumonia of left lower lobe due to infectious organism- Primary Other emphysema (CMS/HCC) Other emphysema Malignant neoplasm of colon, unspecified (CMS/HCC) Secondary hyperparathyroidism of renal origin (CMS/HCC) Secondary hyperparathyroidism (of renal origin) Atherosclerosis of aorta (CMS/HCC) Atherosclerosis of aorta Primary hypertension (CMS/HCC) Unspecified essential hypertension Coronary artery disease involving [place] coronary artery of [place] heart without angina pectoris (CMS/HCC) [facility] Diagnosis Gastroesophageal reflux disease without esophagitis Esophageal reflux Essential (primary) hypertension (CMS/HCC) Unspecified essential hypertension 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) [facility] Diagnosis Benign prostatic hyperplasia with urinary frequency- Primary DEMETRIO (generalized anxiety disorder) (CMS/HCC) Generalized anxiety disorder Pneumonia of left lower lobe due to infectious organism [facility] Diagnosis Benign prostatic hyperplasia with urinary obstruction- Primary [facility] Diagnosis Primary hypertension (CMS/HCC)- Primary Unspecified essential hypertension 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) Secondary hyperparathyroidism (of renal origin) DEMETRIO (generalized anxiety disorder) (CMS/HCC) Generalized anxiety disorder [facility] Diagnosis Encounter for subsequent annual wellness visit (AWV) in Medicare patient- Primary Screening for prostate cancer Special screening for malignant neoplasm of prostate Mixed hyperlipidemia (CMS/HCC) Mixed hyperlipidemia 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) Gastroesophageal reflux disease without esophagitis Esophageal reflux Primary hypertension (CMS/HCC) Unspecified essential hypertension Chronic obstructive pulmonary disease, unspecified COPD type (CMS/HCC) Bilateral carotid artery stenosis Occlusion and stenosis of carotid artery without mention of cerebral infarction Idiopathic chronic gout of multiple sites without tophus- Primary Pneumonia of left lower lobe due to infectious organism- Primary Other emphysema (CMS/HCC) Other emphysema Malignant neoplasm of colon, unspecified (CMS/HCC) Secondary hyperparathyroidism of renal origin (CMS/HCC) Secondary hyperparathyroidism (of renal origin) Atherosclerosis of aorta (CMS/HCC) Atherosclerosis of aorta Primary hypertension (CMS/HCC) Unspecified essential hypertension Coronary artery disease involving [place] coronary artery of [place] heart without angina pectoris (CMS/HCC) Primary hypertension (CMS/HCC)- Primary Unspecified essential hypertension 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) Secondary hyperparathyroidism (of renal origin) DEMETRIO (generalized anxiety disorder) (CMS/HCC) Generalized anxiety disorder Mixed hyperlipidemia (CMS/HCC) Mixed hyperlipidemia documented [facility] encounter [facility]* Diagnosis Encounter for subsequent annual wellness visit (AWV) in Medicare patient- Primary Screening for prostate cancer Special screening for malignant neoplasm of prostate Mixed hyperlipidemia (CMS/HCC) Mixed hyperlipidemia 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) Gastroesophageal reflux disease without esophagitis Esophageal reflux Primary hypertension (CMS/HCC) Unspecified essential hypertension Chronic obstructive pulmonary disease, unspecified COPD type (CMS/HCC) Bilateral carotid artery stenosis Occlusion and stenosis of carotid artery without mention of cerebral infarction Idiopathic chronic gout of multiple sites without tophus- Primary Pneumonia of left lower lobe due to infectious organism- Primary Other emphysema (CMS/HCC) Other emphysema Malignant neoplasm of colon, unspecified (CMS/HCC) Secondary hyperparathyroidism of renal origin (CMS/HCC) Secondary hyperparathyroidism (of renal origin) Atherosclerosis of aorta (CMS/HCC) Atherosclerosis of aorta Primary hypertension (CMS/HCC) Unspecified essential hypertension Coronary artery disease involving [place] coronary artery of [place] heart without angina pectoris (CMS/HCC) Primary hypertension (CMS/HCC)- Primary Unspecified essential hypertension 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) Secondary hyperparathyroidism (of renal origin) DEMETRIO (generalized anxiety disorder) (CMS/HCC) Generalized anxiety disorder Idiopathic chronic gout of multiple sites without tophus- Primary documented in this encounter [facility]* Diagnosis Encounter for subsequent annual wellness visit (AWV) in Medicare patient- Primary Screening for prostate cancer Special screening for malignant neoplasm of prostate Mixed hyperlipidemia (CMS/HCC) Mixed hyperlipidemia 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) Gastroesophageal reflux disease without esophagitis Esophageal reflux Primary hypertension (CMS/HCC) Unspecified essential hypertension Chronic obstructive pulmonary disease, unspecified COPD type (CMS/HCC) Bilateral carotid artery stenosis Occlusion and stenosis of carotid artery without mention of cerebral infarction Idiopathic chronic gout of multiple sites without tophus- Primary Pneumonia of left lower lobe due to infectious organism- Primary Other emphysema (CMS/HCC) Other emphysema Malignant neoplasm of colon, unspecified (CMS/HCC) Secondary hyperparathyroidism of renal origin (CMS/HCC) Secondary hyperparathyroidism (of renal origin) Atherosclerosis of aorta (CMS/HCC) Atherosclerosis of aorta Primary hypertension (CMS/HCC) Unspecified essential hypertension Coronary artery disease involving [place] coronary artery of [place] heart without angina pectoris (CMS/HCC) Primary hypertension (CMS/HCC)- Primary Unspecified essential hypertension 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.] History LASIK BILATERALLY Hospitalization History SEE ABOVE [place] Other Summary Purpose Family History No Family History Records Found Relationship Condition Age at Onset Recorded Date/T dianne brother Hypertension Unknown daughter Family history of mental disorder Unknown father Malignant neoplasm Unknown Malignant neoplasm of urinary bladder Unk nown Unknown family member Unknown Not Specified Unknown Relationship Condition Age at Onset Recorded Date/T dianne brother Hypertension Unknown daughter Family history of mental disorder Unknown father Malignant neoplasm Unknown Malignant neoplasm of urinary bladder Unk nown Unknown family member Unknown mother Unknown Advance Directives No Advanced Directives Records Found Advance Directive Response Recorded Date/ Time Advance Directives No September 02, 2023 6:25pm Chief Complaint and Reason for Visit Chief Complaint RENAL 6 month Follow up Reason for Visit Anemia of renal dise ase CKD (chronic kidney disease) stage 4, GFR 15-29 ml/min Gout Hyperlipidemia [id number] Secondary hyperparathyroidism Chief Complaint RENAL 6 MONTH F/U Reason for Visit Anemia of renal dise ase CKD (chronic kidney disease) stage 4, GFR 15-29 ml/min Gout Hyperlipidemia [id number] Secondary hyperparathyroidism Additional Source Comments (unrecognized sect ion and content) No Status Records FoundNo Status Records FoundNo Status Records Found INFORMATION SOURCE (unrecogn ized section and content) DATE CREATED AUTHOR 04/07/2021 Marroquin Blayne [facility] DATE CREATED AUTHOR AUTHOR'S ORGANIZ ATION 10/27/2022 [facility] DATE CREATED AUTHOR AUTHOR'S ORGANIZ ATION 10/27/2024 [facility] EPIC REASON FOR VISIT (unrecogniz ed section and content) Reason Comments Med Refill Reason Onset Date Comments Med Refill 09/27/2024 Care Teams (unrecognized sec tion and content) Team Status: Active Member Role Status Dates Antoinette Carrillo Primary Care Provider Active Team Status: Active Member Role Status Dates Antoinette Carrillo Primary Care Provider Active Sta rt: March 21, 2024 End: March 22, 2024 Gilson Kearns DO Attending Provider Active Sta rt: March 21, 2024 End: March 22, 2024 Shaikh Cammie MD Referring Provider Active Sta rt: March 21, 2024 End: March 22, 2024 Team Status: Active Member Role Status Dates Antoinette Carrillo Primary Care Provider Active Sta rt: April 06, 2024 Praveen Conley MD Attending Provider Active Start : April 06, 2024 Team Status: Inactive Member Role Status Dates Antoinette Carrillo Primary Care Provider Active Sta rt: April 15, 2024 End: April 15, 2024 Praveen Conley MD Attending Provider Active Start : April 15, 2024 End: April 15, 2024 Machine Worker Relationship Specialty Start Date End Date Wallace Hubbard MD PCP - General Family Medicine 02/07/23 Team Status: Inactive Member Role Status Dates Antoinette Carrillo Primary Care Provider Active Sta rt: October 30, 2023 End: October 30, 2023 Praveen Conley MD Attending Provider Active Start : October 30, 2023 End: October 30, 2023 Machine Worker Relationship Specialty Start Date End Date Wallace Hubbard MD [address] [place] [phone] PCP - General Family Medicine 10/15/23 Antoinette Carrillo NP [address] [place] [phone] Nurse Practitioner Family Medicine 10/15/23 Machine Worker Relationship Specialty Start Date End Date Wallace Hubbard MD [address] [place] [phone] PCP - General Family Medicine 10/15/23 Antoinette Carrillo NP [address] [place] [phone] Nurse Practitioner Family Medicine 10/15/23 Machine Worker Relationship Specialty Start Date End Date Wallace Hubbard MD [address] [place] [phone] PCP - General Family Medicine 10/15/23 Antoinette Carrillo NP [address] [place] [phone] Nurse Practitioner Family Medicine 10/15/23 Machine Worker Relationship Specialty Start Date End Date Wallace Hubbard MD [address] [place] [phone] PCP - General Family Medicine 10/15/23 Antoinette Carrillo NP [address] [place] [phone] Nurse Practitioner Family Medicine 10/15/23 Machine Worker Relationship Specialty Start Date End Date Wallace Hubbard MD [address] [place] [phone] PCP - General Family Medicine 10/15/23 Antoinette Carrillo NP [address] [place] [phone] Nurse Practitioner Family Medicine 10/15/23 Machine Worker Relationship Specialty Start Date End Date Wallace Hubbard MD [address] [place] [phone] PCP - General Family Medicine 10/15/23 Antoinette Carrillo NP [address] [place] [phone] Nurse Practitioner Family Medicine 10/15/23 Machine Worker Relationship Specialty Start Date End Date Wallace Hubbard MD [address] [place] [phone] PCP - General Family Medicine 10/15/23 Antoinette Carrillo NP [address] [place] [phone] Nurse Practitioner Family Medicine 10/15/23 Machine Worker Relationship Specialty Start Date End Date Wallace Hubbard MD [address] [place] [phone] PCP - General Family Medicine 10/15/23 Antoinette Carrillo NP [address] [place] [phone] Nurse Practitioner Family Medicine 10/15/23 Machine Worker Relationship Specialty Start Date End Date Wallace Hubbard MD [address] [place] [phone] PCP - General Family Medicine 10/15/23 Antoinette Carrillo NP [address] [place] [phone] Nurse Practitioner Family Medicine 10/15/23 Machine Worker Relationship Specialty Start Date End Date Wallace Hubbard MD [address] [place] [phone] PCP - General Family Medicine 10/15/23 Antoinette Carrillo NP [address] [place] [phone] Nurse Practitioner Family Medicine 10/15/23 Machine Worker Relationship Specialty Start Date End Date Wallace Hubbard MD [address] [place] [phone] PCP - General Family Medicine 10/15/23 Antoinette Carrillo NP [address] [place] [phone] PCP - ACO Reach 09/10/24 Antoinette Carrillo NP [address] [place] [phone] Nurse Practitioner Family Medicine 10/15/23 Machine Worker Relationship Specialty Start Date End Date Wallace Hubbard MD [address] [place] [phone] PCP - General Family Medicine 10/15/23 Antoinette Carrillo NP [address] [place] [phone] PCP - ACO Reach 09/10/24 Antoinette Carrillo NP [address] [place] [phone] Nurse Practitioner Family Medicine 10/15/23 Goals (unrecognized section and content) Goals may [...] BE BASED ON THE PRIMARY CLINICAL RECORDS. [facility] [employer] provides no warranty or guarantee of the accuracy or completeness of information in this document.
[2024-11-01 07:53] LABS: Creatinine Urine Random 123.68 mg/dL (20.00-300.00); Protein Creatinine Ratio Urine 0.06; Total Protein Urine Random 7.9 mg/dL (<=11.9)
[2024-11-01 08:25] LABS: Percent Iron Saturation 32.4 %
[2024-11-01 08:26] LABS: Magnesium 2.1 mg/dL (1.8-2.4); Phosphorus 4.2 mg/dL (2.6-4.7); Uric Acid 8.4 mg/dL (3.5-7.2)
[2024-11-01 09:43] LABS: Bilirubin Urine NEGATIVE (NEGATIVE); Blood Urine NEGATIVE (NEGATIVE); Clarity Urine CLEAR (CLEAR); Color Urine YELLOW (YELLOW); Glucose Urine UA NEGATIVE (NEGATIVE); Ketones Urine NEGATIVE (NEGATIVE); Leukocyte Esterase Urine NEGATIVE (NEGATIVE); Nitrite Urine NEGATIVE (NEGATIVE); Protein Urine NEGATIVE (NEG/TRACE); Urobilinogen Urine 0.2 EU/dL (0.2-1.0)
[2024-11-01 09:54] LABS: Bacteria Urine NONE SEEN #/HPF (NONE SEEN); Cast Seen? NONE SEEN #/LPF (NONE SEEN); Crystals Seen? None Seen #/HPF (None Seen); Mucus Urine NONE SEEN (NONE SEEN); RBC Urine NONE SEEN #/HPF (0-2); Squamous Epithelial Cell Urine RARE #/LPF (NONE/RARE); WBC Urine NONE SEEN #/HPF (NONE SEEN)
[2024-11-02 09:08] LABS: PTH, Intact 68 pg/mL (15-65)
== END 2024-11-01 07:11 | disposition home or self-care (01) ==
LOC: LAB 07:13
PROVIDERS: PCP Nurse Practitioner; Visit Provider Internal Medicine
DX: E78.5 Hyperlipidemia, unspecified (principal); N25.81 Secondary hyperparathyroidism of renal origin; N18.9 Chronic kidney disease, unspecified; D63.1 Anemia in chronic kidney disease; M10.9 Gout, unspecified; I12.9 Hypertensive chronic kidney disease with stage 1 through stage 4 chronic kidney disease, or unspecified chronic kidney disease; N18.4 Chronic kidney disease, stage 4 (severe); E78.2 Mixed hyperlipidemia
CPT/HCPCS: 36415; 80053; 80061; 81001; 82306; 82570; 82728; 83540; 83550; 83735; 83970; 84100; 84156; 84550; 85025

== ENCOUNTER 2024-11-01 07:15 | Outpatient (OUT) | payer MEDICARE, SELFPAY ==
--- OUTSIDE RECORDS SUMMARY | 2024-11-01 07:19 | XMS_ITS | CCD ---
Author Organization [facility] Care Team Providers Care Recruiter Coordinator Name Role Phone Mariam, Praveen Unavailable AICHHOLZ, PORCELAIN ENAMEL SPRAYER ANTOINETTE Admitting Unavailable AICHHOLZ, PORCELAIN ENAMEL SPRAYER ANTOINETTE Attending Unavailable AICHHOLZ, PORCELAIN ENAMEL SPRAYER ANTOINETTE Primary Care Unavailable AICHHOLZ, PORCELAIN ENAMEL SPRAYER ANTOINETTE Consulting Unavailable AICHHOLZ, PORCELAIN ENAMEL SPRAYER ANTOINETTE Admitting Unavailable AICHHOLZ, PORCELAIN ENAMEL SPRAYER ANTOINETTE Attending Unavailable AICHHOLZ, PORCELAIN ENAMEL SPRAYER ANTOINETTE Primary Care Unavailable PENN, DR BUBBA Amaya Consulting Unavailable AICHHOLZ, PORCELAIN ENAMEL SPRAYER ANTOINETTE Consulting Unavailable AICHHOLZ, PORCELAIN ENAMEL SPRAYER ANTOINETTE Admitting Unavailable AICHHOLZ, PORCELAIN ENAMEL SPRAYER ANTOINETTE Attending Unavailable AICHHOLZ, PORCELAIN ENAMEL SPRAYER ANTOINETTE Primary Care Unavailable AICHHOLZ, PORCELAIN ENAMEL SPRAYER ANTOINETTE Consulting Unavailable UDAY, ADELINE Admitting Unavailable UDAY, ADELINE Attending Unavailable AICHHOLZ, PORCELAIN ENAMEL SPRAYER ANTOINETTE Primary Care Unavailable PENN, DR BUBBA Amaya Consulting Unavailable UDAY, ADELINE Consulting Unavailable ABBAS, DR SY Admitting Unavailable ABBAS, DR SY Attending Unavailable AICHHOLZ, PORCELAIN ENAMEL SPRAYER ANTOINETTE Primary Care Unavailable ABBAS, DR SY Consulting Unavailable ZIEBER, DR MAURO Barnes Consulting Unavailable ABBAS, DR SY Admitting Unavailable ABBAS, DR SY Attending Unavailable AICHHOLZ, PORCELAIN ENAMEL SPRAYER ANTOINETTE Primary Care Unavailable ABBAS, DR SY Consulting Unavailable MARIAM, PRAVEEN Admitting Unavailable MARIAM, PRAVEEN Attending Unavailable AICHHOLZ, PORCELAIN ENAMEL SPRAYER ANTOINETTE Primary Care Unavailable MARIAM, PRAVEEN Consulting Unavailable AICHHOLZ, PORCELAIN ENAMEL SPRAYER ANTOINETTE Admitting Unavailable AICHHOLZ, PORCELAIN ENAMEL SPRAYER ANTOINETTE Attending Unavailable AICHHOLZ, PORCELAIN ENAMEL SPRAYER ANTOINETTE Primary Care Unavailable WEST, DR BUBBA Amaya Consulting Unavailable AICHHOLZ, PORCELAIN ENAMEL SPRAYER ANTOINETTE Consulting Unavailable MARIAM, PRAVEEN Admitting Unavailable MARIAM, PRAVEEN Attending Unavailable AICHHOLZ, PORCELAIN ENAMEL SPRAYER ANTOINETTE Primary Care Unavailable MARIAM, PRAVEEN Consulting Unavailable Wallace Hubbard MD Primary Care Provider Wallace Hubbard MD Primary Care Provider [phone] Gerardo RESIDENTIAL SUPERVISOR, Antoinette Unavailable Gerardo RESIDENTIAL SUPERVISOR, Antoinette Unavailable VICKI CARRILLOA Attending Unavailable ANTOINETTE CARRILLO Attending Unavailable GERARDO, ANTOINETTE Attending Unavailable GERARDO, ANTOINETTE Attending Unavailable Allergies Allergy Classification Reported Allergen(s) Allergy Type Date of Onset Reaction(s) Facility (1 source) Amino Acids Drug Allergy [facility] Repository (17 sources) Lisinopril Allergy to substance 09-30-2023 Unknown [facility] Work Phone: Medications Current Medications Medication [...] (Tenormin) 25 MG tablet Indications: Primary hypertension ([facility]/HCC) Take 1 tablet (25 mg) by mouth [...] Coronary arteriosclerosis; Translations: [Atherosclerotic heart disease of [place] coronary artery without angina pectoris] Onset: 4 [...] Onset: 10-15-2023 10-15-2023 Other aftercare (1 source) 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; Translations: [RN PROGRESSIVE CARE CURRENT USE OF ASPIRIN] Onset: 01-10-2022 Episodic Other aftercare (1 source) Other reference investigator (current) drug therapy; Translations: [OTH RN PROGRESSIVE CARE CURRENT DRUG THERAPY] Onset: 01-10-2022 Episodic Other [...] distribution width (RBC) [Ratio] 13.1 % 11.0-15.0 [facility] Estimated glomerular filtrat ion rate (GFR) non- Americanon 04-06-2024 GFR/1.73 sq M.predicted among non-blacks MDRD (S/P/Bld) [Vol rate/Area] 35 mL/min/{1.73_m2} Low >=60 [facility] CBC WITH PLATELET NO DI FFERENTIALon 04-06-2024 Erythrocyte distribution width (RBC) [Ratio] 13.1 % 11.0 - 15.0 % [facility] Healthcare Hematocrit (Bld) [Volume fraction] 37.7 % Low 42.0 - 54.0 % [facility] Healthcar e Hemoglobin (Bld) [Mass/Vol] 12.5 g/dL Low 14.0 - 18.0 g/dL [facility] Interpretation and review of laboratory results Abnormal [facility] MCH (RBC) [Entitic mass] 29.1 pg 25.9 - 34.0 pg [facility] MCHC (RBC) [Mass/Vol] 33.2 g/dL 29.9 - 35.2 g/dL [facility] MCV (RBC) [Entitic vol] 87.9 fL 80.0 - 94.0 fL [facility] Platelet mean volume (Bld) [Entitic vol] 9.1 fL Low 9.5 - 13.5 fL [facility] Healthc are TBH PLT 269 [facility] e TBH RBC 4.29 Low [facility] WBC 10.5 [facility] Auto (Bld) [Volum e fraction]on 04-06-2024 Hematocrit (Bld) [Volume fraction] 37.7 % Low 42.0-54.0 [facility] Hemoglobin [Mass/volume] in Bloodon 04-06-2024 Hemoglobin (Bld) [Mass/Vol] 12.5 g/dL Low 14.0-18.0 [facility] Iron binding capacity [Mass/ volume] in Serum or Plasmaon 04-06-2024 Iron binding capacity [Mass/Vol] 265.0 ug/dL 250.0-450.0 [facility] Iron saturation [Mass Fracti on] in Serum or Plasmaon 04-06-2024 Iron saturation [Mass fraction] 30.2 % [facility] Laboratory - Chemistry and C hemistry - challengeon 04-06-2024 Albumin [Mass/Vol] 3.5 g/dL 3.4-5.0 [facility] Calcium [Mass/Vol] 8.9 mg/dL 8.5-10.1 [facility] Chloride [Moles/Vol] 106 mmol/L 98-107 [facility] CO2 [Moles/Vol] 28.3 mmol/L 21.0-32.0 [facility] Creatinine [Mass/Vol] 1.87 mg/dL High 0.70-1.30 [facility] Ferritin [Mass/Vol] 283.0 ng/mL 26.0-388.0 [facility] GFR/1.73 sq M.predicted MDRD (S/P/Bld) [Vol rate/Area] 42 mL/min/{1.73_m2} Low >=60 [facility] Glucose [Mass/Vol] 101 mg/dL 74-106 [facility] Iron [Mass/Vol] 80.0 ug/dL 65.0-175.0 [facility] Magnesium [Mass/Vol] 1.8 mg/dL 1.8-2.4 [facility] Potassium [Moles/Vol] 4.0 mmol/L 3.5-5.1 [facility] Sodium [Moles/Vol] 142 mmol/L 136-145 [facility] Urate [Mass/Vol] 8.2 mg/dL High 3.5-7.2 [facility] Urea nitrogen [Mass/Vol] 27.0 mg/dL High 7.0-18.0 [facility] Urea nitrogen/Creatinine [Mass ratio] 14.4 mg/mg [facility] Bilirubin Ql (U) Negative NEGATIVE [facility] Glucose (U) [Mass/Vol] Negative NEGATIVE [facility] Ketones Ql (U) Negative NEGATIVE [facility] pH (U) 5.5 [pH] 5.0-9.0 [facility] Specific gravity (U) [Rel density] 1.025 1.005-1.025 [facility] Urobilinogen Qn (U) 0.2 {Katerina'U}/dL 0.2-1.0 [facility] Laboratory - Specimen inform ationon 04-06-2024 Appearance (U) CLEAR CLEAR [facility] Color (U) YELLOW YELLOW [facility] Laboratory - Urinalysison Leukocyte esterase Test strip Ql (U) Negative NEGATIVE [facility] Mucus Ql (Urine sed) SMALL Abnormal NONE SEEN [facility] Nitrite Ql (U) Negative NEGATIVE [facility] Protein (U) [Mass/Vol] 21.1 mg/dL High <=11.9 [facility] Protein Ql (U) Negative NEG/TRACE [facility] Leukocytes [#/volume] correc radha for nucleated erythrocytes in Blood by Automated counon 04-06-2024 WBC corrected for nucl RBC Auto (Bld) [#/Vol] 10.5 10 3/uL 4.0-11.0 [facility] MCH Auto (RBC) [Entitic mass ]on 04-06-2024 MCH (RBC) [Entitic mass] 29.1 pg 25.9-34.0 [facility] MCHC Auto (RBC) [Mass/Vol]on 04-06-2024 MCHC (RBC) [Mass/Vol] 33.2 g/dL 29.9-35.2 [facility] MCV Auto (RBC) [Entitic vol] on 04-06-2024 MCV (RBC) [Entitic vol] 87.9 fL 80.0-94.0 [facility] No Panel Informationon 04-06 25-Hydroxy Vitamin D Total 46.3 ng/mL [facility] Comment on above: <20 ng/mL Vit D defi cient20-<30 ng/mL Vit D exhzoobofcdn94-057 ng/mL Vit D sufficient>100 ng/mL Potential Toxicity Parathyroid Hormone (Intact) 70 pg/mL Abnormal 15-65 [facility] Comment on above: Performed at: [facility] [address] [id number] Director: Jatin Vegas PhD, Phone: [phone] Phosphorus Level 3.3 mg/dL 2.6-4.7 [facility] Urine Bacteria NONE SEEN #/HPF NONE SEEN [facility] Urine Occult Blood Negative NEGATIVE [facility] Urine Random Creatinine 141.49 mg/dL 20.00-300.00 [facility] Urine RBC NONE SEEN #/HPF 0-2 [facility] Urine Squamous Epithelial Cells FEW #/LPF Abnormal NONE/RARE [facility] Urine WBC NONE SEEN #/HPF NONE SEEN [facility] Platelet mean volume Auto (B ld) [Entitic vol]on 04-06-2024 Platelet mean volume (Bld) [Entitic vol] 9.1 fL Low 9.5-13.5 [facility] Platelets Auto (Bld) [#/Vol] on 04-06-2024 Platelets (Bld) [#/Vol] 269 10 3/uL 150-450 [facility] RBC Auto (Bld) [#/Vol]on RBC (Bld) [#/Vol] 4.29 10 6/uL Low 4.70-6.10 [facility] Serum or plasma anion gap de terminationon 04-06-2024 Anion gap [Moles/Vol] 11.7 mmol/L [facility] Urine protein/creatinine rat ioon 04-06-2024 Protein/Creatinine (U) [Ratio] 0.15 [facility] BUNon 10-24-2022 Urea nitrogen [Mass/Vol] 30.0 mg/dL Critically high 7.0-18.0 [facility] Comment on above: Performed By: #### B RESIDENTIAL SUPERVISOR, CMP, CMADM, TSH #### [facility] [address] [place] [address] Dr. Aliyah Fierro CREATININEon 10-24-2022 Creatinine [Mass/Vol] 1.97 mg/dL Critically high 0.70-1.30 [facility] Comment on above: Performed By: #### B RESIDENTIAL SUPERVISOR, CMP, CMADM, TSH #### [facility] [address] [address] [address] Aliyah Fierro EGFR-AF LEBANESE 40 mL/min/1.73m2 Critically low >=60 [facility] Comment on above: Performed By: #### B RESIDENTIAL SUPERVISOR, CMP, CMADM, TSH #### [facility] [address] [address] [address] Aliyah Fierro EGFR-NON AF LEBANESE 33 mL/min/1.73m2 Critically low >=60 [facility] Comment on above: Performed By: #### B RESIDENTIAL SUPERVISOR, CMP, CMADM, TSH #### [facility] [address] [address] [address] Aliyah Fierro CREATININEon 10-21-2022 Creatinine [Mass/Vol] 2.10 mg/dL Critically high 0.70-1.30 [facility] Comment on above: Performed By: #### B RESIDENTIAL SUPERVISOR, CMP, CMADM, TSH #### [facility] [address] [address] [address] Aliyah Fierro EGFR-AF LEBANESE 37 mL/min/1.73m2 Critically low >=60 [facility] Comment on above: Performed By: #### B RESIDENTIAL SUPERVISOR, CMP, CMADM, TSH #### [facility] [address], [place] [address] Dr. Aliyah Fierro EGFR-NON AF LEBANESE 31 mL/min/1.73m2 Critically low >=60 [facility] Comment on above: Performed By: #### B RESIDENTIAL SUPERVISOR, CMP, CMADM, TSH #### [facility] [address], [place] [address] Dr. Aliyah Fierro CTA ABD JESS WWO [...] WEBSTER Date: 2022-10-21 15:35 Normal [facility] US CAROTID ART BILon 023 US CAROTID [...] WEBSTER Date: 2022-10-21 15:38 Normal [facility] LIPID PROFILEon 10-09-2022 CHOL-HDL RATIO NORM SEE BELOW Normal [facility] Comment on above: Result Comment: 3.3 - 4.4 LOW RISK 4.4 - 7.1 AVERAGE RISK 7.1 - 11.0 MODERATE RISK >11.0 HIGH RISK Performed By: #### L IVER, LIPID #### [facility] [address] [place] [address] Dr. Aliyah Fierro Cholesterol [Mass/Vol] 190 mg/dL Normal <=200 [facility] Comment on above: Performed By: #### L IVER, LIPID #### [facility] [address] [place] [address] Dr. Aliyah Fierro Cholesterol in HDL [Mass/Vol] 40 mg/dL Normal 40-60 [facility] Comment on above: Performed By: #### L IVER, LIPID #### [facility] [address] [address] [address] Aliyah Fierro Cholesterol in LDL [Mass/Vol] 108.4 mg/dL Normal [facility] Comment on above: Performed By: #### L IVER, LIPID #### [facility] [address] [address] [address] Aliyah Fierro Cholesterol.total/Ch olesterol in HDL [Mass ratio] 4.8 {ratio} Normal [facility] Comment on above: Performed By: #### L IVER, LIPID #### [facility] [address] [address] [address] Aliyah Fierro HDL NORMAL > or = 60 mg/dl - LOW CARDIOVASCULAR RISK <40 mg/dl - HIGH CARDIOVASCULAR RISK Normal [facility] Comment on above: Performed By: #### L IVER, LIPID #### [facility] [address] [address] [address] Aliyah Fierro LDL CALC NORMAL SEE BELOW Normal [facility] Comment on above: Result Comment: <100 mg/dl OPTIMAL 100 - 129 mg/dl NEAR OR ABOVE OPTIMAL 130 - 159 mg/dl BORDERLINE HIGH 160 - 189 mg/dl HIGH >190 mg/dl VERY HIGH Performed By: #### L IVER, LIPID #### [facility] [address] [address] [address] Aliyah Fierro Triglyceride [Mass/Vol] 208 mg/dL Critically high <=150 [facility] Comment on above: Performed By: #### L IVER, LIPID #### [facility] [address] [address] [address] Aliyah Fierro VLDL CALC 41.6 mg/dL Normal [facility] Comment on above: Performed By: #### L IVER, LIPID #### [facility] [address] [address] [address] Aliyah Fierro LIVER PROFILEon 10-09-2022 Albumin [Mass/Vol] 4.0 g/dL Normal 3.4-5.0 [facility] Comment on above: Performed By: #### L IVER, LIPID #### [facility] [address] [address] [address] Aliyah Fierro Albumin/Globulin [Mass ratio] 1.4 {ratio} Normal [facility] Comment on above: Performed By: #### L IVER, LIPID #### [facility] [address] [address] [address] Aliyah Fierro ALP [Catalytic activity/Vol] 80 U/L Normal 46-116 [facility] Comment on above: Performed By: #### L IVER, LIPID #### [facility] [address] [address] [address] Aliyah Fierro ALT [Catalytic activity/Vol] 25 U/L Normal 16-63 [facility] Comment on above: Performed By: #### L IVER, LIPID #### [facility] [address] [address] [address] Aliyah Fierro AST [Catalytic activity/Vol] 22 U/L Normal 15-37 [facility] Comment on above: Performed By: #### L IVER, LIPID #### [facility] [address] [address] [address] Aliyah Fierro BILI, CONJUGATED 0.1 mg/dL Normal 0.0-0.2 [facility] Comment on above: Performed By: #### L IVER, LIPID #### [facility] [address] [address] [address] Aliyah Fierro Bilirubin [Mass/Vol] 0.4 mg/dL Normal 0.2-1.0 [facility] Comment on above: Performed By: #### L IVER, LIPID #### [facility] [address] [address] [address] Aliyah Fierro Globulin (S) [Mass/Vol] 2.8 g/dL Normal [facility] Comment on above: Performed By: #### L IVER, LIPID #### [facility] [address] [address] [address] Aliyah Fierro Protein [Mass/Vol] 6.8 g/dL Normal 6.4-8.2 [facility] Comment on above: Performed By: #### L IVER, LIPID #### [facility] [address] [address] [address] Aliyah Fierro US ARTERY LEG BILon [...] BUBBA BASURTO Date: 2022-09-13 06:13 Normal [facility] PTH INTACTon 08-27-2022 PTH, Intact 63 pg/mL Normal 15-65 [facility] Comment on above: Performed By: #### L IVMILLY LIPID #### [facility] [address] [place] [address] Dr. Aliyah Fierro FERRITINon 08-26-2022 Ferritin [Mass/Vol] 200.0 ng/mL Normal 26.0-388.0 [facility] Comment on above: Performed By: #### L ADRIAN LIPID #### [facility] [address] [place] [address] Dr. Aliyah Fierro HEMOGRAM AND PLATELon 2022 Hematocrit (Bld) [Volume fraction] 36.1 % Critically low 42.0-54.0 [facility] Comment on above: Performed By: #### H H #### [facility] [address] [place] [address] Dr. Aliyah Fierro Hemoglobin (Bld) [Mass/Vol] 12.9 g/dL Critically low 14.0-18.0 [facility] Comment on above: Performed By: #### H H #### [facility] [address] [place] [address] Dr. Aliyah Fierro MCH (RBC) [Entitic mass] 28.9 pg Normal 25.9-34.0 [facility] Comment on above: Performed By: #### H H #### [facility] [address] [place] [address] Dr. Aliyah Fierro MCHC (RBC) [Mass/Vol] 35.7 g/dL Critically high 29.9-35.2 [facility] Comment on above: Performed By: #### H H #### [facility] [address] [place] [address] Dr. Aliyah Fierro MCV (RBC) [Entitic vol] 80.8 fL Normal 80.0-94.0 [facility] Comment on above: Performed By: #### H H #### [facility] [address] [address] [address] Aliyah Fierro PLT 285 103/ul Normal 150-450 [facility] Comment on above: Performed By: #### H H #### [facility] [address] [place] [address] Dr. Aliyah Fierro RBC 4.47 106/ul Critically low 4.70-6.10 [facility] Comment on above: Performed By: #### H H #### [facility] [address] [address] [address] Aliyah Fierro WBC 7.6 103/ul Normal 4.0-11.0 [facility] Comment on above: Performed By: #### H H #### [facility] [address] [place] [address] Dr. Aliyah Fierro IRON AND TIBCon 08-26-2022 % SATURATION 34.5 % Normal [facility] Comment on above: Performed By: #### L ADRIAN LIPID #### [facility] [address] [place] [address] Dr. Aliyah Fierro Iron [Mass/Vol] 98.0 ug/dL Normal 65.0-175.[address] [facility] Comment on above: Performed By: #### Darrius CAMPBELL LIPID #### [facility] [address] [place] [address] Dr. Aliyah Fierro TIBC DIRECT 284.0 ug/dL Normal 250.0-450.0 [facility] Comment on above: Performed By: #### Darrius CAMPBELL LIPID #### [facility] [address] [place] [address] Dr. Aliyah Fierro MAGNESIUMon 08-26-2022 Magnesium [Mass/Vol] 1.8 mg/dL Normal 1.8-2.4 [facility] Comment on above: Performed By: #### B RESIDENTIAL SUPERVISOR, CMP, CMADM, TSH #### [facility] [address] [place] [address] Dr. Aliyah Fierro RENAL FUNCTION PANELon 08-26 Albumin [Mass/Vol] 3.9 g/dL Normal 3.4-5.0 [facility] Comment on above: Performed By: #### B RESIDENTIAL SUPERVISOR, CMP, CMADM, TSH #### [facility] [address] [address] [address] Aliyah Fierro Calcium [Mass/Vol] 8.6 mg/dL Normal 8.5-10.1 [facility] Comment on above: Performed By: #### B RESIDENTIAL SUPERVISOR, CMP, CMADM, TSH #### [facility] [address] [address] [address] Aliyah Fierro Chloride [Moles/Vol] 103 mmol/L Normal 98-107 [facility] Comment on above: Performed By: #### B RESIDENTIAL SUPERVISOR, CMP, CMADM, TSH #### [facility] [address] [address] [address] Aliyah Fierro CO2 [Moles/Vol] 26.8 mmol/L Normal 21.0-32.0 [facility] Comment on above: Performed By: #### B RESIDENTIAL SUPERVISOR, CMP, CMADM, TSH #### [facility] [address] [place] [address] Dr. Aliyah Fierro Creatinine [Mass/Vol] 1.94 mg/dL Critically high 0.70-1.30 [facility] Comment on above: Performed By: #### B RESIDENTIAL SUPERVISOR, CMP, CMADM, TSH #### [facility] [address] [place] [address] Dr. Aliyah Fierro EGFR-AF LEBANESE 41 mL/min/1.73m2 Critically low >=60 [facility] Comment on above: Performed By: #### B RESIDENTIAL SUPERVISOR, CMP, CMADM, TSH #### [facility] [address] [place] [address] Dr. Aliyah Fierro EGFR-NON AF LEBANESE 33 mL/min/1.73m2 Critically low >=60 [facility] Comment on above: Performed By: #### B RESIDENTIAL SUPERVISOR, CMP, CMADM, TSH #### [facility] [address] [place] [address] Dr. Aliyah Fierro Glucose [Mass/Vol] 97 mg/dL Normal 74-106 [facility] Comment on above: Performed By: #### B RESIDENTIAL SUPERVISOR, CMP, CMADM, TSH #### [facility] [address] [place] [address] Dr. Aliyah Fierro Phosphate [Mass/Vol] 3.7 mg/dL Normal 2.6-4.7 [facility] Comment on above: Performed By: #### B RESIDENTIAL SUPERVISOR, CMP, CMADM, TSH #### [facility] [address] [place] [address] Dr. Aliyah Fierro Potassium [Moles/Vol] 4.3 mmol/L Normal 3.5-5.1 [facility] Comment on above: Performed By: #### B RESIDENTIAL SUPERVISOR, CMP, CMADM, TSH #### [facility] [address] [place] [address] Dr. Aliyah Fierro Sodium [Moles/Vol] 140 mmol/L Normal 136-145 [facility] Comment on above: Performed By: #### B RESIDENTIAL SUPERVISOR, CMP, CMADM, TSH #### [facility] [address] [place] [address] Dr. Aliyah Fierro Urea nitrogen [Mass/Vol] 27.0 mg/dL Critically high 7.0-18.0 [facility] Comment on above: Performed By: #### B RESIDENTIAL SUPERVISOR, CMP, CMADM, TSH #### [facility] [address] [place] [address] Dr. Aliyah Fierro UA RANDOM W/MICROSCOPICon BACTERIA NONE SEEN Normal NONE SEEN [facility] Comment on above: Performed By: #### B RESIDENTIAL SUPERVISOR, CMP, CMADM, TSH #### [facility] [address] [place] [address] Dr. Aliyah Fierro Bilirubin Ql (U) Negative Normal NEGATIVE [facility] Comment on above: Performed By: #### B RESIDENTIAL SUPERVISOR, CMP, CMADM, TSH #### [facility] [address] [place] [address] Dr. Aliyah Fierro CAST NONE SEEN Normal NONE SEEN [facility] Comment on above: Performed By: #### B RESIDENTIAL SUPERVISOR, CMP, CMADM, TSH #### [facility] [address] [place] [address] Dr. Aliyah Fierro Clarity (U) CLEAR Normal CLEAR [facility] Comment on above: Performed By: #### B RESIDENTIAL SUPERVISOR, CMP, CMADM, TSH #### [facility] [address] [address] [address] Aliyah Fierro Color (U) LT. YELLOW Normal YELLOW [facility] Comment on above: Performed By: #### B RESIDENTIAL SUPERVISOR, CMP, CMADM, TSH #### [facility] [address] [address] [address] Aliyah Fierro Crystals LM Nom (Urine sed) NONE SEEN Normal NONE SEEN [facility] Comment on above: Performed By: #### B RESIDENTIAL SUPERVISOR, CMP, CMADM, TSH #### [facility] [address] [address] [address] Aliyah Fierro Epithelial cells LM Ql (Urine sed) RARE Normal NONE SEEN /RARE [facility] Comment on above: Performed By: #### B RESIDENTIAL SUPERVISOR, CMP, CMADM, TSH #### [facility] [address] [place] [address] Dr. Aliyah Fierro Glucose Ql (U) Negative Normal NEGATIVE [facility] Comment on above: Performed By: #### B RESIDENTIAL SUPERVISOR, CMP, CMADM, TSH #### [facility] [address] [address] [address] Aliyah Fierro Hemoglobin Ql (U) Negative Normal NEGATIVE [facility] Comment on above: Performed By: #### B RESIDENTIAL SUPERVISOR, CMP, CMADM, TSH #### [facility] [address] [address] [address] Aliyah Fierro Ketones Ql (U) Negative Normal NEGATIVE [facility] Comment on above: Performed By: #### B RESIDENTIAL SUPERVISOR, CMP, CMADM, TSH #### [facility] [address] [address] [address] Aliyah Fierro LEUKOCYTES Negative Normal NEGATIVE [facility] Comment on above: Performed By: #### B RESIDENTIAL SUPERVISOR, CMP, CMADM, TSH #### [facility] [address] [address] [address] Aliyah Fierro MUCOUS NONE SEEN Normal NONE SEEN [facility] Comment on above: Performed By: #### B RESIDENTIAL SUPERVISOR, CMP, CMADM, TSH #### [facility] [address] [address] [address] Aliyah Fierro Nitrite Ql (U) Negative Normal NEGATIVE [facility] Comment on above: Performed By: #### B RESIDENTIAL SUPERVISOR, CMP, CMADM, TSH #### [facility] [address] [place] [address] Dr. Aliyah Fierro pH (U) 5.5 [pH] Normal 5-9 [facility] Comment on above: Performed By: #### B RESIDENTIAL SUPERVISOR, CMP, CMADM, TSH #### [facility] [address] [address] [address] Aliyah Fierro RBC NONE SEEN Abnormal 0-2 [facility] Comment on above: Performed By: #### B RESIDENTIAL SUPERVISOR, CMP, CMADM, TSH #### [facility] [address] [place] [address] Dr. Aliyah Fierro SPEC GRAVITY 1.020 Normal 1.005-<=1.[address] [facility] Comment on above: Performed By: #### B RESIDENTIAL SUPERVISOR, CMP, CMADM, TSH #### [facility] [address] [place] [address] Dr. Aliyah Fierro UA PROTEIN Negative Normal NEGATIVE/ TRACE [facility] Comment on above: Performed By: #### B RESIDENTIAL SUPERVISOR, CMP, CMADM, TSH #### [facility] [address] [place] [address] Dr. Aliyah Fierro Urobilinogen Qn (U) 0.2 {Katerina'U}/dL Normal 0.2 - 1. 0 [facility] Comment on above: Performed By: #### B RESIDENTIAL SUPERVISOR, CMP, CMADM, TSH #### [facility] [address] [place] [address] Dr. Aliyah Fierro WBC NONE SEEN Normal NONE SEEN [facility] Comment on above: Performed By: #### B RESIDENTIAL SUPERVISOR, CMP, CMADM, TSH #### [facility] [address] [place] [address] Dr. Aliyah Fierro URIC ACID SERUMon 08-26-2022 Urate [Mass/Vol] 8.0 mg/dL Critically high 3.5-7.2 [facility] Comment on above: Performed By: #### B RESIDENTIAL SUPERVISOR, CMP, CMADM, TSH #### [facility] [address] [address] [address] Aliyah Fierro URINE T PROTEIN CREAT RATIOo n 08-26-2022 Protein (U) [Mass/Vol] 11.7 mg/dL Normal <=12.0 [facility] Comment on above: Performed By: #### L IVER, LIPID #### [facility] [address] [address] [address] Aliyah Fierro UR PROT CREAT RAT 0.09 Normal [facility] Comment on above: Performed By: #### L IVER, LIPID #### [facility] [address] [address] [address] Aliyah Fierro URINE CREAT 124.42 mg/dL Normal 20.00-300.00 [facility] Comment on above: Performed By: #### L IVER, LIPID #### [facility] [address] [address] [address] Aliyah Fierro VITAMIN D 25 OHon 08-26-2022 VIT D 25-OH 46.3 ng/mL Normal [facility] Comment on above: Performed By: #### L IVER, LIPID #### [facility] [address] [address] [address] Aliyah Fierro VIT D RANGES SEE BELOW Normal [facility] Comment on above: Result Comment: <20 ng/mL Vit D deficient 20 - <30 ng/mL Vit D insufficient 30 - 100 ng/mL Vit D sufficient >100 ng/mL Potential Toxicity Performed By: #### L IVER, LIPID #### [facility] [address] [address] [address] Aliyah Fierro XR CHEST 2 Von [...] BUBBA BASURTO Date: 2022-02-11 20:54 Normal [facility] PTH INTACTon 01-29-2022 PTH, Intact 58 pg/mL Normal 15-65 [facility] Comment on above: Performed By: #### L IVER, LIPID #### [facility] [address] [place] [address] Dr. Aliyah Fierro FERRITINon 01-28-2022 Ferritin [Mass/Vol] 199.0 ng/mL Normal 26.0-388.0 [facility] Comment on above: Performed By: #### L ADRIAN, LIPID #### [facility] [address] [place] [address] Dr. Aliyah Fierro HEMOGRAM AND PLATELon 2021 Hematocrit (Bld) [Volume fraction] 39.0 % Critically low 42.0-54.0 [facility] Comment on above: Performed By: #### B RESIDENTIAL SUPERVISOR, CMP, CMADM, TSH #### [facility] [address] [place] [address] Dr. Aliyah Fierro Hemoglobin (Bld) [Mass/Vol] 13.1 g/dL Critically low 14.0-18.0 [facility] Comment on above: Performed By: #### B RESIDENTIAL SUPERVISOR, CMP, CMADM, TSH #### [facility] [address] [place] [address] Dr. Aliyah Fierro MCH (RBC) [Entitic mass] 29.4 pg Normal 25.9-34.0 [facility] Comment on above: Performed By: #### B RESIDENTIAL SUPERVISOR, CMP, CMADM, TSH #### [facility] [address] [place] [address] Dr. Aliyah Fierro MCHC (RBC) [Mass/Vol] 33.6 g/dL Normal 29.9-35.2 [facility] Comment on above: Performed By: #### B RESIDENTIAL SUPERVISOR, CMP, CMADM, TSH #### [facility] [address] [place] [address] Dr. Aliyah Fierro MCV (RBC) [Entitic vol] 87.4 fL Normal 80.0-94.0 [facility] Comment on above: Performed By: #### B RESIDENTIAL SUPERVISOR, CMP, CMADM, TSH #### [facility] [address] [place] [address] Dr. Aliyah Fierro PLT 309 103/ul Normal 150-450 [facility] Comment on above: Performed By: #### B RESIDENTIAL SUPERVISOR, CMP, CMADM, TSH #### [facility] [address] [place] [address] Dr. Aliyah Fierro RBC 4.46 106/ul Critically low 4.70-6.10 [facility] Comment on above: Performed By: #### B RESIDENTIAL SUPERVISOR, CMP, CMADM, TSH #### [facility] [address] [place] [address] Dr. Aliyah Fierro WBC 8.4 103/ul Normal 4.0-11.0 [facility] Comment on above: Performed By: #### B RESIDENTIAL SUPERVISOR, CMP, CMADM, TSH #### [facility] [address] [place] [address] Dr. Aliyah Fierro IRON AND TIBCon 01-28-2022 % SATURATION 31.0 % Normal [facility] Comment on above: Performed By: #### L ADRIAN, LIPID #### [facility] [address] [place] [address] Dr. Aliyah Fierro Iron [Mass/Vol] 93.0 ug/dL Normal 65.0-175.[address] [facility] Comment on above: Performed By: #### L ADRIAN, LIPID #### [facility] [address] [place] [address] Dr. Aliyah Fierro TIBC DIRECT 300.0 ug/dL Normal 250.0-450.0 [facility] Comment on above: Performed By: #### L IVMILLY, LIPID #### [facility] [address] [place] [address] Dr. Aliyah Fierro MAGNESIUMon 01-28-2022 Magnesium [Mass/Vol] 2.0 mg/dL Normal 1.8-2.4 [facility] Comment on above: Performed By: #### B RESIDENTIAL SUPERVISOR, CMP, CMADM, TSH #### [facility] [address] [place] [address] Dr. Aliyah Fierro RENAL FUNCTION PANELon 01-28 Albumin [Mass/Vol] 4.2 g/dL Normal 3.4-5.0 [facility] Comment on above: Performed By: #### B RESIDENTIAL SUPERVISOR, CMP, CMADM, TSH #### [facility] [address] [place] [address] Dr. Aliyah Fierro Calcium [Mass/Vol] 8.8 mg/dL Normal 8.5-10.1 The [facility] Comment on above: Performed By: #### B RESIDENTIAL SUPERVISOR, CMP, CMADM, TSH #### [facility] [address] [place] [address] Dr. Aliyah Fierro Chloride [Moles/Vol] 104 mmol/L Normal 98-107 [facility] Comment on above: Performed By: #### B RESIDENTIAL SUPERVISOR, CMP, CMADM, TSH #### [facility] [address] [place] [address] Dr. Aliyah Fierro CO2 [Moles/Vol] 26.0 mmol/L Normal 21.0-32.0 [facility] Comment on above: Performed By: #### B RESIDENTIAL SUPERVISOR, CMP, CMADM, TSH #### [facility] [address] [place] [address] Dr. Aliyah Fierro Creatinine [Mass/Vol] 2.23 mg/dL Critically high 0.70-1.30 [facility] Comment on above: Performed By: #### B RESIDENTIAL SUPERVISOR, CMP, CMADM, TSH #### [facility] [address] [place] [address] Dr. Aliyah Fierro EGFR-AF LEBANESE 35 mL/min/1.73m2 Critically low >=60 [facility] Comment on above: Performed By: #### B RESIDENTIAL SUPERVISOR, CMP, CMADM, TSH #### [facility] [address] [place] [address] Dr. Aliyah Fierro EGFR-NON AF LEBANESE 29 mL/min/1.73m2 Critically low >=60 [facility] Comment on above: Performed By: #### B RESIDENTIAL SUPERVISOR, CMP, CMADM, TSH #### [facility] [address] [place] [address] Dr. Aliyah Fierro Glucose [Mass/Vol] 107 mg/dL Critically high 74-106 [facility] Comment on above: Performed By: #### B RESIDENTIAL SUPERVISOR, CMP, CMADM, TSH #### [facility] [address] [address] [address] Aliyah Fierro Phosphate [Mass/Vol] 3.8 mg/dL Normal 2.6-4.7 [facility] Comment on above: Performed By: #### B RESIDENTIAL SUPERVISOR, CMP, CMADM, TSH #### [facility] [address] [address] [address] Aliyah Fierro Potassium [Moles/Vol] 4.7 mmol/L Normal 3.5-5.1 [facility] Comment on above: Performed By: #### B RESIDENTIAL SUPERVISOR, CMP, CMADM, TSH #### [facility] [address] [place] [address] Dr. Aliyah Fierro Sodium [Moles/Vol] 138 mmol/L Normal 136-145 [facility] Comment on above: Performed By: #### B RESIDENTIAL SUPERVISOR, CMP, CMADM, TSH #### [facility] [address] [address] [address] Aliyah Fierro Urea nitrogen [Mass/Vol] 33.0 mg/dL Critically high 7.0-18.0 [facility] Comment on above: Performed By: #### B RESIDENTIAL SUPERVISOR, CMP, CMADM, TSH #### [facility] [address] [address] [address] Aliyah Fierro UA RANDOM W/MICROSCOPICon BACTERIA NONE SEEN Normal NONE SEEN [facility] Comment on above: Performed By: #### B RESIDENTIAL SUPERVISOR, CMP, CMADM, TSH #### [facility] [address] [address] [address] Aliyah Fierro Bilirubin Ql (U) Negative Normal NEGATIVE [facility] Comment on above: Performed By: #### B RESIDENTIAL SUPERVISOR, CMP, CMADM, TSH #### [facility] [address] [address] [address] Aliyah Fierro CAST NONE SEEN Normal NONE SEEN [facility] Comment on above: Performed By: #### B RESIDENTIAL SUPERVISOR, CMP, CMADM, TSH #### [facility] [address] [address] [address] Aliyah Fierro Clarity (U) CLEAR Normal CLEAR [facility] Comment on above: Performed By: #### B RESIDENTIAL SUPERVISOR, CMP, CMADM, TSH #### [facility] [address] [address] [address] Aliyah Fierro Color (U) LT. YELLOW Normal YELLOW [facility] Comment on above: Performed By: #### B RESIDENTIAL SUPERVISOR, CMP, CMADM, TSH #### [facility] [address] [address] [address] Aliyah Fierro Crystals LM Nom (Urine sed) NONE SEEN Normal NONE SEEN [facility] Comment on above: Performed By: #### B RESIDENTIAL SUPERVISOR, CMP, CMADM, TSH #### [facility] [address] [address] [address] Aliyah Fierro Epithelial cells LM Ql (Urine sed) NONE SEEN Normal NONE SEEN /RARE [facility] Comment on above: Performed By: #### B RESIDENTIAL SUPERVISOR, CMP, CMADM, TSH #### [facility] [address] [place] [address] Dr. Aliyah Fierro Glucose Ql (U) Negative Normal NEGATIVE [facility] Comment on above: Performed By: #### B RESIDENTIAL SUPERVISOR, CMP, CMADM, TSH #### [facility] [address] [address] [address] Aliyah Fierro Hemoglobin Ql (U) Negative Normal NEGATIVE [facility] Comment on above: Performed By: #### B RESIDENTIAL SUPERVISOR, CMP, CMADM, TSH #### [facility] [address] [address] [address] Aliyah Fierro Ketones Ql (U) Negative Normal NEGATIVE [facility] Comment on above: Performed By: #### B RESIDENTIAL SUPERVISOR, CMP, CMADM, TSH #### [facility] [address] [address] [address] Aliyah Fierro LEUKOCYTES Negative Normal NEGATIVE [facility] Comment on above: Performed By: #### B RESIDENTIAL SUPERVISOR, CMP, CMADM, TSH #### [facility] [address] [address] [address] Aliyah Fierro MUCOUS NONE SEEN Normal NONE SEEN [facility] Comment on above: Performed By: #### B RESIDENTIAL SUPERVISOR, CMP, CMADM, TSH #### [facility] [address] [address] [address] Aliyah Fierro Nitrite Ql (U) Negative Normal NEGATIVE [facility] Comment on above: Performed By: #### B RESIDENTIAL SUPERVISOR, CMP, CMADM, TSH #### [facility] [address] [address] [address] Aliyah Fierro pH (U) 5.5 [pH] Normal 5-9 [facility] Comment on above: Performed By: #### B RESIDENTIAL SUPERVISOR, CMP, CMADM, TSH #### [facility] [address] [place] [address] Dr. Aliyah Fierro RBC NONE SEEN Abnormal 0-2 [facility] Comment on above: Performed By: #### B RESIDENTIAL SUPERVISOR, CMP, CMADM, TSH #### [facility] [address] [place] [address] Dr. Aliyah Fierro SPEC GRAVITY 1.020 Normal 1.005-<=1.[address] [facility] Comment on above: Performed By: #### B RESIDENTIAL SUPERVISOR, CMP, CMADM, TSH #### [facility] [address] [place] [address] Dr. Aliyah Fierro UA PROTEIN Negative Normal NEGATIVE/ TRACE [facility] Comment on above: Performed By: #### B RESIDENTIAL SUPERVISOR, CMP, CMADM, TSH #### [facility] [address] [place] [address] Dr. Aliyah Fierro Urobilinogen Qn (U) 0.2 {Katerina'U}/dL Normal 0.2 - 1. 0 [facility] Comment on above: Performed By: #### B RESIDENTIAL SUPERVISOR, CMP, CMADM, TSH #### [facility] [address] [place] [address] Dr. Aliyah Fierro WBC NONE SEEN Normal NONE SEEN [facility] Comment on above: Performed By: #### B RESIDENTIAL SUPERVISOR, CMP, CMADM, TSH #### [facility] [address] [place] [address] Dr. Aliyah Fierro URIC ACID SERUMon 01-28-2022 Urate [Mass/Vol] 8.8 mg/dL Critically high 3.5-7.2 [facility] Comment on above: Performed By: #### B RESIDENTIAL SUPERVISOR, CMP, CMADM, TSH #### [facility] [address] [address] [address] Aliyah Fierro URINE T PROTEIN CREAT RATIOo n 01-28-2022 Protein (U) [Mass/Vol] 11.7 mg/dL Normal <=12.0 [facility] Comment on above: Performed By: #### U RTPCR #### [facility] [address] [place] [address] Dr. Aliyah Fierro UR PROT CREAT RAT 0.09 Normal [facility] Comment on above: Performed By: #### U RTPCR #### [facility] [address] [place] [address] Dr. Aliyah Fierro URINE CREAT 126.58 mg/dL Normal 20.00-300.00 [facility] Comment on above: Performed By: #### U RTPCR #### [facility] [address] [place] [address] Dr. Aliyah Fierro VITAMIN D 25 OHon 01-28-2022 VIT D 25-OH 40.0 ng/mL Normal [facility] Comment on above: Performed By: #### L ADRIAN LIPID #### [facility] [address] [place] [address] Dr. Aliyah Fierro VIT D RANGES SEE BELOW Normal [facility] Comment on above: Result Comment: <20 ng/mL Vit D deficient 20 - <30 ng/mL Vit D insufficient 30 - 100 ng/mL Vit D sufficient >100 ng/mL Potential Toxicity Performed By: #### L ADRIAN LIPID #### [facility] [address] [place] [address] Dr. Aliyah Fierro BNPon 01-09-2022 Natriuretic peptide B (Bld) [Mass/Vol] 218.0 pg/mL Normal <=1,800.0 [facility] Comment on above: Performed By: #### B RESIDENTIAL SUPERVISOR, CMP, CMADM, TSH #### [facility] [address] [address] [address] Aliyah Fierro CARDIAC HELLEN ADMITon 022 CK [Catalytic activity/Vol] 159 U/L Normal 39-308 [facility] Comment on above: Performed By: #### B RESIDENTIAL SUPERVISOR, CMP, CMADM, TSH #### [facility] [address] [address] [address] Aliyah Fierro CK.MB [Mass/Vol] 4.55 ng/mL Critically high <=3.60 [facility] Comment on above: Performed By: #### B RESIDENTIAL SUPERVISOR, CMP, CMADM, TSH #### [facility] [address] [address] [address] Aliyah Fierro HSTROP 9.0 pg/mL Normal 4.0-76.1 [facility] Comment on above: Result Comment: CUT- OFF POINTS HAVE BEEN ESTABLISHED BASED ON THE FOURTH UNIVERSAL DEFINITIONS OF MYOCARDIAL INFARCTION. THE UPPER REFERENCE LIMIT (URL) OF TROPONIN, DEFINED THE 99TH PERCENTILE OF cTnI DISTRIBUTION IN A REFERENCE POPULATION, HAS BEEN CONFIRMED THE DECISION THRESHOLD FOR [place] DIAGNOSIS. Performed By: #### B RESIDENTIAL SUPERVISOR, CMP, CMADM, TSH #### [facility] [address] [address] [address] Aliyah Fierro JAHAIRA 181 ng/mL Critically high 16-96 [facility] Comment on above: Performed By: #### B RESIDENTIAL SUPERVISOR, CMP, CMADM, TSH #### [facility] [address] [address] [address] Aliyah Fierro CBC AUTO DIFFon 01-09-2022 BASO # 0.0 103/ul Normal 0.0-0.1 [facility] Comment on above: Performed By: #### B RESIDENTIAL SUPERVISOR, CMP, CMADM, TSH #### [facility] [address] [address] [address] Aliyah Fierro Basophils/100 WBC (Bld) 0.3 % Normal 0.2-2.0 [facility] Comment on above: Performed By: #### B RESIDENTIAL SUPERVISOR, CMP, CMADM, TSH #### [facility] [address] [place] [address] Dr. Aliyah Fierro EO # 0.3 103/ul Normal 0.0-0.7 [facility] Comment on above: Performed By: #### B RESIDENTIAL SUPERVISOR, CMP, CMADM, TSH #### [facility] [address] [address] [address] Aliyah Fierro Eosinophils/100 WBC (Bld) 3.6 % Normal 0.9-7.0 [facility] Comment on above: Performed By: #### B RESIDENTIAL SUPERVISOR, CMP, CMADM, TSH #### [facility] [address] [address] [address] Aliyah Fierro Erythrocyte distribution width (RBC) [Ratio] 13.2 % Normal 11.0-15.0 [facility] Comment on above: Performed By: #### B RESIDENTIAL SUPERVISOR, CMP, CMADM, TSH #### [facility] [address] [place] [address] Dr. Aliyah Fierro Hematocrit (Bld) [Volume fraction] 38.8 % Critically low 42.0-54.0 [facility] Comment on above: Performed By: #### B RESIDENTIAL SUPERVISOR, CMP, CMADM, TSH #### [facility] [address] [place] [address] Dr. Aliyah Fierro Hemoglobin (Bld) [Mass/Vol] 13.2 g/dL Critically low 14.0-18.0 [facility] Comment on above: Performed By: #### B RESIDENTIAL SUPERVISOR, CMP, CMADM, TSH #### [facility] [address] [address] [address] Aliyah Fierro IG # 0.04 10e3/ul Critically high 0.00-0.03 [facility] Comment on above: Performed By: #### B RESIDENTIAL SUPERVISOR, CMP, CMADM, TSH #### [facility] [address] [address] [address] Aliyah Fierro IG % 0.4 % Normal 0.0-0.5 [facility] Comment on above: Performed By: #### B RESIDENTIAL SUPERVISOR, CMP, CMADM, TSH #### [facility] [address] [place] [address] Dr. Aliyah Fierro LYMPH # 1.6 103/ul Normal 1.2-3.8 [facility] Comment on above: Performed By: #### B RESIDENTIAL SUPERVISOR, CMP, CMADM, TSH #### [facility] [address] [place] [address] Dr. Aliyah Fierro Lymphocytes/100 WBC (Bld) 17.3 % Critically low 20.5-60.0 [facility] Comment on above: Performed By: #### B RESIDENTIAL SUPERVISOR, CMP, CMADM, TSH #### [facility] [address] [place] [address] Dr. Aliyah Fierro MANUAL DIFF REQ NO Normal [facility] Comment on above: Performed By: #### B RESIDENTIAL SUPERVISOR, CMP, CMADM, TSH #### [facility] [address] [place] [address] Dr. Aliyah Fierro MCH (RBC) [Entitic mass] 29.8 pg Normal 25.9-34.0 [facility] Comment on above: Performed By: #### B RESIDENTIAL SUPERVISOR, CMP, CMADM, TSH #### [facility] [address] [place] [address] Dr. Aliyah Fierro MCHC (RBC) [Mass/Vol] 34.0 g/dL Normal 29.9-35.2 [facility] Comment on above: Performed By: #### B RESIDENTIAL SUPERVISOR, CMP, CMADM, TSH #### [facility] [address] [place] [address] Dr. Aliyah Fierro MCV (RBC) [Entitic vol] 87.6 fL Normal 80.0-94.0 [facility] Comment on above: Performed By: #### B RESIDENTIAL SUPERVISOR, CMP, CMADM, TSH #### [facility] [address] [place] [address] Dr. Aliyah Fierro MONO # 1.0 103/ul Critically high 0.3-0.[address] [facility] Comment on above: Performed By: #### B RESIDENTIAL SUPERVISOR, CMP, CMADM, TSH #### [facility] [address] [place] [address] Dr. Aliyah Fierro Monocytes/100 WBC (Bld) 10.4 % Normal 1.7-12.0 [facility] Comment on above: Performed By: #### B RESIDENTIAL SUPERVISOR, CMP, CMADM, TSH #### [facility] [address] [place] [address] Dr. Aliyah Fierro NEUT # 6.2 103/ul Normal 1.4-6.5 [facility] Comment on above: Performed By: #### B RESIDENTIAL SUPERVISOR, CMP, CMADM, TSH #### [facility] [address] [place] [address] Dr. Aliyah Fierro Neutrophils/100 WBC (Bld) 68.0 % Normal 43.0-75.0 [facility] Comment on above: Performed By: #### B RESIDENTIAL SUPERVISOR, CMP, CMADM, TSH #### [facility] [address] [place] [address] Dr. Aliyah Fierro Platelet mean volume (Bld) [Entitic vol] 9.3 fL Critically low 9.5-13.5 [facility] Comment on above: Performed By: #### B RESIDENTIAL SUPERVISOR, CMP, CMADM, TSH #### [facility] [address] [place] [address] Dr. Aliyah Fierro PLT 297 103/ul Normal 150-450 [facility] Comment on above: Performed By: #### B RESIDENTIAL SUPERVISOR, CMP, CMADM, TSH #### [facility] [address] [place] [address] Dr. Aliyah Fierro RBC 4.43 106/ul Critically low 4.70-6.[address] [facility] Comment on above: Performed By: #### B RESIDENTIAL SUPERVISOR, CMP, CMADM, TSH #### [facility] [address] [place] [address] Dr. Aliyah Fierro WBC 9.2 103/ul Normal 4.0-11.0 [facility] Comment on above: Performed By: #### B RESIDENTIAL SUPERVISOR, CMP, CMADM, TSH #### [facility] [address] [place] [address] Dr. Aliyah Fierro ER URINE PROFILEon 2 Bilirubin Ql (U) Negative Normal NEGATIVE [facility] Comment on above: Performed By: #### E RUR #### [facility] [address] [place] [address] Dr. Aliyah Fierro Clarity (U) CLEAR Normal CLEAR [facility] Comment on above: Performed By: #### E RUR #### [facility] [address] [place] [address] Dr. Aliyah Fierro Color (U) LT. YELLOW Normal YELLOW [facility] Comment on above: Performed By: #### E RUR #### [facility] [address] [place] [address] Dr. Aliyah Fierro ERUAHD A micrscopic examination will be performed if indicated. Normal [facility] Comment on above: Performed By: #### E RUR #### [facility] [address] [place] [address] Dr. Aliyah Fierro Glucose Ql (U) Negative Normal NEGATIVE [facility] Comment on above: Performed By: #### E RUR #### [facility] [address] [place] [address] Dr. Aliyah Fierro Hemoglobin Ql (U) Negative Normal NEGATIVE [facility] Comment on above: Performed By: #### E RUR #### [facility] [address] [place] [address] Dr. Aliyah Fierro Ketones Ql (U) Negative Normal NEGATIVE [facility] Comment on above: Performed By: #### E RUR #### [facility] [address] [place] [address] Dr. Aliyah Fierro LEUKOCYTES Negative Normal NEGATIVE [facility] Comment on above: Performed By: #### E RUR #### [facility] [address] [place] [address] Dr. Aliyah Fierro Nitrite Ql (U) Negative Normal NEGATIVE [facility] Comment on above: Performed By: #### E RUR #### [facility] [address] [place] [address] Dr. Aliyah Fierro pH (U) 6.0 [pH] Normal 5-9 [facility] Comment on above: Performed By: #### E RUR #### [facility] [address] [place] [address] Dr. Aliyah Fierro SPEC GRAVITY 1.020 Normal 1.005-<=1.025 [facility] Comment on above: Performed By: #### E RUR #### [facility] [address] [address] [address] Aliyah Fierro UA PROTEIN Negative Normal NEGATIVE/ TRACE [facility] Comment on above: Performed By: #### E RUR #### [facility] [address] [address] [address] Aliyah Fierro UR MICRO IND NOT INDICATED Normal [facility] Comment on above: Performed By: #### E RUR #### [facility] [address] [place] [address] Dr. Aliayh Fierro Urobilinogen Qn (U) 0.2 {Katerina'U}/dL Normal 0.2 - 1. 0 [facility] Comment on above: Performed By: #### E RUR #### [facility] [address] [place] [address] Dr. Aliyah Fierro PROF 14(COMP METB)on 022 Albumin [Mass/Vol] 4.1 g/dL Normal 3.4-5.0 [facility] Comment on above: Performed By: #### B RESIDENTIAL SUPERVISOR, CMP, CMADM, TSH #### [facility] [address] [place] [address] Dr. Aliyah Fierro Albumin/Globulin [Mass ratio] 1.2 {ratio} Normal [facility] Comment on above: Performed By: #### B RESIDENTIAL SUPERVISOR, CMP, CMADM, TSH #### [facility] [address] [place] [address] Dr. Aliyah Fierro ALP [Catalytic activity/Vol] 92 U/L Normal 46-116 [facility] Comment on above: Performed By: #### B RESIDENTIAL SUPERVISOR, CMP, CMADM, TSH #### [facility] [address] [place] [address] Dr. Aliyah Fierro ALT [Catalytic activity/Vol] 31 U/L Normal 16-63 [facility] Comment on above: Performed By: #### B RESIDENTIAL SUPERVISOR, CMP, CMADM, TSH #### [facility] [address] [place] [address] Dr. Aliyah Fierro Anion gap [Moles/Vol] 12.8 mmol/L Normal [facility] Comment on above: Performed By: #### B RESIDENTIAL SUPERVISOR, CMP, CMADM, TSH #### [facility] [address] [place] [address] Dr. Aliyah Fierro AST [Catalytic activity/Vol] 18 U/L Normal 15-37 [facility] Comment on above: Performed By: #### B RESIDENTIAL SUPERVISOR, CMP, CMADM, TSH #### [facility] [address] [place] [address] Dr. Aliyah Fierro Bilirubin [Mass/Vol] 0.5 mg/dL Normal 0.2-1.0 [facility] Comment on above: Performed By: #### B RESIDENTIAL SUPERVISOR, CMP, CMADM, TSH #### [facility] [address] [place] [address] Dr. Aliyah Fierro Calcium [Mass/Vol] 8.6 mg/dL Normal 8.5-10.1 [facility] Comment on above: Performed By: #### B RESIDENTIAL SUPERVISOR, CMP, CMADM, TSH #### [facility] [address] [place] [address] Dr. Aliyah Fierro Chloride [Moles/Vol] 103 mmol/L Normal 98-107 [facility] Comment on above: Performed By: #### B RESIDENTIAL SUPERVISOR, CMP, CMADM, TSH #### [facility] [address] [place] [address] Dr. Aliyah Fierro CO2 [Moles/Vol] 26.3 mmol/L Normal 21.0-32.0 [facility] Comment on above: Performed By: #### B RESIDENTIAL SUPERVISOR, CMP, CMADM, TSH #### [facility] [address] [place] [address] Dr. Aliyah Fierro Creatinine [Mass/Vol] 2.11 mg/dL Critically high 0.70-1.30 [facility] Comment on above: Performed By: #### B RESIDENTIAL SUPERVISOR, CMP, CMADM, TSH #### [facility] [address] [place] [address] Dr. Aliyah Fierro EGFR-AF LEBANESE 37 mL/min/1.73m2 Critically low >=60 [facility] Comment on above: Performed By: #### B RESIDENTIAL SUPERVISOR, CMP, CMADM, TSH #### [facility] [address] [address] [address] Aliyah Fierro EGFR-NON AF LEBANESE 30 mL/min/1.73m2 Critically low >=60 [facility] Comment on above: Performed By: #### B RESIDENTIAL SUPERVISOR, CMP, CMADM, TSH #### [facility] [address] [address] [address] Aliyah Fierro Globulin (S) [Mass/Vol] 3.3 g/dL Normal [facility] Comment on above: Performed By: #### B RESIDENTIAL SUPERVISOR, CMP, CMADM, TSH #### [facility] [address] [address] [address] Aliyah Fierro Glucose [Mass/Vol] 105 mg/dL Normal 74-106 The [facility] Comment on above: Performed By: #### B RESIDENTIAL SUPERVISOR, CMP, CMADM, TSH #### [facility] [address] [place] [address] Dr. Aliyah Fierro Potassium [Moles/Vol] 4.1 mmol/L Normal 3.5-5.1 [facility] Comment on above: Performed By: #### B RESIDENTIAL SUPERVISOR, CMP, CMADM, TSH #### [facility] [address] [place] [address] Dr. Aliyah Fierro Protein [Mass/Vol] 7.4 g/dL Normal 6.4-8.2 The [facility] Comment on above: Performed By: #### B RESIDENTIAL SUPERVISOR, CMP, CMADM, TSH #### [facility] [address] [address] [address] Aliyah Fierro Sodium [Moles/Vol] 138 mmol/L Normal 136-145 The [facility] Comment on above: Performed By: #### B RESIDENTIAL SUPERVISOR, CMP, CMADM, TSH #### [facility] [address] [place] [address] Dr. Aliyah Fierro Urea nitrogen [Mass/Vol] 32.0 mg/dL Critically high 7.0-18.0 [facility] Comment on above: Performed By: #### B RESIDENTIAL SUPERVISOR, CMP, CMADM, TSH #### [facility] [address] [place] [address] Dr. Aliyah Fierro Urea nitrogen/Creatinine [Mass ratio] 15.2 mg/mg Normal [facility] Comment on above: Performed By: #### B RESIDENTIAL SUPERVISOR, CMP, CMADM, TSH #### [facility] [address] [address] [address] Aliyah Fierro PROTIMEon 01-09-2022 INR Coag (PPP) [Relative time] 1.02 {INR} Normal [facility] Comment on above: Performed By: #### B RESIDENTIAL SUPERVISOR, CMP, CMADM, TSH #### [facility] [address] [place] [address] Dr. Aliyah Fierro INR GUIDELINES SEE BELOW Normal [facility] Comment on above: Result Comment: BOBBY RED INR: 2.0 - 3.0 CONDITIONS NOT LISTED BELOW 2.5 - 3.5 FOR PROSTHETIC HEART VALVE REPLACEMENT 2.5 - 3.5 RECURRENT THROMBOSIS Performed By: #### B RESIDENTIAL SUPERVISOR, CMP, CMADM, TSH #### [facility] [address] [place] [address] Dr. Aliyah Fierro PT Coag (PPP) [Time] 11.0 s Normal 9.0-11.6 [facility] Comment on above: Performed By: #### B RESIDENTIAL SUPERVISOR, CMP, CMADM, TSH #### [facility] [address] [place] [address] Dr. Aliyah Fierro PTTon 01-09-2022 aPTT Coag (Bld) [Time] 31.2 s Normal 22.3-36.2 [facility] Comment on above: Performed By: #### L IVER, LIPID #### [facility] [address] [place] [address] Dr. Aliyah Fierro TSHon 01-09-2022 TSH 3.663 uIU/mL Normal 0.358-3.740 [facility] Comment on above: Performed By: #### B RESIDENTIAL SUPERVISOR, CMP, CMADM, TSH #### [facility] [address] [place] [address] Dr. Aliyah Fierro TSH RANGE SEE BELOW Normal [facility] Comment on above: Result Comment: <0.3 4 UIU/ml HYPERTHYROID 0.34-5.60 UIU/ml EUTHYROID >5.60 UIU/ml HYPOTHYROID Performed By: #### B RESIDENTIAL SUPERVISOR, CMP, CMADM, TSH #### [facility] [address] [place], [place] [address] Dr. Aliyah Fierro XR CHEST 1 Von [...] BASURTO Date: 2022-01-09 13:05 Normal [facility] Ambulatory Clinical Summaryo n 04-06-2021 Ambulatory Clinical Summary {[id number]}CD:[id number] Normal [facility] Patient Educationon 04-06-20 21 Patient Education [...] Document Reviewed: 03/25/2008 ExitCare? Patient Information ?2013 Gatheredtable. Normal [facility] Urology Office/Clinic Noteon 04-06-2021 Urology Office/Clinic [...] JANSEN, Michael Barnes, URL [address] [place] [address]- [phone] Additional Instructions: prn Patient Education Benign Prostatic [...] Use:., 04/06/2021 Family History Pancreatic cancer: Father. [facility] Comment on above: Result Comment: Elec tronically Signed By: Michael SOTO MD\.br\Date and Time Signed: 04/06/21 10:51 EDT\.br\Electronically Co-Signed By: Yamilka New MA\.br\Date and Time Co-Signed: 04/06/21 10:50 EDT Ambulatory Clinical Summaryo n 01-02-2021 Ambulatory Clinical Summary {[id number]}CD:[id number] [facility] Consent for Procedure/Surger yon 01-02-2021 Consent for Procedure/Surgery [id number]#1.00CD:[address] [facility] Patient Educationon 01-03-20 Patient Education Cystoscopy [...] Document Reviewed: 01/11/2013 ExitCare? Patient Information ?[address] Gatheredtable[address] [facility] Urology Office/Clinic Noteon 01-02-2021 Urology Office/Clinic [...] and the office notified. Script sent to [facility] in [place]. 3. Weak urine stream (R39.12: Poor urinary stream) Weak w/ intermittent hesitancy. 4. Nocturia (R35.1: Nocturia) 1-2x/night. I have reviewed the previous health record information and history for this pt. from Dr. Soto. Follow-up With When Contact Information RAUDEL JANSEN, Michael Barnes, URL [facility] [place] [place] [address]- [phone] Additional Instructions: 3mos. f/u Patient Education Cystoscopy, [...] Use:., 01/02/2021 Family History Pancreatic cancer: Father. [facility] Comment on above: Result Comment: Elec tronically Signed By: Michael SOTO MD\.br\Date and Time Signed: 01/02/21 12:23 EDT\.br\Electronically Co-Signed By: Yamilka New MA\.br\Date and Time Co-Signed: 01/02/21 12:21 EDT Formson 12-15-2020 Forms [id number] #1.00CD:[address] [facility] Physician Referralon 021 Physician Referral [id number] #1.00CD:127 Normal [facility] Physician Referralon 021 Physician Referral [id number] #1.00CD:127 Normal [facility] Ambulatory Clinical Summaryo n 12-11-2020 Ambulatory Clinical Summary {[id number]}CD:[id number] Normal [facility] Ambulatory Clinical Summary {[id number]}CD:[id number] Normal [facility] Urology Office/Clinic Noteon 12-11-2020 Urology Office/Clinic Note Chief Complaint RESIDENTIAL SUPERVISOR referred for bladder mass HPI Staff RESIDENTIAL SUPERVISOR referred by Dr. Parada due to a [...] MD, URL [address] [place] [address] [place] [address]- [phone] Additional Instructions: Patient Education Cystoscopy I, Yamilka [...] albuterol 0.08 (more content not included)... Normal [facility] Comment on above: Result Comment: Elec tronically Signed By: Michael SOTO MD\.br\Date and Time Signed: 12/11/20 15:10 EDT\.br\Electronically Co-Signed By: Yamilka New MA\.br\Date and Time Co-Signed: 12/11/20 15:09 EDT Vital Signs Date Time Vital Sign Value Performing Clinician Facility 04-29-2024 10:32-0400 Body height 175.3 cm Antoinette Carrillo NP Work Phone: [facility] 04-29-2024 10:32-0400 Body mass index (BMI) [Ratio] 24.93 kg/m2 Antoinette Carrillo RESIDENTIAL SUPERVISOR Work Phone: [facility] 04-29-2024 10:32-0400 Body temperature 98.1 [degF] Antoinette Snowdenz RESIDENTIAL SUPERVISOR Work Phone: [facility] 04-29-2024 10:32-0400 Body weight 76.57 kg Antoinette Snowdenz RESIDENTIAL SUPERVISOR Work Phone: [facility] 04-29-2024 10:32-0400 Diastolic blood pressure 68 mm[Hg] Antoinette Snowdenz RESIDENTIAL SUPERVISOR Work Phone: [facility] 04-29-2024 10:32-0400 Heart rate 62 /min Antoinette Snowdenz RESIDENTIAL SUPERVISOR Work Phone: [facility] 04-29-2024 10:32-0400 Respiratory rate 18 /min Antoinette Snowdenz RESIDENTIAL SUPERVISOR Work Phone: [facility] 04-29-2024 10:32-0400 SaO2% (BldA) [Mass fraction] 95 % Antoinette Carrillo RESIDENTIAL SUPERVISOR Work Phone: [facility] 04-29-2024 10:32-0400 Systolic blood pressure 122 mm[Hg] Antoinette Snowdenz RESIDENTIAL SUPERVISOR Work Phone: [facility] 04-15-2024 13:31-0400 Body height 175.26 cm [facility] 04-15-2024 13:31-0400 Body mass index (BMI) [Ratio] 24.3 kg/m2 [facility] 04-15-2024 13:31-0400 Body temperature 97.3 [degF] [facility] 04-15-2024 13:31-0400 Body weight 74.89 kg [facility] 04-15-2024 13:31-0400 Diastolic blood pressure 69 mm[Hg] [facility] 04-15-2024 13:31-0400 Heart rate 81 /min [facility] 04-15-2024 13:31-0400 Respiratory rate 16 /min [facility] 04-15-2024 13:31-0400 SaO2% (BldA) [Mass fraction] 94 % [facility] 04-15-2024 13:31-0400 Systolic blood pressure 120 mm[Hg] [facility] 04-06-2024 11:11-0400 Body height 175.3 cm 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 RESIDENTIAL SUPERVISOR Work Phone: [facility] 04-06-2024 11:11-0400 Body mass index (BMI) [Ratio] 24.78 kg/m2 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 RESIDENTIAL SUPERVISOR Work Phone: [facility] 04-06-2024 11:11-0400 Body temperature 97.5 [degF] 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 RESIDENTIAL SUPERVISOR Work Phone: [facility] 04-06-2024 11:11-0400 Body weight 76.11 kg 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 RESIDENTIAL SUPERVISOR Work Phone: [facility] 04-06-2024 11:11-0400 Diastolic blood pressure 76 mm[Hg] 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 RESIDENTIAL SUPERVISOR Work Phone: [facility] 04-06-2024 11:11-0400 Heart rate 71 /min 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 RESIDENTIAL SUPERVISOR Work Phone: [facility] 04-06-2024 11:11-0400 Respiratory rate 18 /min 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 RESIDENTIAL SUPERVISOR Work Phone: [facility] 04-06-2024 11:11-0400 SaO2% (BldA) [Mass fraction] 96 % 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 RESIDENTIAL SUPERVISOR Work Phone: [facility] 04-06-2024 11:11-0400 Systolic blood pressure 120 mm[Hg] 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 RESIDENTIAL SUPERVISOR Work Phone: [facility] 03-24-2024 10:33-0400 Body height 175.3 cm 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 RESIDENTIAL SUPERVISOR Work Phone: [facility] 03-24-2024 10:33-0400 Body mass index (BMI) [Ratio] 24.81 kg/m2 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 RESIDENTIAL SUPERVISOR Work Phone: [facility] 03-24-2024 10:33-0400 Body temperature 98.29 [degF] Antoinette Snowdenz RESIDENTIAL SUPERVISOR Work Phone: [facility] 03-24-2024 10:33-0400 Body weight 76.2 kg Antoinettejunior Sadlerholz RESIDENTIAL SUPERVISOR Work Phone: [facility] 03-24-2024 10:33-0400 Diastolic blood pressure 80 mm[Hg] Antoinette Viktoriyaholz RESIDENTIAL SUPERVISOR Work Phone: [facility] 03-24-2024 10:33-0400 Heart rate 68 /min Antoinettejunior Sadlerholz RESIDENTIAL SUPERVISOR Work Phone: [facility] 03-24-2024 10:33-0400 Respiratory rate 18 /min Antoinettejunior Sadlerholz RESIDENTIAL SUPERVISOR Work Phone: [facility] 03-24-2024 10:33-0400 SaO2% (BldA) [Mass fraction] 97 % Antoinette Sadlerholz RESIDENTIAL SUPERVISOR Work Phone: [facility] 03-24-2024 10:33-0400 Systolic blood pressure 140 mm[Hg] Antoinette Sadlerholz RESIDENTIAL SUPERVISOR Work Phone: [facility] 10-30-2023 10:45-0400 Body height 175.26 cm [facility] 10-30-2023 10:45-0400 Body mass index (BMI) [Ratio] 27 kg/m2 [facility] 10-30-2023 10:45-0400 Body temperature 97.4 [degF] [facility] 10-30-2023 10:45-0400 Body weight 83 kg [facility] 10-30-2023 10:45-0400 Diastolic blood pressure 70 mm[Hg] [facility] 10-30-2023 10:45-0400 Heart rate 68 /min [facility] 10-30-2023 10:45-0400 Respiratory rate 18 /min [facility] 10-30-2023 10:45-0400 SaO2% (BldA) [Mass fraction] 97 % [facility] 10-30-2023 10:45-0400 Systolic blood pressure 120 mm[Hg] [facility] 02-07-2022 15:00-0400 Body height 175.26 cm Praveen Mariam Other [facility] Other 02-07-2022 15:00-0400 Body mass index (BMI) [Ratio] 27.02 kg/m2 Praveen Mariam Other [facility] Other 02-07-2022 15:00-0400 Body temperature 97 [degF] Praveen Mariam Other [facility] Other 02-07-2022 15:00-0400 Body weight 83.01 kg Praveen Mariam Other [facility] Other 02-07-2022 15:00-0400 Diastolic blood pressure 62 mm[Hg] Praveen Mariam Other [facility] Other 02-07-2022 15:00-0400 Respiratory rate 18 /min Praveen Mariam Other [facility] Other 02-07-2022 15:00-0400 SaO2% (BldA) [Mass fraction] 92 % Praveen Mariam Other [facility] Other 02-07-2022 15:00-0400 Systolic blood pressure 130 mm[Hg] Praveen Mariam Other [facility] Other Encounters Encounter Date Encounter Type Care Provider Facility Start: 10-26-2024 End: 10-26-2024 ambulatory ANTOINETTE CARRILLO Not Available Start: 09-29-2024 End: 09-29-2024 Refill 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 RESIDENTIAL SUPERVISOR Work Phone: [facility] Comment on above: Essential (primary) hypertension (CMS/HCC); 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); Primary hypertension (CMS/HCC) Start: 09-27-2024 End: 09-27-2024 Refill 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 RESIDENTIAL SUPERVISOR Work Phone: [facility] Comment on above: 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) Start: 07-24-2024 End: 07-25-2024 Refill 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 RESIDENTIAL SUPERVISOR Work Phone: [facility] Comment on above: Mixed hyperlipidemia (CMS/HCC) Start: 06-01-2024 End: 06-01-2024 Refill 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 RESIDENTIAL SUPERVISOR Work Phone: [facility] Comment on above: Chronic obstructive pulmonary disease, unspecified COPD type (CMS/HCC); Centrilobular emphysema (CMS/HCC); Shortness of breath Start: 04-29-2024 End: 04-29-2024 Bamboo flowsheet Antoinette Spz RESIDENTIAL SUPERVISOR Work Phone: [facility] Start: 04-29-2024 End: 04-29-2024 Bamboo flowsheet 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 RESIDENTIAL SUPERVISOR Work Phone: [facility] Start: 04-29-2024 End: 04-29-2024 ambulatory ANTOINETTE AICHHOLZ Not Available Start: 04-29-2024 End: 04-29-2024 Office outpatient visit 25 minutes Antoinette Zuleykahromeoz RESIDENTIAL SUPERVISOR Work Phone: [facility] Comment on above: Primary hypertension (CMS/HCC) (Primary Dx); 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); Benign prostatic hyperplasia with urinary obstruction; Secondary hyperparathyroidism of renal origin (CMS/HCC); DEMETRIO (generalized anxiety disorder) (CMS/HCC) Start: 04-16-2024 End: 04-18-2024 Refalea Hubbard MD Work Phone: [facility] Comment on above: Primary hypertension (CMS/HCC) Start: 04-15-2024 End: 04-15-2024 ambulatory [facility] Work Phone: Start: 04-15-2024 End: 04-15-2024 Patient encounter procedure [facility] Work Phone: Start: 04-08-2024 End: 04-08-2024 Refill Antoinette Carrillo RESIDENTIAL SUPERVISOR Work Phone: [facility] Comment on [...] Office outpatient visit 25 minutes Antoinette Carrillo RESIDENTIAL SUPERVISOR Work Phone: [facility] Comment on above: Benign prostatic hyp erplasia with urinary frequency (Primary Dx); DEMETRIO (generalized anxiety disorder) (CMS/HCC); Pneumonia of left lower lobe due to infectious organism Start: 04-06-2024 Non-patient / [facility]visit [facility] Work Phone: Start: 04-01-2024 End: 04-01-2024 Refill Antoinette Carrillo RESIDENTIAL SUPERVISOR Work Phone: [facility] Comment on above: Gastroesophageal ref lux disease without esophagitis; Essential (primary) hypertension (CMS/HCC); 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) Start: 03-24-2024 End: 03-24-2024 Bamboo flowsheet Antoinette Carrillo RESIDENTIAL SUPERVISOR Work Phone: [facility] Start: 03-24-2024 End: 03-24-2024 Bamboo flowsheet Antoinette Carrillo RESIDENTIAL SUPERVISOR Work Phone: [facility] Start: 03-24-2024 End: 03-24-2024 Transitional care manage srvc 7 day discharge Antoinette Carrillo RESIDENTIAL SUPERVISOR Work Phone: [facility] Comment on above: Pneumonia of left lo wer lobe due to infectious organism (Primary Dx); Other emphysema (CMS/HCC); Malignant neoplasm of colon, unspecified (CMS/HCC); Secondary hyperparathyroidism of renal origin (CMS/HCC); Atherosclerosis of aorta (CMS/HCC); Primary hypertension (CMS/HCC); Coronary artery disease involving aniak coronary artery of aniak heart without angina pectoris (CMS/HCC) Start: 03-24-2024 End: 03-24-2024 ambulatory ANTOINETTE CARRILLO Not Available Start: 03-21-2024 End: 03-22-2024 Non-patient / Non-visit [facility] Work Phone: Start: 03-20-2024 End: 03-22-2024 Clinisync Result Encounter Generic External Data Provider [facility] Unsolicited Start: 03-20-2024 End: 03-22-2024 Clinisync Result Encounter Generic External Data Provider [facility] External Department Unsolicited Start: 10-30-2023 End: 10-30-2023 ambulatory [facility] Work Phone: Start: 10-30-2023 End: 10-30-2023 Patient encounter procedure [facility] Work Phone: Start: 10-15-2023 Patient encounter procedure Generic Provider [facility] Start: 09-11-2023 Refill Antoinette Carrillo RESIDENTIAL SUPERVISOR Work Phone: [facility] Comment on above: Primary hypertension (CMS/HCC) (Primary Dx); Essential (primary) hypertension (CMS/HCC); Benign essential hypertension (CMS/HCC) Start: 10-24-2022 End: 10-25-[address] KERRIE [place] Facility:[facility] Start: 10-21-2022 End: 10-22-[address] KERRIE [place] Facility:[facility] Start: 10-09-2022 End: 10-10-2022 ambulatory [employer] ANTOINETTE ZULEYKASanfordNABIL Facility:[facility] Start: 09-12-2022 End: 09-13-2022 ambulatory GAGANDEEP CARRILLO Facility:[facility] Start: 09-03-2022 End: 09-04-2022 ambulatory GAGANDEEP SADLERROMEOPaloma Facility:[facility] Start: 08-26-2022 End: 08-27-2022 ambulatory PRAVEEN MARIAM Facility:[facility] Start: 02-11-2022 End: 02-12-2022 ambulatory GAGANDEEP SADLERROMEOPaloma Facility:[facility]1 Start: 02-07-2022 End: 02-07-2022 ambulatory Praveen Mariam Other [facility] Other Start: 02-07-2022 Office outpatient vi sit [...] Comment on above: Performed By: #### P [facility] #### [facility] [address] [place] [address] Dr. Aliyah Fierro Plan of Treatment Date Care Activity Detail Author Start: 10-26-2024 End: 10-26-2024 Patient encounter procedure 10/26/2024 10:00 AM EDT Office Visit [facility] [address] [place] [address] Antoinette Carrillo NP [address] [place] [id number] [facility] Start: 10-14-2024 Medicare Annual Well ness (AWV) Medicare Annual Wellness (AWV) [facility] Start: 04-29-2024 End: 04-29-2024 Patient encounter procedure 04/29/2024 10:30 AM EDT Office Visit [facility] [address] [place] [address] Antoinette Carrillo, FABRICIO [address] [place] [id number] [facility] Start: 04-20-2024 End: 04-20-2024 Patient encounter procedure 04/20/2024 9:40 AM EDT Office Visit [facility] [address] [place] [address] Antoinette Carrillo, RESIDENTIAL SUPERVISOR [address] [place] [id number] [facility] Start: 04-06-2024 End: 04-06-2024 Patient encounter procedure 04/06/2024 11:00 AM EDT Office Visit [facility] [address] [place] [address] Antoinette Carrillo, RESIDENTIAL SUPERVISOR [address] [place] [address] [facility] Start: 03-24-2024 End: 03-24-2024 Patient encounter procedure [facility] Comment on above: Other emphysema (CMS /HCC); Malignant neoplasm of colon, unspecified (CMS/HCC); Secondary hyperparathyroidism of renal origin (CMS/HCC); Atherosclerosis of aorta (CMS/HCC) Start: 04-04-2023 Influenza vaccination Influenz a Vaccine (#1) [facility] Start: 02-14-1946 Pneumococcal Vaccine : 65+ Years (1 - PCV) Pneumococcal Vaccine: 65+ Years (1 - PCV) [facility] Start: 1940 Medicare Annual Well ness (AWV) Medicare Annual Wellness (AWV) [facility] BLOOD CULTURE 1 BLOOD CULTURE 1 Lab Routine 03/20/2024 4:45 PM EDT [facility] BLOOD CULTURE 2 BLOOD CULTURE 2 Lab Routine 03/20/2024 5:07 PM EDT [facility] Renal function 1999 panel - Serum or Plasma [facility] Renal function 1999 panel - Serum or Plasma [facility] Immunizations Immunization Date Immunization Notes Care Provider Fa cility 05-29-2021 Karen SARS-CoV-2 Generic Provider [facility] Payers Date Payer Category Payer Medicare [id number] 1959 Medicare [id number] 2.1 [id number] 1959 Private Health Insurance [id number] 1942 Unknown [id number] 2.16.84 0.1.135243.3.579.2.593 1942 Unknown [id number] 2.16.84 0.1.562706.3.579.2.593 1942 Unknown [id number] 2.16.84 0.1.095368.3.579.2.593 1942 Unknown [id number] 2.16.84 0.1.480584.3.579.2.593 1942 Unknown [id number] 2.16.84 0.1.589351.3.579.2.593 1942 Unknown [id number] 2.16.84 0.1.549721.3.579.2.593 1942 Unknown [id number] 2.16.84 0.1.554531.3.579.2.593 1942 Unknown [id number] 2.16.84 0.1.978438.3.579.2.593 1942 Unknown [id number] 2.16.84 0.1.007826.3.579.2.593 1942 Unknown [id number] 2.16.84 0.1.530229.3.579.2.1259 1942 Unknown [id number] 2.16.84 0.1.887993.3.579.2.1259 1942 Unknown [id number] 2.16.84 0.1.938432.3.579.2.1259 1942 Unknown [id number] 2.16.84 0.1.520601.3.579.2.1259 Self-pay Self Pay [id number] Social History Date Type Detail Facility Unknown if ever smoked [facility] Other Start: 10-15-2023 End: 04-29-2024 Sex Assigned At [facility] Tobacco smoking stat [facility] Tobacco smoking consumption unknown [facility] Start: 1940 Sex Assigned At Not on file [facility] Start: 10-30-2023 End: 04-15-2024 Tobacco smoking status [facility] Ex-smoker (finding) [facility] Start: 1940 Sex Assigned At Male [facility] Start: 10-05-2023 Tobacco smoking status [facility] Smokes tobacco daily [facility] History [...] kidney disease. There is no history of CAD/NH. Anxiety Presents for follow-up visit. Symptoms include [...] Past Medical History: Diagnosis Date Centrilobular emphysema ([facility]) 07/30/2023 COPD (chronic obstructive pulmonary disease) (CMS/HCC) [...] current meds Secondary hyperparathyroidism of renal origin ([facility]) Cont with nephrology Benign prostatic hyperplasia with urinary obstruction Does feel he is doing better and does not want to take any medication for this condition documented in this encounter [facility] 04-06-2024 History of Presen t illness Narrative [...] 24 hr capsule documented in this encounter [facility] 03-24-2024 History of Presen t illness Narrative Associated Problem(s): Coronary artery disease involving aniak coronary artery of aniak heart without angina pectoris (CMS/HCC) Reviewed the [...] Past Medical History: Diagnosis Date Centrilobular emphysema ([facility]) 07/30/2023 COPD (chronic obstructive pulmonary disease) ([facility]) 10/15/2023 History of degenerative disc disease 10/15/2023 [...] weeks for recheck Coronary artery disease involving aniak coronary artery of aniak heart without angina pectoris (CMS/HCC) Reviewed the [...] Noted on scans documented in this encounter [facility] 02-07-2022 Evaluation note Encounter Date Diagnosis Assessment [...] allopurinol if he has a gout flare. [facility] Other 05-10-2021 NoteUrology Cystoscopy Cystoscopy is a [...] including vitamins, herbs, eye drops, creams, and zwnu-uip-aioqncn medicines. ? Any problems you or family [...] tells you to take them. ? Taking wbjv-qnw-wtkgovq medicines, vitamins, herbs, and supplements. ? Follow [...] these instructions at home: Medicines ? Take bpsx-trv-vqvnvfn and prescription medicines only as told by [...] care provider. This is importa (more content notincluded)...[facility] Primary [facility] (CMS/HCC)- Primary Unspecified essential hypertension Essential (primary) hypertension (CMS/HCC) Unspecified essential hypertension Benign essential hypertension (CMS/HCC) Essential hypertension, benign [facility]* Diagnosis Onset Date Resolution Status Anemia of renal disease acut e CKD (chronic kidney disease) stage 4, GFR 15-29 ml/min acute Gout acute Hyperlipidemia acute [id number] acute Secondary hyperparathyroidism acute [facility] Work Phone: Evaluation note* Diagnosis [...] Unspecified essential hypertension Coronary artery disease involving aniak coronary artery of aniak heart without angina pectoris (CMS/HCC) Primary hypertension [...] Unspecified essential hypertension Coronary artery disease involving aniak coronary artery of aniak heart without angina pectoris (CMS/HCC) documented in [...] Unspecified essential hypertension Coronary artery disease involving aniak coronary artery of aniak heart without angina pectoris (CMS/HCC) Primary hypertension (CMS/HCC)- Primary Unspecified essential hypertension 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) Secondary hyperparathyroidism (of renal origin) DEMETRIO (generalized anxiety disorder) (CMS/HCC) Generalized anxiety disorder Mixed hyperlipidemia (CMS/HCC) Mixed hyperlipidemia documented in this encounter [facility]* Diagnosis Encounter for [...] Unspecified essential hypertension Coronary artery disease involving aniak coronary artery of aniak heart without angina pectoris (CMS/HCC) Primary hypertension (CMS/HCC)- Primary Unspecified essential hypertension 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) Secondary hyperparathyroidism (of renal origin) DEMETRIO (generalized anxiety disorder) (CMS/HCC) Generalized anxiety disorder Idiopathic chronic gout of multiple sites without tophus- Primary documented in this encounter [facility]* Diagnosis Encounter for [...] Unspecified essential hypertension Coronary artery disease involving aniak coronary artery of aniak heart without angina pectoris (CMS/HCC) Primary hypertension [...] History LASIK BILATERALLY Hospitalization History SEE ABOVE [facility] Other Summary Purpose Family History No Family [...] stage 4, GFR 15-29 ml/min Gout Hyperlipidemia [id number] Secondary hyperparathyroidism Chief Complaint RENAL 6 MONTH F/U Reason for Visit Anemia of renal dise ase CKD (chronic kidney disease) stage 4, GFR 15-29 ml/min Gout Hyperlipidemia [id number] Secondary hyperparathyroidism Additional Source Comments (unrecognized sect ion and content) No Status Records FoundNo Status Records FoundNo Status Records Found INFORMATION SOURCE (unrecogn ized section and content) DATE CREATED AUTHOR 04/07/2021 Marroquin Blayne [facility] DATE CREATED AUTHOR AUTHOR'S ORGANIZ ATION 10/27/2022 [facility] DATE CREATED AUTHOR AUTHOR'S ORGANIZ ATION 10/27/2024 [facility] EPIC REASON FOR VISIT [...] April 15, 2024 End: April 15, 2024 Recruiter Coordinator Relationship Specialty Start Date End Date Wallace Hubbard MD PCP - General Family Medicine 02/07/23 Team Status: Inactive Member Role Status Dates Antoinette Carrillo Primary Care Provider Active Sta rt: October 30, 2023 End: October 30, 2023 Praveen Conley MD Attending Provider Active Start : October 30, 2023 End: October 30, 2023 Recruiter Coordinator Relationship Specialty Start Date End Date Wallace Hubbard MD [address] [place] [phone] PCP - General Family Medicine 10/15/23 Antoinette Carrillo NP [address] [place] [address] Nurse Practitioner Family Medicine 10/15/23 Recruiter Coordinator Relationship Specialty Start Date End Date Wallace Hubbard MD [address] [place] [phone] PCP - General Family Medicine 10/15/23 Antoinette Carrillo NP [address] [place] [address] Nurse Practitioner Family Medicine 10/15/23 Recruiter Coordinator Relationship Specialty Start Date End Date Wallace Hubbard MD [address] [place] [address] PCP - General Family Medicine 10/15/23 Antoinette Carrillo NP [address] [place] [address] Nurse Practitioner Family Medicine 10/15/23 Recruiter Coordinator Relationship Specialty Start Date End Date Wallace Hubbard MD [address] [place] [address] PCP - General Family Medicine 10/15/23 Antoinette Carrillo NP [address] [place] [address] Nurse Practitioner Family Medicine 10/15/23 Recruiter Coordinator Relationship Specialty Start Date End Date Wallace Hubbard MD [address] [place] [address] PCP - General Family Medicine 10/15/23 Antoinette Carrillo NP [address] [place] [address] Nurse Practitioner Family Medicine 10/15/23 Recruiter Coordinator Relationship Specialty Start Date End Date Wallace Hubbard MD [address] [place] [address] PCP - General Family Medicine 10/15/23 Antoinette Carrillo NP [address] [place] [address] Nurse Practitioner Family Medicine 10/15/23 Recruiter Coordinator Relationship Specialty Start Date End Date Wallace Hubbard MD [address] [place] [address] PCP - General Family Medicine 10/15/23 Antoinette Carrillo NP [address] [place] [address] Nurse Practitioner Family Medicine 10/15/23 Recruiter Coordinator Relationship Specialty Start Date End Date Wallace Hubbard MD [address] [place] [address] PCP - General Family Medicine 10/15/23 Antoinette Carrillo NP [address] [place] [address] Nurse Practitioner Family Medicine 10/15/23 Recruiter Coordinator Relationship Specialty Start Date End Date Wallace Hubbard MD [address] [place] [address] PCP - General Family Medicine 10/15/23 Antoinette Carrillo NP [address] [place] [address] Nurse Practitioner Family Medicine 10/15/23 Recruiter Coordinator Relationship Specialty Start Date End Date Wallace Hubbard MD [address] [place] [address] PCP - General Family Medicine 10/15/23 Antoinette Carrillo NP [address] [place] [address] Nurse Practitioner Family Medicine 10/15/23 Recruiter Coordinator Relationship Specialty Start Date End Date Wallace Hubbard MD [address] [place] [address] PCP - General Family Medicine 10/15/23 Antoinette Carrillo NP [address] [place] [address] PCP - ACO Reach 09/10/24 Antoinette Carrillo NP [address] [place] [address] Nurse Practitioner Family Medicine 10/15/23 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 [facility] [email or web address] provides no warranty or guarantee of the accuracy or completeness of information in this document.
[2024-11-01 07:44] LABS: Basophils Absolute Auto 0.1 10^3/uL (0.0-0.1); Basophils Percent Auto 0.7 % (0.2-2.0); Eosinophils Absolute Auto 0.3 10^3/uL (0.0-0.7); Eosinophils Percent Auto 3.6 % (0.9-7.0); Hematocrit 34.5 % (42.0-54.0); Hemoglobin 11.7 g/dL (14.0-18.0); Immature Granulocytes Abs Auto 0.03 10^3/uL (0.00-0.03); Immature Granulocytes Pct Auto 0.4 % (0.0-0.5); Lymphocytes Absolute Auto 1.7 10^3/uL (1.2-3.8); Lymphocytes Percent Auto 23.3 % (20.5-60.0); Mean Corpuscular HGB Conc 33.9 g/dL (29.9-35.2); Mean Corpuscular Hemoglobin 29.5 pg (25.9-34.0); Mean Corpuscular Volume 86.9 fL (80.0-94.0); Mean Platelet Volume 9.4 fL (9.5-13.5); Monocytes Absolute Auto 0.8 10^3/uL (0.3-0.8); Monocytes Percent Auto 10.1 % (1.7-12.0); Neutrophils Absolute Auto 4.6 10^3/uL (1.4-6.5); Neutrophils Percent Auto 61.9 % (43.0-75.0); Platelet Count 309 10^3/uL (150-450); Red Blood Count 3.97 10^6/uL (4.70-6.10); Red Cell Distribution Width 13.8 % (11.0-15.0); White Blood Count 7.4 10^3/uL (4.0-11.0)
[2024-11-01 08:29] LABS: Alanine Aminotransferase 21 U/L (16-63); Albumin Globulin Ratio 1.2; Albumin Level 3.6 g/dL (3.4-5.0); Alkaline Phosphatase 78 U/L (46-116); Anion Gap 15.8; Aspartate Amino Transferase 19 U/L (15-37); BUN Creatinine Ratio 15.8; Bilirubin Total 0.4 mg/dL (0.2-1.0); Calcium 8.7 mg/dL (8.5-10.1); Carbon Dioxide 25.3 mmol/L (21.0-32.0); Chloride 106 mmol/L (98-107); Cholesterol 204 mg/dL (<=200); Estimated GFR (African America 34 (>=60 mL/min/1.73m^2); Estimated GFR (Non-African Ame 28 (>=60 mL/min/1.73m^2); Glucose 97 mg/dL (74-106); HDL Cholesterol 51 mg/dL (40-60); Potassium 4.1 mmol/L (3.5-5.1); Sodium 143 mmol/L (136-145); Total Protein 6.6 g/dL (6.4-8.2); Triglycerides 175 mg/dL (<=150)
== END 2024-11-01 07:16 | disposition home or self-care (01) ==
LOC: LAB 07:16
PROVIDERS: PCP Nurse Practitioner; Visit Provider Nurse Practitioner
DX: I12.9 Hypertensive chronic kidney disease with stage 1 through stage 4 chronic kidney disease, or unspecified chronic kidney disease (principal); N18.4 Chronic kidney disease, stage 4 (severe); E78.2 Mixed hyperlipidemia
CPT/HCPCS: 36415; 80053; 80061; 85025

== ENCOUNTER 2025-05-30 07:45 | Outpatient (OUT) | payer MEDICARE, SELFPAY ==
--- OUTSIDE RECORDS SUMMARY | 2025-05-30 07:48 | XMS_ITS | Clinical Summary ---
Author Organization [facility] [facility] Address [id number] [address] [place] [address] Care Team Providers Care Personal Caregiver Name Role Phone Juan J Parada MD Primary Care Provider [phone] Allergies No known active allergies Medications MedicationSigDispense QuantityRefillsLast FilledStart DateEnd DateStatus atenoloL (TENORMIN) 25 mg tablet 09/26/2022ctive busPIRone (BUSPAR) 10 mg tablet Take 1 tablet (10 mg total) by mouth 3 (three) times a day as needed.07/27/2022 Active citalopram (CeleXA) 10 mg tablet 10/09/2022ctive furosemide (LASIX) 20 mg tablet Take 1 tablet (20 mg total) by mouth daily.07/27/2022ctive losartan (COZAAR) 50 mg tablet Take 1 tablet (50 mg total) by mouth in the morning.08/03/2022ctive pravastatin (PRAVACHOL) 80 mg tablet TAKE 1 TABLET TABLET BY MOUTH AT GCTSMPV3307/28/2022ctive Social History Tobacco UseTypesPacks/DayYears UsedDateSmoking Tobacco: Unknown Tobacco Cessation:Counseling Given: Not Answered Alcohol UseStandard Drinks/WeekCommentsDefer0 (1 standard drink = 0.6 oz pure alcohol)Sex and Gender InformationValueDate RecordedSex Assigned at BirthNot on fileLegal IkmJygo6909/18/2022 3:00 PM ESTGender IdentityNot on fileSexual OrientationNot on file Last Filed Vital Signs Vital SignReadingTime TakenCommentsBlood Aukalgpr936/7103 2:38 PM EDT Ovzmk0708 2:38 PM EDTTemperature--Respiratory Rate--Oxygen Ifqazdltsz49% 10/10/2022 3:55 PM ESTInhaled Oxygen Concentration--Zzhfwr16 kg (183 lb) 10/25/2022 2:38 PM EDTHeight--Body Mass Index-- Plan of Treatment Health MaintenanceDue DateLast DoneCommentsDepression Ixknlkedd93/13/1954Tobacco Fijgtqrom65/13/1954DTaP,Tdap and Td Vaccines (1 - Tdap)1961Zoster (Shingles) Vaccine (1 of 2)02/14/1992Fall Risk Zgbcopnmn10/13/2007Influenza Wjegfam8704/04/2025 Medical Devices Not on file Insurance Care Teams Team MemberRelationshipSpecialtyStart DateEnd Date Juan J Parada MD [address] [place] [address] PCP - GeneralFamily Medicine09/18/22
--- OUTSIDE RECORDS SUMMARY | 2025-05-30 07:48 | XMS_ITS | Clinical Summary ---
Author Organization [facility], [facility] Address 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 Name Role Phone Unavailable Primary Care Provider Unavailabl e Social History Tobacco UseTypesPacks/DayYears UsedDateSmoking Tobacco: Never AssessedSex and Gender InformationValueDate RecordedSex Assigned at BirthNot on fileLegal Sex Male10/23/2022 1:09 PM EDTGender IdentityNot on fileSexual OrientationNot on file Plan of Treatment Health MaintenanceDue DateLast DoneCommentsDTaP,Tdap,and Td Vaccines (1 - Tdap) 1Pneumococcal Vaccines 50years + (1 of 1 - PCV)02/14/1992Zoster Recombinant Vaccines (1 of 2)02/14/1992Respiratory Syncytial Virus (RSV) or ages 60 years and older (1 - 1-dose 75+ series)2017COVID-19 Vaccine (1 - 2024- season)2025Influenza Vaccine (#1)2025 Respiratory Syncytial Virus (RSV) ages 0 thru 19 monthsAged OutNo longer eligible based on patient's age to complete this topic
--- OUTSIDE RECORDS SUMMARY | 2025-05-30 07:48 | XMS_ITS | Clinical Summary ---
Author Organization [facility] Address [address] [place] [address] Care Team Providers Care Clod Puller Name Role Phone Wallace Hubbard MD Primary Care Provider [phone] Antoinette Carrillo PROPERTY AND CASUALTY INSURANCE AGENT Unavailable [phone] Antoinetet Carrillo PROPERTY AND CASUALTY INSURANCE AGENT Unavailable [phone] Allergies Active AllergyReactionsCriticalityNoted EhztWfjfjuscIqkuitrthbTdcoeyk65/27/2024 Medications MedicationSigDispense QuantityRefillsLast FilledStart DateEnd DateStatus Multiple Vitamins-Minerals (Multivitamin Men) tablet OrallyActive furosemide (Lasix) 20 MG tablet Take 20 mg by mouth Daily3Active busPIRone (Buspar) 10 MG tablet Indications:DEMETRIO (generalized anxiety disorder)Take 1 tablet (10 mg) by mouth 3 (three) times a day as needed (anxiety) 270 tablet 5Active citalopram (CeleXA) 10 MG tablet Indications:DEMETRIO (generalized anxiety disorder)Take 1 tablet (10 mg) by mouth Daily 90 tablet 5Active pravastatin (Pravachol) 80 MG tablet Indications:Mixed hyperlipidemiaTake 1 tablet (80 mg) by mouth at bedtime 90 tablet 5Active losartan (Cozaar) 25 MG tablet Indications:Essential (primary) hypertension,CKD stage 4 secondary to hypertension (HCC)Take 1 tablet (25 mg) by mouth Daily 90 tablet 5Active ipratropium-albuterol (Duo-Neb) 0.5-2.5 mg/3 mL nebulizer solution Indications:Chronic obstructive pulmonary disease, unspecified COPD type (HCC), Centrilobular emphysema (HCC),Shortness of breathUSE 1 VIAL VIA NEBULIZER EVERY 6 HOURS NEEDED FOR SHORTNESS OF BREATH OR WHEEZING 1081 mL 5Active atenolol (Tenormin) 25 MG tablet Indications:Primary hypertensionTake 1 tablet (25 mg) by mouth Daily 90 tablet 515Active Active Problems ProblemNoted DateDiagnosed DateBenign prostatic hyperplasia with urinary /03/2024Secondary hyperparathyroidism of renal geabzi3103/24/2024 Assessment & Plan (10/26/2024 6:19 AM EDT): Cont with nephrology Assessment & Plan (04/29/2024 11:21 AM EDT): Cont with nephrology Assessment & Plan (03/24/2024 7:21 AM EDT): Continue with nephrology Atherosclerosis of aorta03/24/2024 Assessment & Plan (03/24/2024 7:20 AM EDT): Noted on scans Benign prostatic hyperplasia with urinary jtyfbftbcdp62/21/2024 Assessment & Plan (04/29/2024 11:21 AM EDT): Does feel he is doing better and does not want to take any medication for this condition Basal cell carcinoma (BCC)4Coronary artery disease involving [place] coronary artery of [place] heart without angina vahumdep28/21/2024 Assessment & Plan (10/26/2024 6:17 AM EDT): Reviewed the CT chest which reveals heavy calcification in LAD and RCA Recommended we do a stress test / ECHO, pt refuses, he is aware of possible risk of Assessment & Plan (03/24/2024 12:00 PM EDT): Reviewed the CT chest which reveals heavy calcification in LAD and RCA Denies any s/s angina, splits wood 3 times a week for an hour no acute symptoms Recommended we do a stress test and ECHO, pt refuses Explained distribution of calcifications, and that could result in States I am 84 years old and if I tomorrow I do not care Shortness of gdhkvk3212/02/2023Elevated blood uric acid level11/03/2023 Oqcoyeqlfdlpifpamia32/01/6500Pdkvpuhbcob07/13/2024Small vessel qujcnsf8810/15/2023 History of degenerative disc fmnmbzo3410/15/2023Screening for prostate cancer 10/15/2023 Assessment & Plan (10/26/2024 10:52 AM EDT): Pt refuses any testing for prostate cancer Encounter for subsequent annual wellness visit (AWV) in Medicare patient 10/15/2023 Assessment & Plan (10/26/2024 6:20 AM EDT): Reviewed Ht/Wt/BMI Recommend eye exam yearly Exercises is recommended most days of the week (appropriate as chronic conditions allow) Follow up yearly and prn Assessment & Plan (10/15/2023 10:52 AM EDT): Reviewed Ht/Wt/BMI Recommend eye exam yearly Exercises is recommended most days of the week (appropriate as chronic conditions allow) Follow up yearly and prn Hand out given on advanced directives CKD stage 4 secondary to zefmtjyjpukl02/27/2024 Assessment & Plan (10/26/2024 10:51 AM EDT): Continue with nephrology Assessment & Plan (04/29/2024 11:21 AM EDT): Continue with nephrology Assessment & Plan (10/15/2023 10:51 AM EDT): Continue w nephrology Primary /27/2024History of colon wanupr1309/30/2023 Assessment & Plan (10/26/2024 6:19 AM EDT): Has had in the past, declines wanting to do periodic colonoscopies Mixed ryjgtotkqywafd38/27/2024 Assessment & Plan (10/26/2024 6:20 AM EDT): On statin therapy Check labs yearly and prn dose changes Assessment & Plan (10/15/2023 10:51 AM EDT): Check labs DEMETRIO (generalized anxiety disorder)09/30/2023 Assessment & Plan (10/26/2024 11:01 AM EDT): Current meds: buspar, celexa DEMETRIO 7=0 PHQ 9=0 Assessment & Plan (04/29/2024 11:22 AM EDT): Doing well on current meds Gastroesophageal reflux disease without otcqcespdme87/27/2024Idiopathic chronic gout of multiple sites without clrbkn1509/30/2023 Assessment & Plan (12/16/2023 1:55 PM EDT): Stops by the window, great toe painful, and swollen, has had gout flares in the past, and is similar to this asking for meds Will send in steroids Panic cyrfes8709/30/2023ilateral carotid artery svehsiph09/27/2024 Overview (09/30/2023): Carotid US: 74% right, 71% left 10/21/22 Assessment & Plan (10/15/2023 10:51 AM EDT): Cont with vascular Primary sdkpayyvimna13/08/2024 Assessment & Plan (10/26/2024 6:17 AM EDT): Please check blood pressure daily and record DASH diet Limit caffeine Take medication as directed Contact office if chest pain, pressure, dizziness, shortness of breath, swelling legs Recommend slow position changes Current meds: atenolol, and losartan Assessment & Plan (04/29/2024 11:16 AM EDT): Stable Assessment & Plan (03/24/2024 11:58 AM EDT): stable Assessment & Plan (10/15/2023 10:50 AM EDT): At goal no changes in meds/doses Check labs Centrilobular xyblweoth42/27/2023 Assessment & Plan (10/26/2024 6:15 AM EDT): Per CT findings Has duoneb Assessment & Plan (03/24/2024 7:21 AM EDT): Per CT findings Assessment & Plan (03/24/2024 7:20 AM EDT): >>ASSESSMENT AND PLAN FOR COPD (CHRONIC OBSTRUCTIVE PULMONARY DISEASE) ([facility]) WRITTEN ON 10/15/2023 10:50 AM BY ANTOINETTE CARRILLO NP Continue use of nebs prn dyspnea Malignant neoplasm of colon, mzfynsunmqv09/24/2018 Assessment & Plan (03/24/2024 7:20 AM EDT): Had in the past declines fu with colonoscopy Other seasonal allergic ajuugsaw20/24/2018 Resolved Problems ProblemNoted DateDiagnosed DateResolved DatePneumonia of left lower lobe due to infectious objafoic62/ Assessment & Plan (04/06/2024 2:24 PM EDT): Feeling much better back to his baseline activities As- well as breathing Assessment & Plan (03/24/2024 11:58 AM EDT): TCM fu, reviewed ER notes/hospital notes,and CT scan Finish atb, and steroids Fu in 2 weeks for recheck Elevated PSA/ Assessment & Plan (10/26/2024 10:51 AM EDT): Refuses any further screening fro Encounters DateTypeDepartmentCare FarhLgmbwsbmxca16/21/2025Refill [facility] [address] [place] [address] Antoinette Carrillo, FABRICIO Primary hypertensionfrom Last 3 Months Immunizations ImmunizationAdministration DatesNext DueJanssen WJLI-PtA-580/26/2021 Family History Medical HistoryRelationNameCommentsCancerFatherRelationNameStatusCommentsFather DeceasedMotherDeceased (Age 90) Social History Tobacco UseTypesPacks/DayYears UsedDateSmoking Tobacco: Every DayCigarettes Tobacco Cessation:Ready to Q uit: Not Asked; Counseling Given: Not Answered Comments:6-10 cigarettes/day Alcohol UseStandard Drinks/WeekCommentsNot Currently0 (1 standard drink = 0.6 oz pure alcohol)caffeine 1-2 cups per dayHumiliation, Afraid, Rape, and Kick questionnaireAnswerDate RecordedWithin the last year, have you been afraid of your partner or ex-partner?No10/15/2023Within the last year, have you been humiliated or emotionally abused in other ways by your partner or ex-partner?No 10/15/2023Within the last year, have you been kicked, hit, slapped, or otherwise physically hurt by your partner or ex-partner?No10/15/2023Within the last year, have you been raped or forced to have any kind of sexual activity by your part ner or ex-partner?No10/15/2023Social Connection and Isolation PanelAnswerDate RecordedIn a typical week, how many times do you talk on the phone with family, friends, or neighbors?Twice a week10/15/2023How often do you get together with friends or relatives?Twice a week10/15/2023How often do you attend yazdanism or sabianist services?Never10/15/2023o you belong to any clubs or organizations such as yazdanism groups, unions, fraternal or athletic groups, or school groups?No 10/15/2023How often do you attend meetings of the clubs or organizations you belong to?Never10/15/2023re you , , , , never , or living with a partner?Patient unable to mcvsly0410/15/2023UDIT-C AnswerDate RecordedQ1: How often do you have a drink containing alcohol?Never 10/15/2023Q2: How many drinks containing alcohol do you have on a typical day when you are drinking?Patient does not drink10/15/2023Q3: How often do you have six or more drinks on one occasion?Never10/15/2023Overall Financial Resource Strain (CARDIA)AnswerDate RecordedHow hard is it for you to pay for the very basics like food, housing, medical care, and heating?Not hard at all10/15/2023 PHQ-2AnswerDate RecordedPatient Health Questionnaire-2 Sdctk271Finmountain point medical center [facility] of Occupational Health - Occupational Stress QuestionnaireAnswerDate RecordedDo you feel stress - tense, restless, nervous, or anxious, or unable to sleep at night because yourmind is troubled all the time - these days?Only a sndirz8310/15/2023Exercise Vital SignAnswerDate RecordedOn average, how many days per week do you engage in moderate to strenuous exercise (like a brisk walk)?3 days10/15/2023On average, how many minutes do you engage in exercise at this level?130 min10/15/2023Hunger Vital SignAnswerDate RecordedWithin the past 12 months, you worried that your food would run out before you got the money to buy more.Never true10/15/2023Within the past 12 months, the food you bought just didn't last and you didn't have money to get more.Never true10/15/2023RAPARE - TransportationAnswerDate RecordedIn the past 12 months, has lack of transportation kept you from medical appointments or from getting medications?No 10/15/2023In the past 12 months, has lack of transportation kept you from meetings, work, or from getting things needed for daily living?No10/15/2023 Housing Stability Vital SignAnswerDate RecordedIn the last 12 months, was there a time when you were not able to pay the mortgage or rent on time?No10/15/2023In the last 12 months, how many places have you lived?In the last 12 months, was there a time when you did not have a steady place to sleep or slept in ashelter (including now)?No10/15/2023Sex and Gender InformationValueDate RecordedSex Assigned at BirthNot on fileLegal UfzPfxi8910/16/2022 8:24 PM EDT Gender IdentityNot on fileSexual OrientationNot on file Last Filed Vital Signs Vital SignReadingTime TakenCommentsBlood Gfbhnsmu351/7403 10:10 AM EDT Njyhe662410/26/2024 10:10 AM SZVAtbhpyuznuz79 ??C (98.6 ??F)10/26/2024 10:10 AM EDTRespiratory Rwhd310810/26/2024 10:10 AM EDTOxygen Olihyidohg68%10/26/2024 10:10 AM EDTInhaled Oxygen Concentration--Cjmdcn70.7 kg (169 lb)10/26/2024 10:10 AM BSFFykydz257.3 cm (5' 9 )04/29/2024 10:32 AM EDTBody Mass Index24.9604/29/2024 10:32 AM EDT Plan of Treatment Health MaintenanceDue DateLast DoneCommentsMedicare Annual Wellness (AWV) , 10/15/2023, 10/15/2023, Additional history existsInfluenza VaccineDiscontinuedPneumococcal Vaccine: 65+ YearsDiscontinued Insurance * Guarantor: Bennett Amaya TypeRelation to PatientDate of BirthPhone Billing AddressPersonal/AdrhaeQmqf1940 [address] [address] Care Teams Team MemberRelationshipSpecialtyStart DateEnd Date Wallace Hubbard MD PCP - GeneralFamily Medicine10/15/23 Antoinette Carrillo NP [address] [place] [id number] [facility]09/10/24 Antoinette Carrillo NP Nurse PractitionerAt[facility] Health [facility]10/15/23
--- OUTSIDE RECORDS SUMMARY | 2025-05-30 07:51 | XMS_ITS | CCD ---
Author Organization [facility] Care Team Providers Care Cookie Breaker Name Role Phone Mariam, Praveen Unavailable AICHHOLZ, ASSISTED LIVING COORDINATOR ANTOINETTE Admitting Unavailable AICHHOLZ, ASSISTED LIVING COORDINATOR ANTOINETTE Attending Unavailable AICHHOLZ, ASSISTED LIVING COORDINATOR ANTOINETTE Primary Care Unavailable AICHHOLZ, ASSISTED LIVING COORDINATOR ANTOINETTE Consulting Unavailable AICHHOLZ, ASSISTED LIVING COORDINATOR ANTOINETTE Admitting Unavailable AICHHOLZ, ASSISTED LIVING COORDINATOR ANTOINETTE Attending Unavailable AICHHOLZ, ASSISTED LIVING COORDINATOR ANTOINETTE Primary Care Unavailable LIMON, DR BUBBA Amaya Consulting Unavailable AICHHOLZ, ASSISTED LIVING COORDINATOR ANTOINETTE Consulting Unavailable AICHHOLZ, ASSISTED LIVING COORDINATOR ANTOINETTE Admitting Unavailable AICHHOLZ, ASSISTED LIVING COORDINATOR ANTOINETTE Attending Unavailable AICHHOLZ, ASSISTED LIVING COORDINATOR ANTOINETTE Primary Care Unavailable AICHHOLZ, ASSISTED LIVING COORDINATOR NATOINETTE Consulting Unavailable UDAY, ADELINE Admitting Unavailable UDAY, ADELINE Attending Unavailable AICHHOLZ, ASSISTED LIVING COORDINATOR ANTOINETTE Primary Care Unavailable LIMON, DR BUBBA Amaya Consulting Unavailable UDAY, ADELINE Consulting Unavailable ABBAS, DR SY Admitting Unavailable ABBAS, DR SY Attending Unavailable AICHHOLZ, ASSISTED LIVING COORDINATOR ANTOINETTE Primary Care Unavailable ABBAS, DR SY Consulting Unavailable ZIEBER, DR MAURO Barnes Consulting Unavailable ABBAS, DR SY Admitting Unavailable ABBAS, DR SY Attending Unavailable AICHHOLZ, ASSISTED LIVING COORDINATOR ANTOINETTE Primary Care Unavailable ABBAS, DR SY Consulting Unavailable MARIAM, PRAVEEN Admitting Unavailable MARIAM, PRAVEEN Attending Unavailable AICHHOLZ, ASSISTED LIVING COORDINATOR ANTOINETTE Primary Care Unavailable MARIAM, PRAVEEN Consulting Unavailable AICHHOLZ, ASSISTED LIVING COORDINATOR ANTOINETTE Admitting Unavailable AICHHOLZ, ASSISTED LIVING COORDINATOR ANTOINETTE Attending Unavailable AICHHOLZ, ASSISTED LIVING COORDINATOR ANTOINETTE Primary Care Unavailable WEST, DR BUBBA Amaya Consulting Unavailable AICHHOLZ, ASSISTED LIVING COORDINATOR ANTOINETTE Consulting Unavailable MARIAM, PRAVEEN Admitting Unavailable MARIAM, PRAVEEN Attending Unavailable AICHHOLZ, ASSISTED LIVING COORDINATOR ANTOINETTE Primary Care Unavailable MARIAM, PRAVEEN Consulting Unavailable Naderer MD, Wallace Primary Care Provider [phone] Wallace Hubbard MD Primary Care Provider Gerardo SALES FORCE DEVELOPER, Antoinette Unavailable Gerardo SALES FORCE DEVELOPER, Antoinette Unavailable GERARDO, ANTOINETTE Attending Unavailable GERARDO, ANTOINETTE Attending Unavailable GERARDO, ANTOINETTE Attending Unavailable GERARDO, ANTOINETTE Attending Unavailable Gerardo TESFAYEC, Antoinette Green Primary Care Provider [phone] Gerardo SALES FORCE DEVELOPER-Zelda, Antoinette Green Attending Provider Allergies Allergy ClassificationReported Allergen(s)Allergy TypeDate of OnsetReaction(s) Facility (1 source)Amino AcidsDrug AllergyThe [facility] (20 sources)LisinoprilAllergy to bmouvjlgf23-71-7245JbcxjtcXDUW [employer] Work Phone: Medications Current Medications MedicationDrug Class(es)DatesSig (Normalized)Sig (Original)200 actuat albuterol 0.09 mg/actuat dry powder inhaler (4 sources)beta2-Adrenergic AgonistStart: 24-96-2418Pnxtajyuv Sulfate 90 mcg/actuation aerosol powdr breath activated Active 2 INH INHALATION Every 4 ho urs as needed October 30, 2023 12:00am Complies with drug therapyalbuterol 0.833 mg/ml / ipratropium bromide 0.167 mg/ml inhalation solution (20 sources)Anticholinergic, beta2-Adrenergic AgonistStart: 06-01-2024 End: 05-91-5232avqvodlyqlc-albuterol (Duo-Neb) 0.5-2.5 mg/3 mL nebulizer solution Indications: Chronic obstructivepulmonary disease, unspecified COPD type (HCC) , Centrilobular emphysema (HCC) , Shortness of breath USE 1 VIAL VIA NEBULIZER EVERY 6 HOURS NEEDED FOR SHORTNESS OF BREATH OR WHEEZING 1081 mL 1 02/11/2025 ActiveStart: 12-02-2023 End: 34-49-6687tcnbsamlska-albuterol (Duo-Neb) 0.5-2.5 mg/3 mL nebulizer solution Indications: Chronic obstructivepulmonary disease, unspecified COPD type (CMS/HCC) , Centrilobular emphysema (CMS/HCC) , Shortness of breath 1 unit dose every 6 hours prn shortness of breath or wheezing1 unit dose every 6 hours prnshortness of breath or wheezing 1080 mL 1 12/02/2023 06/01/2024 Discontinued Start: 72-30-9221mkua 1 mL by inhalation every six hours as neededIpratropium- Albuterol 0.5 mg-3 mg(2.5 mg base)/3 mL solution for nebulization Active 3 ML INHALATION Every 6 hours as needed October 30, 2023 12:00am Complies with drug therapyStart: 68-21-0986vqdalrdouoe-albuterol (Duo-Neb) 0.5-2.5 mg/3 mL nebulizer solution Indications: Centrilobular emphysema (CMS/HCC) 1 unit dose every 6 hours prn shortness of breath or wheezing 180 mL 1 08/14/2023 Activetake 3 mL by inhalation every six hours as neededIpratropium-Albuterol 0.5-2.5 (3) MG/3ML 3 ml as needed Inhalation every 6 hrs ActiveAlbuterol Sulfate 108 (90 Base) MCG/ACT (1 source)take 2 puff(s) by inhalation every four hours as neededAlbuterol Sulfate 108 (90 Base) MCG/ACT 2 puff as needed Inhalation every 4 hrs Active aspirin 81 mg delayed release oral tablet (17 sources)Platelet Aggregation Inhibitor, Nonsteroidal Anti-inflammatory Drug take 1 tablet by mouth once dailyaspirin 81 MG EC tablet Take 1 tablet by mouth Daily Activeatenolol 25 mg oral tablet (20 sources)beta-Adrenergic BlockerStart: 09-30-2023 End: 78-12-8952abqx 1 tablet by mouth once dailyAtenolol 25 mg tablet Active 25 MG PO Daily October 30, 2023 12:00am Complies with drug therapytake 1 tablet by mouth every twenty-four hoursAtenolol 25 MG 1 tablet Orally Once a day Active busPIRone hydrochloride 10 mg oral tablet (20 sources)Start: 09-30-2023 End: 77-39-7222bryn 1 tablet by mouth three times dailyBuspirone 10 mg tablet Active 10 MG PO Three times daily October 30, 2023 12:00am Complies with drug therapytake 1 tablet by mouth every eight hoursbusPIRone HCl 10 MG 1 tablet Orally THREE TIMES A DAY Activecitalopram 10 mg oral tablet (20 sources)Serotonin Reuptake InhibitorStart: 10-30-2023 End: 70-51-5686wzgr 1 tablet by mouth once dailyCitalopram 10 mg tablet Active 10 MG PO Daily November 11, 2024 12:46pm Complies with drug therapytake 1 tablet by mouth every twenty-four hoursCitalopram Hydrobromide 10 MG 1 tablet Orally Once a day Activefamotidine 20 mg oral tablet (13 sources)Histamine-2 Receptor AntagonistStart: 09-30-2023 End: 21-19-0617gjjr 1 tablet by mouth in the eveningfamotidine (Pepcid) 20 MG tablet Indications: Gastroesophageal reflux disease without esophagitis Take 1 tablet (20 mg) by mouth in the evening 90 tablet 1 04/01/2024 06/30/2024 Active furosemide 20 mg oral tablet (20 sources)Loop DiureticStart: 23-14-6205aqqf 1 tablet by mouth once daily Furosemide 20 mg tablet Active 0 .ROUTE .COMPLEX February 09, 2025 11:49am TAKE 1 TABLET BY MOUTH EVERY DAY Complies with drug therapyStart: 11-11-2024 End: 13-70-8099wqhm 1 tablet by mouth once dailyFurosemide 20 mg tablet Discontinued 20 MG PO Daily November 11, 2024 12:47pm February 09, 2025 11:49am Start: 04-22-2024 End: 47-69-0379hhno 1 tablet by mouth once dailyFurosemide 20 mg tablet Discontinued 0 .ROUTE .COMPLEX April 22, 2024 9:35am November 11, 2024 12:48pm TAKE 1 TABLET BY MOUTH EVERY DAYStart: 07-24-2023 End: 08-96-8240xiby 1 tablet by mouth once dailyFurosemide 20 mg tablet Discontinued 20 MG PO Daily October 24, 2023 10:25am April 22, 2024 9:35amtake 1 tablet by mouth once dailylevoFLOXacin 250 mg oral tablet (3 sources)Quinolone AntimicrobialStart: 03-22-2024 End: 95-71-9454dkwi 1 tablet by mouth once dailylevoFLOXacin (Levaquin) 250 MG tablet Take 250 mg by mouth Daily 03/22/2024 03/29/2024 ActiveMulti For Him 50+ - (1 source)Multi For Him 50+ - as directed Orally ActiveMultiple Vitamins- Minerals (Multivitamin Men) tablet (20 sources)Multiple Vitamins-Minerals (Multivitamin Men) tablet Orally Active Multivitamin (Multiple Vitamins) tablet (4 sources)Start: 56-92-0246wsvr 1 tablet by mouth once dailyMultivitamin (Multiple Vitamins) tablet Active 1 TAB PO Daily October 30, 2023 12:00am Complies with drug therapyStart: 52-24-9529vyyd 1 tablet by mouth once daily Multivitamin (Multiple Vitamins) tablet Active 1 TAB PO Daily October 30, 2023 12:00ampravastatin sodium 80 mg oral tablet (20 sources)HMG-CoA Reductase InhibitorStart: 10-26-2024 End: 63-87-7887ogba 1 tablet by mouth at bedtimepravastatin (Pravachol) 80 MG tablet Indications: Mixed hyperlipidemia Take 1 tablet (80 mg) by mouth at bedtime 90 tablet 1 10/26/2024 ActiveStart: 10-30-2023 End: 36-46-5192pmwj 1 tablet by mouth at bedtimepravastatin (Pravachol) 80 MG tablet Indications: Mixed hyperlipidemia (CMS/HCC) Take 1 tablet (80 mg) by mouth at bedtime 90 tablet 1 07/25/2024 10/23/2024 Activetake 1 tablet by mouth every twenty-four hoursPravastatin Sodium 80 MG 1 tablet Orally Once a day ActivepredniSONE 20 mg oral tablet (5 sources)Start: 09-27-2024 End: 64-35-0089flkp 1 tablet by mouth in the morningpredniSONE (Deltasone) 20 MG tablet Indications: Idiopathic chronic gout of multiple sites without tophus Take 1 tablet (20 mg) by mouth in the morning and 1 tablet (20 mg) in the evening. Take with meals. Do all this for 7 days. Take with food. 14 tablet 09/27/2024 10/04/2024 ActiveStart: 03-22-2024 End: 68-14-5687bsnu 1 tablet by mouth in the morningpredniSONE (Deltasone) 20 MG tablet Take 20 mg by mouth in the morning and 20 mg before bedtime. 03/22/2024 03/27/2024 Activetamsulosin hydrochloride 0.4 mg oral capsule (2 sources)alpha-Adrenergic BlockerStart: 04-06-2024 End: 83-17-2144afni 1 capsule by mouth every twenty-four hours at bedtime tamsulosin (Flomax) 0.4 MG 24 hr capsule Indications: Benign prostatic hyperplasia with urinary frequency Take 1 capsule (0.4 mg) by mouth at bedtime 30 capsule 1 04/06/2024 05/06/2024 Active Completed/Discontinued Medications MedicationDrug Class(es)DatesSig (Normalized)Sig (Original)losartan potassium 25 mg oral tablet (20 sources)Angiotensin 2 Receptor BlockerStart: 04-15-2024 End: 81-62-6714wdyu 1 tablet by mouth twice dailyLosartan 25 mg tablet Discontinued 25 MG PO Twice daily April 15, 2024 12:00am November 11, 2024 12:48pmStart: 10-30-2023 End: 78-81-4809vkhx 1 tablet by mouth once dailyLosartan 50 mg tablet Discontinued 50 MG PO Daily October 30, 2023 12:00am April 15, 2024 1:34pm Start: 09-11-2023 End: 45-65-0568teli 1 tablet by mouth onceLosartan 25 mg tablet Active 25 MG PO Once November 11, 2024 12:48pm Complies with drug therapytake 1 tablet by mouth every twenty-four hoursLosartan Potassium 50 MG 1 tablet Orally Once a day Active Problems Active Problems Problem ClassificationProblemDateDocumented DateEpisodic/ChronicAnxiety disorders (20 sources)Anxiety disorder, unspecified; Translations: [Generalized anxiety disorder]Onset: 65-41-4106JbeazbvLzjbdh of colon (20 sources)Malignant tumor of colon; Translations: [Malignant neoplasm of colon, unspecified]Onset: 979363-15-6028UrddvprBsssbj of colon (20 sources)History of malignant neoplasm of colon; Translations: [Personal history of other malignant neoplasmof large intestine]Onset: 09-30-2023 34-64-2205IgcdqapqNeluqzv dysrhythmias (20 sources)Tachycardia; Translations: [Tachycardia, unspecified]Onset: 176346-82-1717GaoledcbQrplmlo kidney disease (12 sources)Chronic kidney disease stage 4; Translations: [Chronic kidney disease, stage 4 (severe)]Onset: 690976-58-2657BbbjbkeLuwlgrq kidney disease (3 sources)Chronic kidney disease; Translations: [Chronic kidney disease, stage 3b]Onset: 02-07-2022 Resolved: 94-29-5288Ykmeuop obstructive pulmonary disease and bronchiectasis (20 sources)Chronic obstructive pulmonary disease, unspecified; Translations: [Centriacinar emphysema]Onset: 030091-71-1815TxtofzcYxbjxmbc atherosclerosis and other heart disease (20 sources)Coronary arteriosclerosis; Translations: [Atherosclerotic heart disease of [place] coronary artery without angina pectoris]Onset: 03-24-2024 67-68-5713ZzlizpeCsuhrauhjs and other anemia (5 sources)Anemia of renal disease; Translations: [Anemia in chronic kidney disease]09-13-8290NydsrstVjpiyweljq and other anemia (2 sources)Anemia in chronic kidney disease; Translations: [ANEMIA IN CHRONIC KIDNEY DISEASE]Onset: 02-07-2022 Resolved: 32-03-4843ScawazcZddgkcrdk of lipid metabolism (20 sources)Hyperlipidemia, unspecified; Translations: [Pure hypercholesterolemia, unspecified]Onset: 64-83-4361IzuyvizQadharfegx disorders (20 sources)Gastro-esophageal reflux disease without esophagitis; Translations: [Gastroesophageal reflux disease without esophagitis]Onset: 115136-90-8944 ChronicEssential hypertension (20 sources)Essential hypertension; Translations: [Essential (primary) hypertension]Onset: 650894-39-9346KvktmjcMhcy and other crystal arthropathies (20 sources)Gout; Translations: [Gout, unspecified]Onset: 02-07-2022 Resolved: 04-30-2567SlkwihaEjhsyqderqo of prostate (20 sources)Benign prostatic hypertrophy with outflow obstruction; Translations: [Benign prostatic hyperplasia with lower urinary tract symptoms]Onset: 946499-11-0830OjvswfiFtzvjzoanefr with complications and secondary hypertension (20 sources)Chronic kidney disease due to hypertension; Translations: [Hypertensive chronic kidney disease withstage 1 through stage 4 chronic kidney disease, or unspecified chronic kidney disease]Onset: 01-10-2022 Resolved: 76-89-0914CokqlocKktgoxfleujnv mental health disorders (20 sources)Primary insomnia; Translations: [Primary insomnia]Onset: 09-30-2023 64-37-1242VjlzgkyIgrteygmb or stenosis of precerebral arteries (20 sources)Occlusion and stenosis of left carotid artery; Translations: [Bilateral stenosis of carotid arteries]Onset: 615667-04-1137StpuabfMqkiq connective tissue disease (4 sources)Pain in right leg; Translations: [PAIN IN RIGHT LEG]Onset: 10-21-2022 EpisodicOther connective tissue disease (1 source)Pain in left leg; Translations: [PAIN IN LEFT LEG]Onset: 10-26-2022 EpisodicOther connective tissue disease (20 sources)H/O: osteoarthritis; Translations: [Personal history of other diseases of the musculoskeletal system and connective tissue]Onset: 10-15-2023 67-03-8480QwbivxyiFsrnj diseases of bladder and urethra (1 source)Mass of urinary bladder; Translations: [Other specified disorders of bladder]ChronicOther diseases of kidney and ureters (5 sources)Secondary hyperparathyroidism; Translations: [Secondary hyperparathyroidism of renal origin]60-43-5372SgdcpreFmlej diseases of kidney and ureters (5 sources)Secondary hyperparathyroidism of renal origin; Translations: [Secondary hyperparathyroidism (of renal origin)]Onset: 02-07-2022 Resolved: 85-24-1494VdtpfhfIrvrt diseases of kidney and ureters (20 sources)Hyperparathyroidism due to renal insufficiency; Translations: [Secondary hyperparathyroidism of renal origin]Onset: ChronicOther diseases of kidney and ureters (4 sources)Disorder of kidney and ureter, unspecified; Translations: [DISORDER KIDNEY AND URETER UNS]Onset: 89-77-6346IdhcdmphYwqrv endocrine disorders (20 sources)Hyperparathyroidism; Translations: [Hyperparathyroidism, unspecified]Onset: 759655-58-5470KhtkwasDwyxj lower respiratory disease (1 source)Other abnormalities of breathing; Translations: [OTHER ABNORMALITIES OF BREATHING]Onset: 82-77-9716BdalxquwGghct lower respiratory disease (20 sources)Dyspnea; Translations: [Shortness of breath]Onset: 12-02-2023 29-35-7680CahafqehYufbx non-epithelial cancer of skin (20 sources)Basal cell carcinoma of skin; Translations: [Basal cell carcinoma of skin, unspecified]Onset: 761185-81-1240EfltmjykFvole nutritional; endocrine; and metabolic disorders (20 sources)Hyperuricemia; Translations: [Hyperuricemia without signs of inflammatory arthritis and tophaceous disease]Onset: EpisodicOther screening for suspected conditions (not mental disorders or infectious disease) (4 sources)Abnormal findings on diagnostic imaging of other specified body structures; Translations: [ABNORML FIND DX IMG OTH BODY STRUC]Onset: 02-11-2022 ChronicOther screening for suspected conditions (not mental disorders or infectious disease) (20 sources)Encounter for screening for malignant neoplasm of prostate; Translations: [Raised prostate specificantigen]Onset: 10-12-2022 Resolved: 166736-65-2494QtrsqqpfAcqqe upper respiratory disease (20 sources)Seasonal allergic rhinitis; Translations: [Other seasonal allergic rhinitis]Onset: 296375-48-9006KwmdygfNpyopgtntc and visceral atherosclerosis (20 sources)Peripheral vascular disease, unspecified; Translations: [Vascular disorder]Onset: 49-09-3669Iaozdyu Past or Other Problems Problem ClassificationProblemDateDocumented DateEpisodic/ChronicAcute and unspecified renal failure (1 source)Acute kidney failure, unspecified; Translations: [ACUTE KIDNEY FAILURE UNSPECIFIED]Onset: 91-56-5783QavjtnmzHmnf disorders (20 sources)Mood disordersOnset: 10-15-2023 Resolved: Other aftercare (1 source)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; Translations: [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 CURRENT USE OF ASPIRIN]Onset: 51-58-8242FweapwhxZkpkj aftercare (1 source)Other retirement (current) drug therapy; Translations: [OTH FPC CURRENT DRUG THERAPY]Onset: 36-37-3676PturllypTdnvl lower respiratory disease (1 source)Dyspnea, unspecified; Translations: [DYSPNEA UNSPECIFIED]Onset: 98-62-5386NtfhqwbwWbbshtnyt (except that caused by tuberculosis or sexually transmitted disease) (20 sources)Left lower zone pneumonia; Translations: [Pneumonia, unspecified organism]Onset: 03-24-2024 Resolved: 528542-31-2245ZccuocqqZfjtglqok and history of mental health and substance abuse codes (1 source)Personal history of nicotine dependence; Translations: [PERSONAL HISTORY OF NICOTINE DEPEND]Onset: 03-63-2693Svrelezk Results Test NameValueInterpretationReference RangeFacilityALL CBC WITH AUTO DIFFon 26-38-5613LDRNBXXBU ABSOLUTE AUTO0.1NOMS HealthcareBasophils/100 WBC (Bld)0.7 % 0.2 - 2.0 %[facility] HealthcareEosinophils/100 WBC (Bld)3.6 %0.9 - 7.0 %[facility] HospitalErythrocyte distribution width (RBC) [Ratio]13.8 %11.0 - 15.0 %[facility] HealthcareHematocrit (Bld) [Volume fraction]34.5 %Low42.0 - 54.0 %[facility] HospitalHemoglobin (Bld) [Mass/Vol]11.7 g/dLLow14.0 - 18.0 g/dLHermann Area District Hospital IMMATURE GRANULOCYTES ABS AUTO0.03[facility] HospitalImmature granulocytes/100 WBC (Bld)0.4 %0.0 - 0.5 %[facility] HospitalInterpretation and review of laboratory resultsAbnormalNOPhelps HealthLYMPHOCYTES ABSOLUTE AUTO1.7[facility] Lymphocytes/100 WBC (Bld)23.3 %20.5 - 60.0 %[facility] HospitalMCH (RBC) [Entitic mass]29.5 pg25.9 - 34.0 pgNOThe Rehabilitation Institute of St. LouisHC (RBC) [Mass/Vol]33.9 g/dL29.9 - 35.2 g/dLMissouri Baptist Hospital-SullivanV (RBC) [Entitic vol]86.9 fL80.0 - 94.0 fLNOPhelps HealthMONOCYTES ABSOLUTE AUTO0.8N[facility] HealthcareMonocytes/100 WBC (Bld)10.1 % 1.7 - 12.0 %NOM HealthcareNEUTROPHILS ABSOLUTE AUTO4.6[facility] Neutrophils/100 WBC (Bld)61.9 %43.0 - 75.0 %[facility] HealthcarePlatelet mean volume (Bld) [Entitic vol]9.4 fLLow9.5 - 13.5 fLNOMS HealthcareTBH EO #0.3NOMS HealthcareTBH [id number] HealthcareTBH RBC3.97LowNOMS HealthcareTBH WBC7.4NOMS HealthcareCLINISYNCNOMS HealthcareIron binding capacity [Mass/volume] in Serum or Plasmaon 64-45-2635Wtlf binding capacity [Mass/Vol]Iron binding capacity [Mass/volume] in Serum or Jckdqp696.0-450.0[facility] HospitalIron saturation [Mass Fraction] in Serum or Plasmaon 59-39-4177Vguw saturation [Mass fraction]Iron saturation [Mass Fraction] in Serum or PlasmaOhiohealth Berger HospitalLaboratory - Chemistry and Chemistry - challengeon 11-01-2024 Ferritin [Mass/Vol]202.0 ng/mL26.0-388.0[facility] HospitalIron [Mass/Vol]84.0 ug/dL65.0-175.0[facility] HospitalMagnesium [Mass/Vol]2.1 mg/dL1.8-2.4FAshtabula General HospitalUrate [Mass/Vol]8.4 mg/dLHigh3.5-7.2FAshtabula General HospitalLaboratory - Urinalysison 08-48-9180Vndywhx (U) [Mass/Vol]7.9 mg/dL<=11.9[facility] No Panel Informationon [id number] Vitamin D Total45.4 ng/mLOhiohealth Berger HospitalComment on above:<20 ng/mL Vit D jemcoditg41-<30 ng/mL Vit D sjzjezkxvpiy15-238 ng/mL Vit D sufficient>100 ng/mL Potential Toxicity Parathyroid Hormone (Intact)68 pg/cFHufunqmc56-35CitpgmoutOhiohealth Berger HospitalComment on above:Performed at: - Lab[address] [id number] Director: Jatin Vegas PhD, Phone: [phone] Phosphorus Level4.2 mg/dL2.6-4.7FAshtabula General HospitalUrine Random Lwqrutkjok650.68 mg/dL20.00-300.00[facility] HospitalUrine protein/creatinine ratioon 18-59-1687Kztybdk/Creatinine (U) [Ratio]Urine protein/creatinine ratioOhiohealth Berger HospitalErythrocyte distribution width Auto (RBC) [Ratio]on 73-95-4250Tpducjarxjr distribution width (RBC) [Ratio]13.1 %11.0-15.0[facility] HospitalEstimated glomerular filtration rate (GFR) non- Americanon 40-73-6335AVC/1.73 sq M.predicted among non-blacks MDRD (S/P/Bld) [Vol rate/Area]35 mL/min/{1.73_m2} Low>=60[facility] CBC WITH PLATELET NO DIFFERENTIALon 02-76-8578Oarrgusrldb distribution width (RBC) [Ratio]13.1 %11.0 - 15.0 %NOM HealthcareHematocrit (Bld) [Volume fraction]37.7 %Low42.0 - 54.0 %[facility] HospitalHemoglobin (Bld) [Mass/Vol]12.5 g/dLLow14.0 - 18.0 g/dLHermann Area District Hospital Interpretation and review of laboratory resultsAbnormalMissouri Baptist Hospital-SullivanH (RBC) [Entitic mass]29.1 pg25.9 - 34.0 pgMissouri Baptist Hospital-SullivanHC (RBC) [Mass/Vol]33.2 g/dL 29.9 - 35.2 g/dLMissouri Baptist Hospital-SullivanV (RBC) [Entitic vol]87.9 fL80.0 - 94.0 fLHermann Area District HospitalPlatelet mean volume (Bld) [Entitic vol]9.1 fLLow9.5 - 13.5 fLLee's Summit Hospital [id number] Missouri Hospital RBC4.29LowLee's Summit Hospital WBC10.5[facility] HospitalCLINISYNCNCIMARRON MEMORIAL [facility]ITAL [facility] HealthcareHematocrit Auto (Bld) [Volume fraction]on 77-13-8800Rwrubvobnc (Bld) [Volume fraction]37.7 %Low42.0-54.0[facility] HospitalHemoglobin [Mass/volume] in Bloodon 40-49-0126Btvpffqptk (Bld) [Mass/Vol]12.5 g/dLLow14.0-18.0[facility] HospitalIron binding capacity [Mass/volume] in Serum or Plasmaon 82-53-2044Mgng binding capacity [Mass/Vol]265.0 ug/dL250.0-450.0[facility] HospitalIron saturation [Mass Fraction] in Serum or Plasmaon 18-97-4397Smbp saturation [Mass fraction] 30.2 %[facility] HospitalLaboratory - Chemistry and Chemistry - challengeon 05-09-5800Sczruzl [Mass/Vol]3.5 g/dL3.4-5.0[facility] HospitalCalcium [Mass/Vol]8.9 mg/dL8.5-10.1FAshtabula General HospitalChloride [Moles/Vol]106 mmol/N81-373DbvmadlvuOhiohealth Berger HospitalCO2 [Moles/Vol]28.3 mmol/L21.0-32.0[facility] HospitalCreatinine [Mass/Vol]1.87 mg/dLHigh0.70-1.30[facility] HospitalFerritin [Mass/Vol]283.0 ng/mL26.0-388.0[facility] HospitalGFR/1.73 sq M.predicted MDRD (S/P/Bld) [Vol rate/Area]42 mL/min/{1.73_m2}Low>=60[facility] HospitalGlucose [Mass/Vol]101 mg/wN84-981PqrkybelvOhiohealth Berger HospitalIron [Mass/Vol]80.0 ug/dL65.0-175.0[facility] HospitalMagnesium [Mass/Vol]1.8 mg/dL1.8-2.4FAshtabula General Hospital Potassium [Moles/Vol]4.0 mmol/L3.5-5.1FUpper Valley Medical Centerodium [Moles/Vol]142 mmol/S561-128FnzmafsmlOhiohealth Berger HospitalUrate [Mass/Vol]8.2 mg/dLHigh3.5-7.2FAshtabula General HospitalUrea nitrogen [Mass/Vol]27.0 mg/dLHigh7.0-18.0[facility] HospitalUrea nitrogen/Creatinine [Mass ratio]14.4 mg/mgOhiohealth Berger HospitalBilirubin Ql (U)Negative NEGATIVEOhiohealth Berger HospitalGlucose (U) [Mass/Vol]NegativeNEGATIVE [facility] HospitalKetones Ql (U)NegativeNEGATIVEOhiohealth Berger HospitalpH (U)5.5 [pH]5.0-9.0[facility] Specific gravity (U) [Rel density]1.0251.005-1.025Ohio[facility] HospitalUrobilinogen Qn (U)0.2 {Katerina'U}/dL0.2-1.0[facility] HospitalLaboratory - Specimen informationon 42-56-0388Jvvuoiqrox (U)CLEARCLEAR [facility] Berger HospitalColor (U)YELLOWYELLOWOhiohealth Berger HospitalLaboratory - Urinalysison 29-47-8981Clllmcodm esterase Test strip Ql (U) NegativeNEGATIVEOhiohealth Berger HospitalMucus Ql (Urine sed)SMALL AbnormalNONE SEENOhiohealth Berger HospitalNitrite Ql (U)NegativeNEGATIVE [facility] HospitalProtein (U) [Mass/Vol]21.1 mg/dLHigh<=11.9 [facility] HospitalProtein Ql (U)NegativeNEG/TRACEOhiohealth Berger HospitalLeukocytes [#/volume] corrected for nucleated erythrocytes in Blood by Automated counon 11-85-8929MPR corrected for nucl RBC Auto (Bld) [#/Vol]10.5 10 3/uL4.0-11.0[facility] Berger HospitalMCH Auto (RBC) [Entitic mass]on 94-11-2322ZMT (RBC) [Entitic mass]29.1 pg25.9-34.0 [facility] HospitalMCHC Auto (RBC) [Mass/Vol]on 11-02-5105GWYQ (RBC) [Mass/Vol]33.2 g/dL29.9-35.2FAshtabula General HospitalMCV Auto (RBC) [Entitic vol]on 84-34-5730NQO (RBC) [Entitic vol]87.9 fL80.0-94.0[facility] HospitalNo Panel Informationon 11-36-666075565162-Dxstiag Vitamin D Total46.3 ng/mLOhiohealth Berger HospitalComment on above:<20 ng/mL Vit D vexaneplj41-<30 ng/mL Vit D rwtreguedlim14-682 ng/mL Vit D sufficient>100 ng/mL Potential ToxicityParathyroid Hormone (Intact)70 pg/pRHtabrxhx65-45TqotovyjaOhiohealth Berger HospitalComment on above:Performed at: - [facility] [id number] Director: Jatin Vegas PhD, Phone: [phone] Level3.3 mg/dL2.6-4.7FAshtabula General HospitalUrine BacteriaNONE SEEN #/HPFNONE SEENOhiohealth Berger HospitalUrine Occult BloodNegativeNEGATIVEOhiohealth Berger HospitalUrine Random Creatinine 141.49 mg/dL20.00-300.00[facility] Berger HospitalUrine RBCNONE SEEN #/HPF0-2FAshtabula General HospitalUrine Squamous Epithelial CellsFEW #/LPFAbnormalNONE/RAREOhiohealth Berger HospitalUrine WBCNONE SEEN #/HPF NONE SEENOhiohealth Berger HospitalPlatelet mean volume Auto (Bld) [Entitic vol]on 38-24-6361Gifoauat mean volume (Bld) [Entitic vol]9.1 fLLow 9.5-13.5FAshtabula General HospitalPlatelets Auto (Bld) [#/Vol]on 95-02-4199Jvwhnufip (Bld) [#/Vol]269 10 3/mC316-401EqgwjgqpjOhiohealth Berger HospitalRBC Auto (Bld) [#/Vol]on 16-76-9424CJU (Bld) [#/Vol]4.29 10 6/uLLow 4.70-6.10[facility] Hospitalerum or plasma anion gap determinationon 88-92-6753Ozmcs gap [Moles/Vol]11.7 mmol/LFAshtabula General HospitalUrine protein/creatinine ratioon 17-20-7058Pdcerhd/Creatinine (U) [Ratio]0.15[facility] Berger HospitalBUNon 89-52-7905Gpia nitrogen [Mass/Vol]30.0 mg/dLCritically high7.0-18.0[facility] HospitalComment on above:Performed By: #### BNP, CMP, CMADM, TSH #### [facility] [address] [place] [address] Dr. Aliyah Edward 48-44-8410Likelccyof [Mass/Vol]1.97 mg/dLCritically high0.70-1.30[facility] Centerment on above:Performed By: #### BNP, CMP, CMADM, TSH #### [facility] [address] [address] [address] Ly ChangEGFR-AF GQUOXHXH45 mL/min/1.85n2Vuypiwjyve low>=60[facility] HospitalComment on above:Performed By: #### BNP, CMP, CMADM, TSH #### [facility] [address] [place] [address] Dr. Aliyah LivingstonGFR-NON AF MNNVMHOO04 mL/min/1.00a4Sucmmkcjij low>=60The [facility] HospitalComment on above:Performed By: #### BNP, CMP, CMADM, TSH #### [facility] [address] [place] [address] Dr. Aliyah Edward 89-75-2615Diotdeeogq [Mass/Vol]2.10 mg/dLCritically high0.70-1.30The [facility] HospitalComment on above:Performed By: #### BNP, CMP, CMADM, TSH #### [facility] [address] [address] [address] Ly ChangEGFR-AF NWYNOWIG33 mL/min/1.98p9Gsssobwtim low>=60[facility] HospitalComthree rivers health hospital on above:Performed By: #### BNP, CMP, CMADM, TSH #### [facility] [address] [place] [address] Dr. Ly ChangEGFR-NON AF QFSEBDEM30 mL/min/1.66r0Xszodxubqz low>=60[facility] on above:Performed By: #### BNP, CMP, CMADM, TSH #### [facility] [address] [place] [address] Dr. Aliyah Pratt ABD JESS WWO CON LE RUNOFFon 73-08-9348TJU ABD JESS WWO CON LE RUNOFFEXAMINATION: CTA ABD JESS WWO CON LE RUNOFF [...] Electronically authenticated by: MAURO WEBSTER Date: 2022-10-21 15:35[facility] CAROTID ART BILon [id number] CAROTID ART BILEXAMINATION: US CAROTID ART ZOILA HISTORY: Cardiovascular symptoms [...] Electronically authenticated by: MAURO WEBSTER Date: 2022-10-21 15:38German HospitalLIPID PROFILEon 11-60-7051UGUF-HDL RATIO NORMSEE [facility] HospitalComment on above:Result Comment: 3.3 - 4.4 LOW RISK 4.4 - 7.1 AVERAGE RISK 7.1 - 11.0 MODERATE RISK >11.0 HIGH RISKPerformed By: #### LIVER, LIPID #### [facility] [address] [address] [address] Aliyah FierroCholesterol [Mass/Vol]190 mg/dLNormal<=200[facility] Comment on above:Performed By: #### LIVER, LIPID #### [facility] [address] [address] [address] Aliyah FierroCholesterol in HDL [Mass/Vol]40 mg/eWUofzdn22-10Qln [facility] HospitalComment on above:Performed By: #### LIVER, LIPID #### [facility] [address] [address] [address] Aliyah FierroCholesterol in LDL [Mass/Vol]108.4 mg/dLGerman HospitalComment on above:Performed By: #### LIVER, LIPID #### [facility] [address] [address] [address] Aliyah FierroCholesteryin.total/Cholesterol in HDL [Mass ratio]4.8 {ratio} NormalMercy Health St. Elizabeth Boardman HospitalComment on above:Performed By: #### LIVER, LIPID #### [facility] [address] [address] [address] Aliyah FierroHDL NORMAL> or = 60 mg/dl - LOW CARDIOVASCULAR RISK <40 mg/dl - HIGH CARDIOVASCULAR RISKGerman HospitalComment on above:Performed By: #### LIVER, LIPID #### [facility] [address] [address] [address] Aliyah FierroLDL CALC NORMALSEE [facility] HospitalComment on above:Result Comment: <100 mg/dl OPTIMAL 100 - 129 mg/dl NEAR OR ABOVE OPTIMAL 130 - 159 mg/dl BORDERLINE HIGH 160 - 189 mg/dl HIGH >190 mg/dl VERY HIGH Performed By: #### LIVER, LIPID #### [facility] [address] [place] [address] Dr. Aliyah FierroTriglyceride [Mass/Vol]208 mg/dLCritically high<=150[facility] on above:Performed By: #### LIVER, LIPID #### [facility] [address] [place] [address] Dr. Aliyah FierroVLDL CALC41.6 mg/dLNormalThe [facility] HospitalComment on above: Performed By: #### LIVER, LIPID #### [facility] [address] [place] [address] Dr. Aliyah Kahn PROFILEon 23-33-0804Zkbevgq [Mass/Vol]4.0 g/dLNormal3.4-5.0 The [facility] HospitalComment on above:Performed By: #### LIVER, LIPID #### [facility] [address] [place] [address] Dr. Aliyah FierroAlbumin/Globulin [Mass ratio]1.4 {ratio}NormalThe St. [facility] on above:Performed By: #### LIVER, LIPID #### [facility] [address] [place] [address] Dr. Aliyah Hinton [Catalytic activity/Vol]80 U/OQootoa67-652Kvb [facility] on above:Performed By: #### LIVER, LIPID #### [facility] [address] [place] [address] Dr. Aliyah Ochoa [Catalytic activity/Vol]25 U/DIjrmdy75-94Ehq [facility] on above:Performed By: #### LIVER, LIPID #### [facility] [address] [place] [address] Dr. Aliyah Trujillo [Catalytic activity/Vol]22 U/FZajimc14-63Maq [facility] on above:Performed By: #### LIVER, LIPID #### [facility] [address] [place] [address] Dr. Yilan ChangBILI, CONJUGATED0.1 mg/dLNormal0.0-0.2[facility] Comment on above:Performed By: #### LIVER, LIPID #### [facility] [address] [address] [address] Aliyah Mclainirubin [Mass/Vol]0.4 mg/dLNormal0.2-1.0[facility] Comment on above:Performed By: #### LIVER, LIPID #### [facility] [address] [address] [address] Aliyah FierroGlobulin (S) [Mass/Vol]2.8 g/dLNormalThMercer County Community HospitalComment on above:Performed By: #### LIVER, LIPID #### [facility] [address] [place] [address] Dr. Aliyah FierroProtein [Mass/Vol]6.8 g/dLNormal6.4-8.2[facility] Comment on above:Performed By: #### LIVER, LIPID #### [facility] [address] [place] [address] Dr. Aliyah Alfaro ARTERY LEG BILon 87-56-8903RO ARTERY LEG BILEXAMINATION: US ARTERY LEG ZOILA HISTORY: Peripheral vascular [...] Electronically authenticated by: BUBBA BASURTO Date: 2022-09-13 06:13[facility] INTACTon 49-71-8088CWL, Ykghxl18 pg/oVDrknov35-67Onj [facility] HospitalComment on above:Performed By: #### LIVER, LIPID #### [facility] [address] [place] [address] Dr. Aliyah JordanTINon 28-63-1893Gzxgnufm [Mass/Vol]200.0 ng/mLNormal 26.0-388.0The [facility] HospitalComment on above:Performed By: #### LIVER, LIPID #### [facility] [address] [place] [address] Dr. Aliyah FierroHEMOGRAM AND PLATELon 95-38-3227Pjkbjjyxcp (Bld) [Volume fraction]36.1 %Critically low42.0-54.0The [facility] HospitalComment on above: Performed By: #### HH #### [facility] [address] [place] [address] Dr. Aliyah FierroHemoglobin (Bld) [Mass/Vol]12.9 g/dLCritically low14.0-18.0The [facility] HospitalComment on above:Performed By: #### HH #### [facility] [address] [place] [address] Dr. Aliyah Damian (RBC) [Entitic mass]28.9 muJzneyq41.9-34.0The [facility] HospitalComment on above:Performed By: #### HH #### [facility] [address] [place] [address] Dr. Aliyah Damian (RBC) [Mass/Vol]35.7 g/dLCritically high29.9-35.2The [facility] HospitalComment on above:Performed By: #### HH #### [facility] [address] [place] [address] Dr. Aliyah DamianV (RBC) [Entitic vol]80.8 pTPtftrw14.0-94.0The [facility] HospitalComment on above:Performed By: #### HH #### [facility] [address] [place] [address] Dr. Aliyah FierroPLT285 103/yvEfhtdw771-590Kyc [facility] HospitalComment on above: Performed By: #### HH #### [facility] [address] [place] [address] Dr. Aliyah FierroRBC4.47 106/ulCritically low4.70-6.10The [facility] HospitalComment on above:Performed By: #### HH #### [facility] [address] [place] [address] Dr. Aliyah FierroWBC7.6 103/ulNormal4.0-11.0The [facility] HospitalComment on above: Performed By: #### HH #### [facility] [address] [place] [address] Dr. Aliyah Quigley AND TIBCon 08-26-2022% CYKNXJEHEK65.5 %NormalThe [facility] HospitalComment on above:Performed By: #### LIVER, LIPID #### [facility] [address] [place] [address] Dr. Aliyah Quigley [Mass/Vol]98.0 ug/qHIayzdl48.0-175.0The [facility] Comment on above:Performed By: #### LIVER, LIPID #### [facility] [address] [place] [address] Dr. Aliyah FierroTIBC ZWQKOQ907.0 ug/yHYoeuyc424.0-450.0The [facility] Comment on above:Performed By: #### LIVER, LIPID #### [facility] [address] [place] [address] Dr. Aliyah FierroMAGNESIUMon 55-64-0564Yoahijepm [Mass/Vol]1.8 mg/dLNormal1.8-2.4 The [facility] HospitalComment on above:Performed By: #### BNP, CMP, CMADM, TSH #### [facility] [address] [place] [address] Dr. Aliyah FierroRENAL FUNCTION PANELon 72-84-3667Urpxrsc [Mass/Vol]3.9 g/dLNormal 3.4-5.0The [facility] HospitalComment on above:Performed By: #### BNP, CMP, CMADM, TSH #### [facility] [address] [place] [address] Dr. Aliyah FierroCalcium [Mass/Vol]8.6 mg/dLNormal8.5-10.1The [facility] Comment on above:Performed By: #### BNP, CMP, CMADM, TSH #### [facility] [address] [place] [address] Dr. Aliyah FierroChloride [Moles/Vol]103 mmol/DNojjxv28-694Cjw [facility] Comment on above:Performed By: #### BNP, CMP, CMADM, TSH #### [facility] [address] [address] [address] Aliyah FierroCO2 [Moles/Vol]26.8 mmol/ZIewmkh68.0-32.0[facility] Comment on above:Performed By: #### BNP, CMP, CMADM, TSH #### [facility] [address] [address] [address] Aliyah FierroCreatinine [Mass/Vol]1.94 mg/dLCritically high0.70-1.30The [facility] HospitalComment on above:Performed By: #### BNP, CMP, CMADM, TSH #### [facility] [address] [place] [address] Dr. Aliyah LivingstonGFR-AF MLADMRGZ65 mL/min/1.21x2Dcgczszcod low>=60The [facility] HospitalComment on above:Performed By: #### BNP, CMP, CMADM, TSH #### [facility] [address] [place] [address] Dr. Aliyah LivingstonGFR-NON AF BPQPXRNU42 mL/min/1.73c8Pzeaqvmwwm low>=60The [facility] HospitalComment on above:Performed By: #### BNP, CMP, CMADM, TSH #### [facility] [address] [address] [address] Aliyah FierroGlucose [Mass/Vol]97 mg/lWCuesxd98-312TrqMercy Health St[facility] Comment on above:Performed By: #### BNP, CMP, CMADM, TSH #### [facility] [address] [place] [address] Dr. Aliyah FierroPhosphate [Mass/Vol]3.7 mg/dLNormal2.6-4.7The [facility] Comment on above:Performed By: #### BNP, CMP, CMADM, TSH #### [facility] [address] [address] [address] Aliyah FierroPotassium [Moles/Vol]4.3 mmol/LNormal3.5-5.1[facility] Comment on above:Performed By: #### BNP, CMP, CMADM, TSH #### [facility] [address] [address] [address] Aliyah Fullerum [Moles/Vol]140 mmol/HWjjsdc635-086Iha [facility] Comment on above:Performed By: #### BNP, CMP, CMADM, TSH #### [facility] [address] [address] [address] Aliyah Avila nitrogen [Mass/Vol]27.0 mg/dLCritically high7.0-18.0[facility] HospitalComment on above:Performed By: #### BNP, CMP, CMADM, TSH #### [facility] [address] [address] [address] Aliyah Richards RANDOM W/MICROSCOPICon 52-85-8528KUGQQMIFUTSD SEENNormalNONE SEENMercy Health St. [facility] HospitalComment on above:Performed By: #### BNP, CMP, CMADM, TSH #### [facility] [address] [address] [address] Aliyah Maldonado Ql (U)NegativeNormalNEGATIVEMercy Health St. [facility] Comment on above:Performed By: #### BNP, CMP, CMADM, TSH #### [facility] [address] [address] [address] Aliyah Martinez SEENNormalNONE SEENMercy Health St. Elizabeth Board[facility] HospitalComment on above:Performed By: #### BNP, CMP, CMADM, TSH #### [facility] [address] [address] [address] Aliyah Gonzales (U)CLEARNormalCLEARMercy Health St. Elizabeth Boardman HospitalComment on above: Performed By: #### BNP, CMP, CMADM, TSH #### [facility] [address] [place] [address] Dr. Aliyah Coello (U)LT. YELLOWNormalYELLOWMercy Health St. Elizabeth Board[facility] HospitalComment on above:Performed By: #### BNP, CMP, CMADM, TSH #### [facility] [address] [place] [address] Dr. Yilan ChangCrystals LM Nom (Urine sed)NONE SEENNormalNONE SEENMercy Health St. Elizabeth [facility] HospitalComment on above:Performed By: #### BNP, CMP, CMADM, TSH #### [facility] [address] [address] [address] Aliyah Hutchisonthelial cells LM Ql (Urine sed)RARENormalNONE SEEN /RAREThe [facility] HospitalComment on above:Performed By: #### BNP, CMP, CMADM, TSH #### [facility] [address] [address] [address] Aliyah FierroGlucose Ql (U)NegativeNormalNEGATIVEMercy Health St. [facility] HospitalComment on above:Performed By: #### BNP, CMP, CMADM, TSH #### [facility] [address] [address] [address] Aliyah FierroHemoglobin Ql (U)NegativeNormalNEGATIVEProtestant Hospital on above:Performed By: #### BNP, CMP, CMADM, TSH #### [facility] [address] [address] [address] Aliyah Weeks Ql (U)NegativeNormalNEGATIVEMercy Health St. [facility] HospitalComment on above:Performed By: #### BNP, CMP, CMADM, TSH #### [facility] [address] [address] [address] Aliyah FierroLEUKOCYTESNegativeNormalNEGATIVEMercy Health St. [facility] HospitalComment on above:Performed By: #### BNP, CMP, CMADM, TSH #### [facility] [address] [address] [address] Aliyah FierroMUCOUSNONE SEENNormalNONE SEENMercy Health St. [facility] HospitalComment on above:Performed By: #### BNP, CMP, CMADM, TSH #### [facility] [address] [address] [address] Aliyah Cruztrgeo Ql (U)NegativeNormalNEGATIVEMercy Health St. [facility] HospitalComment on above:Performed By: #### BNP, CMP, CMADM, TSH #### [facility] [address] [address] [address] Aliyah FierropH (U)5.5 [pH]Normal5-9The [facility] HospitalComment on above: Performed By: #### BNP, CMP, CMADM, TSH #### [facility] [address] [address] [address] Aliyah FierroRBCNONE SEENAbnormal0-2The [facility] HospitalComment on above: Performed By: #### BNP, CMP, CMADM, TSH #### [facility] [address] [address] [address] Aliyah FierroSPEC GRAVITY1.286Kbejfy6.005-<=1.025The [facility] HospitalComment on above:Performed By: #### BNP, CMP, CMADM, TSH #### [facility] [address] [address] [address] Aliyah FierroUA PROTEINNegativeNormalNEGATIVE/ TRACEThe [facility] Comment on above:Performed By: #### BNP, CMP, CMADM, TSH #### [facility] [address] [address] [address] Aliyah Chrisbilinogen Qn (U)0.2 {Katerina'U}/dLNormal0.2 - 1.0The [facility] HospitalComment on above:Performed By: #### BNP, CMP, CMADM, TSH #### [facility] [address] [address] [address] Aliyah FierroWBCNONE SEENNormalNONE SEENThe [facility] HospitalComment on above: Performed By: #### BNP, CMP, CMADM, TSH #### [facility] [address] [place] [address] Dr. Aliyah FierroURIC ACID SERUMon 87-64-0088Zrfil [Mass/Vol]8.0 mg/dLCritically high3.5-7.2The [facility] HospitalComment on above:Performed By: #### BNP, CMP, CMADM, TSH #### [facility] [address] [place] [address] Dr. Aliyah FierroURINE T PROTEIN CREAT RATIOon 10-18-5519Baviigs (U) [Mass/Vol] 11.7 mg/dLNormal<=12.0[facility] HospitalComment on above:Performed By: #### LIVER, LIPID #### [facility] [address] [place] [address] Dr. Aliyah Deutsch PROT CREAT RAT0.09NoCoshocton Regional Medical CenterComment on above: Performed By: #### LIVER, LIPID #### [facility] [address] [place] [address] Dr. Aliyah Kennedy SEWDH472.42 mg/rEOmmovj57.00-300.00[facility] Comment on above:Performed By: #### LIVER, LIPID #### [facility] [address] [place] [address] Dr. Aliyah FierroVITAMIN D 25 OHon 40-32-6406QOF D 25-OH46.3 ng/mLNormalMercy Health St. [facility] HospitalComment on above:Performed By: #### LIVER, LIPID #### [facility] [address] [place] [address] Dr. Aliyah Willams D RANGESSEE BELOWGerman HospitalComment on above: Result Comment: <20 ng/mL Vit D deficient 20 - <30 ng/mL Vit D insufficient 30 - 100 ng/mL Vit D sufficient >100 ng/mL Potential ToxicityPerformed By: #### LIVER, LIPID #### [facility] [address] [place] [address] Dr. Aliyah FierroXR CHEST 2 Von [id number] CHEST 2 VEXAMINATION: XR CHEST 2 V HISTORY: Imaging result [...] Electronically authenticated by: BUBBA BASURTO Date: 2022-02-11 20:54German HospitalPTH INTACTon 37-05-8774IFX, Gulbxb01 pg/uNLdaocg99-44Njd [facility] HospitalComment on above:Performed By: #### LIVER, LIPID #### [facility] [address] [place] [address] Dr. Aliyah FierroFERRITINon 75-36-6081Yuiqbrdm [Mass/Vol]199.0 ng/mLNormal 26.0-388.0The [facility] HospitalComment on above:Performed By: #### LIVER, LIPID #### [facility] [address] [place] [address] Dr. Aliyah FierroHEMOGRAM AND PLATELon 64-41-3601Ddjyrgziue (Bld) [Volume fraction]39.0 %Critically low42.0-54.0The [facility]. Elizabeth Hospitalment on above: Performed By: #### BNP, CMP, CMADM, TSH #### [facility] [address] [place] [address] Dr. Aliyah FierroHemoglobin (Bld) [Mass/Vol]13.1 g/dLCritically low14.0-18.0The [facility] HospitalComment on above:Performed By: #### BNP, CMP, CMADM, TSH #### [facility] [address] [place] [address] Dr. Aliyah Damian (RBC) [Entitic mass]29.4 jfZpdffu47.9-34.0The [facility] HospitalComment on above:Performed By: #### BNP, CMP, CMADM, TSH #### [facility] [address] [place] [address] Dr. Aliyah Damian (RBC) [Mass/Vol]33.6 g/bFZyerey30.9-35.2The [facility] HospitalComment on above:Performed By: #### BNP, CMP, CMADM, TSH #### [facility] [address] [place] [address] Dr. Aliyah Damian (RBC) [Entitic vol]87.4 vKPbdlaa81.0-94.0The [facility] HospitalComment on above:Performed By: #### BNP, CMP, CMADM, TSH #### [facility] [address] [address] [address] Aliyah FierroPLT309 103/gzJdxwmk684-474Gwk [facility] HospitalComment on above: Performed By: #### BNP, CMP, CMADM, TSH #### [facility] [address] [address] [address] Aliyah FierroRBC4.46 106/ulCritically low4.70-6.10The [facility] HospitalComment on above:Performed By: #### BNP, CMP, CMADM, TSH #### [facility] [address] [address] [address] Aliyah FierroWBC8.4 103/ulNormal4.0-11.0The [facility] HospitalComment on above: Performed By: #### BNP, CMP, CMADM, TSH #### [facility] [address] [place] [address] Dr. Aliyah Quilgey AND TIBCon 01-28-2022% FXXMGOBJZI81.0 %NormalThe [facility] HospitalComment on above:Performed By: #### LIVER, LIPID #### [facility] [address] [place] [address] Dr. Aliyah Qiugley [Mass/Vol]93.0 ug/oNMpggwi65.0-175.0[facility] Comment on above:Performed By: #### LIVER, LIPID #### [facility] [address] [place] [address] Dr. Aliyah FierroTIBC VSATRN639.0 ug/zDJjusop172.0-450.0[facility] Comment on above:Performed By: #### LIVER, LIPID #### [facility] [address] [place] [address] Dr. Aliyah FierroMAGNESIUMon 57-60-1375Hpmzcuysq [Mass/Vol]2.0 mg/dLNormal1.8-2.4 The [facility] HospitalComment on above:Performed By: #### BNP, CMP, CMADM, TSH #### [facility] [address] [place] [address] Dr. Yilan ChangRENAL FUNCTION PANELon 93-68-8752Cuhyoyl [Mass/Vol]4.2 g/dLNormal 3.4-5.0The [facility] HospitalComment on above:Performed By: #### BNP, CMP, CMADM, TSH #### [facility] [address] [address] [address] Aliyah FierroCalcium [Mass/Vol]8.8 mg/dLNormal8.5-10.1The [facility] Comment on above:Performed By: #### BNP, CMP, CMADM, TSH #### [facility] [address] [address] [address] Aliyah FierroChloride [Moles/Vol]104 mmol/CNrltwc53-240Sga [facility] Comment on above:Performed By: #### BNP, CMP, CMADM, TSH #### [facility] [address] [place] [address] Dr. Aliyah FierroCO2 [Moles/Vol]26.0 mmol/PNytdud70.0-32.0The [facility] Comment on above:Performed By: #### BNP, CMP, CMADM, TSH #### [facility] [address] [address] [address] Aliyah FierroCreatinine [Mass/Vol]2.23 mg/dLCritically high0.70-1.30The [facility] HospitalComment on above:Performed By: #### BNP, CMP, CMADM, TSH #### [facility] [address] [place] [address] Dr. Aliyah LivingstonGFR-AF VXKENXML35 mL/min/1.25p2Zznqdjzfgo low>=60The [facility] HospitalComment on above:Performed By: #### BNP, CMP, CMADM, TSH #### [facility] [address] [place] [address] Dr. Aliyah Lozoya-NON AF TXYAFGXR90 mL/min/1.51j1Qhuhrgbhrv low>=60The [facility] HospitalComment on above:Performed By: #### BNP, CMP, CMADM, TSH #### [facility] [address] [place] [address] Dr. Aliyah FierroGlucose [Mass/Vol]107 mg/dLCritically dfgc17-679Sqe [facility] HospitalComment on above:Performed By: #### BNP, CMP, CMADM, TSH #### [facility] [address] [address] [address] Aliyah FierroPhosphate [Mass/Vol]3.8 mg/dLNormal2.6-4.7The [facility] Comment on above:Performed By: #### BNP, CMP, CMADM, TSH #### [facility] [address] [address] [address] Aliyah FierroPotassium [Moles/Vol]4.7 mmol/LNormal3.5-5.1The [facility] Comment on above:Performed By: #### BNP, CMP, CMADM, TSH #### [facility] [address] [address] [address] Aliyah FierroSodium [Moles/Vol]138 mmol/YFpbeii265-340Bzg [facility] Comment on above:Performed By: #### BNP, CMP, CMADM, TSH #### [facility] [address] [address] [address] Aliyah FierroUrea nitrogen [Mass/Vol]33.0 mg/dLCritically high7.0-18.0The [facility] HospitalComment on above:Performed By: #### BNP, CMP, CMADM, TSH #### [facility] [address] [address] [address] Aliyah Richards RANDOM W/MICROSCOPICon [id number] SEENNormalNONE SEENMercy Health St. [facility] Board[facility] HospitalComment on above:Performed By: #### BNP, CMP, CMADM, TSH #### [facility] [address] [address] [address] Aliyah Maldonado Ql (U)NegativeNormalNEGATIVEMercy Health St. [facility] Comment on above:Performed By: #### BNP, CMP, CMADM, TSH #### [facility] [address] [address] [address] Aliyah FierroCASTBRIGITTE SEENNormalNONE SEENThe [facility] HospitalComment on above:Performed By: #### BNP, CMP, CMADM, TSH #### [facility] [address] [address] [address] Aliyah Andrewsarity (U)CLEARNormalCLEARWright-Patterson Medical Centerment on above: Performed By: #### BNP, CMP, CMADM, TSH #### [facility] [address] [address] [address] Aliyah Coello (U)LT. YELLOWNormalYELLOWMercy Health St. Elizabeth Boardman HospitalComment on above:Performed By: #### BNP, CMP, CMADM, TSH #### [facility] [address] [address] [address] Aliyah FierroCrystals LM Nom (Urine sed)NONE SEENNormalNONE SEENMercy Health St. Elizabeth Boardman HospitalComment on above:Performed By: #### BNP, CMP, CMADM, TSH #### [facility] [address] [address] [address] Ly ChangEpithelial cells LM Ql (Urine sed)NONE SEENNormalNONE SEEN /RARE The [facility] HospitalComthree rivers health hospital on above:Performed By: #### BNP, CMP, CMADM, TSH #### [facility] [address] [address] [address] Aliyah FierroGlucose Ql (U)NegativeNormalNEGATIVEMercy Health St. [facility] Board[facility] HospitalComment on above:Performed By: #### BNP, CMP, CMADM, TSH #### [facility] [address] [address] [address] Aliyah FierroHemoglobin Ql (U)NegativeNormalNEGATIVEProtestant Hospital on above:Performed By: #### BNP, CMP, CMADM, TSH #### [facility] [address] [address] [address] Aliyah FierroKetones Ql (U)NegativeNormalNEGATIVEWright-Patterson Medical Centerment on above:Performed By: #### BNP, CMP, CMADM, TSH #### [facility] [address] [address] [address] Aliyah FierroLEUKOCYTESNegativeNormalNEGATIVEMercy Health St. [facility] Board[facility] HospitalComment on above:Performed By: #### BNP, CMP, CMADM, TSH #### [facility] [address] [address] [address] Aliyah Quach SEENNormalNONE SEENThe [facility] HospitalComment on above:Performed By: #### BNP, CMP, CMADM, TSH #### [facility] [address] [address] [address] Alyiah Munoz Ql (U)NegativeNormalNEGATIVEThe [facility] HospitalComment on above:Performed By: #### BNP, CMP, CMADM, TSH #### [facility] [address] [address] [address] Aliyah Medrano (U)5.5 [pH]Normal5-9The [facility] HospitalComment on above: Performed By: #### BNP, CMP, CMADM, TSH #### [facility] [address] [address] [address] Aliyah Johnson SEENAbnormal0-2The [facility] HospitalComment on above: Performed By: #### BNP, CMP, CMADM, TSH #### [facility] [address] [address] [address] Aliyah FierroSPEC GRAVITY1.924Wqofrw0.005-<=1.025The [facility] HospitalComment on above:Performed By: #### BNP, CMP, CMADM, TSH #### [facility] [address] [address] [address] Aliyah Richards PROTEINNegativeNormalNEGATIVE/ TRACEThe [facility] Comment on above:Performed By: #### BNP, CMP, CMADM, TSH #### [facility] [address] [address] [address] Aliyah Ramos Qn (U)0.2 {Katerina'U}/dLNormal0.2 - 1.0The [facility] HospitalComment on above:Performed By: #### BNP, CMP, CMADM, TSH #### [facility] [address] [address] [address] Aliyah Mauricio SEENNormalNONE SEENMercy Health St. [facility] HospitalComment on above: Performed By: #### BNP, CMP, CMADM, TSH #### [facility] [address] [place] [address] Dr. Aliyah FierroURIC ACID SERUMon [id number] [Mass/Vol]8.8 mg/dLCritically high3.5-7.2The [facility] HospitalComment on above:Performed By: #### BNP, CMP, CMADM, TSH #### [facility] [address] [place] [address] Dr. Aliyah Kennedy T PROTEIN CREAT RATIOon 60-27-1471Rasikyc (U) [Mass/Vol] 11.7 mg/dLNormal<=12.0The [facility] HospitalComment on above:Performed By: #### URTPCR #### [facility] [address] [place] [address] Dr. Aliyah Deutsch PROT CREAT RAT0.09NoCoshocton Regional Medical CenterComment on above: Performed By: #### URTPCR #### [facility] [address] [place] [address] Dr. Aliyah Kennedy GLMST275.58 mg/xGDymnwi03.00-300.00[facility] Comment on above:Performed By: #### URTPCR #### [facility] [address] [place] [address] Dr. Aliyah FierroVITAMIN D 25 OHon [id number] D 25-OH40.0 ng/mLNormalThe [facility] HospitalComment on above:Performed By: #### LIVER, LIPID #### [facility] [address] [place] [address] Dr. Aliyah Vital RANGESSEE [facility] Rehabilitation HospitalComment on above: Result Comment: <20 ng/mL Vit D deficient 20 - <30 ng/mL Vit D insufficient 30 - 100 ng/mL Vit D sufficient >100 ng/mL Potential ToxicityPerformed By: #### LIVER, LIPID #### [facility] [address] [place] [address] Dr. Aliyah Morgan [id number] peptide B (Bld) [Mass/Vol]218.0 pg/mL Normal<=1,800.0The [facility]. Elizabeth Hospitalment on above:Performed By: #### BNP, CMP, CMADM, TSH #### [facility] [address] [place] [address] Dr. Aliyah Sanchez HELLEN ADMITon [id number] [Catalytic activity/Vol]159 U/L Mpyxjv51-562Qhv [facility] HospitalComment on above:Performed By: #### BNP, CMP, CMADM, TSH #### [facility] [address] [place] [address] Dr. Aliyah Ocasio.MB [Mass/Vol]4.55 ng/mLCritically high<=3.60The [facility] on above:Performed By: #### BNP, CMP, CMADM, TSH #### [facility] [address] [place] [address] Dr. Aliyah BenzTROP9.0 pg/mLNormal4.0-76.1The [facility] on above:Result Comment: CUT-OFF POINTS HAVE BEEN ESTABLISHED BASED ON THE FOURTH UNIVERSAL DEFINITIONS OF MYOCARDIAL INFARCTION. THE UPPER REFERENCE LIMIT (URL) OF TROPONIN, DEFINED THE 99TH PERCENTILE OF cTnI DISTRIBUTION IN A REFERENCE POPULATION, HAS BEEN CONFIRMED THE DECISION THRESHOLD FOR GA DIAGNOSIS.Performed By: #### BNP, CMP, CMADM, TSH #### [facility] [address] [place] [address] Dr. Aliyah CeballosO181 ng/mLCritically kzfv71-06Fza [facility] on above:Performed By: #### BNP, CMP, CMADM, TSH #### [facility] [address] [place] [address] Dr. Aliyah Francois AUTO DIFFon [id number] #0.0 103/ulNormal0.0-0.1The [facility] on above:Performed By: #### BNP, CMP, CMADM, TSH #### [facility] [address] [place] [address] Dr. Aliyah FierroBasophils/100 WBC (Bld)0.3 %Normal0.2-2.0[facility] Comment on above:Performed By: #### BNP, CMP, CMADM, TSH #### [facility] [address] [place] [address] Dr. Aliyah Haro #0.3 103/ulNormal0.0-0.7The [facility] HospitalComment on above: Performed By: #### BNP, CMP, CMADM, TSH #### [facility] [address] [place] [address] Dr. Aliyah Livingstonosinophils/100 WBC (Bld)3.6 %Normal0.9-7.0The [facility] Comment on above:Performed By: #### BNP, CMP, CMADM, TSH #### [facility] [address] [place] [address] Dr. Aliyah Livingstonrythrocyte distribution width (RBC) [Ratio]13.2 %Ldlvbw47.0-15.0 The [facility] HospitalComment on above:Performed By: #### BNP, CMP, CMADM, TSH #### [facility] [address] [place] [address] Dr. Aliyah FierroHematocrit (Bld) [Volume fraction]38.8 %Critically low42.0-54.0 The [facility] HospitalComment on above:Performed By: #### BNP, CMP, CMADM, TSH #### [facility] [address] [place] [address] Dr. Aliyah FierroHemoglobin (Bld) [Mass/Vol]13.2 g/dLCritically low14.0-18.0[facility] HospitalComment on above:Performed By: #### BNP, CMP, CMADM, TSH #### [facility] [address] [place] [address] Dr. Aliyah FierroIG #0.04 10e3/ulCritically high0.00-0.03The [facility] Comment on above:Performed By: #### BNP, CMP, CMADM, TSH #### [facility] [address] [place] [address] Dr. Aliyah Arechiga %0.4 %Normal0.0-0.5The [facility] HospitalComment on above: Performed By: #### BNP, CMP, CMADM, TSH #### [facility] [address] [place] [address] Dr. Aliyah Hernandez #1.6 103/ulNormal1.2-3.8The [facility] HospitalComment on above:Performed By: #### BNP, CMP, CMADM, TSH #### [facility] [address] [place] [address] Dr. Aliyah Danghocytes/100 WBC (Bld)17.3 %Critically low20.5-60.0The [facility] HospitalComment on above:Performed By: #### BNP, CMP, CMADM, TSH #### [facility] [address] [place] [address] Dr. Aliyah HeardUAL DIFF REQNONormalThe [facility] HospitalComment on above: Performed By: #### BNP, CMP, CMADM, TSH #### [facility] [address] [place] [address] Dr. Aliyah Swanson (RBC) [Entitic mass]29.8 fzGczrio46.9-34.0The [facility] HospitalComment on above:Performed By: #### BNP, CMP, CMADM, TSH #### [facility] [address] [place] [address] Dr. Aliyah Damian (RBC) [Mass/Vol]34.0 g/vOVfylrr95.9-35.2The [facility] HospitalComment on above:Performed By: #### BNP, CMP, CMADM, TSH #### [facility] [address] [place] [address] Dr. Aliyah Damian (RBC) [Entitic vol]87.6 dDTdvwhu31.0-94.0The [facility] HospitalComment on above:Performed By: #### BNP, CMP, CMADM, TSH #### [facility] [address] [place] [address] Dr. Aliyah Kelly #1.0 103/ulCritically high0.3-0.8The [facility] Comment on above:Performed By: #### BNP, CMP, CMADM, TSH #### [facility] [address] [address] [address] Aliyah Giangocytes/100 WBC (Bld)10.4 %Normal1.7-12.0The [facility] Comment on above:Performed By: #### BNP, CMP, CMADM, TSH #### [facility] [address] [place] [address] Dr. Aliyah Flores #6.2 103/ulNormal1.4-6.5The [facility] HospitalComment on above:Performed By: #### BNP, CMP, CMADM, TSH #### [facility] [address] [place] [address] Dr. Aliyah Postutrophils/100 WBC (Bld)68.0 %Fmtpsm54.0-75.0The [facility] HospitalComment on above:Performed By: #### BNP, CMP, CMADM, TSH #### [facility] [address] [place] [address] Dr. Aliyah Munson mean volume (Bld) [Entitic vol]9.3 fLCritically low 9.5-13.5The [facility] HospitalComment on above:Performed By: #### BNP, CMP, CMADM, TSH #### [facility] [address] [place] [address] Dr. Aliyah FierroPLT297 103/ayTpvwxb719-094Acf [facility] HospitalComment on above: Performed By: #### BNP, CMP, CMADM, TSH #### [facility] [address] [place] [address] Dr. Aliyah FierroRBC4.43 106/ulCritically low4.70-6.10The [facility] HospitalComment on above:Performed By: #### BNP, CMP, CMADM, TSH #### [facility] [address] [place] [address] Dr. Aliyah FierroWBC9.2 103/ulNormal4.0-11.0The [facility] HospitalComment on above: Performed By: #### BNP, CMP, CMADM, TSH #### [facility] [address] [place] [address] Dr. Aliyah Bowman URINE PROFILEon [id number] Ql (U)NegativeNormal NEGATIVEMercy Health St. [facility] HospitalComment on above:Performed By: #### ERUR #### [facility] [address] [place] [address] Dr. Aliyah Andrewsarity (U)CLEARNormalCLEARMercy Health St. Elizabeth Board[facility] HospitalComment on above: Performed By: #### ERUR #### [facility] [address] [place] [address] Dr. Aliyah Coello (U)LT. YELLOWNormalYELLOWMercy Health St. Elizabeth Board[facility] HospitalComment on above:Performed By: #### ERUR #### [facility] [address] [place] [address] Dr. Aliyah Valdovinos micrscopic examination will be performed if indicated. NormalMercy Health St. Elizabeth Boardman HospitalComment on above:Performed By: #### ERUR #### [facility] [address] [place] [address] Dr. Aliyah FierroGlucose Ql (U)NegativeNormalNEGATIVEWright-Patterson Medical Centerment on above:Performed By: #### ERUR #### [facility] [address] [place] [address] Dr. Aliyah FierroHemoglobin Ql (U)NegativeNormalNEGATIVEProtestant Hospital on above:Performed By: #### ERUR #### [facility] [address] [place] [address] Dr. Aliyah FierroKetones Ql (U)NegativeNormalNEGATIVEMercy Health St. [facility] HospitalComment on above:Performed By: #### ERUR #### [facility] [address] [place] [address] Dr. Aliyah FierroLEUKOCYTESNegativeNormalNEGATIVEMercy Health St. [facility] HospitalComthree rivers health hospital on above:Performed By: #### ERUR #### [facility] [address] [place] [address] Dr. Aliyah Munoz Ql (U)NegativeNormalNEGATIVEThe [facility] HospitalComment on above:Performed By: #### ERUR #### [facility] [address] [place] [address] Dr. Aliyah FierropH (U)6.0 [pH]Normal5-9The [facility] HospitalComment on above: Performed By: #### ERUR #### [facility] [address] [place] [address] Dr. Aliyah FierroSPEC GRAVITY1.056Ymnvdi1.005-<=1.025The [facility] HospitalComment on above:Performed By: #### ERUR #### [facility] [address] [place] [address] Dr. Aliyah Richards PROTEINNegativeNormalNEGATIVE/ TRACEThe [facility] Comment on above:Performed By: #### ERUR #### [facility] [address] [place] [address] Dr. Aliyah Deutsch MICRO INDNOT INDICATEDNormalThe [facility] HospitalComment on above:Performed By: #### ERUR #### [facility] [address] [place] [address] Dr. Aliyah Ramos Qn (U)0.2 {Katerina'U}/dLNormal0.2 - 1.0The [facility] HospitalComment on above:Performed By: #### ERUR #### [facility] [address] [place] [address] Dr. Aliyah Mullins 14(COMP METB)on [id number] [Mass/Vol]4.1 g/dLNormal 3.4-5.0The [facility] HospitalComment on above:Performed By: #### BNP, CMP, CMADM, TSH #### [facility] [address] [place] [address] Dr. Aliyah FierroAlbumin/Globulin [Mass ratio]1.2 {ratio}NormalThe [facility] HospitalComment on above:Performed By: #### BNP, CMP, CMADM, TSH #### [facility] [address] [address] [address] Aliyah Hinton [Catalytic activity/Vol]92 U/GIhzshe65-479Dif [facility] HospitalComment on above:Performed By: #### BNP, CMP, CMADM, TSH #### [facility] [address] [place] [address] Dr. Aliyah Ochoa [Catalytic activity/Vol]31 U/RXdzyao66-90Mmt [facility] HospitalComment on above:Performed By: #### BNP, CMP, CMADM, TSH #### [facility] [address] [place] [address] Dr. Aliyah Harding gap [Moles/Vol]12.8 mmol/LNormalThe [facility] Comment on above:Performed By: #### BNP, CMP, CMADM, TSH #### [facility] [address] [place] [address] Dr. Aliyah FierroAST [Catalytic activity/Vol]18 U/YTvwpip89-40Czu [facility] HospitalComment on above:Performed By: #### BNP, CMP, CMADM, TSH #### [facility] [address] [place] [address] Dr. Aliyah FierroBilirubin [Mass/Vol]0.5 mg/dLNormal0.2-1.0The [facility] Comment on above:Performed By: #### BNP, CMP, CMADM, TSH #### [facility] [address] [place] [address] Dr. Aliyah FierroCalcium [Mass/Vol]8.6 mg/dLNormal8.5-10.1The [facility] Comment on above:Performed By: #### BNP, CMP, CMADM, TSH #### [facility] [address] [place] [address] Dr. Aliyah FierroChloride [Moles/Vol]103 mmol/GVctytf28-417Sfy [facility] Comment on above:Performed By: #### BNP, CMP, CMADM, TSH #### [facility] [address] [place] [address] Dr. Aliyah FierroCO2 [Moles/Vol]26.3 mmol/TDbsgze46.0-32.0[facility] Comment on above:Performed By: #### BNP, CMP, CMADM, TSH #### [facility] [address] [place] [address] Dr. Aliyah FierroCreatinine [Mass/Vol]2.11 mg/dLCritically high0.70-1.30The [facility] HospitalComment on above:Performed By: #### BNP, CMP, CMADM, TSH #### [facility] [address] [address] [address] Aliyah LivingstonGFR-AF MMVUFRYS73 mL/min/1.27d7Pibtlfmuge low>=60The [facility] HospitalComment on above:Performed By: #### BNP, CMP, CMADM, TSH #### [facility] [address] [place] [address] Dr. Aliyah LivingstonGFR-NON AF SSDNJELE77 mL/min/1.42e4Ohksymviep low>=60The [facility] HospitalComment on above:Performed By: #### BNP, CMP, CMADM, TSH #### [facility] [address] [place] [address] Dr. Aliyah FierroGlobulin (S) [Mass/Vol]3.3 g/dLNormalThe [facility] HospitalComment on above:Performed By: #### BNP, CMP, CMADM, TSH #### [facility] [address] [place] [address] Dr. Aliyah FierroGlucose [Mass/Vol]105 mg/iCBzypfi80-103GpgMercy Health St[address] [facility] Comment on above:Performed By: #### BNP, CMP, CMADM, TSH #### [facility] [address] [place] [address] Dr. Aliyah FierroPotassium [Moles/Vol]4.1 mmol/LNormal3.5-5.1The [facility] Comment on above:Performed By: #### BNP, CMP, CMADM, TSH #### [facility] [address] [place] [address] Dr. Aliyah FierroProtein [Mass/Vol]7.4 g/dLNormal6.4-8.2[facility] Comment on above:Performed By: #### BNP, CMP, CMADM, TSH #### [facility] [address] [address] [address] Aliyah Hoangdium [Moles/Vol]138 mmol/XPvtbzi310-598Foo [facility] Comment on above:Performed By: #### BNP, CMP, CMADM, TSH #### [facility] [address] [address] [address] Aliyah Avila nitrogen [Mass/Vol]32.0 mg/dLCritically high7.0-18.0[facility] HospitalComment on above:Performed By: #### BNP, CMP, CMADM, TSH #### [facility] [address] [address] [address] Aliyah Avila nitrogen/Creatinine [Mass ratio]15.2 mg/mgNoCoshocton Regional Medical CenterComment on above:Performed By: #### BNP, CMP, CMADM, TSH #### [facility] [address] [address] [address] Aliyah Martinez [id number] Coag (PPP) [Relative time]1.02 {INR} NormalMercy Health St. Elizabeth [facility] HospitalComment on above:Performed By: #### BNP, CMP, CMADM, TSH #### [facility] [address] [address] [address] Aliyah Petty GUIDELINESSEE BELOWGerman HospitalComment on above:Result Comment: DESIRED INR: 2.0 - 3.0 CONDITIONS NOT LISTED BELOW 2.5 - 3.5 FOR PROSTHETIC HEART VALVE REPLACEMENT 2.5 - 3.5 RECURRENT THROMBOSIS Performed By: #### BNP, CMP, CMADM, TSH #### [facility] [address] [address] [address] Aliyah Vogel Coag (PPP) [Time]11.0 sNormal9.0-11.6The [facility] Comment on above:Performed By: #### BNP, CMP, CMADM, TSH #### [facility] [address] [address] [address] Aliyah Dela Cruz [id number] Coag (Bld) [Time]31.2 vKarbks11.3-36.2[facility] HospitalComment on above:Performed By: #### LIVER, LIPID #### [facility] [address] [place] [address] Dr. Aliyah Valdivia [id number] uIU/mLNormal0.358-3.740The [facility] HospitalComment on above:Performed By: #### BNP, CMP, CMADM, TSH #### [facility] [address] [place] [address] Dr. Aliyah LrEast Liverpool City HospitalComment on above: Result Comment: <0.34 UIU/ml HYPERTHYROID 0.34-5.60 UIU/ml EUTHYROID >5.60 UIU/ml HYPOTHYROIDPerformed By: #### BNP, CMP, CMADM, TSH #### [facility] [address] [place] [address] Dr. Aliyah FierroXR CHEST 1 Von [id number] CHEST 1 VEXAMINATION: XR CHEST 1 V HISTORY: SHORTNESS OF [...] Electronically authenticated by: BUBBA BASURTO Date: 2022-01-09 13:05German HospitalAmbulatory Clinical Summaryon [id number] Clinical Summary{2a-28-z2-9x-66-98-24-e1-68-09-93-44-3e-ad-fb-72}CD:[id number] Memorial HospitalPatient Educationon 79-17-8142Jwoupfi EducationBenign Prostatic Hyperplasia You have an enlarged prostate. This is common in elderly males. It is called BPH. This stands for benign prostate hyperplasia. The prostate gland is located in base of the bladder. When it grows, theprostate blocks the urethra. This is the tube [...] Document Reviewed: 03/25/2008 ExitCare? Patient Information ?2013 [facility] Emergency DepartmentCitizenDish [facility] HospitalUrology Office/Clinic Noteon 25-67-4661Rgwdgfh Office/Clinic NoteHPI Staff Bennett is a 81 y.o. male here for 3 month follow up. Previous dx: BPH w/ urinary obstruction, Bladdermass, Weak urine stream, Nocturia. S/P Cysto done [...] denies hematuria, denies discharge, denies urinary frequency, deniesurinary hesitancy, denies nocturia, denies incontinence, denies genital [...] continue to monitor his sxs. All questions/concerns werediscussed. Pt. to call the office if heencounters any issues prior. Pt. acknowledges understanding. I have reviewed the previous health record information and history for this pt. from Dr. Starks. Follow-up With When Contact Information RAUDEL JANSEN, Michael Barnes, URL [address] [place] [address] [place] [phone] Additional Instructions: prn Patient Education Benign Prostatic Hyperplasia I, Yamilka New , personally scribed for Dr. Starks on 04/06/2021 10:50:35. . Documentation recorded by the scribe, Yamilka New, accurately reflects the services(s) I performed and decisions made by me. Authenticated by Dr. Starks on 04/06/2021 10:51:29. Problem List/Past Medical History [...] Tobacco Use:., 04/06/2021 Family History Pancreatic cancer: Father.[facility] HospitalComment on above: Result Comment: Electronically Signed By: Michael STARKS MD\.br\Date and Time Signed: 04/06/21 10:51 EDT\.br\Electronically Co-Signed By: Yamilka New MA\.br\Date and Time Co-Signed: 04/06/2110:50 EDTAmbulatory Clinical Summaryon 86-49-3141Ifevxzkfkt Clinical Summary {dl-[id number]-uz-[id number]-44-[id number]-72-e9-80}CD:[id number] Hospitals Portage Medical CenterConsent for Procedure/Surgeryon 90-09-1604Ywlzxkw for Procedure/[id number]#1.00CD:127NoGrant HospitalPatient Educationon 08-23-7834Yswgdmw Education Cystoscopy Care After Refer to this [...] 04/14/2013 Document Reviewed: 01/11/2013 ExitCare? Patient Information ?2014 [employer] HospitalUrology Office/Clinic Noteon 57-76-4172Zwbitbx Office/Clinic NoteChief Complaint This is a 80 year old [...] denies hematuria, denies discharge, denies urinary frequency, deniesurinary hesitancy, denies nocturia, denies incontinence, denies genital [...] and the office notified. Script sent to [facility] in [place]. 3. Weak urine stream (R39.12: Poor urinary stream) Weak w/ intermittent hesitancy. 4. Nocturia (R35.1: Nocturia) 1-2x/night. I have reviewed the previous health record information and history for this pt. from Dr. Starks. Follow-up With When Contact Information RUADEL JANSEN, Michael Barnes, [address] [phone] Additional Instructions: 3mos. f/u Patient Education Cystoscopy, Care After I, Yamilka New , personally scribed for Dr. Starks on 01/02/2021 12:21:12. . Documentation recorded by the scribe, Yamilka New, accurately reflects the services(s) I performed and decisions made by me. Authenticated by Dr. Starks on 01/02/2021 12:22:58. Problem List/Past Medical History [...] Tobacco Use:., 01/02/2021 Family History Pancreatic cancer: Father.[facility] HospitalComment on above: Result Comment: Electronically Signed By: RAUDEL JANSEN, Michael Barnes\.br\Date and Time Signed: 01/02/21 12:23 EDT\.br\Electronically Co-Signed By: Yamilka New MA\.br\Date and Time Co-Signed: 01/03/2112:21 EDTFormson 13-31-2281Vpkrr [id number]#1.00CD:[address] [place], [place] [address]Physician Referralon 29-83-4722Wruensymj Referral [id number]#1.00CD:[address] [place], [place] [address]Physician Referralon 85-08-7712Miqfuknco Referral [id number]#1.00CD:[address] [place], [place] [address]Ambulatory Clinical Summaryon 95-37-0788Rgsbyaallg Clinical Summary {[id number]-s8-8w-g1-34-05-1c-vo-83-nx-07-b0-ab-c7-74}CD:[id number] Memorial HospitalAmbulatory Clinical Summary {82-1t-3p-qi-84-94-3k-w8-in-c1-ok-90-d8-f8-d6-01}CD:[id number] Memorial HospitalUrology Office/Clinic Noteon 82-15-2078Ftzkrkp Office/Clinic Note 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 Pt was a former smoker, quit 3 years ago. Pt denies any infections inthe past year. Pt denies any issues with [...] denies hematuria, denies discharge, denies urinary frequency, deniesurinary hesitancy, denies nocturia, denies incontinence, denies genital [...] and history for this pt. from Dr. Starks. Follow-up With When Contact Information RAUDEL JANSEN, Michael Barnes, URL [address] [place] [phone] Additional Instructions: Patient Education Cystoscopy I, Yamilka New , personally scribed for Dr. Starks on 12/11/2020 15:08:54. . Documentation recorded by the scribe, Yamilka New, accurately reflects the services(s) I performed and decisions made by me. Authenticated by Dr. Starks on 12/11/2020 15:10:44. Problem List/Past Medical History Ongoing Arthritis Basal cell carcinoma of skin Bilateral wheezing Centrilobular emphysema COPD type A Elevated PSA Eosinophilia GERD without esophagitis Gout Hx of tobacco use, presenting hazards to health Hyperlipidemia Hypertension Multiple pulmonary nodules Peripheral edema Historical No qualifying data Procedure/Surgical History Colonoscopy (08/04/2017). Medications albuterol 0.08 (more content not included)...[facility] Comment on above:Result Comment: Electronically Signed By: RAUDEL JANSEN, Michael Barnes\.br\Date and Time Signed: 12/11/20 15:10 EDT\.br\Electronically Co-Signed By: Yamilka New MA\.br\Date and Time Co-Signed: 12/11/2114:09 EDT Vital Signs Date TimeVital SignValuePerforming KxjthcoojOttauwso25-90-8677 09:45-0400Body mcbsdo814.26 cmLisa Aichholz SALES FORCE DEVELOPER-C Work Phone: [phone] [place], [place] [address]67709-25-2025 09:45-0400 Body mass index (BMI) [Ratio]24.5 kg/m2Lisa Aichholz SALES FORCE DEVELOPER-C Work Phone: [facility]09-25-2025 09:45-0400 Body gzmfgdsuavz18.8 [degF]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 SALES FORCE DEVELOPER-C Work Phone: [facility]09-25-2025 09:45-0400 Body .35 kgLisa Aichholz SALES FORCE DEVELOPER-C Work Phone: [facility]09-25-2025 09:45-0400 Diastolic blood mm[Hg]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 SALES FORCE DEVELOPER-C Work Phone: [facility]09-25-2025 09:45-0400 Heart rate71 /minLisa Aichholz SALES FORCE DEVELOPER-C Work Phone: [facility]09-25-2025 09:45-0400 Respiratory rate20 /minLisa Aichholz SALES FORCE DEVELOPER-C Work Phone: [phone] [place], [place] [address]-25-2025 09:45-0400 SaO2% (BldA) [Mass fraction]94 %Antoinette Gerardo SALES FORCE DEVELOPER-C Work Phone: [facility]09-25-2025 09:45-0400 Systolic blood tqrxqaxo742 mm[Hg]Antoinette Gerardo SALES FORCE DEVELOPER-C Work Phone: [facility]04-10-2025 12:40-0400 Body .26 cmOhio[facility]04-10-2025 12:40-0400Body mass index (BMI) [Ratio]25.1 kg/r8PlvmbreivOhiohealth [facility] Hospital04-10-2025 12:40-0400Body xcxqcgvmpny29.2 [degF][facility]04-10-2025 12:40-0400Body acukbh05.28 kgOhiohealth [facility] Hospital04-10-2025 12:40-0400Diastolic blood khlcipsr22 mm[Hg][facility] 11-11-2024 12:40-0400Heart rate76 /[facility] 11-11-2024 12:40-0400Respiratory rate16 /[facility] 11-11-2024 12:40-6328TuN7% (BldA) [Mass fraction]95 %[facility]04-10-2025 12:40-0400Systolic blood fwfjmzci503 mm[Hg][facility]09-26-2024 10:32-0400Body ucjebx446.3 Napoleonallie Gerardo SALES FORCE DEVELOPER Work Phone: [facility] HospitalSoxwpwbenq49-98-2879 10:32-0400Body mass index (BMI) [Ratio]24.93 kg/m2Lilly Gerardo SALES FORCE DEVELOPER Work Phone: [facility] HospitalYcbgfmkrtg48-84-7006 10:32-0400Body temperature 98.1 [degF]Antoinette Gerardo SALES FORCE DEVELOPER Work Phone: [facility] HospitalHdaemnrnmx76-04-9895 10:32-0400Body ratchf11.57 kgLilly Gerardo SALES FORCE DEVELOPER Work Phone: [facility] HospitalSvjbtvpgpo76-53-7899 10:32-0400Diastolic blood ioqtwwiu97 mm[Hg]Antoinette Carrillo SALES FORCE DEVELOPER Work Phone: [facility] HospitalFhutrisuvl41-45-4609 10:32-0400Heart rate62 /min Antoinette Carrillo SALES FORCE DEVELOPER Work Phone: [facility] HospitalGizsoojeco07-63-2137 10:32-0400Respiratory rate18 /minLisa Sadlerromeodominick SALES FORCE DEVELOPER Work Phone: [facility] HospitalUqklkorzyb86-23-1297 10:32-8542AgJ9% (BldA) [Mass fraction]95 %Antoinette Carrillo SALES FORCE DEVELOPER Work Phone: [facility] HospitalZfimaoonad40-85-1777 10:32-0400Systolic blood aytbkzac356 mm[Hg]Antoinette Carrillo SALES FORCE DEVELOPER Work Phone: [facility] HospitalVdhxrtmisa63-53-6572 13:31-0400Body izeyfj964.26 cmOhio[facility]09-12-2024 13:31-0400Body mass index (BMI) [Ratio]24.3 kg/d3KirgftgucOhiohealth Berger Hospital09-12-2024 13:31-0400Body hdyvwllhlun57.3 [degF][facility]09-12-2024 13:31-0400Body .89 kgOhiohealth [facility]09-12-2024 13:31-0400Diastolic blood lufquzlf54 mm[Hg][facility]09-12-2024 13:31-0400 Heart rate81 /[facility]09-12-2024 13:31-0400 Respiratory rate16 /[facility]09-12-2024 13:31-0400 SaO2% (BldA) [Mass fraction]94 %[facility]09-12-2024 13:31-0400Systolic blood mpadvaua448 mm[Hg][facility] 04-06-2024 11:11-0400Body ufnhun744.3 Estefani Gerardo SALES FORCE DEVELOPER Work Phone: [facility] HospitalJdeuyhewwu41-45-2510 11:11-0400Body mass index (BMI) [Ratio]24.78 kg/m2Lisa Viktoriyaholz SALES FORCE DEVELOPER Work Phone: [facility] HospitalWmmddjhbqf78-46-1682 11:11-0400Body temperature 97.5 [degF]Antoinette Viktoriyaholz SALES FORCE DEVELOPER Work Phone: [facility] HospitalLmpqgyyydq63-58-3034 11:11-0400Body ohusil50.11 kgLisa Viktoriyaholz SALES FORCE DEVELOPER Work Phone: [facility] HospitalJkbvqhtaqc79-83-1885 11:11-0400Diastolic blood xsbtiaaa47 mm[Hg]Antoinette Viktoriyaholz SALES FORCE DEVELOPER Work Phone: [facility] HospitalFhgisllvqr66-39-4518 11:11-0400Heart rate71 /min Antoinette Viktoriyaholz SALES FORCE DEVELOPER Work Phone: [facility] HospitalCovfbbpimj94-63-5653 11:11-0400Respiratory rate18 /minLisa Viktoriyaholz SALES FORCE DEVELOPER Work Phone: [facility] HospitalPobcevvwwf64-79-3142 11:11-8834TpB7% (BldA) [Mass fraction]96 %Antoinette Viktoriyaholz SALES FORCE DEVELOPER Work Phone: [facility] HospitalMcvvcoyysz46-69-7121 11:11-0400Systolic blood tzmxnlem642 mm[Hg]Antoinette Viktoriyaholz SALES FORCE DEVELOPER Work Phone: [facility] HospitalRwclfllqop00-37-1373 10:33-0400Body nohrto395.3 cmLisa Viktoriyaholz SALES FORCE DEVELOPER Work Phone: [facility] HospitalFrlvwpngyf54-32-0094 10:33-0400Body mass index (BMI) [Ratio]24.81 kg/m2Lisa Viktoriyaholz SALES FORCE DEVELOPER Work Phone: [place] [address]Msdgtmpqht85-72-8721 10:33-0400Body temperature 98.29 [degF]Antoinette Viktoriyaholz SALES FORCE DEVELOPER Work Phone: [facility] HospitalRapkeihnji74-80-3722 10:33-0400Body qaogrp42.2 kg Antoinette Zuleykahholz SALES FORCE DEVELOPER Work Phone: [facility] HospitalSmvczqwjju15-24-8294 10:33-0400Diastolic blood cdirekak43 mm[Hg]Antoinette Carrillo SALES FORCE DEVELOPER Work Phone: [facility] HospitalJbgfbfjkwm86-78-8059 10:33-0400Heart rate68 /min Antoinette Carrillo SALES FORCE DEVELOPER Work Phone: [facility] HospitalCodpajkyxb90-18-0922 10:33-0400Respiratory rate18 /minAntoinette Carrillo SALES FORCE DEVELOPER Work Phone: [facility] HospitalAfgoqvwpne19-59-6161 10:33-5431CaV9% (BldA) [Mass fraction]97 %Antoinette Carrillo SALES FORCE DEVELOPER Work Phone: [facility] HospitalNodlzkzkua96-99-9676 10:33-0400Systolic blood mm[Hg]Antoinette Carrillo SALES FORCE DEVELOPER Work Phone: [facility] HospitalGpypyiddio91-86-2386 10:45-0400Body hsarvh237.26 cmOhio[facility]03-28-2024 10:45-0400Body mass index (BMI) [Ratio]27 kg/h2DfxjpjppqOhiohealth Berger Hospital03-28-2024 10:45-0400Body .4 [degF][facility]03-28-2024 10:45-0400Body dseega35 kgOhiohealth [facility] Hospital03-28-2024 10:45-0400Diastolic blood mlyvljzz40 mm[Hg][facility]03-28-2024 10:45-0400 Heart rate68 /[facility]03-28-2024 10:45-0400 Respiratory rate18 /[facility]03-28-2024 10:45-0400 SaO2% (BldA) [Mass fraction]97 %[facility]03-28-2024 10:45-0400Systolic blood moamqkjl780 mm[Hg][facility] 02-07-2022 15:00-0400Body kkegoy628.26 cmAbdul Mariam Other [place] [employer] Other 07-07-2022 15:00-0400Body mass index (BMI) [Ratio] 27.02 kg/h3Xzysy Mariam Other [employer] Other 07-07-2022 15:00-0400Body nesfbmdkpsj99 [degF]Praveen Mariam Other [employer] Other 07-07-2022 15:00-0400Body afpboj32.01 kgAbdul Mariam Other [employer] Other 07-07-2022 15:00-0400Diastolic blood mm[Hg] Praveen Mariam Other [employer] Other 07-07-2022 15:00-0400Respiratory rate18 /minAbdul Mariam Other [employer] Other 07-07-2022 15:00-7060GpC9% (BldA) [Mass fraction]92 % Praveen Mariam Other [employer] Other 07-07-2022 15:00-0400Systolic blood dxthylbr443 mm[Hg] Praveen Mariam Other [employer] Other Encounters Encounter DateEncounter TypeCare ProviderFacilityStart: 04-28-2025 End: 76-78-7596hqupahdjslAnfa J Aichholz NP-C Work Phone: [facility] Work Phone: Start: 04-28-2025 End: 39-92-2384Cwxvisr encounter procedureAntoinette [facility]WOOD[facility] Work Phone: Start: 81-90-4987Vwualag encounter procedureAntoinette Carrillo SALES FORCE DEVELOPER-C Work Phone: [facility] Hospitaltart: 03-24-2025 End: 61-30-5455LieqybBdci Aichholz SALES FORCE DEVELOPER Work Phone: noms CWM FMComment on above:Primary hypertensionStart: 02-11-2025 End: 15-51-5745HxldmkWnxa Gerardo SALES FORCE DEVELOPER Work Phone: noms CWM FMComment on above:Chronic obstructive pulmonary disease, unspecified COPD type (HCC); Centrilobular emphysema (HCC); Shortness of breathStart: 12-27-2024 End: 82-60-0735PgcozuFkej Aichholz SALES FORCE DEVELOPER Work Phone: noms CWM FMComment on above:Essential (primary) hypertension ([facility]/HCC); CKD stage 4 secondary to hypertension ([facility]/HCC)Start: 11-11-2024 End: 85-18-9771ohcgunxwisEaqncdpgzGrant Hospital Work Phone: Start: 11-11-2024 End: 69-95-0858Ivqloos encounter procedureCape Fear Valley [facility] Hospital Physician GroupCREEDMOOR [facility] Richy Work Phone: Start: 11-01-2024 End: 89-83-4690Jiwleikhw Result EncounterLisa Gerardo SALES FORCE DEVELOPER Work Phone: noms External Department UnsolicitedStart: 11-01-2024 End: 16-24-8341Rvtuqcbxl Result EncounterLisa Gerardo SALES FORCE DEVELOPER Work Phone: noms External Department UnsolicitedStart: 11-01-2024 Non-patient / Non-visitCape Fear Valley Hoke Hospital Physician GroupSkagit Regional [facility] Work Phone: Start: 10-26-2024 End: 54-01-2667pnseidcrplKRFM CARRIEot AvailableStart: 09-29-2024 End: 83-13-2999EfozikNhgj Zuleykahholz SALES FORCE DEVELOPER Work Phone: noms CWM FMComment on above:Essential (primary) hypertension (CMS/HCC); 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); Primary hypertension (CMS/HCC)Start: 09-27-2024 End: 79-34-4928EvigzrZcyc Zuleykahromeoz SALES FORCE DEVELOPER Work Phone: NOAZ CWM FMComment on above: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)Start: 07-24-2024 End: 60-54-7223MiivazKcfa Zuleykahholz SALES FORCE DEVELOPER Work Phone: [facility] CWM FMComment on above:Mixed hyperlipidemia (CMS/HCC)Start: 06-01-2024 End: 29-38-5937AsupeuHdzk Aichholz SALES FORCE DEVELOPER Work Phone: NOEL CWM FMComment on above:Chronic obstructive pulmonary disease, unspecified COPD type (CMS/HCC); Centrilobular emphysema (CMS/HCC); Shortness of breathStart: 04-29-2024 End: 81-32-4648Opjxci flowsheetLisa Zuleykahromeoz SALES FORCE DEVELOPER Work Phone: [facility] CWM FMStart: 04-29-2024 End: 01-37-7570Pupdrj flowsheetLisa Zuleykahholz SALES FORCE DEVELOPER Work Phone: NOAW CWM FMStart: 04-29-2024 End: 29-12-7930bugwivvnkqKQYM ZULEYKAHHOLZNot AvailableStart: 04-29-2024 End: 99-56-1359Xexvgs outpatient visit 25 minutesLisa Gerardo SALES FORCE DEVELOPER Work Phone: [facility] CWM FMComment on above:Primary hypertension (CMS/HCC) (Primary Dx); 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); Benign prostatic hyperplasia with urinary obstruction; Secondary hyperparathyroidism of renal origin (CMS/HCC); DEMETRIO (generalized anxiety disorder) (CMS/HCC)Start: 04-16-2024 End: 65-13-3689YfuoveGyrb Naderer MD Work Phone: noms CWM FMComment on above:Primary hypertension (CMS/HCC)Start: 04-15-2024 End: 46-26-6418nksnwqarsyTlgoygzcnGrant Hospital Work Phone: Start: 04-15-2024 End: 67-99-2762Yiraetj encounter procedureCape Fear Valley Hoke Hospital Physician GroupCREEDMOOR [facility] Ne[facility] Richy Work Phone: Start: 04-08-2024 End: 54-09-0080IhzpudBfrx Aichholz SALES FORCE DEVELOPER Work Phone: noms CWM FMComment on above:Benign prostatic hyperplasia with urinary obstruction (Primary Dx)Start: 04-06-2024 End: 07-05-6032Drtqpbuce Result EncounterGeneric External Data ProviderNOMS External Department UnsolicitedStart: 04-06-2024 End: 39-95-9091Cliwfozhg Result EncounterGeneric External Data ProviderNOMS External Department UnsolicitedStart: 04-06-2024 End: 67-13-1250ocbrltvhtmKWLF AICHHOLZNot AvailableStart: 04-06-2024 End: 88-74-7608Orfise outpatient visit Arsh Carrillo SALES FORCE DEVELOPER Work Phone: noms CWM FMComment on above:Benign prostatic hyperplasia with urinary frequency (Primary Dx); DEMETRIO (generalized anxiety disorder) (CMS/HCC); Pneumonia of left lower lobe due to infectious organismStart: 21-14-9790Fez- patient / Non-visitCape Fear Valley [facility] Physician GroupSkagit [facility] Work Phone: Start: 04-01-2024 End: 00-82-7542KvdoqmWolz Aichholz SALES FORCE DEVELOPER Work Phone: noms CWM FMComment on above:Gastroesophageal reflux disease without esophagitis; Essential (primary) hypertension (CMS/HCC); 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)Start: 03-24-2024 End: 64-62-5881Yftyph flowsheetAntoinette Carrillo SALES FORCE DEVELOPER Work Phone: noms CWM FMStart: 03-24-2024 End: 74-56-6238Cpsama flowsheetLilly Zuleykatommychloe SALES FORCE DEVELOPER Work Phone: noms CWM FMStart: 03-24-2024 End: 07-72-2702Ndoiasmodzpf care manage srvc 7 day dischargeLilly Zuleykatommychloe SALES FORCE DEVELOPER Work Phone: noms CWM FMComment on above:Pneumonia of left lower lobe due to infectious organism (Primary Dx); Other emphysema (CMS/HCC); Malignant neoplasm of colon, unspecified (CMS/HCC); Secondary hyperparathyroidism of renal origin (CMS/HCC); Atherosclerosis of aorta (CMS/HCC); Primary hypertension (CMS/HCC); Coronary artery disease involving akhiok coronary artery of akhiok heart without angina pectoris (CMS/HCC)Start: 03-24-2024 End: 85-63-1218ukrjjomlcaAHBHHandy Diane AvailableStart: 03-21-2024 End: 04-81-3965Dih-patient / Non-visitCape [facility] Physician [facility] Work Phone: Start: 03-20-2024 End: 38-66-5298Akssyedeq Result EncounterGeneric External Data ProviderNONC External Department UnsolicitedStart: 03-20-2024 End: 88-31-5352Knbhqhmhz Result EncounterGeneric External Data ProviderNONC External Department UnsolicitedStart: 10-30-2023 End: 99-42-9172cdixvukdnrDdylmdccmGrant Hospital Work Phone: Start: 10-30-2023 End: 83-77-6947Oenoane encounter procedureCape Fear Valley [facility] Hospital Physician [facility] Richy Work Phone: Start: 39-77-0679Uyttccf encounter procedureGeneric ProviderNOMS HealthcareStart: 05-54-3723EkzzctYmwr Aichholz SALES FORCE DEVELOPER Work Phone: noms CWM FMComment on above:Primary hypertension (CMS/HCC) (Primary Dx); Essential (primary) hypertension (CMS/HCC); Benign essential hypertension (CMS/HCC)Start: 10-24-2022 End: 16-74-3980eouhvfhltvVF JIHAD ABBASFacility:W3Ssciv: 10-21-2022 End: 94-94-8694wtpehtimlfXD JIHAD ABBASFacility:L3Ursao: 10-09-2022 End: 22-17-7505ecwhuigzzlJLQ ANTOINETTE AICHHOLZFacility:O8Sjhdp: 09-12-2022 End: 84-73-1777hslsfwgbcoVGQ ANTOINETTE AICHHOLZFacility:N8Kwpzl: 09-03-2022 End: 46-16-3538oxululdwhbFVH ANTOINETTE AICHHOLZFacility:T7Lzrkp: 08-26-2022 End: 05-56-3580caelidwjzpJWCVC QADIRFacility:I7Lifeu: 02-11-2022 End: 91-84-6469awzaypzaszYLH ANTOINETTE AICHHOLZFacility:T2Bzdpj: 02-07-2022 End: 75-21-5497kqtgecmqxaYmdcd Mariam Other [place] [employer] Other Start: 98-75-7662Hpykvt outpatient visit 25 minutes Praveen QadirFPG Nephrology ClydeStart: 01-28-2022 End: 94-05-1413zblqqtvxvwDNBKM QADIRFacility:O9Buzff: 01-09-2022 End: 81-80-2884efhuaavlzuPMTWBO RODRIGUEZFacility:H1 Procedures DateProcedureProcedure DetailPerforming ClinicianStart: 68-34-8571GYX CBC WITH AUTO DIFFLisa Aichholz SALES FORCE DEVELOPER Work Phone: Start: 24-82-5374BZVM CBC WITH PLATELET NO DIFFERENTIALGeneric External Data ProviderStart: 17-97-7198JYZMB CULTURE 2 Generic External Data ProviderStart: 03-32-7405TIYZD CULTURE 1Generic External Data ProviderStart: 28-10-4701TIL screeningCNP ANTOINETTE GERARDOComment on above: Performed By: #### PSASC #### [facility] [address] [place] [address] Dr. Aliyah Fierro Plan of Treatment DateCare ActivityDetailAuthorStart: 10-27-2025 End: 29-38-2835Tezshta encounter gyqjcdiqz59/26/2026 10:00 AM EDT Office Visit [facility] [address] [place] [address] Antoinette Carrillo, FABRICIO [address] [place] [address] [facility] CW FMStart: 03-25-2026Medicare Annual Wellness (AWV) Medicare Annual Wellness (AWV)NOMS HealthcareStart: 04-28-2025 End: 84-98-9297Owbsjuq encounter wfwaozplo83/25/2025 9:40 AM EDT Office Visit [facility] [address] [place] [address] Antoinette Carrillo, SALES FORCE DEVELOPER [address] [place] [address] [facility] CW FMStart: 10-26-2024 End: 50-46-5772Bseujeh encounter /25/2025 10:00 AM EDT Office Visit [facility] [address] [place] [address] Antoinette Carrillo, SALES FORCE DEVELOPER [address] [place] [address] [facility] FMStart: 03-13-2025Medicare Annual Wellness (AWV) Medicare Annual Wellness (AWV)NOMS HealthcareStart: 04-29-2024 End: 26-89-0380Thwjqxs encounter ottwpjydq00/26/2024 10:30 AM EDT Office Visit [facility] [address] [place] [address] Antoinette Carrillo, FABRICIO [address] [place] [address] [facility] CW FMStart: 04-20-2024 End: 61-89-0126Pustrfi encounter oldtptyjz40/17/2024 9:40 AM EDT Office Visit [facility] [address] [place] [address] Antoinette Carrillo, FABRICIO [address] [place] [address] [facility] CW FMStart: 04-06-2024 End: 47-73-8092Sufzkxl encounter pwgjjndgi14/03/2024 11:00 AM EDT [facility] [address] [place] [address] Antoinette Carrillo, FABRICIO [address] [place] [address] [facility] FMStart: 03-24-2024 End: 37-74-9409Bpcssil encounter procedureNOMS [facility] FMComment on above:Other emphysema (CMS/HCC); Malignant neoplasm of colon, unspecified (CMS/HCC); Secondary hyperparathyroidism of renal origin (CMS/HCC); Atherosclerosis of aorta (CMS/HCC)Start: 91-40-1712Ycvxnybck vaccination Influenza Vaccine (#1)[facility] HealthcareStart: 25-30-7751Mxnbuqbbrodw Vaccine: 65+ Years (1 - PCV)Pneumococcal Vaccine: 65+ Years (1 - PCV)[facility] HealthcareStart: 1942Medicare Annual Wellness (AWV)Medicare Annual Wellness (AWV)[facility] HealthcareBLOOD CULTURE 1BLOOD CULTURE 1 Lab Routine 03/20/2024 4:45 PM EDTNOMS HealthcareBLOOD CULTURE 2BLOOD CULTURE 2 Lab Routine 03/20/2024 5:07 PM EDTNONC HealthcareRenal function 1999 panel - Serum or PlasmaFirPremier Health Miami [facility] Hospital NorthRenal function 1999 panel - Serum or PlasmaOhiohealth Berger HospitalRenal function 1999 panel - Serum or PlasmaP[facility]ers [facility] Immunizations Immunization DateImmunizationNotesCare [id number] GOOH-BlF-1Gwekgoq ProviderNONC Healthcare Payers DatePayer CategoryPayerPolicy ID2007Medicare [id number] [id number] Health [id number] [id number] 2.0.1.622[id number] 2.0.1.426244.3.57[id number] 2.0.1.071850.3.57[id number] 2.840.1.234344.3.57[id number] 2.840.1.884432.3.57[id number] 2.840.1.177693.3.57[id number] 2.840.1.707187.3.57[id number] 2.840.1.999126.3.57[id number] 2.840.1.529050.3.57[id number] 2.840.1.038584.3.57[id number] 2.16.840.1.998335.3.57[id number] 2.16.840.1.005984.3.57[id number] 2.16.840.1.886897.3.579.2.1259Self-paySelf Pay [id number] Social History DateTypeDetailFacilityUnknown if ever smokedNocox monett [employer] Other Start: 10-15-2023 End: 69-67-4290Gbz Assigned At BirthNONC HealthcareTobacco smoking status NHIS Tobacco smoking consumption unknownNONC HealthcareStart: 26-66-8643Dtt Assigned At BirthNot on fileNONC HealthcareStart: 10-30-2023 End: 87-57-9330Bovwijl smoking status NHISEx-smoker (finding)[facility] Hospitaltart: 82-22-9675Gxn [facility]: 83-96-6120Cksqoqk smoking status NHISSmokes tobacco daily N[facility]S HealthcareHistory of tobacco useCigarette SmokerNONC HealthcareStart: 04-29-2024 End: 09-78-6120Hnabvvcbl beverage intakeEx-drinker (finding)[facility] Start: 10-15-2023 End: 26-40-0733Rkstxde of Social functionNOMS HealthcareWithin the last year, have you been afraid of your partner or ex-partner?NoNOMS HealthcareAre you now , , , , never or living with a partner? Patient unable to answerNOMS HealthcareHow often to you have a drink containing alcohol?NeverNOMS HealthcareDo you feel stress - tense, restless, nervous, or anxious, or unable to sleep at night because yourmind is troubled all the time - these days [OSQ]Only a littleNOMS Healthcare(I/We) worried whether (my/our) food would run out before (I/we) got money to buy more.Never trueNOMS Healthcare Start: 97-46-5545Qxfedbv Comment6-10 cigarettes/dayNOMS HealthcareStart: 44-66-2903Znjnutk Commentcaffeine 1-2 cups per dayNOMS HealthcareStart: 29-52-2955MzeZviu (finding)[facility] Clinical Notes 12-11-2020 to 04-29-2024 Note Date & ZdipItobHtnqwjdr14-16-2897 History of Present illness Narrative* Antoinette Carrillo NP - 04/29/2024 11:22 AM EDTAssociated Problem(s): DEMETRIO (generalized anxiety disorder) (CMS/HCC) Doing well on current meds * Antoinette Carrillo NP - 04/29/2024 11:21 AM EDTAssociated Problem(s): Secondary hyperparathyroidism of renal origin (CMS/HCC) Cont with nephrology * Antoinette Carrillo NP - 04/29/2024 11:21 AM EDTAssociated Problem(s): 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) Continue with nephrology * Antoinette Carrillo NP - 04/29/2024 11:21 AM EDTAssociated Problem(s): Benign prostatic hyperplasia with urinary obstruction Does feel he is doing better and does not want to take any medication for this condition * Antoinette Carrillo NP - 04/29/2024 11:16 AM EDTAssociated Problem(s): Primary hypertension (CMS/HCC) Stable * DHAVAL RICHARDS - 04/29/2024 10:30 AM EDT 93-95 O2 * Antoinette Carrillo NP - 04/29/2024 10:30 AM EDT Images from the original note were not included. Bennett Amaya is a 84 y.o. male presents with chief complaint of No chief complaint on file. HPI: Recovered from pneumonia Did not take the flomax, tried 3 times gave him terrible nightmares, feels his urination is doing better Hypertension This is a chronic problem. The problem is unchanged. The problem is controlled. Associated symptomsinclude anxiety and peripheral edema. Pertinent negatives include no chest pain, headaches, malaise/fatigue, neck pain, palpitations or shortness of breath. There are no associated agents to hypertension. Risk factors for coronary artery disease include smoking/tobacco exposure. Past treatments include beta blockers and angiotensin blockers. The current treatment provides significant improvement.Hypertensive end-organ damage includes kidney disease. There is no history of CAD/GA. Anxiety Presents for follow-up visit. Symptoms include nervous/anxious behavior. Patient reports no chest pain, compulsions, decreased concentration, dizziness, excessive worry, irritability, muscle tension,palpitations, restlessness, shortness of breath or suicidal ideas. Symptoms occur occasionally. Theseverity of symptoms is mild. The quality of [...] Past Medical History: Diagnosis Date Centrilobular emphysema ([facility]) 07/30/2023 COPD (chronic obstructive pulmonary disease) ([facility]) 10/15/2023 History of degenerative disc disease 10/15/2023 Pneumonia of left lower lobe due to infectious organism 03/24/2024 Small vessel disease ([facility]) 10/15/2023 Tachycardia 10/15/2023 Past Surgical History: Procedure [...] Stable CKD stage 4 secondary to hypertension ([facility]/HCC) Continue with nephrology DEMETRIO (generalized anxiety disorder) (CMS/HCC) Doing well on current meds Secondary hyperparathyroidism of renal origin (CMS/HCC) Cont with nephrology Benign prostatic hyperplasia with urinary obstruction Does feel he is doing better and does not want to take any medication for this condition documented in this encounterHermann Area District HospitalNvhvglrxgf24-71-3116 History of Present illness Narrative* Antoinette Carrillo NP - 04/06/2024 2:24 PM EDTAssociated Problem(s): Pneumonia of left lower lobe due to infectious organism Feeling much better back to his baseline activities As- well as breathing * Antoinette Carrillo NP - 04/06/2024 11:00 AM EDT Images from the original note were not included. Bennett Amaya is a 84 y.o. male presents [...] discharge, flank pain, hematuria, hesitancy, nausea, sweats, urgencyor vomiting. SUBJECTIVE: MEDICATIONS: Current Outpatient Medications Medication [...] abdominal distention, blood in stool, constipation, diarrhea, nauseaand vomiting. Genitourinary: Positive for frequency. Negative for [...] Past Medical History: Diagnosis Date Centrilobular emphysema ([facility]) 07/30/2023 COPD (chronic obstructive pulmonary disease) ([facility]) 10/15/2023 History of degenerative disc disease 10/15/2023 Small vessel disease ([facility]) 10/15/2023 Tachycardia 10/15/2023 Past Surgical History: Procedure [...] MG 24 hr capsule documented in this encounterHermann Area District HospitalVnizbzvdcz62-50-7322 History of Present illness Narrative* Antoinette Carrillo NP - 03/24/2024 12:00 PM EDTAssociated Problem(s): Coronary artery disease involving akhiok coronary artery of ak[place] heart with out angina pectoris (CMS/HCC) Reviewed the CT chest [...] if I tomorrow I do not care * Antoinette Carrillo NP - 03/24/2024 11:58 AM EDTAssociated Problem(s): Primary hypertension (CMS/HCC) stable * Antoinette Carrillo NP - 03/24/2024 11:58 AM EDTAssociated Problem(s): Pneumonia of left lower lobe due to infectious organism TCM fu, reviewed ER notes/hospital notes,and CT scan Finish atb, and steroids Fu in 2 weeks for recheck * Antoinette Carrillo NP - 03/24/2024 10:30 AM EDT Images from the original note were not included. Bennett Amaya is a 84 y.o. male presents [...] Past Medical History: Diagnosis Date Centrilobular emphysema ([facility]) 07/30/2023 COPD (chronic obstructive pulmonary disease) ([facility]) 10/15/2023 History of degenerative disc disease 10/15/2023 Small vessel disease ([facility]) 10/15/2023 Tachycardia 10/15/2023 Past Surgical History: Procedure [...] weeks for recheck Coronary artery disease involving akhi[place] coronary artery of [place] heart without angina pectoris (CMS/HCC) Reviewed the [...] if I tomorrow I do not care * Antoinette Carrillo NP - 03/24/2024 7:21 AM EDTAssociated Problem(s): Other emphysema (CMS/HCC) Per CT findings * Antoinette Carrillo NP - 03/24/2024 7:21 AM EDTAssociated Problem(s): Secondary hyperparathyroidism of renal origin (CMS/HCC) Continue with nephrology * Antoinette Carrillo NP - 03/24/2024 7:20 AM EDTAssociated Problem(s): Malignant neoplasm of colon, unspecified (CMS/HCC) Had in the past declines fu with colonoscopy * Antoinette Carrillo NP - 03/24/2024 7:20 AM EDTAssociated Problem(s): Atherosclerosis of aorta (CMS/HCC) Noted on scans documented in this encounterHermann Area District [id number] Evaluation note* Encounter Date Diagnosis Assessment Notes Treatment Notes Treatment Clinical Notes Feb, Chronic kidney disease, stage 3b (ICD-10 - N18.32) He has CKD due to longstanding hypertension His serum creatinine is 2.2 mg/dL above his baseline b/l Serum creatinine is 1.9 mg/dl. This may be due to the hemodynamic changes or progression of CKD. His renal ultrasound showed right- sided nephrolithiasis with no hydronephrosis and unremarkable left kidney. I discussed with the importance of good HTN control to surround the progression of CKD. Feb,en hy kid w cr kid I-IV (ICD-10 - I12.9)Blood pressure is controlled. He appears to be euvolemic. Continue current medications. I have advised him to monitor his weight if he start getting weight or develops leg swelling then resume Lasix or call office. 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 He has adequate iron stores . No need for MARC. 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 Feb,Gout (ICD-10 - M10.9)Will monitor without medications. Will restart allopurinol if he has a gout flare. [employer] Other 05-10-2021 NoteUrology Cystoscopy Cystoscopy is a [...] including vitamins, herbs, eye drops, creams, and blbk-deo-oksdbvy medicines. ? Any problems you or family [...] tells you to take them. ? Taking hjlz-qut-jvokgav medicines, vitamins, herbs, and supplements. ? Follow [...] these instructions at home: Medicines ? Take hxny-ufw-cyjjste and prescription medicines only as told by [...] care provider. This is importa (more content notincluded)...[facility] * Diagnosis Primary hypertension (CMS/HCC)- Primary Unspecified essential hypertension Essential (primary) hypertension (CMS/HCC) Unspecified essential hypertension Benign essential hypertension (CMS/HCC) Essential hypertension, benign documented in this encounter [facility] HealthcareEvaluation note* Diagnosis Onset Date Resolution Status Anemia of renal disease acuteCKD (chronic kidney disease) stage 4, GFR 15-29 ml/minacuteGoutacute CkxpdptwdtclmjpdbpeUJB-ELJT-[id number] hyperparathyroidismacute [facility] Work Phone: Evaluation note* Diagnosis Encounter for [...] Unspecified essential hypertension Coronary artery disease involving [place] coronary artery of [place] heart without angina pectoris (CMS/HCC) Primary hypertension (CMS/HCC)- Primary Unspecified essential hypertension 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) Secondary hyperparathyroidism (of renal origin) DEMETRIO (generalized anxiety disorder) (CMS/HCC) Generalized anxiety disorder Chronic obstructive pulmonary disease, unspecified COPD type (CMS/HCC) Centrilobular emphysema (CMS/HCC) Shortness of breath documented in this encounter [facility] HealthcareEvaluation note* Diagnosis Primary hypertension (CMS/HCC) Unspecified [...] Unspecified essential hypertension Coronary artery disease involving [place] coronary artery of [place] heart without angina pectoris (CMS/HCC) documented in [...] Unspecified essential hypertension Coronary artery disease involving [place] coronary artery of [place] heart without angina pectoris (CMS/HCC) Primary hypertension (CMS/HCC)- Primary Unspecified essential hypertension 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) Secondary hyperparathyroidism (of renal origin) DEMETRIO (generalized anxiety disorder) (CMS/HCC) Generalized anxiety disorder Mixed hyperlipidemia (CMS/HCC) Mixed hyperlipidemia documented in this encounter [facility] HealthcareEvaluation note* Diagnosis Encounter for subsequent annual [...] Unspecified essential hypertension Coronary artery disease involving [place] coronary artery of [place] heart without angina pectoris (CMS/HCC) Primary hypertension (CMS/HCC)- Primary Unspecified essential hypertension 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) Secondary hyperparathyroidism (of renal origin) DEMETRIO (generalized anxiety disorder) (CMS/HCC) Generalized anxiety disorder Idiopathic chronic gout of multiple sites without tophus- Primary documented in this encounter [facility] HealthcareEvaluation note* Diagnosis Encounter for subsequent annual [...] Unspecified essential hypertension Coronary artery disease involving [place] coronary artery of [place] heart without angina pectoris (CMS/HCC) Primary hypertension [...] Unspecified essential hypertension documented in this encounter [facility] HealthcareEvaluation note* Diagnosis Onset Date Resolution Status Admit Date Anemia of renal disease acuteApril 2024 12:38pmCKD (chronic kidney disease) stage 4, GFR 15-29 ml/minacuteApril 2024 12:38pmGoutacuteApril 2024 12:38pm HyperlipidemiaacuteApril 2024 12:38pmHypertensive chronic kidney disease with stage 1 through stage 4 chronic kiacuteApril 2024 12:38pmSecondary hyperparathyroidismacuteApril 2024 12:38pm [facility] Work Phone: Evaluation note* Diagnosis Encounter for [...] Other emphysema Malignant neoplasm of colon, unspecified Secondary hyperparathyroidism of renal origin (CMS/HCC) Secondary hyperparathyroidism (of renal origin) Atherosclerosis of aorta (CMS/HCC) Atherosclerosis of aorta Primary hypertension (CMS/HCC) Unspecified essential hypertension Coronary artery disease involving [place] coronary artery of [place] heart without angina pectoris (CMS/HCC) Primary hypertension (CMS/HCC)- Primary Unspecified essential hypertension 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) Secondary hyperparathyroidism (of renal origin) DEMETRIO (generalized anxiety disorder) (CMS/HCC) Generalized anxiety disorder Encounter for subsequent annual wellness visit (AWV) in Medicare patient- Primary Centrilobular emphysema (CMS/HCC) Coronary artery disease involving [place] coronary artery of [place] heart without angina pectoris (CMS/HCC) Primary hypertension (CMS/HCC) Unspecified essential hypertension 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) DEMETRIO (generalized anxiety disorder) (CMS/HCC) Generalized anxiety disorder Mixed hyperlipidemia (CMS/HCC) Mixed hyperlipidemia Elevated PSA Elevated prostate specific antigen (PSA) Screening for prostate cancer Special screening for malignant neoplasm of prostate Essential (primary) hypertension (CMS/HCC) Unspecified essential hypertension 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) documented in this encounter [facility] HealthcareEvaluation note* Diagnosis Encounter for subsequent annual wellness visit (AWV) in Medicare patient- Primary Screening for prostate cancer Special screening for malignant neoplasm of prostate Mixed hyperlipidemia Mixed hyperlipidemia CKD stage 4 secondary to hypertension (HCC) Gastroesophageal reflux disease without esophagitis Esophageal reflux Primary hypertension Unspecified essential hypertension Chronic obstructive pulmonary disease, unspecified COPD type (HCC) Bilateral carotid artery stenosis Occlusion and stenosis of carotid artery without mention of cerebral infarction Idiopathic chronic gout of multiple sites without tophus- Primary Pneumonia of left lower lobe due to infectious organism- Primary Other emphysema (HCC) Other emphysema Malignant neoplasm of colon, unspecified (HCC) Secondary hyperparathyroidism of renal origin (HCC) Secondary hyperparathyroidism (of renal origin) Atherosclerosis of aorta Primary hypertension Unspecified essential hypertension Coronary artery disease involving [place] coronary artery of [place] heart without angina pectoris Primary hypertension- Primary Unspecified essential hypertension CKD stage 4 secondary to hypertension (HCC) 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 (HCC) Secondary hyperparathyroidism (of renal origin) DEMETRIO (generalized anxiety disorder) Generalized anxiety disorder Encounter for subsequent annual wellness visit (AWV) in Medicare patient- Primary Centrilobular emphysema (HCC) Coronary artery disease involving [place] coronary artery of [place] heart without angina pectoris Primary hypertension Unspecified essential hypertension CKD stage 4 secondary to hypertension (HCC) DEMETRIO (generalized anxiety disorder) Generalized anxiety disorder Mixed hyperlipidemia Mixed hyperlipidemia Elevated PSA Elevated prostate specific antigen (PSA) Screening for prostate cancer Special screening for malignant neoplasm of prostate Chronic obstructive pulmonary disease, unspecified COPD type (HCC) Centrilobular emphysema (HCC) Shortness of breath documented in this encounter [facility] HealthcareEvaluation note* Diagnosis Encounter for subsequent annual wellness visit (AWV) in Medicare patient- Primary Screening for prostate cancer Special screening for malignant neoplasm of prostate Mixed hyperlipidemia Mixed hyperlipidemia CKD stage 4 secondary to hypertension (HCC) Gastroesophageal reflux disease without esophagitis Esophageal reflux Primary hypertension Unspecified essential hypertension Chronic obstructive pulmonary disease, unspecified COPD type (HCC) Bilateral carotid artery stenosis Occlusion and stenosis of carotid artery without mention of cerebral infarction Idiopathic chronic gout of multiple sites without tophus- Primary Pneumonia of left lower lobe due to infectious organism- Primary Other emphysema (HCC) Other emphysema Malignant neoplasm of colon, unspecified (HCC) Secondary hyperparathyroidism of renal origin (HCC) Secondary hyperparathyroidism (of renal origin) Atherosclerosis of aorta Primary hypertension Unspecified essential hypertension Coronary artery disease involving [place] coronary artery of [place] heart without angina pectoris Primary hypertension- Primary Unspecified essential hypertension CKD stage 4 secondary to hypertension (HCC) 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 (HCC) Secondary hyperparathyroidism (of renal origin) DEMETRIO (generalized anxiety disorder) Generalized anxiety disorder Encounter for subsequent annual wellness visit (AWV) in Medicare patient- Primary Centrilobular emphysema (HCC) Coronary artery disease involving [place] coronary artery of [place] heart without angina pectoris Primary hypertension Unspecified essential hypertension CKD stage 4 secondary to hypertension (HCC) DEMETRIO (generalized anxiety disorder) Generalized anxiety disorder Mixed hyperlipidemia Mixed hyperlipidemia Elevated PSA Elevated prostate specific antigen (PSA) Screening for prostate cancer Special screening for malignant neoplasm of prostate Primary hypertension Unspecified essential hypertension documented in this encounter [facility] HealthcareEvaluation note* Diagnosis Onset Date Resolution Status Admit Date Centrilobular emphysema acuteSept2024 9:43amHTN (hypertension)acuteSept2024 9:43amMixed hyperlipidemiaacuteSept2024 9:43amPanic attackacute April 28, 2025 9:43am [facility] Work Phone: History general Narrative - Reported* Type Description Date Medical History HYPERTENSION Medical HistoryCOLON CANCERMedical HistoryANXIETYMedical HistoryGERD WITHOUT ESOPHAGITISMedical HistoryCOPDMedical HistoryPERIPHERAL EDEMAMedical History FACIAL RASHMedical HistoryHYPERLIPIDEMIAMedical HistoryGOUT ARTHRITISMedical HistoryCKD STAGE 4 SECONDARY TO HYPERTENSIONMedical HistoryEOSINOPHILIAMedical HistoryCA SKIN BASAL CELLMedical HistoryMULTIPLE PULMONARY NODULESMedical HistoryCOVID urgical HistoryCOLON RESECTION FOR COLON CANCERSurgical HistoryLASIK BILATERALLYHospitalization HistorySEE ABOVE [employer] Other Reason for referral (narrative)No reason for referral information availableMemorial Health System Work Phone: Summary Purpose Family History Relationship Condition Age at Onset Recorded Date/T dianne brother Hypertension Unknown daughterFamily history of mental disorderUnknownfatherMalignant neoplasmUnknown Malignant neoplasm of urinary bladderUnknownDeceasedUnknownfamily memberDeceased UnknownNot SpecifiedDeceasedUnknown Relationship Condition Age at Onset Recorded Date/T dianne brother Hypertension Unknown daughterFamily history of mental disorderUnknownfatherMalignant neoplasmUnknown Malignant neoplasm of urinary bladderUnknownDeceasedUnknownfamily memberDeceased UnknownmotherDeceasedUnknown Advance Directives Advance Directive Response Recorded Date/ Time Advance Directives No September 02, 2023 6:25pm Chief Complaint and Reason for Visit Chief Complaint RENAL 6 month Follow up Reason for Visit Anemia of renal dise ase CKD (chronic kidney disease) stage 4, GFR 15-29 ml/min Gout Hyperlipidemia [id number] Secondary hyperparathyroidism Chief Complaint RENAL 6 MONTH F/U Reason for Visit Anemia of renal dise ase CKD (chronic kidney disease) stage 4, GFR 15-29 ml/min Gout Hyperlipidemia [id number] Secondary hyperparathyroidism Chief Complaint Admit Date RENAL 6 MONTH F/U November 11, 2024 12: 38pm Reason for Visit Admit Date Anemia of renal disease November 11, 2024 12:38pm CKD (chronic kidney disease) stage 4, GF R 15-29 ml/min November 11, 2024 12:38pm Gout November 11, 2024 12: 38pm Hyperlipidemia November 11, 2024 12: 38pm Hypertensive chronic kidney disease with stage 1 through stage 4 chronic ki November 11, 2024 12:38pm Secondary hyperparathyroidism November 12:38pm Chief Complaint Admit Date 6M April 28, 2025 9:43am Reason for Visit Admit Date Centrilobular emphysema April 28, 2025 9:43am HTN (hypertension) April 28, 2025 9:43am Mixed hyperlipidemia April 28 9:43am Panic attack April 28, 2025 9:43am Additional Source Comments (unrecognized sect ion and content) No Status Records FoundNo Status Records FoundNo Status Records Found INFORMATION SOURCE (unrecogn ized section and content) DATE CREATED AUTHOR 04/07/2021 [facility] DATE CREATED AUTHOR AUTHOR'S ORGANIZ ATION 10/27/[address] [facility] DATE CREATED AUTHOR AUTHOR'S ORGANIZ ATION 10/27/2024 [facility] REASON FOR VISIT (unrecogniz ed section and content) ReasonCommentsMed RefillReasonOnset DateCommentsMed [id number]/27/2024 Care Teams (unrecognized sec tion and content) Team Status: Active Member Role Status Dates Antoinette Carrillo Primary Care Provider Active Team Status: Active Member Role Status Dates Antoinette Carrillo Primary Care Provider Active Sta rt: March 21, 2024 End: March 22eve Kearns , DOAttending ProviderActiveStart: March 21, 2024 End: March 22, 2024HELENA Vallecilloeferring ProviderActiveStart: March 21, 2024 End: March 22, 2024 Team Status: Active Member Role Status Dates Antoinette Carrillo Primary Care Provider Active Sta rt: April 06, 2024 Praveen Conley MDAttending ProviderActiveStart: April 06, 2024 Team Status: Inactive Member Role Status Dates Antoinette Carrillo Primary Care Provider Active Sta rt: April 15, 2024 End: April 15bdul Mariam , MDAttending ProviderActiveStart: April 15, 2024 End: April 15, 2024Team MemberRelationshipSpecialtyStart DateEnd Date Wallace Hubbard [facility]23 Team Status: Inactive Member Role Status Dates Antoinette Carrillo Primary Care Provider Active Sta rt: October 30, 2023 End: October 29bdul Mariam , MDAttending ProviderActiveStart: October 30, 2023 End: October 30, 2023Team MemberRelationshipSpecialtyStart DateEnd Date Wallace Hubbard MD [address] [place] [address] PCP - [facility]10/15/23 Antoinette Carrillo NP [address] [place] [address] [facility]10/15/23Team MemberRelationshipSpecialtyStart DateEnd Date Wallace Hubbard MD [address] [place] [address] PCP - [facility]10/15/23 Antoinette Carrillo NP [address] [place] [address] [facility]10/15/23Team MemberRelationshipSpecialtyStart DateEnd Date Wallace Hubbard MD [address] [place] [address] [facility]10/15/23 Antoinette Carrillo NP [address] [place] [address] [facility]10/15/23Team MemberRelationshipSpecialtyStart DateEnd Date Wallace Hubbard MD [address] [place] [address] [facility]10/15/23 Antoinette Carrillo NP [address] [place] [address] [facility]10/15/23Team MemberRelationshipSpecialtyStart DateEnd Date Wallace Hubbard MD [address] [place] [address] [facility]10/15/23 Antoinette Carrillo NP [address] [place] [address] Nurse [facility]10/15/23Team MemberRelationshipSpecialtyStart DateEnd Date Wallace Hubbard MD [address] [place] [address] PCP - [facility]10/15/23 Antoinette Carrillo NP [address] [place] [address] [facility]10/15/23Team MemberRelationshipSpecialtyStart DateEnd Date Wallace Hubbard MD [address] [place] [address] [facility]10/15/23 Antoinette Carrillo NP [address] [place] [address] [facility]10/15/23Team MemberRelationshipSpecialtyStart DateEnd Date Wallace Hubbard MD [address] [place] [address] PCP - [facility]10/15/23 Antoinette Carrillo NP [address] [place] [address] [facility]10/15/23Team MemberRelationshipSpecialtyStart DateEnd Date Wallace Hubbard MD [address] [place] [address] PCP - [facility]10/15/23 Antoinette Carrillo NP [address] [place] [address] [facility]10/15/23Team MemberRelationshipSpecialtyStart DateEnd Date Wallace Hubbard MD [address] [place] [address] PCP - [facility]10/15/23 Antoinette Carrillo NP [address] [place] [address] [facility]10/15/23Team MemberRelationshipSpecialtyStart DateEnd Date Wallace Hubbard MD [address] [place] [address] PCP - [facility]10/15/23 Antoinette Carrillo NP [address] [place] [address] PCP - [facility]09/10/24 Antoinette Carrillo NP [address] [place] [address] [facility]10/15/23Team MemberRelationshipSpecialtyStart DateEnd Date Wallace Hubbard MD [address] [place] [address] PCP - [facility]10/15/23 Antoinette Carrillo NP [address] [place] [address] PCP - [facility]09/10/24 Antoinette Carrillo NP [address] [place] [address] [facility]10/15/23Team MemberRelationshipSpecialtyStart DateEnd Date Wallace Hubbard MD [address] [place] [address] [facility]10/15/23 Antionette Carrillo NP [address] [place] [address] PCP - [facility]09/10/24 Antoinette Carrillo NP [address] [place] [address] [facility]10/15/23 Team Status: Active Member Role Status Dates Antoinette J Zuleykatommychloe Primary Care Provider Active Sta rt: November 01, 2024 Praveenvaleria Conley YARELYdavyhelen ProviderActiveStart: November 01, 2024 Team Status: Inactive Member Role Status Dates Antoinette Carrillo Primary Care Provider Active Sta rt: November 11, 2024 End: November 11bdvaleria Mariam , YARELYttending ProviderActiveStart: November 11, 2024 End: November 11, 2024Team MemberRelationshipSpecialtyStart DateEnd Date Wallace Hubbard MD [address] [place] [address] PCP - [facility]10/15/23 Antoinette Carrillo NP [address] [place] [address] PCP - [facility]09/10/24 Antoinette Carrillo NP [address] [place] [address] [facility]10/15/23Team MemberRelationshipSpecialtyStart DateEnd Date Wallace Hubbard MD [address] [place] [address] [facility]CP - [facility]10/15/23 Antoinette Carrillo NP [address] [place] [address] PCP - [facility]09/10/24 Antoinette Carrillo NP [address] [place] [address] [facility]10/15/23Team MemberRelationshipSpecialtyStart DateEnd Date Wallace Hubbard MD [address] [place] [address] PCP - [facility]10/15/23 Antoinette Carrillo NP [address] [place] [address] PCP - [facility]09/10/24 Antoinette Carrillo NP [address] [place] [address] [facility]10/15/23 Team Status: Active Member Role Status Dates MANDIE Hall Primary Care Provider Active Team Status: Inactive Member Role Status Dates MANDIE Hall Primary Care Provider Active Start: April 28, 2025 End: April 28, 2025Antoinette Carrillo NP-CAttending ProviderActiveStart: April 28, 2025 End: April 28, 2025 Goals (unrecognized section and content) Goals may [...] BE BASED ON THE PRIMARY CLINICAL RECORDS. [facility]. provides no warranty or guarantee of the accuracy or completeness of information in this document.
[2025-05-30 08:35] LABS: Hematocrit 35.9 % (42.0-54.0); Hemoglobin 12.1 g/dL (14.0-18.0); Mean Corpuscular HGB Conc 33.7 g/dL (29.9-35.2); Mean Corpuscular Hemoglobin 29.7 pg (25.9-34.0); Mean Corpuscular Volume 88.0 fL (80.0-94.0); Platelet Count 283 10^3/uL (150-450); Red Blood Count 4.08 10^6/uL (4.70-6.10); White Blood Count 8.2 10^3/uL (4.0-11.0)
[2025-05-30 08:48] LABS: Glucose Urine UA NEGATIVE (NEGATIVE)
[2025-05-30 08:57] LABS: Protein Creatinine Ratio Urine 0.11; Total Protein Urine Random 11.1 mg/dL (<=11.9)
[2025-05-30 09:02] LABS: Albumin Level 3.8 g/dL (3.4-5.0); Anion Gap 14.1; Blood Urea Nitrogen 33.0 mg/dL (7.0-18.0); Calcium 8.9 mg/dL (8.5-10.1); Carbon Dioxide 27.5 mmol/L (21.0-32.0); Chloride 105 mmol/L (98-107); Estimated GFR (African America 38 (>=60 mL/min/1.73m^2); Estimated GFR (Non-African Ame 32 (>=60 mL/min/1.73m^2); Glucose 99 mg/dL (74-106); Magnesium 2.1 mg/dL (1.8-2.4); Potassium 4.6 mmol/L (3.5-5.1); Sodium 142 mmol/L (136-145); Uric Acid 7.7 mg/dL (3.5-7.2)
[2025-05-30 09:15] LABS: Cast Seen? SEEN #/LPF (NONE SEEN); Crystals Seen? None Seen #/HPF (None Seen)
[2025-05-30 09:38] LABS: Iron 80.0 ug/dL (65.0-175.0); Percent Iron Saturation 30.7 %; Total Iron Binding Capacity 261.0 ug/dL (250.0-450.0)
[2025-05-30 09:50] LABS: Ferritin 177.0 ng/mL (26.0-388.0)
== END 2025-05-30 07:46 | disposition home or self-care (01) ==
LOC: LAB 07:47
PROVIDERS: PCP Nurse Practitioner; Visit Provider Internal Medicine
DX: E78.5 Hyperlipidemia, unspecified (principal); N25.81 Secondary hyperparathyroidism of renal origin; N18.9 Chronic kidney disease, unspecified; D63.1 Anemia in chronic kidney disease; M10.9 Gout, unspecified; I12.9 Hypertensive chronic kidney disease with stage 1 through stage 4 chronic kidney disease, or unspecified chronic kidney disease
CPT/HCPCS: 36415; 80069; 81001; 82306; 82570; 82728; 83540; 83550; 83735; 83970; 84156; 84550; 85027